=== PATIENT | female | born 1960 | race Caucasian/White ===

== ENCOUNTER → 2017-09-27 14:53 | Outpatient (CLI) | payer BC, SELFPAY ==
--- NOTE | 2017-09-27 14:54 | BI_ITS ---
MAMMOGRAPHY - BILATERAL SCREENING 3-D MATTHEW SYNTHESIS REASON FOR EXAM: Female, 57 years old. Bilateral Screening 3-D tomosynthesis PERTINENT HISTORY: No significant family history. TECHNIQUE: 2-D mammograms and 3-D Matthew synthesis of the breast (s) were performed. CAD was performed. COMPARISON: August 01, 2016. FINDINGS: The breast composition is composed of scattered fibroglandular density. Bilateral implants appear intact. There are no dense spiculated masses or suspicious microcalcifications. No architectural distortion is identified. There is no skin thickening or retraction. There has been no significant change since the prior study. BI/SCREENING MAMM (CAD), BILAT IMPRESSION: No mammographic signs of malignancy. Routine yearly mammograms recommended. ASSESSMENT CATEGORY: BIRADS Category 2: Benign. A letter regarding these results will be sent to the patient by the facility within 30 days. FOLLOW UP RECOMMENDATION: Yearly follow up mammogram recommended. (A) Approximately 10% of breast cancers are not detected by mammography. A normal mammogram should not delay biopsy of a clinically suspicious abnormality. Electronically Signed: Layton Enrique MD at 7:45 EDT , Service support ,
== END ==
PROVIDERS: Family Provider Family Medicine; PCP Family Medicine; Visit Provider Family Medicine
DX: Z12.31 Encounter for screening mammogram for malignant neoplasm of breast (principal)
CPT/HCPCS: 77063; 77067

== ENCOUNTER → 2018-01-09 08:18 | Outpatient (CLI) | payer BC, SELFPAY ==
[2018-01-09 11:16] LABS: Anion Gap 10 (5-15); BUN 17 mg/dL (7-18); BUN/Creat Ratio 17.2 RATIO (10-20); Calcium,Total 9.4 mg/dL (8.5-10.1); Chloride 101 mmol/L (98-107); Creatinine, Serum 0.99 mg/dL (0.55-1.02); EST Glomerular Filtration Rate 62 mL/min (>60); Est Glom Filt Rate - Afr Amer 75 mL/min (>60); Glucose 96 mg/dL (74-106); Potassium 4.1 mmol/L (3.5-5.1); Sodium Level 140 mmol/L (136-145)
== END ==
PROVIDERS: Family Provider Family Medicine; PCP Family Medicine; Visit Provider Nurse Practitioner Family
DX: K29.70 Gastritis, unspecified, without bleeding (principal)
CPT/HCPCS: 36415; 80048

== ENCOUNTER → 2018-04-17 08:25 | Outpatient (CLI) | payer BC, SELFPAY ==
[2018-04-17 10:33] LABS: Vitamin D,25 Hydroxy 61.1 ng/mL (29.95-100.01)
[2018-04-17 10:54] LABS: Cholesterol 223 mg/dL (200); Free T3 2.7 pg/mL (2.18-3.98); High Density Lipoprotein 74 mg/dL; T4 Free Direct 0.77 ng/dL (0.76-1.46); Thyroid Stim Hormone (TSH) 0.42 uIU/mL (0.358-3.74); Triglycerides 73 mg/dL; Very Low Density Lipoprotein 15 mg/dL (5-40)
== END ==
PROVIDERS: Family Provider Family Medicine; PCP Family Medicine; Visit Provider Family Medicine
DX: E03.9 Hypothyroidism, unspecified (principal); I10 Essential (primary) hypertension; M85.80 Other specified disorders of bone density and structure, unspecified site
CPT/HCPCS: 36415; 80061; 82306; 84439; 84443; 84481

== ENCOUNTER → 2018-04-18 08:16 | Outpatient (CLI) | payer BC, SELFPAY ==
--- NOTE | 2018-04-18 08:18 | BD_ITS ---
STUDY: DUAL ENERGY X-RAY ABSORPTIOMETRY / DXA REASON FOR EXAM: Female, 57 years old. Early menopause. Loss of height. TECHNIQUE: Bone Mineral Density (BMD) measurements of lumbar spine and bilateral hips were obtained. COMPARISON: Comparison is made with prior study dated July 16, 2014. FINDINGS: Lumbar Spine (L1-L4): g/cm2 (0.926) / T-score (-2.1) / Z-score (-1.2) Findings are suggestive of osteopenia with a moderate fracture risk. Left Femur Total: g/cm2 (0.835) / T-score (-1.4) / Z-score (-0.6) Left Femoral Neck: g/cm2 (0.771) / T-score (-1.9) / Z-score (-0.8) Right Femur Total: g/cm2 (0.847) / T-score (-1.3) / Z-score (-0.5) Right Femoral Neck: g/cm2 (0.792) / T-score (-1.8) / Z-score (-0.7) The T-Scores on the most recent prior examination were: Lumbar Spine (L1-L4): There has been worsening of bone density since the previous examination. Left Femur Total: which represents a worsening of 3.7%. Right Femur Total: which represents a worsening of 2.1%. BD/Dexa Bone Density Study IMPRESSION: The patient is considered osteopenic as outlined below according to World [place] Organization (WHO) criteria with a moderate fracture risk. There has been worsening of bone density since the previous examination. Reference Information: The T-score is the number of standard deviations above or below the standard which is normal for young adults at their peak bone mineral density. The World Health Organization (WHO) interprets the T-scores as follows: Above -1 Normal bone density Between -1 and -2.5 Osteopenia Equal to / or below -2.5 Osteoporosis As a practical clinical guideline, osteopenia may be graded as follows: Mild -1 through -1.5 Moderate -1.6 through -2.0 Severe -2.1 through -2.4 The Z-score is the number of standard deviations above or below age-matched controls. A Z-score of less than -1.5 would be considered abnormal. References: 1. NIH Osteoporosis and Related Bone Diseases http://www.osteo.org 2. International Society for Clinical Densitometry http://www.iscd.org 3. National Osteoporosis Foundation http://www.nof.org Electronically Signed: Rojelio Gonzalez MD at 13:27 EST Tel [phone], Service support ,
== END ==
PROVIDERS: Family Provider Family Medicine; PCP Family Medicine; Referring Provider Family Medicine; Visit Provider Family Medicine
DX: Z00.00 Encounter for general adult medical examination without abnormal findings (principal)
CPT/HCPCS: 77080

== ENCOUNTER → 2018-11-07 | Outpatient (CLI) | payer BC, SELFPAY ==
--- NOTE | 2018-11-07 07:25 | BI_ITS ---
MAMMOGRAPHY - BILATERAL SCREENING REASON FOR EXAM: Female, 58 years old. Routine annual screening examination. PERTINENT HISTORY: Grandmother with breast cancer. TECHNIQUE: Digital bilateral breast matthew (3D mammographic acquisition) in the CC and MLO projections. 2-D mediolateral oblique (MLO) and craniocaudad (CC) views of both breasts were obtained. CAD: Full Field Digital Mammography with Computer Added Detection was performed. COMPARISON: Comparison is made with prior study dated September 27, 2017 and August 01, 2016. FINDINGS: Breast Composition: There are scattered areas of fibroglandular density. There are no dominant masses or suspicious calcifications. Stable appearance of the bilateral breast implants. No other significant abnormalities are identified. There has been no significant change since the prior study. BI/SCREEN MAMM (CAD) W/MATTHEW BILAT IMPRESSION: Stable bilateral screening mammogram. Yearly follow-up mammogram recommended. (A) ASSESSMENT CATEGORY: BIRADS Category 2: Benign. A letter regarding these results will be sent to the patient by the facility within 30 days. Approximately 10% of breast cancers are not detected by mammography. A normal mammogram should not delay biopsy of a clinically suspicious abnormality. [id number] Electronically Signed: Rojelio Gonzalez, at 9:42 EDT , Service support ,
== END | disposition home or self-care (01) ==
PROVIDERS: Family Provider Family Medicine; PCP Family Medicine; Referring Provider Family Medicine; Visit Provider Family Medicine
DX: Z12.31 Encounter for screening mammogram for malignant neoplasm of breast (principal)
CPT/HCPCS: 77063; 77067

== ENCOUNTER → 2019-06-17 08:11 | Outpatient (CLI) | payer BC, SELFPAY ==
[2019-06-17 10:27] LABS: Hematocrit 41.6 % (37-47); Hemoglobin 13.7 g/dL (12.0-15.0); Mean Corp Hgb Conc 32.9 g/dL (32-36); Mean Corpuscular Hgb 30.2 pg (27.0-32.0); Mean Corpuscular Volume 91.8 fL (81-99); Mean Platelet Vol. 10.8 fl (6.2-12.0); Platelet Count 211 K/mm3 (150-450); RBC Distribution Width CV 12.8 % (11.6-14.6); Red Blood Count 4.53 M/mm3 (4.2-5.4); White Blood Count 4.9 K/mm3 (4.4-11.0)
[2019-06-17 10:49] LABS: Vitamin D,25 Hydroxy 54.1 ng/mL (29.95-100.01)
[2019-06-17 11:00] LABS: Anion Gap 6 (5-15); BUN 19 mg/dL (7-18); BUN/Creat Ratio 19.5 RATIO (10-20); Calcium,Total 9.5 mg/dL (8.5-10.1); Chloride 106 mmol/L (98-107); Cholesterol 232 mg/dL (200); Creatinine, Serum 0.98 mg/dL (0.55-1.02); EST Glomerular Filtration Rate 62 mL/min (>60); Est Glom Filt Rate - Afr Amer 75 mL/min (>60); Glucose 86 mg/dL (74-106); High Density Lipoprotein 87 mg/dL; Potassium 4.1 mmol/L (3.5-5.1); Sodium Level 140 mmol/L (136-145); T4 Free Direct 0.88 ng/dL (0.76-1.46); Thyroid Stim Hormone (TSH) 0.47 uIU/mL (0.358-3.74); Triglycerides 80 mg/dL; Very Low Density Lipoprotein 16 mg/dL (5-40)
== END ==
PROVIDERS: Family Provider Family Medicine; PCP Family Medicine; Referring Provider Family Medicine; Visit Provider Family Medicine
DX: I10 Essential (primary) hypertension (principal); E03.9 Hypothyroidism, unspecified; M85.80 Other specified disorders of bone density and structure, unspecified site
CPT/HCPCS: 36415; 80048; 80061; 82306; 84439; 84443; 85027

== ENCOUNTER → 2019-06-18 09:57 | Outpatient (CLI) | payer BC, SELFPAY ==
--- NOTE | 2019-06-18 10:18 | RAD_ITS ---
STUDY: X-RAY - PELVIS REASON FOR EXAM: Female, 59 years old. INFLAMMATORY POLYARTHROPATHY TECHNIQUE: One view of the pelvis was obtained. COMPARISON: None. FINDINGS: There is a non-specific bowel gas pattern. Normal visualized soft tissue structures. Normal bilateral iliac wings, sacroiliac joints and visualized sacrum. Normal visualized bilateral superior and inferior pubic rami. Normal pubic symphysis. Normal ischial tuberosities. Normal visualized right femoral head. Normal right acetabulum. Normal right hip joint. Normal visualized left femoral head. Normal left acetabulum. Normal left hip joint. RAD/Pelvis 1 or 2 Views IMPRESSION: Normal x-ray examination of the pelvis. Electronically Signed: Villa Stark MD at 22:01 EST , Service support ,
--- NOTE | 2019-06-18 10:18 | RAD_ITS ---
STUDY: X-RAY - LEFT SHOULDER REASON FOR EXAM: Female, 59 years old. INFLAMMATORY POLYARTHROPATHY TECHNIQUE: 4 view(s) of the shoulder. COMPARISON: None. FINDINGS: There is mild degenerative arthrosis of the glenohumeral articulation. There is degenerative arthrosis of the acromioclavicular joint without inferior osseous spur formation. Normal acromion. Normal humeral head and visualized proximal humerus. The soft tissue structures are unremarkable. There is no demonstrated fracture. Normal visualized pulmonary apex. RAD/Shoulder min 2 Views IMPRESSION: Degenerative changes. No acute fracture, dislocation, or evidence for inflammatory arthropathy. Electronically Signed: Villa Stark MD at 22:01 EST , Service support ,
--- NOTE | 2019-06-18 10:18 | RAD_ITS ---
STUDY: X-RAY - RIGHT HAND REASON FOR EXAM: Female, 59 years old. INFLAMMATORY POLYARTHROPATHY TECHNIQUE: 3 view(s) of the hand. COMPARISON: None. FINDINGS: Normal radiocarpal articulation. Normal distal radioulnar joint. Normal visualized carpal bones. Normal carpal articulations Normal carpometacarpal articulation of the thumb. Normal second through fifth carpometacarpal joints. Normal metacarpi. Normal metacarpophalangeal joint of the thumb. Normal interphalangeal joint of the thumb. Normal proximal and distal phalanges of the thumb. Normal metacarpophalangeal joints of the second through fifth fingers. Normal proximal and distal interphalangeal joints of the second through fifth fingers. Normal phalanges of the second through fifth fingers. The soft tissue structures are unremarkable. RAD/Hand Min 3 Views IMPRESSION: Normal x-ray examination of the hand. Electronically Signed: Villa Stark MD at 22:04 EST , Service support ,
--- NOTE | 2019-06-18 10:35 | RAD_ITS ---
STUDY: X-RAY - LEFT HAND REASON FOR EXAM: Female, 59 years old. INFLAMMATORY POLYARTHROPATHY TECHNIQUE: 3 view(s) of the hand. COMPARISON: None. FINDINGS: Normal radiocarpal articulation. Normal distal radioulnar joint. Normal visualized carpal bones. 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 Normal second through fifth carpometacarpal joints. Normal metacarpi. Normal metacarpophalangeal joint of the thumb. Normal interphalangeal joint of the thumb. Normal proximal and distal phalanges of the thumb. Normal metacarpophalangeal joints of the second through fifth fingers. Normal proximal and distal interphalangeal joints of the second through fifth fingers. Normal phalanges of the second through fifth fingers. The soft tissue structures are unremarkable. RAD/Hand Min 3 Views IMPRESSION: No acute fracture or dislocation. Severe degenerative changes at the base of the thumb. No evidence for inflammatory arthropathy. Electronically Signed: Villa Stark MD at 22:04 EST , Service support ,
[2019-06-18 12:21] LABS: Erythrocyte Sedimentation Rate 2 mm/hr (0-30)
[2019-06-18 12:25] LABS: Absolute Lymphocyte Count 1.64 X10^3/uL (0.83-4.51); Absolute Neutrophil Count 2.6 X10^3/uL (2.0-7.7); Basophil# 0.03 X10^3/uL; Basophil% 0.6 % (0-1); Eosinophils% 2.1 % (0-5); Hematocrit 40.6 % (37-47); Hemoglobin 13.2 g/dL (12.0-15.0); Lymphocyte # 1.64 X10^3/ul (4.0); Lymphocyte % 34.8 % (19-41); Mean Corp Hgb Conc 32.5 g/dL (32-36); Mean Corpuscular Hgb 29.6 pg (27.0-32.0); Mean Platelet Vol. 10.8 fl (6.2-12.0); Monocyte# 0.33 X10^3/uL; NRBC Flagged by Analyzer 0 % (0-5); Neutrophil % 55.3 % (47-70); Platelet Count 196 K/mm3 (150-450); RBC Distribution Width CV 12.8 % (11.6-14.6); RBC Distribution Width SD 42.8 fl (35.1-43.9); Red Blood Count 4.46 M/mm3 (4.2-5.4); White Blood Count 4.7 K/mm3 (4.4-11.0)
[2019-06-18 12:36] LABS: ALB/GLOB Ratio 1.1 RATIO (0.9-2.4); AST(SGOT) 26 U/L (15-37); Alanine Aminotransfer ALT/SGPT 28 U/L (13-56); Alkaline Phosphatase 52 U/L (45-117); Anion Gap 2 (5-15); BUN 18 mg/dL (7-18); BUN/Creat Ratio 18.4 RATIO (10-20); CRP < 2.90 mg/L (0.0-3.0); Chloride 105 mmol/L (98-107); Creatinine, Serum 0.98 mg/dL (0.55-1.02); EST Glomerular Filtration Rate 62 mL/min (>60); Est Glom Filt Rate - Afr Amer 75 mL/min (>60); Globulin 3.5 g/dL (2.2-4.2); Glucose 90 mg/dL (74-106); Potassium 3.9 mmol/L (3.5-5.1); Protein, Total 7.5 g/dL (6.4-8.2); Rheumatoid Factor < 10.0 IU/mL (<15); Sodium Level 139 mmol/L (136-145)
[2019-06-18 13:21] LABS: Hepatitis B Surface Antibody Reactive; Hepatitis B Surface Antigen Non-Reactive (Nonreactive); Hepatitis C Antibody Non-Reactive (Nonreactive)
[2019-06-19 12:07] LABS: SJOGREN'S Anti-SS-A test < 0.2 AI (0.0-0.9); SJOGREN'S Anti-SS-B test < 0.2 AI (0.0-0.9)
[2019-06-19 13:11] LABS: ANTINUCLEAR ANTIBODIES DIRECT Negative (Negative)
[2019-06-20 13:39] LABS: CCP IgG Antibodies 7 units (0-19)
== END ==
PROVIDERS: Family Provider Family Medicine; PCP Family Medicine; Referring Provider Internal Medicine Rheumatology; Visit Provider Internal Medicine Rheumatology
DX: M06.4 Inflammatory polyarthropathy (principal); M35.00 Sjogren syndrome, unspecified; M18.0 Bilateral primary osteoarthritis of first carpometacarpal joints; M17.12 Unilateral primary osteoarthritis, left knee; M50.30 Other cervical disc degeneration, unspecified cervical region; M47.897 Other spondylosis, lumbosacral region; J30.9 Allergic rhinitis, unspecified; I10 Essential (primary) hypertension; E03.9 Hypothyroidism, unspecified; F32.9 Major depressive disorder, single episode, unspecified
CPT/HCPCS: 36415; 72170; 73030; 73130; 80053; 85025; 85652; 86038; 86140; 86200; 86235; 86431; 86706; 86803; 87340

== ENCOUNTER → 2019-09-12 | Outpatient (CLI) | payer BC, SELFPAY | END | disposition home or self-care (01) | LOC: LABSPEC 09:43 | PROVIDERS: PCP Family Medicine; Visit Provider Family Medicine | DX: B34.9 Viral infection, unspecified (principal) | CPT/HCPCS: 87635; U0004 ==

== ENCOUNTER → 2019-10-22 09:39 | Outpatient (CLI) | payer BC, SELFPAY ==
[2019-10-22 12:48] LABS: ALB/GLOB Ratio 1.4 RATIO (0.9-2.4); AST(SGOT) 33 U/L (15-37); Alanine Aminotransfer ALT/SGPT 33 U/L (13-56); Albumin, Serum 4.2 g/dL (3.2-5.0); Alkaline Phosphatase 51 U/L (45-117); Anion Gap 6 (5-15); BUN 23 mg/dL (7-18); BUN/Creat Ratio 21.1 RATIO (10-20); Calcium,Total 9.8 mg/dL (8.5-10.1); Chloride 105 mmol/L (98-107); Creatinine, Serum 1.09 mg/dL (0.55-1.02); EST Glomerular Filtration Rate 55 mL/min (>60); Est Glom Filt Rate - Afr Amer 66 mL/min (>60); Globulin 3.1 g/dL (2.2-4.2); Glucose 137 mg/dL (74-106); Potassium 5.1 mmol/L (3.5-5.1); Protein, Total 7.3 g/dL (6.4-8.2); Sodium Level 141 mmol/L (136-145)
[2019-10-22 12:50] LABS: Absolute Lymphocyte Count 1.45 X10^3/uL (0.83-4.51); Absolute Neutrophil Count 3.8 X10^3/uL (2.0-7.7); Basophil# 0.03 X10^3/uL; Basophil% 0.5 % (0-1); Eosinophil# 0.09 X10^3/uL; Eosinophils% 1.6 % (0-5); Hematocrit 41.7 % (37-47); Hemoglobin 13.7 g/dL (12.0-15.0); Lymphocyte # 1.45 X10^3/ul (4.0); Lymphocyte % 25.5 % (19-41); Mean Corp Hgb Conc 32.9 g/dL (32-36); Mean Corpuscular Hgb 30.6 pg (27.0-32.0); Mean Corpuscular Volume 93.1 fL (81-99); Monocyte# 0.35 X10^3/uL; Monocyte% 6.2 % (0-10); NRBC Flagged by Analyzer 0 % (0-5); Neutrophil # 3.76 X10^3/uL (2.7-7.7); Platelet Count 205 K/mm3 (150-450); RBC Distribution Width CV 12.9 % (11.6-14.6); RBC Distribution Width SD 43.8 fl (35.1-43.9); Red Blood Count 4.48 M/mm3 (4.2-5.4); White Blood Count 5.7 K/mm3 (4.4-11.0)
== END ==
PROVIDERS: PCP Family Medicine; Visit Provider Internal Medicine Rheumatology
DX: M06.4 Inflammatory polyarthropathy (principal); Z79.899 Other long term (current) drug therapy; M35.00 Sjogren syndrome, unspecified; M18.0 Bilateral primary osteoarthritis of first carpometacarpal joints; M17.12 Unilateral primary osteoarthritis, left knee; M50.30 Other cervical disc degeneration, unspecified cervical region; M47.897 Other spondylosis, lumbosacral region
CPT/HCPCS: 36415; 80053; 85025

== ENCOUNTER → 2019-12-13 14:35 | Outpatient (CLI) | payer BC, SELFPAY ==
--- NOTE | 2019-12-13 14:37 | BI_ITS ---
MAMMOGRAPHY - BILATERAL SCREENING REASON FOR EXAM: Female, 59 years old. Routine annual screening examination. PERTINENT HISTORY: Grandmother with breast cancer. Aunt with breast cancer. Bilateral breast implants. TECHNIQUE: Digital bilateral breast matthew (3D mammographic acquisition) in the CC and MLO projections. 2-D mediolateral oblique (MLO) and craniocaudad (CC) views of both breasts were obtained. CAD: Full Field Digital Mammography with Computer Added Detection was performed. COMPARISON: Comparison is made with prior study dated November 07, 2018 and September 27, 2017. FINDINGS: Breast Composition: There are scattered areas of fibroglandular density. There are no dominant masses or suspicious calcifications. Stable appearance of the bilateral breast implants. No other significant abnormalities are identified. There has been no significant change since the prior study. BI/SCREEN MAMM (CAD) W/MATTHEW BILAT IMPRESSION: Stable bilateral screening mammogram. Yearly follow-up mammogram recommended. (A) ASSESSMENT CATEGORY: BIRADS Category 2: Benign. A letter regarding these results will be sent to the patient by the facility within 30 days. Approximately 10% of breast cancers are not detected by mammography. A normal mammogram should not delay biopsy of a clinically suspicious abnormality. [id number] Electronically Signed: Rojelio Gonzalez, at 8:58 EDT , Service support ,
== END ==
PROVIDERS: PCP Family Medicine; Visit Provider Family Medicine
DX: Z12.31 Encounter for screening mammogram for malignant neoplasm of breast (principal)
CPT/HCPCS: 77063; 77067

== ENCOUNTER → 2020-01-13 09:26 | Outpatient (CLI) | payer BC, SELFPAY ==
[2020-01-13 12:54] LABS: Absolute Lymphocyte Count 1.53 X10^3/uL (0.83-4.51); Absolute Neutrophil Count 2.5 X10^3/uL (2.0-7.7); Basophil# 0.04 X10^3/uL; Basophil% 0.9 % (0-1); Eosinophil# 0.07 X10^3/uL; Eosinophils% 1.6 % (0-5); Hematocrit 38.6 % (37-47); Hemoglobin 12.6 g/dL (12.0-15.0); Lymphocyte # 1.53 X10^3/ul (4.0); Lymphocyte % 34.5 % (19-41); Mean Corp Hgb Conc 32.6 g/dL (32-36); Mean Corpuscular Hgb 31.5 pg (27.0-32.0); Mean Corpuscular Volume 96.5 fL (81-99); Mean Platelet Vol. 11.2 fl (6.2-12.0); Monocyte% 6.8 % (0-10); NRBC Flagged by Analyzer 0 % (0-5); Neutrophil # 2.49 X10^3/uL (2.7-7.7); Platelet Count 234 K/mm3 (150-450); RBC Distribution Width CV 14.3 % (11.6-14.6); RBC Distribution Width SD 50.3 fl (35.1-43.9); White Blood Count 4.4 K/mm3 (4.4-11.0)
[2020-01-13 12:58] LABS: ALB/GLOB Ratio 1.3 RATIO (0.9-2.4); AST(SGOT) 27 U/L (15-37); Alanine Aminotransfer ALT/SGPT 29 U/L (13-56); Alkaline Phosphatase 39 U/L (45-117); Anion Gap 6 (5-15); BUN 13 mg/dL (7-18); BUN/Creat Ratio 16.1 RATIO (10-20); Calcium,Total 8.6 mg/dL (8.5-10.1); Chloride 100 mmol/L (98-107); Creatinine, Serum 0.81 mg/dL (0.55-1.02); EST Glomerular Filtration Rate 77 mL/min (>60); Est Glom Filt Rate - Afr Amer 93 mL/min (>60); Globulin 3.1 g/dL (2.2-4.2); Glucose 84 mg/dL (74-106); Protein, Total 7.1 g/dL (6.4-8.2); Sodium Level 137 mmol/L (136-145)
== END ==
PROVIDERS: PCP Family Medicine; Visit Provider Family Medicine
DX: M06.4 Inflammatory polyarthropathy (principal); Z79.899 Other long term (current) drug therapy; M35.00 Sjogren syndrome, unspecified; M18.0 Bilateral primary osteoarthritis of first carpometacarpal joints; M17.12 Unilateral primary osteoarthritis, left knee; M50.30 Other cervical disc degeneration, unspecified cervical region; M47.897 Other spondylosis, lumbosacral region
CPT/HCPCS: 36415; 80053; 85025

== ENCOUNTER → 2020-04-20 12:02 | Outpatient (CLI) | payer BC, SELFPAY | PROVIDERS: PCP Family Medicine; Visit Provider Family Medicine | DX: U07.1 COVID-19 (principal) | CPT/HCPCS: 87635; U0003 ==

== ENCOUNTER → 2020-04-22 | Outpatient (CLI) | payer BC, SELFPAY | END | disposition home or self-care (01) | LOC: LABSPEC 11:10 | PROVIDERS: PCP Family Medicine; Visit Provider Family Medicine | DX: Z20.828 Contact with and (suspected) exposure to other viral communicable diseases (principal) | CPT/HCPCS: 87635; U0003 ==

== ENCOUNTER → 2020-04-27 13:07 | Outpatient (CLI) | payer BC, SELFPAY ==
--- NOTE | 2020-04-27 13:15 | RAD_ITS ---
EXAM DESCRIPTION: PA and lateral chest CLINICAL HISTORY: 59 years Female, COVID 19 positive Nov 2, now has tested neg twice but has dyspnea on exertion COMPARISON: None The thorax is intact. . The heart and mediastinum appear to be within normal limits The lungs appear to be well aerated without evidence of pneumonic consolidation or pleural effusion. RAD/Chest PA and Lateral IMPRESSION: Normal chest. Electronically Signed: Joaquin Samantha, at 15:13 EST Tel , Service support ,
== END ==
PROVIDERS: PCP Family Medicine; Referring Provider Family Medicine; Visit Provider Family Medicine
DX: R06.00 Dyspnea, unspecified (principal)
CPT/HCPCS: 71046

== ENCOUNTER → 2020-06-01 08:13 | Outpatient (CLI) | payer BC, SELFPAY ==
[2020-06-01 10:06] LABS: Absolute Lymphocyte Count 1.57 X10^3/uL (0.83-4.51); Absolute Neutrophil Count 4.1 X10^3/uL (2.0-7.7); Basophil# 0.02 X10^3/uL; Basophil% 0.3 % (0-1); Eosinophil# 0.05 X10^3/uL; Eosinophils% 0.8 % (0-5); Hematocrit 41.3 % (37-47); Hemoglobin 13.7 g/dL (12.0-15.0); Lymphocyte # 1.57 X10^3/ul (4.0); Lymphocyte % 25.4 % (19-41); Mean Corp Hgb Conc 33.2 g/dL (32-36); Mean Corpuscular Hgb 32.2 pg (27.0-32.0); Mean Corpuscular Volume 96.9 fL (81-99); Mean Platelet Vol. 10.7 fl (6.2-12.0); Monocyte# 0.44 X10^3/uL; Monocyte% 7.1 % (0-10); NRBC Flagged by Analyzer 0 % (0-5); Neutrophil % 66.2 % (47-70); Platelet Count 263 K/mm3 (150-450); RBC Distribution Width CV 13.2 % (11.6-14.6); RBC Distribution Width SD 47.2 fl (35.1-43.9); Red Blood Count 4.26 M/mm3 (4.2-5.4); White Blood Count 6.2 K/mm3 (4.4-11.0)
[2020-06-01 10:33] LABS: ALB/GLOB Ratio 1.4 RATIO (0.9-2.4); AST(SGOT) 44 U/L (15-37); Alanine Aminotransfer ALT/SGPT 56 U/L (13-56); Albumin, Serum 4.4 g/dL (3.2-5.0); Alkaline Phosphatase 52 U/L (45-117); Anion Gap 7 (5-15); BUN 15 mg/dL (7-18); BUN/Creat Ratio 14.6 RATIO (10-20); Chloride 102 mmol/L (98-107); Creatinine, Serum 1.03 mg/dL (0.55-1.02); EST Glomerular Filtration Rate 58 mL/min (>60); Est Glom Filt Rate - Afr Amer 71 mL/min (>60); Globulin 3.2 g/dL (2.2-4.2); Glucose 95 mg/dL (74-106); Potassium 3.5 mmol/L (3.5-5.1); Protein, Total 7.6 g/dL (6.4-8.2); Sodium Level 139 mmol/L (136-145)
== END ==
PROVIDERS: Internal Medicine Rheumatology; PCP Family Medicine; Visit Provider Nurse Practitioner Adult Health
DX: M06.4 Inflammatory polyarthropathy (principal); Z79.899 Other long term (current) drug therapy; M35.00 Sjogren syndrome, unspecified; M18.0 Bilateral primary osteoarthritis of first carpometacarpal joints; M17.12 Unilateral primary osteoarthritis, left knee; M50.30 Other cervical disc degeneration, unspecified cervical region; M47.897 Other spondylosis, lumbosacral region; I10 Essential (primary) hypertension; E03.9 Hypothyroidism, unspecified; F32.9 Major depressive disorder, single episode, unspecified; J30.9 Allergic rhinitis, unspecified
CPT/HCPCS: 36415; 80053; 85025

== ENCOUNTER → 2020-06-03 13:46 | Outpatient (CLI) | payer BC, SELFPAY ==
[2020-06-06 16:07] LABS: QNTFERON TB Mitogen Value > 10.00 IU/mL (.); QNTFERON TB1+ Ag Value 0.25 IU/mL (.)
[2020-06-06 19:58] LABS: QNTIFERON TB Positive Criteria Negative (Negative)
== END ==
PROVIDERS: PCP Family Medicine; Visit Provider Internal Medicine Rheumatology
DX: M06.09 Rheumatoid arthritis without rheumatoid factor, multiple sites (principal); Z79.899 Other long term (current) drug therapy; M35.00 Sjogren syndrome, unspecified; M18.0 Bilateral primary osteoarthritis of first carpometacarpal joints; M17.12 Unilateral primary osteoarthritis, left knee; M50.30 Other cervical disc degeneration, unspecified cervical region; M47.897 Other spondylosis, lumbosacral region; I10 Essential (primary) hypertension; E03.9 Hypothyroidism, unspecified; F32.9 Major depressive disorder, single episode, unspecified; J30.9 Allergic rhinitis, unspecified
CPT/HCPCS: 36415; 86480

== ENCOUNTER → 2020-06-12 13:01 | Outpatient (CLI) | payer BC, SELFPAY ==
--- NOTE | 2020-06-12 13:08 | ECHOCS_ITS ---
Reason For Study: HTN Procedure This was a 2D Doppler, Color Flow transthoracic echocardiogram. The study was technically difficult. Contrast injection was performed. Exam performed in department. Left Ventricle Normal LV size. Left ventricular systolic function is normal. The estimated ejection fraction is 60 %. No evidence for diastolic dysfunction. No regional wall motion abnormalities noted. Right Ventricle Normal RV size. Normal systolic function. Atria Normal left atrium. Normal right atrium. No doppler evidence for ASD. Mitral Valve There is no mitral annular calcification. Normal mitral valve. Mild (1+) mitral valve insufficiency. Tricuspid Valve Normal tricuspid valve. Mild tricuspid valve insufficiency. Right ventricular systolic pressure estimated to be 23 mmHg. Aortic Valve The aortic valve is not well visualized. Pulmonic Valve The pulmonic valve is not well visualized. Great Vessels Normal sized aortic root. Pericardium/Pleural No pericardial effusion. Medication 22 gauge I.V. with prn adaptor inserted into right arm. Diluted definity 5.0ml given slow IV push to enhance endocardial definition. MMode/2D Measurements & Calculations LVIDd: 3.6 cm IVSd: 0.91 cm Ao root diam: 3.6 cm LVIDs: 2.4 cm LVPWd: 0.91 cm RVDd: 3.0 cm FS: 33.1 % LAV(MOD-bp): 27.2 ml LVAd ap4: 22.5 cm2 SV(MOD-sp4): 32.4 ml LAV(MOD-bp) Indexed: 16.2 ml/m2 EDV(MOD-sp4): 60.0 ml LAV(MOD-sp2): 16.5 ml EDV(sp4-el): 62.1 ml LAV(MOD-sp4): 34.3 ml LVAs ap4: 14.4 cm2 ESV(MOD-sp4): 27.6 ml ESV(sp4-el): 29.3 ml EF(MOD-sp4): 54.0 % EF(sp4-el): 52.8 % SV(sp4-el): 32.8 ml LA A4 area: 14.1 cm2 LA dimension(2D): 2.6 cm RA A4 area: 8.5 cm2 Time Measurements MV dec time: 0.37 sec Doppler Measurements & Calculations MV E max dayron: 39.1 cm/sec Lat Peak E' Dayron: 8.0 cm/sec Med Peak E' Dayron: 4.9 cm/sec MV A max dayron: 54.2 cm/sec E/E' lat: 4.9 E/E' med: 8.0 MV E/A: 0.72 Ao V2 max: 88.7 cm/sec LV V1 max: 72.8 cm/sec PA V2 max: 68.3 cm/sec Ao max P.2 mmHg LV V1 max P.1 mmHg TR max dayron: 225.0 cm/sec TR max P.2 mmHg Interpretation Summary The study was technically difficult. Contrast injection was performed. Left ventricular systolic function is normal. The estimated ejection fraction is 60 %. Mild (1+) mitral valve insufficiency. Mild tricuspid valve insufficiency. Right ventricular systolic pressure estimated to be 23 mmHg. No evidence for diastolic dysfunction. Ordering Physician: Nasim Barrera Referring Physician: Nasim Barrera Performed By: Nitza Ward, AMISHA, RVT
== END ==
PROVIDERS: PCP Family Medicine; Referring Provider Family Medicine; Visit Provider Family Medicine
DX: I10 Essential (primary) hypertension (principal)
CPT/HCPCS: 93306; Q9957; A4216; C8929

== ENCOUNTER → 2020-09-15 08:20 | Outpatient (CLI) | payer OTHER, SELFPAY ==
[2020-09-15 08:37] LABS: Absolute Lymphocyte Count 1.53 X10^3/uL (0.83-4.51); Absolute Neutrophil Count 2.9 X10^3/uL (2.0-7.7); Basophil# 0.04 X10^3/uL; Basophil% 0.8 % (0-1); Eosinophil# 0.11 X10^3/uL; Eosinophils% 2.3 % (0-5); Hematocrit 40.4 % (37-47); Hemoglobin 13.5 g/dL (12.0-15.0); Lymphocyte # 1.53 X10^3/ul (4.0); Lymphocyte % 31.6 % (19-41); Mean Corp Hgb Conc 33.4 g/dL (32-36); Mean Corpuscular Hgb 33.3 pg (27.0-32.0); Mean Corpuscular Volume 99.5 fL (81-99); Mean Platelet Vol. 10.2 fl (6.2-12.0); Monocyte# 0.27 X10^3/uL; Monocyte% 5.6 % (0-10); NRBC Flagged by Analyzer 0 % (0-5); Neutrophil # 2.88 X10^3/uL (2.7-7.7); Neutrophil % 59.5 % (47-70); Platelet Count 216 K/mm3 (150-450); RBC Distribution Width CV 12.9 % (11.6-14.6); RBC Distribution Width SD 46.9 fl (35.1-43.9); Red Blood Count 4.06 M/mm3 (4.2-5.4); White Blood Count 4.8 K/mm3 (4.4-11.0)
[2020-09-15 09:06] LABS: ALB/GLOB Ratio 1.3 RATIO (0.9-2.4); AST(SGOT) 31 U/L (15-37); Alanine Aminotransfer ALT/SGPT 45 U/L (13-56); Albumin, Serum 4.2 g/dL (3.2-5.0); Alkaline Phosphatase 54 U/L (45-117); Anion Gap 4 (5-15); BUN 16 mg/dL (7-18); BUN/Creat Ratio 16.7 RATIO (10-20); Calcium,Total 9.4 mg/dL (8.5-10.1); Chloride 103 mmol/L (98-107); Creatinine, Serum 0.96 mg/dL (0.55-1.02); EST Glomerular Filtration Rate 63 mL/min (>60); Est Glom Filt Rate - Afr Amer 77 mL/min (>60); Globulin 3.2 g/dL (2.2-4.2); Glucose 88 mg/dL (74-106); Potassium 4.1 mmol/L (3.5-5.1); Protein, Total 7.4 g/dL (6.4-8.2); Sodium Level 137 mmol/L (136-145)
[2020-09-15 09:24] LABS: T4 Free Direct 0.86 ng/dL (0.76-1.46); Thyroid Stim Hormone (TSH) 0.79 uIU/mL (0.358-3.74)
== END ==
PROVIDERS: PCP Family Medicine; Referring Provider Internal Medicine Rheumatology; Visit Provider Internal Medicine Rheumatology
DX: M06.09 Rheumatoid arthritis without rheumatoid factor, multiple sites (principal); Z79.899 Other long term (current) drug therapy; M35.00 Sjogren syndrome, unspecified; M81.0 Age-related osteoporosis without current pathological fracture; M17.12 Unilateral primary osteoarthritis, left knee; M50.30 Other cervical disc degeneration, unspecified cervical region; M47.897 Other spondylosis, lumbosacral region; I10 Essential (primary) hypertension; E03.9 Hypothyroidism, unspecified; F32.9 Major depressive disorder, single episode, unspecified; J30.9 Allergic rhinitis, unspecified; M06.4 Inflammatory polyarthropathy
CPT/HCPCS: 36415; 80053; 82306; 84439; 84443; 85025

== ENCOUNTER → 2020-11-24 16:39 | Outpatient (CLI) | payer OTHER, SELFPAY ==
[2020-11-24 17:25] LABS: Absolute Lymphocyte Count 2.05 X10^3/uL (0.83-4.51); Absolute Neutrophil Count 4.7 X10^3/uL (2.0-7.7); Basophil# 0.03 X10^3/uL; Basophil% 0.4 % (0-1); Eosinophil# 0.08 X10^3/uL; Eosinophils% 1.1 % (0-5); Hematocrit 38.8 % (37-47); Hemoglobin 13.5 g/dL (12.0-15.0); Lymphocyte # 2.05 X10^3/ul (0.83-4.51); Lymphocyte % 27.9 % (19-41); Mean Corp Hgb Conc 34.8 g/dL (32-36); Mean Corpuscular Hgb 34.1 pg (27.0-32.0); Mean Platelet Vol. 10.7 fl (6.2-12.0); Monocyte# 0.48 X10^3/uL; Monocyte% 6.5 % (0-10); NRBC Flagged by Analyzer 0 % (0-5); Neutrophil # 4.69 X10^3/uL (2.7-7.7); Neutrophil % 63.8 % (47-70); Platelet Count 219 K/mm3 (150-450); RBC Distribution Width CV 12.8 % (11.6-14.6); RBC Distribution Width SD 45.4 fl (35.1-43.9); Red Blood Count 3.96 M/mm3 (4.2-5.4); White Blood Count 7.4 K/mm3 (4.4-11.0)
[2020-11-24 18:04] LABS: ALB/GLOB Ratio 1.3 RATIO (0.9-2.4); AST(SGOT) 28 U/L (15-37); Alanine Aminotransfer ALT/SGPT 38 U/L (13-56); Albumin, Serum 4.2 g/dL (3.2-5.0); Alkaline Phosphatase 60 U/L (45-117); Anion Gap 4 (5-15); BUN 16 mg/dL (7-18); BUN/Creat Ratio 16.4 RATIO (10-20); Calcium,Total 9.3 mg/dL (8.5-10.1); Chloride 103 mmol/L (98-107); Creatinine, Serum 0.98 mg/dL (0.55-1.02); EST Glomerular Filtration Rate 62 mL/min (>60); Est Glom Filt Rate - Afr Amer 75 mL/min (>60); Globulin 3.2 g/dL (2.2-4.2); Glucose 87 mg/dL (74-106); Potassium 3.9 mmol/L (3.5-5.1); Protein, Total 7.4 g/dL (6.4-8.2); Sodium Level 139 mmol/L (136-145)
[2020-11-27 20:08] LABS: Red Blood Cell Count Test/G6PD 4.03 x10E6/uL (3.77-5.28)
[2020-11-28 10:02] LABS: G6PD Quant Test 357 (127-427)
== END ==
PROVIDERS: PCP Family Medicine; Referring Provider Internal Medicine Rheumatology; Visit Provider Internal Medicine Rheumatology
DX: M06.09 Rheumatoid arthritis without rheumatoid factor, multiple sites (principal); Z79.899 Other long term (current) drug therapy; M35.00 Sjogren syndrome, unspecified; M18.0 Bilateral primary osteoarthritis of first carpometacarpal joints; M17.12 Unilateral primary osteoarthritis, left knee; M50.30 Other cervical disc degeneration, unspecified cervical region
CPT/HCPCS: 36415; 80053; 82955; 85025

== ENCOUNTER → 2020-12-04 15:02 | Outpatient (CLI) | payer OTHER, SELFPAY ==
[2020-12-04 17:45] LABS: Anion Gap 5 (5-15); BUN 15 mg/dL (7-18); BUN/Creat Ratio 17.8 RATIO (10-20); Calcium,Total 9.5 mg/dL (8.5-10.1); Chloride 106 mmol/L (98-107); Creatinine, Serum 0.84 mg/dL (0.55-1.02); EST Glomerular Filtration Rate 73 mL/min (>60); Est Glom Filt Rate - Afr Amer 89 mL/min (>60); Glucose 83 mg/dL (74-106); Potassium 4.5 mmol/L (3.5-5.1); Sodium Level 141 mmol/L (136-145)
== END ==
PROVIDERS: PCP Family Medicine; Referring Provider Nurse Practitioner Family; Visit Provider Nurse Practitioner Family
DX: I10 Essential (primary) hypertension (principal)
CPT/HCPCS: 36415; 80048

== ENCOUNTER → 2020-12-14 16:46 | Outpatient (CLI) | payer OTHER, SELFPAY ==
[2020-12-14 17:38] LABS: Absolute Lymphocyte Count 2.19 X10^3/uL (0.83-4.51); Absolute Neutrophil Count 2.8 X10^3/uL (2.0-7.7); Basophil# 0.02 X10^3/uL; Basophil% 0.4 % (0-1); Eosinophil# 0.07 X10^3/uL; Eosinophils% 1.3 % (0-5); Hematocrit 38.7 % (37-47); Hemoglobin 12.9 g/dL (12.0-15.0); Lymphocyte # 2.19 X10^3/ul (0.83-4.51); Lymphocyte % 40.2 % (19-41); Mean Corp Hgb Conc 33.3 g/dL (32-36); Mean Platelet Vol. 10.5 fl (6.2-12.0); Monocyte# 0.38 X10^3/uL; NRBC Flagged by Analyzer 0 % (0-5); Neutrophil # 2.78 X10^3/uL (2.7-7.7); Neutrophil % 50.9 % (47-70); Platelet Count 224 K/mm3 (150-450); RBC Distribution Width CV 12.7 % (11.6-14.6); RBC Distribution Width SD 45.7 fl (35.1-43.9); Red Blood Count 3.91 M/mm3 (4.2-5.4); White Blood Count 5.5 K/mm3 (4.4-11.0)
[2020-12-14 18:31] LABS: ALB/GLOB Ratio 1.4 RATIO (0.9-2.4); AST(SGOT) 26 U/L (15-37); Alanine Aminotransfer ALT/SGPT 35 U/L (13-56); Albumin, Serum 4.2 g/dL (3.2-5.0); Alkaline Phosphatase 48 U/L (45-117); Anion Gap 4 (5-15); BUN 18 mg/dL (7-18); BUN/Creat Ratio 21.7 RATIO (10-20); Calcium,Total 9.4 mg/dL (8.5-10.1); Chloride 105 mmol/L (98-107); Creatinine, Serum 0.83 mg/dL (0.55-1.02); EST Glomerular Filtration Rate 75 mL/min (>60); Est Glom Filt Rate - Afr Amer 90 mL/min (>60); Globulin 3.1 g/dL (2.2-4.2); Glucose 82 mg/dL (74-106); Potassium 4.1 mmol/L (3.5-5.1); Protein, Total 7.3 g/dL (6.4-8.2); Sodium Level 139 mmol/L (136-145)
== END ==
PROVIDERS: PCP Family Medicine; Referring Provider Internal Medicine Rheumatology; Visit Provider Internal Medicine Rheumatology
DX: M06.09 Rheumatoid arthritis without rheumatoid factor, multiple sites (principal); Z79.899 Other long term (current) drug therapy; M35.00 Sjogren syndrome, unspecified; M18.0 Bilateral primary osteoarthritis of first carpometacarpal joints; M17.12 Unilateral primary osteoarthritis, left knee
CPT/HCPCS: 36415; 80053; 85025

== ENCOUNTER → 2021-01-14 12:27 | Outpatient (CLI) | payer OTHER, SELFPAY ==
[2017-06-28 12:02] VITALS: BMI 22.6
--- NOTE | 2021-01-14 12:59 | BI_ITS ---
MAMMOGRAPHY - BILATERAL SCREENING REASON FOR EXAM: Female, 60 years old. Routine annual screening examination. PERTINENT HISTORY: Grandmother with breast cancer. Aunt with breast cancer. TECHNIQUE: Digital bilateral breast reji (3D mammographic acquisition) in the CC and MLO projections. 2-D mediolateral oblique (MLO) and craniocaudad (CC) views of both breasts were obtained. CAD: Full Field Digital Mammography with Computer Added Detection was performed. COMPARISON: Comparison is made with prior study dated 12/13/2019 and 11/07/2018. FINDINGS: Breast Composition: There are scattered areas of fibroglandular density. There are no dominant masses or suspicious calcifications. Stable appearance of the bilateral breast implants. No other significant abnormalities are identified. There has been no significant change since the prior study. BI/SCREENING MAMM (CAD), BILAT IMPRESSION: Stable bilateral screening mammogram. Yearly follow-up mammogram recommended. (A) ASSESSMENT CATEGORY: BIRADS Category 2: Benign. A letter regarding these results will be sent to the patient by the facility within 30 days. Approximately 10% of breast cancers are not detected by mammography. A normal mammogram should not delay biopsy of a clinically suspicious abnormality. [id number] Electronically Signed: Rojelio Gonzalez MD at 8:45 EDT , Service support ,
--- NOTE | 2021-01-14 13:00 | BD_ITS ---
STUDY: DUAL ENERGY X-RAY ABSORPTIOMETRY / DXA REASON FOR EXAM: Female, 60 years old. 733.90OsteopeniaBONE DENSITY REASON FOR EXAM TECHNIQUE: Bone Mineral Density (BMD) measurements of lumbar spine and bilateral hips were obtained. COMPARISON: Comparison is made with prior study dated 04/18/2018. FINDINGS: Lumbar Spine (L1-L4): g/cm2 (0.847) / T-score (-1.8) / Z-score (-0.4) Findings are suggestive of osteopenia with a moderate fracture risk. Left Femur Total: g/cm2 (0.785) / T-score (-1.3) / Z-score (-0.4) Left Femoral Neck: g/cm2 (0.637) / T-score (-1.9) / Z-score (-0.6) Right Femur Total: g/cm2 (0.799) / T-score (-1.2) / Z-score (-0.2) Right Femoral Neck: g/cm2 (0.681) / T-score (-1.5) / Z-score (-0.3) The T-Scores on the most recent prior examination were: Lumbar Spine (L1-L4): There has been improvement of bone density since the previous examination. Left Femur Total: which represents an improvement of 1.5%. Right Femur Total: which represents an improvement of 1.8%. BD/Dexa Bone Density Study IMPRESSION: The patient is considered osteopenic as outlined below according to World [place] Organization (WHO) criteria with a moderate fracture risk. There has been improvement of bone density since the previous examination. Reference Information: The T-score is the number of standard deviations above or below the standard which is normal for young adults at their peak bone mineral density. The World Health Organization (WHO) interprets the T-scores as follows: Above -1 Normal bone density Between -1 and -2.5 Osteopenia Equal to / or below -2.5 Osteoporosis As a practical clinical guideline, osteopenia may be graded as follows: Mild -1 through -1.5 Moderate -1.6 through -2.0 Severe -2.1 through -2.4 The Z-score is the number of standard deviations above or below age-matched controls. A Z-score of less than -1.5 would be considered abnormal. References: 1. NIH Osteoporosis and Related Bone Diseases www osteo.org 2. International Society for Clinical Densitometry www iscd.org 3. National Osteoporosis Foundation www nof.org Electronically Signed: Rojelio Gonzalez MD at 20:16 EDT , Service support ,
== END ==
PROVIDERS: PCP Family Medicine; Referring Provider Family Medicine; Visit Provider Family Medicine
DX: Z00.00 Encounter for general adult medical examination without abnormal findings (principal); Z12.31 Encounter for screening mammogram for malignant neoplasm of breast; M85.80 Other specified disorders of bone density and structure, unspecified site
CPT/HCPCS: 77067; 77080

== ENCOUNTER 2021-01-19 10:23 | Emergency (ER) | payer OTHER, SELFPAY ==
[2021-01-19 10:24] VITALS: BP 157/89; PULSE 83; RESP 18; TEMP 36.3; O2SAT 99; BMI 24.3
--- NOTE | 2021-01-19 10:40 | CT_ITS ---
STUDY: CT CERVICAL SPINE WITHOUT CONTRAST REASON FOR EXAM: Female, 60 years old. Worsening neck pain. RADIATION DOSAGE (If Supplied By Facility): CTDIvol = ( 13.35 ) mGy, DLP = ( 257.51 ) mGycm TECHNIQUE: High resolution transaxial imaging was performed without contrast material. Sagittal and coronal images were reconstructed. Individualized dose optimization techniques were used for this CT. COMPARISON: None FINDINGS: Normal craniovertebral junction. Normal anterior atlantoaxial articulation. Normal odontoid process. Normal cervical lordosis. Normal vertebral bodies and posterior osseous elements. C2-3: Normal endplates. Normal disc height and morphology. Normal central canal and intervertebral neuroforamina. C3-4: Facet joint osteoarthritis and hypertrophy worse on the left side. No neural foraminal stenosis is seen. C4-5: Normal endplates. Normal disc height and morphology. Normal central canal and intervertebral neuroforamina. C5-6: Marked degree of disc space narrowing and spondylosis. Uncovertebral arthrosis. Mild bilateral neural foraminal stenosis. C6-7: Marked degree of disc space narrowing. Spondylosis. Uncovertebral arthrosis. Mild degree of bilateral neural foraminal stenosis is seen. C7-T1: Normal endplates. Normal disc height and morphology. Normal central canal and intervertebral neuroforamina. Findings suggestive of scarring at the lung apices. CT/Spine Cervical without Contras IMPRESSION: Multilevel degenerative changes, as described above. Electronically Signed: Rojelio Gonzalez MD at 11:11 EDT , Service support ,
--- NOTE | 2021-01-19 10:41 | EX.ED.DYSGE1 ---
HPI History of Present Illness Chief Complaint: Other, Pain/Inj Informant: patient Onset/Context/Timing Context: Gradual Onset Timing: Continuous Quality: Sharp, aching Location: Left cervical paraspinal area Worsened by: Movement Relieved by: Nothing Narrative Narrative: Patient presents with neck pain that became worse today. Patient states he has a history of chronic neck pain and sees pain management physician for this. Patient states that her pain became severe today. Patient states she did not think she could wait until her appointment later today with her pain management physician. Patient describes her pain as sharp and aching. Patient states her pain is worse with movement of her neck and left arm. Patient states the pain radiates into her left arm. Patient admits to some paresthesias in her left arm. Patient denies any weakness. Patient denies any recent trauma or injury. Patient states she had a radiofrequency ablation on the right side of her neck in the past which has helped with her pain. Patient states she discussed this procedure with her pain management physician for her left side. Patient states that she thinks she will need this procedure in the near future. [facility] Medical History (Updated 01/19/21 @ 11:[address] Jim Ellington, ) Arthritis Hypertension Hypothyroidism Home Medications alendronate 70 mg tablet 70 mg PO QWEEK 06/28/17 [History Last Taken Unknown] biotin 2,500 mcg capsule 2,500 mcg PO QDAY 06/28/17 [History Last Taken Unknown] celecoxib 200 mg capsule 200 mg PO QDAY 06/28/17 [History Last Taken Unknown] clonazepam 0.5 mg tablet 0.5 mg PO TID tab 06/28/17 [History Last Taken Unknown] conjugated estrogens 0.625 mg/gram vaginal cream VAGINAL 06/28/17 [History Last Taken Unknown] duloxetine 60 mg capsule,delayed release 60 mg PO QDAY 06/28/17 [History Last Taken Unknown] fluorescein 0.25 %-benoxinate 0.4 % eye drops 1 drp OPHTHALMIC ONCE 06/28/17 [History Last Taken Unknown] gabapentin 300 mg capsule 300 mg PO TID 06/28/17 [History Last Taken Unknown] levothyroxine 50 mcg capsule PO 06/28/17 [History Last Taken Unknown] levothyroxine 50 mcg tablet PO 06/28/17 [History Last Taken Unknown] loratadine 10 mg tablet 10 mg PO QDAY 06/28/17 [History Last Taken Unknown] multivitamin 1 cap PO QAM 06/28/17 [History Last Taken Unknown] oxycodone-acetaminophen 5 mg-325 mg tablet 1 tab PO ONCE 06/28/17 [History Last Taken Unknown] Allergy/AdvReac Type Severity Reaction Status Date / Time zolpidem [From Ambien] Allergy unknown Verified 01/19/21 10:26 Family History (Updated 06/28/17 @ 12:48 by Sapphire Hicks) Father CAD (coronary artery disease) COPD (chronic obstructive pulmonary disease) Mother Hypertension Surgical History History of breast augmentation History of hysterectomy History of rhinoplasty Social History Smoking Status: Never smoker alcohol intake: current alcohol intake frequency: other ROS ROS ED Constitutional Constitutional ED: Denies chills or fever(s) Eyes Eyes: Denies blurry vision or change in vision ENT ENT ED: Denies rhinorrhea or sore throat Cardiovascular Cardiovascular: Denies chest pain or palpitations Respiratory/Chest Respiratory/Chest: Denies cough or dyspnea Gastrointestinal Gastrointestinal: Denies nausea or vomiting Genitourinary Genitourinary ED: Denies dysuria or hematuria Musculoskeletal Musculoskeletal: Reports neck pain; Denies back pain Integumentary Denies abscess or rash Neurologic Neurologic: Reports paresthesias LUE; Denies headache(s) or weakness Allergic/Immunologic Allergic/Immunologic ED: Denies mouth swelling or urticaria EXAM Physical Exam Const Vital Signs: 01/19/21 10:24 Temperature 97.4 F L Temperature Source Temporal Pulse Rate 83 Respiratory Rate 18 Blood Pressure 157/89 H Blood Pressure Mean 111 Pulse Ox 99 Oxygen Delivery Method Room Air Positive well nourished and well developed General Appearance ED: well developed Resp normal respiratory effort and clear to auscultation bilaterally Cardio regular rate and regular rhythm Back/Spine Cervical Spine: cervical spine tenderness Cervical Spine Tenderness Details: diffuse Extremity normal to inspection Neuro oriented x3 and CN's II-XII intact bilaterally Sensorium / Orientation: alert Motor Exam: strength 5/5 throughout Psych mental status grossly normal MDM MDM MDM Narrative Medical decision making narrative: Patient was given an injection of morphine here. CT scan of the cervical spine was obtained. There are degenerative changes most notably at C5-C6, and C6-C7. Patient was advised of her findings. Patient was instructed continue her pain medications as previously prescribed. Patient was instructed to follow-up with her pain management physician and primary care physician in 5 to 7 days. Patient understood and was agreeable with the plan. All questions were answered. Radiography Diagnostic Testing: Radiology Impression Cervical Spine CT 01/19/21 10:40 IMPRESSION: Multilevel degenerative changes, as described above. Electronically Signed: Rojelio Gonzalez MD at 11:11 EDT , Service support , Discharge Plan Triage Chief Complaint: Other, Pain/Inj ED Provider: Jim Ellington Dx/Rx/DC Orders Clinical Impression: Neck pain, acute Instructions: ED Chronic Pain, ED Neck Pain Prescriptions: No Action biotin 2,500 mcg capsule 2,500 mcg PO QDAY RF: 0 celecoxib [Celebrex] 200 mg capsule 200 mg PO QDAY RF: 0 loratadine [Claritin] 10 mg tablet 10 mg PO QDAY RF: 0 clonazepam 0.5 mg tablet 0.5 mg PO TID RF: 0 duloxetine [Cymbalta] 60 mg capsule,delayed release(DR/EC) 60 mg PO QDAY RF: 0 fluorescein-benoxinate [Flurox] 0.25-0.4 % drops 1 drp OPHTHALMIC ONCE RF: 0 alendronate [Fosamax] 70 mg tablet 70 mg PO QWEEK RF: 0 levothyroxine 50 mcg capsule 50 mcg capsule PO RF: 0 multivitamin capsule capsule 1 cap PO QAM RF: 0 gabapentin [Neurontin] 300 mg capsule 300 mg PO TID RF: 0 oxycodone-acetaminophen [Percocet] 5-325 mg tablet 1 tab PO ONCE RF: 0 conjugated estrogens [Premarin] 0.625 mg/gram cream VAGINAL RF: 0 levothyroxine [Synthroid] 50 mcg tablet PO RF: 0 Primary Care Provider: Nasim Barrera Referrals: Nasim Barrera MD [Primary Care Provider] - 3-5 Days Disposition Disposition: Home, Self Care
[2021-01-19] MEDS: Morphine 4 MG/ML Syringe IM (11:27)
[2021-01-19] MEDS: Ondansetron 4 MG/2 ML Vial IM (11:27)
[2021-01-19 12:09] VITALS: BP 146/82; PULSE 86; RESP 15; O2SAT 98
== END 2021-01-19 12:13 | disposition home or self-care (01) ==
PROVIDERS: Emergency Provider Emergency Medicine; PCP Family Medicine
DX: M50.323 Other cervical disc degeneration at C6-C7 level (principal); G89.29 Other chronic pain; R20.2 Paresthesia of skin; I10 Essential (primary) hypertension; E03.9 Hypothyroidism, unspecified; M19.90 Unspecified osteoarthritis, unspecified site; Z79.899 Other long term (current) drug therapy
CPT/HCPCS: 72125; 96372; 99283; J2405

== ENCOUNTER → 2021-04-06 13:28 | Outpatient (CLI) | payer OTHER, SELFPAY ==
[2021-04-06 14:51] LABS: Absolute Lymphocyte Count 1.86 X10^3/uL (0.83-4.51); Absolute Neutrophil Count 3.7 X10^3/uL (2.0-7.7); Basophil# 0.03 X10^3/uL; Basophil% 0.5 % (0-1); Eosinophil# 0.07 X10^3/uL; Eosinophils% 1.1 % (0-5); Hematocrit 39.7 % (37-47); Hemoglobin 13.3 g/dL (12.0-15.0); Lymphocyte # 1.86 X10^3/ul (0.83-4.51); Lymphocyte % 29.7 % (19-41); Mean Corp Hgb Conc 33.5 g/dL (32-36); Mean Corpuscular Hgb 33.7 pg (27.0-32.0); Mean Corpuscular Volume 100.5 fL (81-99); Monocyte# 0.55 X10^3/uL; Monocyte% 8.8 % (0-10); NRBC Flagged by Analyzer 0 % (0-5); Neutrophil # 3.73 X10^3/uL (2.7-7.7); Neutrophil % 59.6 % (47-70); Platelet Count 248 K/mm3 (150-450); RBC Distribution Width CV 13.1 % (11.6-14.6); RBC Distribution Width SD 48.4 fl (35.1-43.9); Red Blood Count 3.95 M/mm3 (4.2-5.4); White Blood Count 6.3 K/mm3 (4.4-11.0)
[2021-04-06 15:16] LABS: ALB/GLOB Ratio 1.2 RATIO (0.9-2.4); AST(SGOT) 27 U/L (15-37); Alanine Aminotransfer ALT/SGPT 35 U/L (13-56); Albumin, Serum 4.2 g/dL (3.2-5.0); Alkaline Phosphatase 57 U/L (45-117); Anion Gap 7 (5-15); BUN 13 mg/dL (7-18); BUN/Creat Ratio 14.3 RATIO (10-20); Calcium,Total 9.4 mg/dL (8.5-10.1); Chloride 106 mmol/L (98-107); Creatinine, Serum 0.91 mg/dL (0.55-1.02); EST Glomerular Filtration Rate 67 mL/min (>60); Est Glom Filt Rate - Afr Amer 82 mL/min (>60); Globulin 3.4 g/dL (2.2-4.2); Glucose 86 mg/dL (74-106); Potassium 4.2 mmol/L (3.5-5.1); Protein, Total 7.6 g/dL (6.4-8.2); Sodium Level 141 mmol/L (136-145)
== END ==
PROVIDERS: PCP Family Medicine; Referring Provider Internal Medicine Rheumatology; Visit Provider Internal Medicine Rheumatology
DX: M06.09 Rheumatoid arthritis without rheumatoid factor, multiple sites (principal); Z79.899 Other long term (current) drug therapy; M35.00 Sjogren syndrome, unspecified; M18.0 Bilateral primary osteoarthritis of first carpometacarpal joints; M17.12 Unilateral primary osteoarthritis, left knee; M50.30 Other cervical disc degeneration, unspecified cervical region; M47.897 Other spondylosis, lumbosacral region; I10 Essential (primary) hypertension; E03.9 Hypothyroidism, unspecified; J30.9 Allergic rhinitis, unspecified; F32.9 Major depressive disorder, single episode, unspecified
CPT/HCPCS: 36415; 80053; 85025

== ENCOUNTER 2021-07-12 12:41 | Outpatient (CLI) | payer OTHER, SELFPAY ==
[2021-07-12 15:00] LABS: Absolute Lymphocyte Count 1.67 X10^3/uL (0.83-4.51); Basophil# 0.03 X10^3/uL; Basophil% 0.6 % (0-1); Eosinophil# 0.05 X10^3/uL; Hematocrit 35.5 % (37-47); Hemoglobin 12.1 g/dL (12.0-15.0); Lymphocyte # 1.67 X10^3/ul (0.83-4.51); Lymphocyte % 32.9 % (19-41); Mean Corp Hgb Conc 34.1 g/dL (32-36); Mean Corpuscular Hgb 33.3 pg (27.0-32.0); Mean Corpuscular Volume 97.8 fL (81-99); Mean Platelet Vol. 11.5 fl (6.2-12.0); Monocyte# 0.34 X10^3/uL; Monocyte% 6.7 % (0-10); NRBC Flagged by Analyzer 0 % (0-5); Neutrophil # 2.98 X10^3/uL (2.7-7.7); Neutrophil % 58.6 % (47-70); Platelet Count 188 K/mm3 (150-450); RBC Distribution Width CV 12.4 % (11.6-14.6); RBC Distribution Width SD 44.4 fl (35.1-43.9); Red Blood Count 3.63 M/mm3 (4.2-5.4); White Blood Count 5.1 K/mm3 (4.4-11.0)
[2021-07-12 15:35] LABS: ALB/GLOB Ratio 1.4 RATIO (0.9-2.4); AST(SGOT) 38 U/L (15-37); Alanine Aminotransfer ALT/SGPT 45 U/L (13-56); Albumin, Serum 3.9 g/dL (3.2-5.0); Alkaline Phosphatase 54 U/L (45-117); Anion Gap 5 (5-15); BUN 17 mg/dL (7-18); BUN/Creat Ratio 21.2 RATIO (10-20); Calcium,Total 9.2 mg/dL (8.5-10.1); Chloride 109 mmol/L (98-107); EST Glomerular Filtration Rate 78 mL/min (>60); Est Glom Filt Rate - Afr Amer 94 mL/min (>60); Globulin 2.8 g/dL (2.2-4.2); Glucose 88 mg/dL (74-106); Protein, Total 6.7 g/dL (6.4-8.2); Sodium Level 141 mmol/L (136-145)
== END 2021-07-12 23:59 | disposition home or self-care (01) ==
LOC: MTLAB 12:43
PROVIDERS: PCP Family Medicine; Referring Provider Internal Medicine Rheumatology; Visit Provider Internal Medicine Rheumatology
DX: M06.09 Rheumatoid arthritis without rheumatoid factor, multiple sites (principal); M35.00 Sjogren syndrome, unspecified; Z79.899 Other long term (current) drug therapy; M18.0 Bilateral primary osteoarthritis of first carpometacarpal joints; M17.12 Unilateral primary osteoarthritis, left knee; M50.30 Other cervical disc degeneration, unspecified cervical region; M47.897 Other spondylosis, lumbosacral region; I10 Essential (primary) hypertension; E03.9 Hypothyroidism, unspecified; F32.9 Major depressive disorder, single episode, unspecified; J30.9 Allergic rhinitis, unspecified
CPT/HCPCS: 36415; 80053; 85025

== ENCOUNTER 2021-07-16 10:49 | Outpatient (CLI) | payer OTHER, SELFPAY ==
[2021-07-19 22:06] LABS: QNTFERON TB Mitogen Value > 10.00 IU/mL (.); QNTFERON TB Nil Value 0.05 IU/mL (.); QNTFERON TB1+ Ag Value 0.05 IU/mL (.); QNTFERON TB2+ Ag Value 0.06 IU/mL (.)
[2021-07-20 15:15] LABS: QNTIFERON TB Positive Criteria Negative (Negative)
== END 2021-07-16 23:59 | disposition home or self-care (01) ==
PROVIDERS: PCP Family Medicine; Referring Provider Internal Medicine Rheumatology; Visit Provider Internal Medicine Rheumatology
DX: M06.09 Rheumatoid arthritis without rheumatoid factor, multiple sites (principal); M35.00 Sjogren syndrome, unspecified; M18.0 Bilateral primary osteoarthritis of first carpometacarpal joints; M17.12 Unilateral primary osteoarthritis, left knee; M50.30 Other cervical disc degeneration, unspecified cervical region; M47.897 Other spondylosis, lumbosacral region; I10 Essential (primary) hypertension; E03.9 Hypothyroidism, unspecified; F32.9 Major depressive disorder, single episode, unspecified; J30.9 Allergic rhinitis, unspecified; Z79.899 Other long term (current) drug therapy
CPT/HCPCS: 36415; 86480

== ENCOUNTER 2021-09-01 12:00 | Outpatient (RCR) | payer OTHER, SELFPAY ==
--- NOTE | 2021-07-27 18:54 | HP.PTEVAL_ITS ---
Patient's Visit Information MARA VELASCO is a 61 year old F referred to Physical Therapy by nupur benson with a diagnosis of L shoulder OA and Cervical spondylosis. Date of Evaluation: 07/27/21 Physical Therapist: EDUARDO YipT, OCS, CSCS - Visit Plan Frequency: 2-3x /Week Duration: 2-4 Weeks Plan: 3x/week for 2-4 weeks for. 1. STM to L>R neck muscles and L shoulder. 2. PROM neck rotation and ext and L shoulder mobs grade 1-4 for flexion , IR/ER, Mo ist heat Ok with these. 3. Teach strengthening of neck and RC and postural muscles for HEP once pain is significantly reduced. - Subjective Irina had DDD in neck for many years and resulting shoulder problems. has seen [facility] for L shoulder and neck. Neck is getting stiff and hard to turn head L in car to see behind her. Noticing a lot of kyphosis and losing height. Neck is worse lately and has had multiple radial ablations in neck with chronic pain management in [place]. Did not help much with L shoulder 3 months ago. Neck pain is under skull B and up to 5/10 with changing weather and end of day, intermittent. No arm symptoms outside of L shoulder pain. L shoulder pain is anterior to posterior and is constant. Reaching out with shoulder can really hurt the L shoulder, reaching across body to was opposite side is worse. Sleep is interrupted if she turns onto L side. 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 getting dressed takes forever due to pain in shoulder. Other basic ADLS are Ok but can be challenging. - Pain L shoulder Pain Intensity (Out of 10): 3 Pain Intensity Range: 1, 3 neck pain Pain Intensity (Out of 10): 2 Pain Intensity Range: 0, 7 - Objective Posture is forward head and protracted scapula B. Tender to touch in b scalenes, UT and subocc L>R. cervical AROM R rot 80 and L 65 and pain, ext is 65 painful L. UE AROM L shoulder 128 flexion vs 150 R, er 45 L vs 70 R, IR L% R vs PSIS and painful L. Elbow and wrist AROM WFL B. reflexes 2/3 B bi and tric. Scap aROM WFL B. Sensation UE WNL to gross light touch. Strength shoulders r otation L er3+ and R 4-, IR 4- B, flexiona dn abd 4- B painful on L ER also painful L. biceps and triceps 4 B. wrist flexion and ext 4 B, thumb ext 4- B. + HK L and Neer L and scouring L, - ext rotation lag test adn drop arm test. - c/s compression test. - Balance/Special Test Scores Oswestry Neck Score: 15 - Goals Goal 1:: Full aROM L shoulder to 145 flexion and L% IR without pain and cervical L rotation to 65 without pain to see better in car. Goal Time Frame: 2-4 Weeks Goal 2:: I approp HEP to minimize future problems with neck and shoulder ROM and strength Goal Time Frame: 2-4 Weeks Goal 3:: Patient feel pain intermittent in L shoulder at 1/10 at worst. Goal Time Frame: 2-4 Weeks Goal 4:: oswestry neck score 10 at worst Goal Time Frame: 2-4 Weeks - Rehabilitation Potential Physical Therapy Diagnosis: L shoulder pain and neck pain with limited ROM limiting funciton. Rehabilitation Potential: Fair - Anticipated Interventions Patient/Client Instruction: Educate patient on: Condition, Plan of Care For the Purpose of:: To decrease pain, To increase ROM, To improve nutrient delivery to tissue, To improve muscle performance and motor function, To increase tolerance to activity/condition/position, To improve performance and independence with ADL's Therapeutic Exercise to Include: Strength training, Postural training, Flexibilty training, Passive ROM, Active ROM, Scapular Strength/Stabilization For the Purpose of:: To decrease pain, To increase ROM, To improve nutrient delivery to tissue, To improve muscle performance and motor function, To inc rease tolerance to activity/condition/position Manual Therapy Techniques to Include: Mobilization, Passive ROM, Soft tissue mobilization For the Purpose of:: To decrease pain, To increase ROM Thermo therapy (hot pack): Yes For the Purpose of:: To decrease pain, To increase ROM Thank you for the opportunity to evaluate your patient. For Medicare and Medicare HMO plans, please review the plan of care and approve it. It will need to be FAXED BACK to us at [phone] for Medicare purposes. For Medicare only, by signing this I certify the plan of care. Please let me know if there are questions or concerns regarding this plan of care. Physician Signature: Date:
--- NOTE | 2021-08-19 12:50 | HP.PTREVAL ---
nupur benson, It has been my pleasure to treat MARA VELASCO over the last 7 visits for L shoulder OA and Cervical spondylosis. Please see the progress note below for an update on the physical therapy plan of care! Subjective: Doing really well. Not much pain in last couple days. Some pain in shoulder this am and is gone now, maybe due to weather , exercises help. Sleep is OK. Activities are much better. Washing neck and upper back easily. Can reach behind her a little bit. Has list of strengthening and will continue that and the doorway stretches, wall flexion, sleeper stretch. F/U with doctor 09/10 Objective/Function: 150 L shoulder flexion with scapular elevationa nd compensation, ER to 50 L and tight and painful with OP. IR hand behind back is tight and painful. Otherwise doing well and painfree at rest. Pain has come along well and improving ROM and function. Pt wants to try via HEP. Approipriate to f/u to ensure continued progress toward ROM and funcitonal washing of back in 2 weeks, fair prognosis. Plan Plan: f/u 2 weeks to check er, ir, flexion ROM and progress with washing back. Balance/Gait/Functional tests - Balance/Special Test Scores Oswestry Neck Score: 7 Goals Goal 1:: Full aROM L shoulder to 145 flexion and L% IR without pain and cervical L rotation to 65 without pain to see better in car. Goal Time Frame: 2-4 Weeks Goal Progress: Progressing, approp Goal 2:: I approp HEP to minimize future problems with neck and shoulder ROM and strength Goal Time Frame: 2-4 Weeks Goal Progress: Goal Met Goal 3:: Patient feel pain intermittent in L shoulder at 1/10 at worst. Goal Time Frame: 2-4 Weeks Goal Progress: Goal Met Goal 4:: oswestry neck score 10 at worst Goal Time Frame: 2-4 Weeks Goal Progress: Goal Met Anticipated Interventions Patient/Client Instruction: Educate patient on: Condition, Plan of Care For the Purpose of:: To decrease pain, To increase ROM, To improve nutrient delivery to tissue, To improve muscle performance and motor function, To increase tolerance to activity/condition/position, To improve performance and independence with ADL's Therapeutic Exercise to Include: Strength training, Postural training, Flexibilty training, Passive ROM, Active ROM, Scapular Strength/Stabilization For the Purpose of:: To decrease pain, To increase ROM, To improve nutrient delivery to tissue, To improve muscle performance and motor function, To increase tolerance to activity/condition/position Manual Therapy Techniques to Include: Mobilization, Passive ROM, Soft tissue mobilization For the Purpose of:: To decrease pain, To increase ROM Thermo therapy (hot pack): Yes For the Purpose of:: To decrease pain, To increase ROM Please do not hesitate to contact me at [phone] by phone or if you have questions or concerns regarding this new plan of care! Sincerely, Jim Winston, DPT, OCS, CSCS
--- NOTE | 2021-09-01 12:22 | HP.PTDCSUM ---
It has been my pleasure to treat MARA VELASCO referred by nupur benson, with the diagnosis of L shoulder OA and Cervical spondylosis for a total of 8 visit(s). Discharge Date: 09/01/21 Please see the following information for a summary of their discharge status. Subjective: Tried to do all my exercises. got a membership to the [employer] right next to where she works. Using bands for last couple weeks and stretching. Pain level this week up to 7/10 when cold out. Sleeping is interrupted patient thinks due to cold. Has not been able to wash back with L arm yet. Can get arm across body to other arm and washing some of back. Sees pain management next week. L shoulder Pain Intensity (Out of 10): 1 neck pain Pain Intensity (Out of 10): 0 % Improvement: 85 Objective/Function: 152 AROM flexion, full 60 ext rotation, IR to L3. Pain end range of IR and flexion today. strength is symmetrical but pain with resisted flex/abd. More pain then i wanted today(pt thinks it is the weather) but ROM and strenght are improving. Pt feels comfortable continuing at , [facility] and home. Goal 1:: Full aROM L shoulder to 145 flexion and L% IR without pain and cervical L rotation to 65 without pain to see better in car. Goal Progress: Goal Met, with some pain Goal 2:: I approp HEP to minimize future problems with neck and shoulder ROM and strength Goal Progress: Goal Met Goal 3:: Patient feel pain intermittent in L shoulder at 1/10 at worst. Goal Progress: Goal Met Goal 4:: oswestry neck score 10 at worst Goal Progress: Goal Met Plan: d/c Discharge Comments: Pt to pain doctor next week and will continue ex via [facility], [facility] and [facility]. If there are questions or concerns regarding this patient's physical therapy, please feel free to call me at [phone]. Thank you for the referral of this patient. Sincerely, Jim Winston, DPT, OCS, CSCS Balance/Gait/Functional tests - Balance/Special Test Scores Oswestry Neck Score: 7
== END 2021-09-01 12:40 | disposition home or self-care (01) ==
LOC: PT 12:00
PROVIDERS: PCP Family Medicine
DX: M19.012 Primary osteoarthritis, left shoulder (principal)
CPT/HCPCS: 97110; 97140; 97162; 97164; 97530

== ENCOUNTER → 2021-10-01 | Outpatient (CLI) | payer OTHER, SELFPAY ==
[2021-10-01 10:19] LABS: Absolute Lymphocyte Count 1.79 X10^3/uL (0.83-4.51); Absolute Neutrophil Count 3.1 X10^3/uL (2.0-7.7); Basophil# 0.02 X10^3/uL; Basophil% 0.4 % (0-1); Eosinophil# 0.08 X10^3/uL; Eosinophils% 1.5 % (0-5); Hematocrit 37.5 % (37-47); Hemoglobin 12.8 g/dL (12.0-15.0); Lymphocyte # 1.79 X10^3/ul (0.83-4.51); Lymphocyte % 32.8 % (19-41); Mean Corp Hgb Conc 34.1 g/dL (32-36); Mean Corpuscular Hgb 34.2 pg (27.0-32.0); Mean Corpuscular Volume 100.3 fL (81-99); Mean Platelet Vol. 11.2 fl (6.2-12.0); Monocyte# 0.44 X10^3/uL; Monocyte% 8.1 % (0-10); NRBC Flagged by Analyzer 0 % (0-5); Neutrophil # 3.11 X10^3/uL (2.7-7.7); Neutrophil % 56.8 % (47-70); Platelet Count 206 K/mm3 (150-450); RBC Distribution Width SD 47.5 fl (35.1-43.9); Red Blood Count 3.74 M/mm3 (4.2-5.4); White Blood Count 5.5 K/mm3 (4.4-11.0)
[2021-10-01 10:53] LABS: ALB/GLOB Ratio 1.3 RATIO (0.9-2.4); AST(SGOT) 27 U/L (15-37); Alanine Aminotransfer ALT/SGPT 40 U/L (13-56); Alkaline Phosphatase 40 U/L (45-117); Anion Gap 4 (5-15); BUN 20 mg/dL (7-18); Calcium,Total 8.4 mg/dL (8.5-10.1); Chloride 103 mmol/L (98-107); Cholesterol 209 mg/dL (200); Creatinine, Serum 0.87 mg/dL (0.55-1.02); EST Glomerular Filtration Rate 71 mL/min (>60); Est Glom Filt Rate - Afr Amer 86 mL/min (>60); Glucose 77 mg/dL (74-106); High Density Lipoprotein 82 mg/dL; Potassium 4.5 mmol/L (3.5-5.1); Sodium Level 135 mmol/L (136-145); T4 Free Direct 0.93 ng/dL (0.76-1.46); Thyroid Stim Hormone (TSH) 0.66 uIU/mL (0.358-3.74); Triglycerides 84 mg/dL; Very Low Density Lipoprotein 17 mg/dL (5-40)
== END | disposition home or self-care (01) ==
PROVIDERS: PCP Family Medicine; Referring Provider Family Medicine; Visit Provider Family Medicine
DX: I10 Essential (primary) hypertension (principal); M06.09 Rheumatoid arthritis without rheumatoid factor, multiple sites; M35.00 Sjogren syndrome, unspecified; E03.9 Hypothyroidism, unspecified; Z79.899 Other long term (current) drug therapy; M18.0 Bilateral primary osteoarthritis of first carpometacarpal joints; M17.12 Unilateral primary osteoarthritis, left knee
CPT/HCPCS: 36415; 80053; 80061; 84439; 84443; 85025

== ENCOUNTER → 2021-11-16 | Outpatient (CLI) | payer OTHER, SELFPAY ==
--- NOTE | 2021-11-16 16:45 | CT_ITS ---
EXAM: CT LEFT UPPER EXTREMITY WITHOUT INTRAVENOUS CONTRAST CLINICAL INDICATION: PRIMARY OSTEOARTHRITIS, LEFT SHOULDER TECHNIQUE: Helically acquired images were obtained of the left upper extremity without intravenous contrast. 2-D reformats were performed by the technologist. This CT exam was performed using one or more of the following dose reduction techniques: automated exposure control, adjustment of the mA and/or kV according to patient size, and/or use of iterative reconstruction technique. This report was created using [employer] report [employer] technology. COMPARISON: None. FINDINGS: BONES/JOINTS: There is a vacuum phenomenon present with a small curvilinear area of gas is seen within the glenohumeral joint. There is a large subchondral cyst present which also has gas within it possibly due to to connection with the glenohumeral joint. There are several other smaller subchondral cyst present within the glenoid and humeral head. There is a small osteophyte off the humeral head. There are no fractures are identified. No sclerotic or destructive changes. SOFT TISSUES: Unremarkable. No soft tissue swelling or gas. No radiopaque foreign body. CT/Extremity Upper without Contra IMPRESSION: Osteoarthritic change with joint space narrowing, subchondral cysts and osteophytes. There is a small collection of gas seen within the glenohumeral joint as well as within a subchondral cyst in the humeral head which may be due to degenerative change. Further evaluation with MRI may be beneficial. There are no acute osseous abnormalities. Electronically Signed: Jeffery Ridley MD at 17:25 EDT ,
== END | disposition home or self-care (01) ==
LOC: CT 16:43
PROVIDERS: PCP Family Medicine; Visit Provider Physician Assistant Surgical
DX: M19.012 Primary osteoarthritis, left shoulder (principal)
CPT/HCPCS: 73200

== ENCOUNTER → 2021-11-29 | Outpatient (CLI) | payer OTHER, SELFPAY ==
[2021-11-29 11:21] LABS: Amphetamine Urine VISTA NEGATIVE (<1000 ng/mL); Barbiturate Urine VISTA NEGATIVE (< 200 ng/mL); Benzodiazepine Urine VISTA NEGATIVE (< 200 ng/mL); Cocaine Urine VISTA NEGATIVE (< 300 ng/mL); Ecstacy Urine VISTA NEGATIVE (< 500 ng/mL); Methadone Urine VISTA NEGATIVE (< 300 ng/mL); PCP Urine VISTA NEGATIVE (< 25 ng/mL); THC Urine VISTA NEGATIVE (< 50 ng/mL); Vista UDS pH Range 7
== END | disposition home or self-care (01) ==
LOC: LAB 09:53
PROVIDERS: PCP Family Medicine; Referring Provider Anesthesiology Pain Medicine; Visit Provider Anesthesiology Pain Medicine
DX: F11.20 Opioid dependence, uncomplicated (principal)
CPT/HCPCS: 80307

== ENCOUNTER → 2022-01-18 | Outpatient (CLI) | payer OTHER, SELFPAY ==
--- NOTE | 2022-01-18 07:15 | BI_ITS ---
MAMMOGRAPHY - BILATERAL SCREENING 3-D TOMOSYNTHESIS REASON FOR EXAM: Female, 61 years old. SCREENING PERTINENT HISTORY: No significant family history. TECHNIQUE: 2-D mammograms and 3-D Tomosynthesis of the breast (s) were performed. CAD was performed. COMPARISON: 01/14/2021 FINDINGS: The breast composition is composed of scattered fibroglandular density. Scattered benign calcifications are seen. No dense spiculated masses or suspicious microcalcifications are identified. No architectural distortion is identified. There is no skin thickening or retraction. Bilateral retropectoral silicone implants appear intact. BI/SCRN MAMM (CAD)W/MATTHEW BILAT IMPRESSION: No mammographic signs of malignancy. Routine yearly mammograms recommended. ASSESSMENT CATEGORY: BIRADS Category 1: Negative. A letter regarding these results will be sent to the patient by the facility within 30 days. FOLLOW UP RECOMMENDATION: Yearly follow up mammogram recommended. (A) Approximately 10% of breast cancers are not detected by mammography. A normal mammogram should not delay biopsy of a clinically suspicious abnormality. Electronically Signed: Carson Michaels MD at 8:59 EDT ,
== END | disposition home or self-care (01) ==
LOC: OPBI 07:13
PROVIDERS: PCP Family Medicine; Visit Provider Family Medicine
DX: Z12.31 Encounter for screening mammogram for malignant neoplasm of breast (principal)
CPT/HCPCS: 77063; 77067

== ENCOUNTER 2022-01-19 13:43 | Observation (INO) | payer OTHER, SELFPAY ==
--- NOTE | 2022-01-05 22:22 | PCM.HP.BLA ---
History and Physical History and Physical [facility] Patient Name: Isabelle Britton : 1960 From:? MATHEW DAHL PA-C? DATE OF SURGERY:? 01/19/2022 SCHEDULED PROCEDURE:? left anatomic total shoulder arthroplasty HISTORY OF PRESENT ILLNESS: Preoperative history and physical exam was performed on January 03, 2022.? This is a 61-year-old female who is been having ongoing pain since 2017 in her left shoulder.? Patient has had previous MRI 3 years ago.? She was seen by outside orthopedic group and was referred to discuss surgical intervention.? Patient has had ongoing pain with her left shoulder with any activities of daily living.? She gets pain with any overhead use or reaching behind her.? Patient states she is right-hand dominant.? Her pain can reach as high as a 10/10 with activities.? Pain is located over the anterior shoulder.? Pain does not waken her at night.? Patient had previous corticosteroid injection on October 08, 2021 by a environmental engineering assistant.? Minimal improvement.? Her pain has been progressively been getting worse.? She feels weaker on the left shoulder.? She has difficulty getting dressed due to the pain.? She does have medical history pertinent for rheumatoid arthritis as well as hypertension and thyroid disease.? She sees a environmental engineering assistant.? She has stopped her Humira with the last injection on December 17, 2021.? Patient has not taken any Biologics.? She currently denies any chest pain, shortness of breath, fevers chills or recent infections.? After failing conservative measures and discussing treatment options with Dr. He Dyer, the patient does wish to proceed with a left anatomic total shoulder arthroplasty.? She is also seen by pain management Dr. Haynes who would like to control her pain medications postoperatively.? We are obtaining surgical clearance from the primary care physician. REVIEW OF SYSTEMS: Review Of Systems: Constitutional: Denies change in appetite, fever and weight change. Cardiovasular: Denies chest pain, heart murmur and irregular heartbeat. Respiratory: Denies cough, pneumonia, shortness of breath, tuberculosis and wheezing. Gastrointestinal: Denies constipation, diarrhea, heartburn, nausea, rectal itching, bloody stools and vomiting. Genitourinary: Denies incontinence. Musculoskeletal: Denies leg swelling, pain, trouble walking and weakness. Skin: Denies Raynaud's, history of shingles and tattoo. Neurological: Denies ambulatory dysfunction, dizziness, numbness/tingling and tremor. Psychiatric: Denies anxiety, insomnia and stress. Hematologic/Lymphatic: Denies anemia, bleeding/bruising tendency and past transfusion. Reviewed, no changes. PAST MEDICAL HISTORY: Advance Care Plan: No Advance Directives Effective Date: 01/25/2018 Past Medical History: Medical Problems: Arthritis, High Blood Pressure, Thyroid Disease Accidents: None Surgical Hx: Hysterectomy - (2008) Christiano Cataracts Anesthesia Complications: None Assistive Devices: None Reviewed, no changes. 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 Personal Habits:? Cigarette Use: Never Smoked Cigarettes.Smokeless Tobacco: Never Used Smokeless Tobacco.E-Cigarette Use: Never used.Alcohol: Occasionally.Drug Use: Denies Use.Enjoy Exercising: Exercises 1-3 x/month. Reviewed, no changes. VITALS: Ht: 66 Wt: 133lb 2oz Wt k.386 BMI: 21.5 BP: 130/76 Pulse: 63 Resp: 16 T: 97.2 T: 36.2C Pain Level: 7 O2SatR: 98 ALLERGIES: Ambien? MEDICATIONS: Liothyronine Sodium 5 mcg 1po qday, Levothyroxine Sodium 50 mcg 1po qday, Calcium 600+D 600-200 MG-Unit 1po qday, Multivitamins? 1po qday, Loratadine 10 mg 1po qday, Oxycodone-Acetaminophen 5-325 mg 1-2 by mouth every 6hr as needed pain, Neurontin 600 mg 1po q 6 hrs, prn, Methotrexate 2.5 mg, Sulfasalazine 500 mg 1 by mouth every day, Humira Pen 40 mg/0.8ml 1 every two weeks PRE-OP EXAM:? General appearance:NORMAL? ? ? Other: Eyes: Conjunctivae and lids: NORMAL? Pupils: ERR Ears, Nose, Mouth, and Throat: NORMAL? Other: Inspection of lips, teeth and gums: NORMAL? ?Other: Neck: Examination of neck: no masses noted. Respiratory: Assessment of respiratory effort: NORMAL? ?Other: ?Auscultation of lungs: clear to auscultation no wheezes, rhonchi or rales. Cardiovascular:? Auscultation of heart: regular rate and rhythm, no murmurs, gallops or rubs. PHYSICAL EXAMINATION: Left shoulder is cool to touch without erythema or signs of infection.? She has tenderness to palpation of the anterior and lateral left shoulder.? Range of motion: Active forward flexion 130, internal rotation L3, external rotation 25.? She does get crepitus with range of motion.? Resisted range of motion: 5/5 supraspinatus strength.? Sensation intact to light touch.? Neurovascularly intact. IMAGING STUDIES: Previous x-rays of the left shoulder reveal severe glenohumeral joint space narrowing with subchondral sclerosis, subchondral cyst formation and osteophyte formation consistent with severe stage IV glenohumeral osteoarthritis. Previous MRI from 2019 the report reveals glenohumeral degenerative changes with tendinosis of the supraspinatus tendon IMPRESSION: 1.? Severe left shoulder osteoarthritis 2.? Hypertension 3.? Rheumatoid arthritis 4.? Thyroid disease PLAN: Dr. He Dyer did discuss and review with the patient all treatment options including surgical versus nonsurgical options.? Patient does wish to proceed with the above-stated procedure.? Potential risks, benefits, and complications of the procedure were discussed in detail including but not limited to , infection, nerve and blood vessel damage, persistent pain, numbness, tingling, paresthesias, blood clot, pulmonary embolism, and requirement for possible further surgery.? The patient expressed full understanding and has no further questions for the doctor.? Patient does agree to proceed with the above-stated procedure and has signed the surgery consent form. We discussed the current risks associated with COVID 19.? This does include the risk of exposure while in the hospital.? Patient was reassured local hospitals have low infection rates and are taking all necessary precautions to avoid exposure to patients.? In addition, we discussed strategies that can be used to help limit exposure including those that limit the patient's time in the hospital.? Also using strategies to limit the patient's need for continued inpatient services after being discharged from the hospital.? Patient was notified that we will need to comply with any screening or testing the hospital wishes to perform or that surgery may be delayed for any positive results. This dictation was created using voice recognition software. Phonetic and/or grammatical errors may exist. ___? I have re-examined the patient.? There are no clinical changes since date of exam. ___? See progress notes for changes. ___? Dictated on admission Date: ? ? ?Time: Signature:
--- NOTE | 2022-01-07 07:02 | EKG12_ITS ---
Test Reason : PREOP Blood Pressure : / mmHG Vent. Rate : 069 BPM Atrial Rate : 069 BPM P-R Int : 190 ms QRS Dur : 060 ms QT Int : 366 ms P-R-T Axes : 063 075 064 degrees QTc Int : 392 ms Normal sinus rhythm Normal ECG Confirmed by BG CARRILLO, JONAS ([id number]), digital editor AMBER GIRON ([id number]) on 01/08/2022 8:35:26 AM Referred By: ANDRESSA Confirmed By:JONAS PEDERSON MD
[2022-01-07 07:36] LABS: Absolute Lymphocyte Count 1.55 X10^3/uL (0.83-4.51); Absolute Neutrophil Count 2.5 X10^3/uL (2.0-7.7); Basophil# 0.02 X10^3/uL; Basophil% 0.4 % (0-1); Eosinophil# 0.06 X10^3/uL; Eosinophils% 1.3 % (0-5); Hemoglobin 12.7 g/dL (12.0-15.0); Lymphocyte # 1.55 X10^3/ul (0.83-4.51); Lymphocyte % 34.1 % (19-41); Mean Corp Hgb Conc 34.3 g/dL (32-36); Mean Corpuscular Hgb 34.6 pg (27.0-32.0); Mean Corpuscular Volume 100.8 fL (81-99); Mean Platelet Vol. 10.8 fl (6.2-12.0); Monocyte# 0.36 X10^3/uL; Monocyte% 7.9 % (0-10); NRBC Flagged by Analyzer 0 % (0-5); Neutrophil # 2.54 X10^3/uL (2.7-7.7); Neutrophil % 56.1 % (47-70); Platelet Count 171 K/mm3 (150-450); RBC Distribution Width SD 48.1 fl (35.1-43.9); Red Blood Count 3.67 M/mm3 (4.2-5.4); White Blood Count 4.5 K/mm3 (4.4-11.0)
[2022-01-07 08:00] LABS: ALB/GLOB Ratio 1.3 RATIO (0.9-2.4); AST(SGOT) 34 U/L (15-37); Alanine Aminotransfer ALT/SGPT 47 U/L (13-56); Albumin, Serum 3.9 g/dL (3.2-5.0); Alkaline Phosphatase 45 U/L (45-117); Anion Gap 5 (5-15); BUN 21 mg/dL (7-18); BUN/Creat Ratio 25.2 RATIO (10-20); Calcium,Total 9.1 mg/dL (8.5-10.1); Chloride 107 mmol/L (98-107); Creatinine, Serum 0.83 mg/dL (0.55-1.02); EST Glomerular Filtration Rate 74 mL/min (>60); Est Glom Filt Rate - Afr Amer 90 mL/min (>60); Glucose 90 mg/dL (74-106); Potassium 4.3 mmol/L (3.5-5.1); Protein, Total 6.9 g/dL (6.4-8.2); Sodium Level 139 mmol/L (136-145)
[2022-01-10 09:53] LABS: Thyroid Stim Hormone (TSH) 0.48 uIU/mL (0.358-3.74)
[2022-01-19] VITALS (12 sets, daily range): BP systolic 101–154; BP diastolic 66–92; PULSE 48–82; RESP 11–16; TEMP 36–37.2; O2SAT 93–99; BMI 21.7
--- NOTE | 2022-01-19 | SHO_PTH ---
PATIENT: MARA BROWNE LOC: [facility] U#:[id number] AGE/SX: 61/F ROOM: NM313 RE01/19/[address]: Dr. He Dyer MD : 1960 BED: 1 DIS: 01/20/2022 SPEC #: [id number] RECD: 01/19/22 16:59 STATUS: GERSON GARCIAS #: [id number] MARQUEZ: 01/19/22 00:[address]: He Dyer DEPT: SURGICAL PATHOLOGY RECD BY: Cameron Brumfield ENTERED: 01/20/22 08:55 SP TYPE: HUMERUS OTHR DR: MD Dr. Miguel Ángel Louise MD Tissues: Humerus, NOS Procedures: Decalcification bone/plaque Surgery Specimen Level IV HEADER OPERATION: ERAS, total shoulder arthroplasty, anatomic PRE-OP DIAGNOSIS: Severe left shoulder osteoarthritis TISSUE SUBMITTED: Left humeral head MICROSCOPIC DIAGNOSIS Bone and tissue left shoulder, total shoulder replacement/resection: Humeral head with degenerative osteoarthritic changes. MANAV:edson 01/24/2022 MICROSCOPIC DESCRIPTION Slides are reviewed. GROSS DESCRIPTION Received is one container labeled with the patient name and designated bone and soft tissue. The specimen consists of a humeral head measuring 4.5 x 5 x 2 cm. The articular surface shows areas of erosion, eburnation and osteophyte formation. No soft tissue is identified. Assistant Activities Director sections are submitted in one cassette after decalcification. / MANAV:wilder 01/19/22 TC:5 CPT: 70986, 75672
--- NOTE | 2022-01-19 06:58 | PCM.OPRPT ---
Report of Operation Date of Procedure: 01/19/22 Pre-Operative Diagnosis: Left shoulder glenohumeral primary osteoarthritis Post-Operative Diagnosis: Left shoulder glenohumeral primary osteoarthritis Surgery/Procedure Performed:: Left anatomic total shoulder replacement Description of Surgical Findings:: Healthy-appearing rotator cuff intact Surgeon: He Dyer floral specialist: Faisal Pickard Type of Anesthesia: General Anesthesiologist: Tima Anton Special Medications: 2 g Ancef, 1 g TXA at incision, 1 g TXA closure, 10 mg Decadron, joint cocktail (5 mg Duramorph, 30 mL of 0.5% Ropivicaine, 1000 units of epinephrine, 30 mg of Toradol), vancomycin Intra-Op Specimen's removed: Bony cuts Estimated Blood Loss (mL): 50 Fluids Replaced: 500 mL crystalloid Description of Procedure: components used 1. Naima reunion glenoid peg 44 mm 2. [place] reunion 22mm, 48mm humeral head, eccentric 3. Naima reunion humeral stem primary press-fit 11mm size Brief history/Operative indications: 61 yo f with history of l shoulder primary glenohumeral osteoarthritis. Patient failed conservative measures as mentioned in the H&P. After discussion of risk and benefits of reverse total shoulder replacement including but not limited to blood loss, DVTs, PEs, nerve vessel damage, infection, general risk of anesthesia including loss of life, instability and stiffness patient demonstrating understanding wish to proceed was able to sign informed consent. Medical clearance was obtained. Procedure: On the date of the procedure, patient's l upper extremity was marked in the preoperative area. Patient was taken back to the operating room where they were placed on the table in the supine position. Anesthesia assumed control of the C-spine and airway, then administered anesthetic. All bony prominences were identified well-padded, the head was secured and the patient was placed in the beachchair position at about 35? inclination. Anesthesia remained in control of the C-spine airway throughout the remainder of the procedure. Patient was then appropriately fastened to the table and the l upper extremity was prepped in a sterile fashion. The surgeons then scrubbed. Upon reentering the room, the l upper extremity was draped in a sterile fashion and the incision was marked out. Timeout was called, everyone agreed upon the side, the site, the procedure to be performed, patient identity and antibiotics given. Incision was taken down through skin and subcutaneous tissue, fat down to fascia. The stripe of the deltopectoral interval and cephalic vein were identified and blunt dissection was used to retract the deltoid. The cephalic vein was retracted laterally. Clavipectoral fascia was then incised and a cobra retractor was placed in the wound. The proximal one third of the pectoralis major insertion was released. Pectoralis tendon insertion was used to tenodesed the biceps tendon which was identified in the bicipital groove. Tenodesis was done with #1 Vicryl. Proximally we followed the biceps tendon after transecting it into the rotator interval. The rotator interval was split and the arm was externally rotated. The split was 1 cm medial to the bicipital groove. Subscapularis tendon was released using a lesser tuberosity osteotomy. We released down the anterior portion of the humeral head and a nicholas elevator was used to release the inferior portion of the humeral head. The arm was externally rotated and the shoulder was dislocated. The natural humeral head version was used to make humeral cut. This was done even with the articular surface. Once his humeral head cut was made humerus was retracted out of the way and the glenoid was exposed. After exposing the glenoid, the labrum and the remaining proximal biceps were debrided. At this time we are able to view the entire outer edge of the glenoid. A central pin was placed we sequentially reamed over this central pin to 44 mm. Once this was completed the central pedicle was drilled. Wound was closely irrigated out with normal saline we then drilled sequentially for the coinciding 3 peg holes. Once these were drilled graft was placed into the central peg of the glenoid and the glenoid was impacted into place. The glenoid was secure we directed our attention to the humerus The humerus was again externally rotated exposing the proximal portion of the humerus. Central canal finder was then used to open up the canal. We reamed to a 11mm reamer. We then broached to a 11mm stem. We trialed the eccentric 22 x 48mm humeral head. We obtained an adequate reduction at this time with a nice stable shoulder. Good internal rotation to the gluteus, forward elevation to 140?, external rotation to 20? and 50% posterior translation. Final components were then assembled on the back table, trials were removed and the wound was copiously irrigated with normal saline after dislocating the shoulder. Once the final components were assembled they were impacted into place. Shoulder was then reduced and found to be stable with good range of motion. Subscapularis tendon osteotomy was then repaired securely with FiberWire. A 500 mL dilute Betadine solution was used to irrigate out the wound for 3 minutes followed by 1 L of normal saline lavage. The deltopectoral fascia was then closed using #1 Vicryl skin was closed using 2-0 Vicryl interrupted sutures and final skin closure was done with 3-0 Monocryl. Steri-Strips are placed for final skin closure. Sterile dressing was placed patient was then placed in a sling and awakened by anesthesia. Patient was then transferred to the PACU for recovery. Postoperative plan: Patient will be admitted to the hospital overnight. They will get physical therapy starting in 2 weeks with normal postoperative regimen. Patient will be placed on aspirin 81 mg twice daily for DVT prophylaxis. The first postoperative appointment will be in 2 weeks for wound check and initiation of phase 1 physical therapy. During the course of the procedure the physician social media assistant played a vital role. His intimate knowledge of my steps in the procedure aided in safe and expedient completion of the procedure. The PA played a vital rolls in positioning particularly in obtaining the appropriate beach chair position and securing the patient's body and head to the table. The PA was also vital in the retraction of soft tissues during the exposure and especially the glenoid work as this is a vital part of the procedure to prevent neurovascular damage. the PA was also vital and protecting soft tissues during times of bony cuts and reaming. He also played a vital role in closure with my direct supervision. The PA was also important during reduction and dislocation of the joint and trials intraoperatively. Complications No intraoperative complications Admit VTE Documentation VTE Present on Admission: No VTE Mechan Device Prophylaxis: SCD's and Thigh High JENNIFER Hose VTE Pharm Prophylaxis ordered?: Yes
[2022-01-19] MEDS: Lactated Ringers 1,000 ML 999 ML IV ×2 (09:57→13:53)
[2022-01-19] MEDS: Celecoxib 200 MG Capsule 400 MG PO (09:57)
[2022-01-19] MEDS: Vancomycin IV 1,000 MG/200 ML BAG 200 MG IV (09:58)
[2022-01-19] MEDS: Acetaminophen 500 MG Tablet 1000 MG PO ×2 (09:58→21:30)
[2022-01-19] MEDS: Gabapentin 600 MG Tablet PO (09:58)
[2022-01-19 10:21] LABS: Bedside Glucose 76 mg/dL (74-106)
[2022-01-19] MEDS: Cefazolin 2 GM in 0.9% Normal Saline 100 ML IV (11:29)
[2022-01-19] MEDS: Lactated Ringers 1,000 ML 75 ML IV (11:30)
[2022-01-19] MEDS: TXA 1000mg in NS100 100ml (IVPB at Incision) 660 MG IV (11:47)
[2022-01-19] MEDS: TXA 1000mg in NS100 100ml (IVPB at Closure) 660 MG IV (12:56)
--- NOTE | 2022-01-19 13:50 | RAD_ITS ---
EXAM: XR LEFT SHOULDER COMPLETE, 2 OR MORE VIEWS CLINICAL INDICATION: post op -- AP and Lateral X-Ray of operative shoulder in PACU TECHNIQUE: Two or more views of the left shoulder. This report was created using [employer] report MYFLY technology. COMPARISON: None. FINDINGS: BONES/JOINTS: Shoulder prosthesis in place in satisfactory position. SOFT TISSUES: Subacromion soft tissue gas related to recent surgery. RAD/Shoulder min 2 Views IMPRESSION: Satisfactory postop changes left shoulder prosthesis. Electronically Signed: Zhang Pearl MD at 14:22 EDT ,
--- NOTE | 2022-01-19 14:33 | PCM.PN.HOSP ---
Subjective Subjective Mrs. Shaw is a 61-year-old white female who presented to [facility] on 01/19/2022 for an elective total shoulder arthroplasty. The patient has been experiencing ongoing pain in her shoulder since 2016. She reported the pain was with any ADLs and IADLs specifically with overhead use and reaching behind her. She reported that the pain was anterior but does not awaken her at night. She had a cortisone injection done by armhole sewer on October 08, 2021 with minimal improvement. Her pain unfortunately has been progressively getting worse and she feels weaker than she was previously. She does have a history of rheumatoid arthritis and was previously on Humira but stopped this on December 17, 2021. Past medical history includes rheumatoid arthritis, hypertension, and hypothyroidism. We have been consulted in the postoperative period for medical management. She was seen on the medical floor postoperatively.She currently is complaining of some pain in the right shoulder. She does indicate that she had a preoperative nerve blockBut evidently it did not take well. She is also having some postoperative nausea. Clear liquid tray is at her bedside. She is quite drowsy. Objective Data Objective Data Vital Signs: Vital Signs Temp Pulse Resp BP Pulse Ox O2 Del Method O2 Flow Rate 97 F L 54 L 14 143/82 H 99 Nasal Cannula 4 01/19/22 13:41 01/19/22 14:30 01/19/22 14:30 01/19/22 14:30 01/19/22 14:30 01/19/22 14:30 01/19/22 14:30 Oxygen Flow Rate (L/min) 4 Oxygen Delivery Method Nasal Cannula Weight: 60 kg Body Mass Index (BMI) 21.7 Intake & Output: Intake and Output for Last 24 Hours 01/17/22 01/18/22 01/19/22 23:59 23:59 23:59 Intake Total 1632 / 1632 Balance 1632 / 1632 Lab / Micro Data Result Diagrams: 01/07/22 07:19 01/07/22 07:19 Labs: Laboratory Results - last 24 hr 01/19/22 09:10: POC Glucose 76 Micro: Microbiology 01/07/22 07:19 Interface Orders Nasal Screen MRSA/MSSA - Final Radiography Diagnostic Testing: Radiology Impression Shoulder X-Ray 01/19/22 13:50 IMPRESSION: Satisfactory postop changes left shoulder prosthesis. Electronically Signed: Zhang Pearl MD at 14:22 EDT , Physical Exam Const alert, oriented x3, no apparent distress, average body habitus, healthy appearing and well nourished Constitutional Narrative: Upper middle-aged white female sitting up in bed, at bedside, patient is sleepy but awakens to name and answers questions appropriately, nontoxic HEENT head/scalp atraumatic and moist oral mucous membranes Resp normal respiratory effort, no retractions, no use of accessory muscles and clear to auscultation bilaterally Cardio regular rate, regular rhythm, S1 normal heart sound, S2 normal heart sound, no murmurs, no rub, no gallops, no clicks and no JVD GI normal to inspection, nondistended, normoactive bowel sounds, soft to palpation, non-tender and non-distended Extremity no clubbing, cyanosis or edema Neuro oriented x3, CN's II-XII intact bilaterally, no focal motor deficits and no sensory deficits noted Neuro Narrative: Moves all extremities symmetrically other than left upper extremity which is in a postoperative sling secondary to surgery Speech: speech normal Assessment & Plan Assessment/Plan (1) Arthritis of left glenohumeral joint: PLAN: Plan Osteoarthritis of the left shoulder -Postop day 0 -Management per primary service -Recommend bowel regimen -Patient follows with pain management as an outpatient and will continue to do so for postoperative management of her shoulder pain -Therapy services per orthopedic surgery Hypertension -Continue metoprolol -Continue lisinopril Hypothyroidism -Continue liothyronine -Continue levothyroxine Rheumatoid arthritis -It is documented that she is no longer on Humira despite it being on the MAR -Restart methotrexate per rheumatology/orthopedic surgery -Continue sulfasalazine DVT prophylaxis -Per primary service Charges/Coding Visit Charges OBSV E&M: 01595 Initial observation care L2
[2022-01-19] MEDS: proMETHazine 25 MG/ML Syringe 12.5 MG IM (16:22)
[2022-01-19] MEDS: Cefazolin 1 GM/50 ML BAG IV (20:26)
[2022-01-19] MEDS: 0.9% Saline Lock 10 ML Syringe IV (20:27)
[2022-01-19] MEDS: Metoprolol(XL)Succ 25 MG Tablet PO (21:29)
[2022-01-19] MEDS: Senna/Docusate Sodium 1 Tablet 2 TABLET PO (21:29)
[2022-01-19] MEDS: Gabapentin 300 MG Capsule PO (21:29)
[2022-01-20 02:30] VITALS: BP 97/58; PULSE 65; RESP 16; TEMP 36.3; O2SAT 97
[2022-01-20] MEDS: Cefazolin 1 GM/50 ML BAG IV (02:36)
[2022-01-20 06:30] VITALS: BP 100/68; PULSE 60; RESP 16; TEMP 36.3; O2SAT 98
[2022-01-20] MEDS: Acetaminophen 500 MG Tablet 1000 MG PO ×2 (06:43→13:09)
[2022-01-20] MEDS: Levothyroxine 50 MCG Tablet PO (06:43)
[2022-01-20] MEDS: Liothyronine 5 MCG Tablet PO (06:43)
[2022-01-20] MEDS: Gabapentin 300 MG Capsule PO ×2 (06:43→13:09)
[2022-01-20 07:16] LABS: Hematocrit 35.4 % (37-47); Hemoglobin 11.7 g/dL (12.0-15.0); Mean Corp Hgb Conc 33.1 g/dL (32-36); Mean Corpuscular Hgb 34.2 pg (27.0-32.0); Mean Corpuscular Volume 103.5 fL (81-99); Mean Platelet Vol. 11.5 fl (6.2-12.0); Platelet Count 168 K/mm3 (150-450); RBC Distribution Width CV 12.9 % (11.6-14.6); RBC Distribution Width SD 49.3 fl (35.1-43.9); Red Blood Count 3.42 M/mm3 (4.2-5.4); White Blood Count 8.9 K/mm3 (4.4-11.0)
[2022-01-20 07:25] VITALS: O2SAT 95
[2022-01-20 07:42] LABS: Anion Gap 3 (5-15); BUN 14 mg/dL (7-18); BUN/Creat Ratio 18.5 RATIO (10-20); Calcium,Total 8.4 mg/dL (8.5-10.1); Chloride 103 mmol/L (98-107); Creatinine, Serum 0.76 mg/dL (0.55-1.02); EST Glomerular Filtration Rate 83 mL/min (>60); Est Glom Filt Rate - Afr Amer 100 mL/min (>60); Estimated Creatinine Clearance 70.83 ml/min; Glucose 90 mg/dL (74-106); Potassium 4.5 mmol/L (3.5-5.1); Sodium Level 135 mmol/L (136-145)
[2022-01-20 08:19] VITALS: BP 93/63; PULSE 71; RESP 16; TEMP 36.7; O2SAT 97
[2022-01-20] MEDS: Cholecalciferol (VIT D3) 25 MCG TABLET (1,000 UNITS) PO (08:26)
[2022-01-20] MEDS: Senna/Docusate Sodium 1 Tablet 2 TABLET PO (08:26)
[2022-01-20] MEDS: buPROPion (XL) 300 MG TABLET.XL PO (08:26)
[2022-01-20] MEDS: Famotidine 20 MG Tablet PO (08:26)
[2022-01-20] MEDS: Folic Acid 1 MG Tablet 2 MG PO (08:26)
[2022-01-20] MEDS: Multivitamins,Therapeutic Tablet 1 TABLET PO (08:27)
[2022-01-20] MEDS: Ensure Surgery 237 ML LIQUID PO ×2 (08:27→11:19)
[2022-01-20] MEDS: Aspirin 81 MG TAB.CHEW PO (08:27)
[2022-01-20] MEDS: sulfaSALAzine 500 MG Tablet 1000 MG PO (08:27)
--- NOTE | 2022-01-20 09:12 | PCM.PN.HOSP ---
Subjective Subjective Follow-up on left total shoulder replacement: Patient was seen and examined. Denied any new complaints. Her pain is fairly controlled. No acute events overnight except for relative hypotension. Her lisinopril and metoprolol have been held this morning. She denied any fever or chills or dizziness or palpitations. Objective Data Objective Data Vital Signs: Vital Signs Temp Pulse Resp BP Pulse Ox O2 Del Method O2 Flow Rate 98.1 F 71 16 93/63 97 Room Air 2 01/20/22 08:19 01/20/22 08:19 01/20/22 08:19 01/20/22 08:19 01/20/22 08:19 01/20/22 08:19 01/19/22 18:55 Oxygen Flow Rate (L/min) 2 Oxygen Delivery Method Room Air Weight: 60 kg Body Mass Index (BMI) 21.7 Intake & Output: Intake and Output for Last 24 Hours 01/18/22 01/19/22 01/20/22 23:59 23:59 23:59 Intake Total 3882 / 3882 50 / 50 Balance 3882 / 3882 50 / 50 Lab / Micro Data Result Diagrams: 01/20/22 06:45 01/20/22 06:45 Labs: Laboratory Results - last 24 hr 01/19/22 09:10: POC Glucose 76 01/20/22 06:45: WBC 8.9, RBC 3.42 L, Hgb 11.7 L, Hct 35.4 L, MCV 103.5 H, MCH 34.2 H, MCHC 33.1, RDW Std Deviation 49.3 H, RDW Coeff of Lexi 12.9, Plt Count 168, MPV 11.5 01/20/22 06:45: Sodium 135 L, Potassium 4.5, Chloride 103, Carbon Dioxide 29.0, Anion Gap 3 L, BUN 14, Creatinine 0.76, Estim Creat Clear Calc 70.83, Est GFR (MDRD) Af Amer 100, Est GFR (MDRD) Non-Af 83, BUN/Creatinine Ratio 18.5, Glucose 90, Calcium 8.4 L Micro: Microbiology 01/07/22 07:19 Interface Orders Nasal Screen MRSA/MSSA - Final Radiography Diagnostic Testing: Radiology Impression Shoulder X-Ray 01/19/22 13:50 IMPRESSION: Satisfactory postop changes left shoulder prosthesis. Electronically Signed: Zhang Pearl MD at 14:22 EDT , Physical Exam Narrative Physical exam: General: Alert, Oriented x3, Cooperative, No apparent distress HEENT: Atraumatic Oral: Moist Mucosa Neck: Supple Lungs: Diminished to auscultation Cardiovascular: HS I+II, regular, no murmurs Abdomen: Bowel Sounds Present, Soft, Non Tender Extremities: No edema, left upper extremity in a sling with her: On, able to wiggle her fingers Skin: No rashes, No breakdown Neurological: Grossly intact Psych/Mental Status: Appropriate Assessment & Plan Assessment/Plan (1) Arthritis of left glenohumeral joint: PLAN: Plan 1. POD #1 status post left shoulder replacement Pain is fairly controlled, continue on the current pain management Follow-up on orthopedic recommendations including PT and OT 2. Hypertension, relatively hypotensive for now, Metoprolol and lisinopril on hold this morning Patient resume metoprolol this evening and lisinopril tomorrow if her systolics is more than 100 3. Hypothyroidism, continue liothyronine and level thyroxine 4. Rheumatoid arthritis, continue on methotrexate and sulfasalazine 5. DVT PPx-per primary team Charges/Coding Visit Charges Inpatient E&M: 21932 Subs Hosp L2
--- NOTE | 2022-01-20 09:55 | CASEMGMT ---
CHANTAL LARES Face to Face with patient for initial transition planning/care coordination assessment. RN CM introduced self and role at [facility]. Patient lying in bed, alert and oriented. Patient willing to participate in assessment and is able to answer all questions appropriately. Care providers, pharmacy, and demographics verified. Patient wishes to discharge home and is schedule for outpatient therapy in 2 weeks. Patient states she has no further needs or concerns at this time. CM to follow for discharge planning needs that may arise. PCP: Holly Specialists: cameron Dyer; RA Alex Preferred Pharmacy: [facility] Insurance: [employer] Prescription Benefit: yes Living Will/HPOA: none LNOK: Living Arrangements: Patient lives with in a 2 story home. Patient states she was independent at home and able to ambulate stairs prior to surgery Transportation: self, DME/HHC: patient states she has shower chair and grab bars at home. Patient is scheduled for outpatient therapy at [facility] in 2 weeks. Disposition Plan: Patient to discharge home with family support and follow-up plans in place. Norma WIN, RN, CM
[2022-01-20 10:01] VITALS: BP 101/67; PULSE 75
--- NOTE | 2022-01-20 10:19 | PN.ORTHO_ITS ---
Subjective Subjective The patient was sitting in bedside chair upon examination. Patient denies any chest pain, shortness of breath, dizziness, lightheadedness, nausea or vomiting, or calf pain. Pain is controlled on medications. No adverse overnight events. Overall patient appears to be doing well. She did have some low blood pressure this morning in which her blood pressure medications have been on hold. Medicine is involved. Patient denies any dizziness or lightheadedness. Her pain is being controlled on Tylenol. Objective Data Objective Data Vital Signs: Vital Signs Temp Pulse Resp BP Pulse Ox O2 Del Method O2 Flow Rate 98.1 F 75 16 101/67 97 Room Air 2 01/20/22 08:19 01/20/22 10:01 01/20/22 08:19 01/20/22 10:01 01/20/22 08:19 01/20/22 08:19 01/19/22 18:55 Oxygen Flow Rate (L/min) 2 Oxygen Delivery Method Room Air Weight: 60 kg Body Mass Index (BMI) 21.7 Intake & Output: Intake and Output for Last 24 Hours 01/18/22 01/19/22 01/20/22 23:59 23:59 23:59 Intake Total 3882 / 3882 50 / 50 Balance 3882 / 3882 50 / 50 Lab / Micro Data Result Diagrams: 01/20/22 06:45 01/20/22 06:45 Labs: Laboratory Results - last 24 hr 01/19/22 09:10: POC Glucose 76 01/20/22 06:45: WBC 8.9, RBC 3.42 L, Hgb 11.7 L, Hct 35.4 L, MCV 103.5 H, MCH 34.2 H, MCHC 33.1, RDW Std Deviation 49.3 H, RDW Coeff of Lexi 12.9, Plt Count 168, MPV 11.5 01/20/22 06:45: Sodium 135 L, Potassium 4.5, Chloride 103, Carbon Dioxide 29.0, Anion Gap 3 L, BUN 14, Creatinine 0.76, Estim Creat Clear Calc 70.83, Est GFR (MDRD) Af Amer 100, Est GFR (MDRD) Non-Af 83, BUN/Creatinine Ratio 18.5, Glucose 90, Calcium 8.4 L Micro: Microbiology 01/07/22 07:19 Interface Orders Nasal Screen MRSA/MSSA - Final Radiography Diagnostic Testing: Radiology Impression Shoulder X-Ray 01/19/22 13:50 IMPRESSION: Satisfactory postop changes left shoulder prosthesis. Electronically Signed: Zhang Pearl MD at 14:22 EDT , Physical Exam Narrative Vital signs stable, afebrile. Patient's blood pressure has been slightly decreased today. Blood pressure medications are on hold. SCDs and JENNIFER hose are in place bilaterally Dressing is clean, dry, intact Ultra-sling fitting appropriately Sensation intact to axillary, radial, median, and ulnar distribution Motor intact to AIN, PIN, and ulnar nerve Const alert, oriented x3 and no apparent distress Assessment & Plan Assessment/Plan (1) Status post total replacement of left shoulder: PLAN: 1. S/P left anatomic total shoulder arthroplasty POD #1 2. Continue Pain Medications: Tylenol and oxycodone while in the hospital. Patient is followed by pain management Dr. Haynes in which he would like to manage her postoperative pain medications. She has Percocet at home. I discussed with her that if she is taking the Percocet it does have Tylenol and must not take additional Tylenol. She did voice understanding agreement. She will also be given meloxicam postoperatively for pain control. 3. DVT Prophylaxis: Aspirin 81 mg twice daily for 2 weeks postoperatively 4. PT/OT: Continue with UltraSling at all times except to come out for range of motion exercises of the elbow and pendulum exercise 3 times daily. No range of motion of the postoperative shoulder until outpatient physical therapy begins. Outpatient physical therapy will begin 2 weeks postoperatively after follow-up with [facility] with x-rays and incision check. 5. H & H: 11.7/35.4, asymptomatic. Postoperative anemia secondary to acute blood loss from surgery without any intra operative complications. 6. Continue postoperative medical management per medicine: Case was discussed with the hospitalist and at this time she will hold her blood pressure medications this morning. As long as patient is stable today they are okay with discharge home. She will resume her metoprolol tonight and hold her lisinopril until tomorrow. Only take the lisinopril if her blood pressure is greater than 100 mm Hg. patient does have the ability to take her blood pressure at home. 7. Encouraged Incentive Spirometry 8. Disposition: Plan will be for probable discharge home this afternoon as long as patient's blood pressure remained stable. She will hold off of the metoprolol until tonight and not take lisinopril until tomorrow as long as her blood pressure is over 100 mmHg. Patient's pain medications will be handled by pain management. She will utilize aspirin 81 mg twice daily for 2 weeks postoperatively. She would like her prescriptions E scribed to [facility] in [facility]. Patient states she has aspirin at home as well as senna for her stool softener. She will take the stool softener until she has first bowel movement and then as needed. Patient does have outpatient physical therapy established. She will follow-up per postop instructions. Contact her office with any concerns or question upon discharge. I have reviewed the [place] Automated Rx Reporting System (OARRS) report for this patient for refill pattern and other prescriber involvement as part of the appropriate surveillance for the provision of acute and chronic controlled medications. The report was requested and reviewed on the date of this entry and was considered in the prescribing process. This dictation was created using voice recognition software. Phonetic and/or grammatical errors may exist.
--- NOTE | 2022-01-20 10:25 | PCM.DC ---
Discharge Instructions Diet Discharge Diet: No restrictions Activity Discharge Activity: May Not Drive (No driving for 6 weeks while wearing UltraSling) May shower in (days): 1 (Dressing must be intact to skin. Turn dressing away from water.) Ice area for (Minutes): 20 (Every 1-2 hours while awake[address] Please place barrier between skin and ice pack.) Weight Bearing Status: No weight bearing (Postoperative upper extremity) Additional Activity Instructions:: Continue with UltraSling at all times. Please come out of UltraSling 3 times daily working on elbow range of motion and pendulum exercises. No range of motion of postoperative shoulder. Will begin outpatient physical therapy after 2-week scheduled follow-up. Dressing / Incision Call your doctor if your incision/area has: Continuous Slow Oozing, Sudden Increased Bleeding, Increased Pain/ Swelling, Increased Redness and Foul Smelling Discharge Call your doctor if you observe: Fever of 101 or Higher, Shortness of breath, Chest pain and Uncontrolled pain Remove Dressing in: 4 days (Okay to remove dressing on January 24, 2022) Additional Dressing/Incision Instructions:: Follow [facility] Post-op Instructions. Once postoperative dressing has been removed only use gentle soap and water over the incision. Do not use any ointments, Neosporin, salves, alcohol pads over the incision for 6 weeks postoperatively. Do not submerge underwater for 6 weeks postoperatively. Do NOT use alcohol with narcotic pain medication. Do NOT make important decisions while taking narcotic medication. If you have problems with taking your medication (rash, itching, nausea, etc.) call the office at once. Follow Up Care Test Results: Test results from this visit will be discussed in further detail at your follow-up appointment, if applicable. Discharge Plan Admission Admit Date/Time: 01/19/22 13:43 Attending Provider: He Dyer Primary Care Provider: Nasim Barrera Consulting Providers: Corrie Osborn Instructions Additional Instructions / Restrictions: Measure your blood pressure daily and keep a log of it Hold your Lisinopril tomorrow. Resume if systolic blood pressure is more than 110. Continue on metoprolol tonight. Discharge Orders/Prescriptions Prescriptions: New acetaminophen 500 mg Tablet 1,000 mg PO Q8 Qty: 0 0RF Rx Instructions: Only use if not taking Percocet at home aspirin 81 mg Tablet,Chewable 81 mg PO BIDCM Qty: 0 0RF Rx Instructions: Take 81 mg aspirin twice daily for 2 weeks postoperatively for DVT prophylaxis. sennosides-docusate sodium [Stool Softener-Stimulant Laxat] 8.6-50 mg Tablet 2 tab PO BID Qty: 0 0RF Rx Instructions: Take until first bowel movement, then as needed meloxicam 7.5 mg Tablet 7.5 mg PO BID Qty: 60 0RF Rx Instructions: Do not take any other nonsteroidal anti-inflammatories while using meloxicam/Mobic. Continued multivitamin capsule capsule 1 cap PO QAM gabapentin [Neurontin] 300 mg capsule 300 mg PO TID conjugated estrogens [Premarin] 0.625 mg/gram cream 1 applic VAGINAL PRN PRN (Reason: Vaginal Dryness) levothyroxine [Synthroid] 50 mcg tablet 50 mcg PO DAILY methotrexate sodium 25 mg/mL solution 17.5 mg subcut QWEEK Rx Instructions: Fridays sulfasalazine [Azulfidine] 500 mg tablet 1 g PO BID bupropion HCl [Wellbutrin XL] 300 mg tablet extended release 24 hr 300 mg PO DAILY liothyronine [Cytomel] 5 mcg tablet 5 mcg PO DAILY furosemide [Lasix] 20 mg tablet 20 mg PO DAILY PRN (Reason: swelling) Xiidra 5 % dropperette 1 drp ophthalmic (eye) BID Rx Instructions: administer approximately 12 hours apart folic acid 1 mg tablet 2 tablet PO DAILY cholecalciferol (vitamin D3) 25 mcg (1,000 unit) capsule 25 mcg PO DAILY mecobalamin (vitamin B12) 5,000 mcg lozenge 5,000 mcg PO DAILY Rx Instructions: allow to dissolve in mouth OR may chew lightly before swallowing Held lisinopril 10 mg tablet 10 mg PO DAILY Hold Instructions: Resume on 01/21/22. Okay to resume lisinopril on January 21, 2022 if blood pressure remains greater than 100 mmHg metoprolol succinate 25 mg tablet extended release 24 hr 25 mg PO BID Hold Instructions: Resume on 01/20/22. Okay to resume metoprolol for evening dose Humira Pen 40 mg/0.8 mL Pen Injector Kit 40 mg SUBCUT QWEEK Hold Instructions: Resume on 02/10/22. Hold medication until patient is seen postoperatively for healing purposes and increased risk of infection. Rx Instructions: Britton Other Ambulatory Orders: 12 Lead EKG (Routine) Location: None Selected Ordered By: Dr. He Dyer Referrals / Follow Up: Nasim Barrera MD [Primary Care Provider] - Faisal Pickard PA-C [Med Staff - [facility]] - 02/04/22 9:45 am Physical,Therapy [Other] - 02/04/22 11:00 am Disposition Disposition (needs filled in before D/C Order can be placed): Home, Self Care
--- NOTE | 2022-01-20 11:12 | PHA.DC.MC ---
Pharmacy Service has performed discharge medication reconciliation and counseling for this patient. The patient was counseled on the following discharge medications and changes in medications for homegoing were reviewed. 1. ASPIRIN 2. MELOXICAM 3. SENNA-S 4. TYLENOL The Reason for Use, instructions for use, and potential side effects were reviewed for all new medications. The patient's questions regarding all of their medications were answered. The patient was able to verbally demonstrate an understanding of their discharge medications. Home Medications conjugated estrogens 0.625 mg/gram vaginal cream (Premarin) 1 applic vaginal PRN PRN Vaginal Dryness 06/28/17 gabapentin 300 mg capsule (Neurontin) 300 mg PO TID 06/28/17 levothyroxine 50 mcg tablet (Synthroid) 50 mcg PO DAILY 06/28/17 multivitamin 1 cap PO QAM 06/28/17 bupropion HCl 300 mg 24 hr tablet, extended release (Wellbutrin XL) 300 mg PO DAILY 10/18/21 cholecalciferol (vitamin D3) 25 mcg (1,000 unit) capsule 25 mcg PO DAILY 10/18/21 folic acid 1 mg tablet 2 tablet PO DAILY 10/18/21 furosemide 20 mg tablet (Lasix) 20 mg PO DAILY PRN swelling 10/18/21 lifitegrast 5 % eye drops in a dropperette (Xiidra) 1 drp ophthalmic (eye) BID 10/18/21 liothyronine 5 mcg tablet (Cytomel) 5 mcg PO DAILY 10/18/21 lisinopril 10 mg tablet 10 mg PO DAILY 10/18/21 mecobalamin (vitamin B12) 5,000 mcg lozenge 5,000 mcg PO DAILY 10/18/21 methotrexate sodium 25 mg/mL injection solution 17.5 mg subcut QWEEK 10/18/21 metoprolol succinate 25 mg tablet,extended release 24 hr 25 mg PO BID 10/18/21 sulfasalazine 500 mg tablet (Azulfidine) 1 g PO BID Arthritis 10/18/21 adalimumab 40 mg/0.8 mL subcutaneous pen kit (Humira Pen) 40 mg subcut QWEEK 01/05/22 acetaminophen 500 mg tablet 1,000 mg PO Q8 #0 tabs 01/20/22 aspirin 81 mg chewable tablet 81 mg PO BIDCM #0 tabs 01/20/22 meloxicam 7.5 mg tablet 7.5 mg PO BID #60 tabs 01/20/22 sennosides 8.6 mg-docusate sodium 50 mg tablet (Stool Softener-Stimulant Laxative) 2 tab PO BID #0 tabs 01/20/22 The patient's discharge medication list was reviewed for discrepancies and discrepancies were resolved.
[2022-01-20] MEDS: Ketorolac 15 MG/ML Vial IV (11:19)
[2022-01-20 13:03] VITALS: BP 106/68; PULSE 92; RESP 16; TEMP 37; O2SAT 93
== END 2022-01-20 13:46 | disposition home or self-care (01) ==
LOC: SDC 13:44 → MS3 13:44
PROVIDERS: Anesthesiology; Admitting Provider Specialist; PCP Family Medicine; Referring Provider Specialist; Visit Provider Specialist
PROC: (CPT 23472; principal; 2022-01-19 10:45)
DX: M19.012 Primary osteoarthritis, left shoulder (principal); M06.9 Rheumatoid arthritis, unspecified; I10 Essential (primary) hypertension; R11.0 Nausea; E07.9 Disorder of thyroid, unspecified; Z79.899 Other long term (current) drug therapy; E03.9 Hypothyroidism, unspecified; Z79.890 Hormone replacement therapy
CPT/HCPCS: 23472; 01638; 64415; 36415; 73030; 80048; 80053; 82962; 83735; 84443; 85025; 85027; 87081; 88305; 88311; 93005; 96365; 96366; 96372; 96375; 97166; 99218; 99251; C1776; J7050; J7120; A4216; G0378; G0463; J3475

== ENCOUNTER → 2022-04-01 | Outpatient (CLI) | payer OTHER, SELFPAY ==
[2022-04-01 08:06] LABS: Absolute Lymphocyte Count 1.73 X10^3/uL (0.83-4.51); Absolute Neutrophil Count 2.6 X10^3/uL (2.0-7.7); Basophil# 0.03 X10^3/uL; Basophil% 0.6 % (0-1); Eosinophil# 0.17 X10^3/uL; Eosinophils% 3.4 % (0-5); Hematocrit 38.2 % (37-47); Hemoglobin 13.1 g/dL (12.0-15.0); Lymphocyte # 1.73 X10^3/ul (0.83-4.51); Lymphocyte % 34.9 % (19-41); Mean Corp Hgb Conc 34.3 g/dL (32-36); Mean Corpuscular Volume 99.2 fL (81-99); Mean Platelet Vol. 10.9 fl (6.2-12.0); Monocyte# 0.42 X10^3/uL; Monocyte% 8.5 % (0-10); NRBC Flagged by Analyzer 0 % (0-5); Neutrophil % 52.4 % (47-70); Platelet Count 176 K/mm3 (150-450); RBC Distribution Width CV 13.7 % (11.6-14.6); RBC Distribution Width SD 49.4 fl (35.1-43.9); Red Blood Count 3.85 M/mm3 (4.2-5.4)
[2022-04-01 08:43] LABS: ALB/GLOB Ratio 1.3 RATIO (0.9-2.4); AST(SGOT) 50 U/L (15-37); Alanine Aminotransfer ALT/SGPT 55 U/L (13-56); Alkaline Phosphatase 58 U/L (45-117); Anion Gap 5 (5-15); BUN 10 mg/dL (7-18); BUN/Creat Ratio 12.3 RATIO (10-20); Calcium,Total 9.3 mg/dL (8.5-10.1); Chloride 109 mmol/L (98-107); Creatinine, Serum 0.82 mg/dL (0.55-1.02); EST Glomerular Filtration Rate 76 mL/min (>60); Est Glom Filt Rate - Afr Amer 92 mL/min (>60); Glucose 98 mg/dL (74-106); Potassium 4.5 mmol/L (3.5-5.1); Sodium Level 141 mmol/L (136-145)
== END | disposition home or self-care (01) ==
LOC: LAB 07:40
PROVIDERS: PCP Family Medicine; Referring Provider Internal Medicine Rheumatology; Visit Provider Internal Medicine Rheumatology
DX: M06.09 Rheumatoid arthritis without rheumatoid factor, multiple sites (principal); M35.00 Sjogren syndrome, unspecified; Z79.899 Other long term (current) drug therapy; M18.0 Bilateral primary osteoarthritis of first carpometacarpal joints; M25.512 Pain in left shoulder; M50.30 Other cervical disc degeneration, unspecified cervical region; M47.897 Other spondylosis, lumbosacral region; I10 Essential (primary) hypertension; E03.9 Hypothyroidism, unspecified; F32.A Depression, unspecified; J30.9 Allergic rhinitis, unspecified
CPT/HCPCS: 36415; 80053; 85025

== ENCOUNTER 2022-04-04 17:00 | Outpatient (RCR) | payer OTHER, SELFPAY ==
--- NOTE | 2022-02-04 11:33 | HP.PTEVAL ---
Patient's Visit Information MARA VELASCO is a 61 year old F referred to Physical Therapy by Og Pickard PA-C with a diagnosis of Left TSA. Date of Evaluation: 02/04/22 Physical Therapist: Aspen Jay DPT - Visit Plan Frequency: 2x /Week Duration: 4 Weeks Plan: Total Shoulder Left 01/19/22 Per MD: Sling as tolerated after 2 weeks- use in public and night until 6 weeks. PT begin Phase I PROM and initiate phase II AROM advancing as tolerated. Hold Phase III strength until 6 weeks. At 6 weeks d/c sling completely- initiate phase III strengthening- No limitations on ROM - Subjective Jan [address] Dyer- she stayed overnight and then was discharged home. Lives with who is able to help as needed. She was wearing the sling at all times until today- and today she saw the MD who was happy with progress and d/c sling to only in public and sleeping. Worst: 3/10 Agg: overdoing it. Eases: pain medication, ice and rest. Best: 0/10. Right hand dominate. Describes the pain as dull and achy. Pain is located in the anterior shoulder joint. No radiating pain. No N/T in the finger. No EDUARDO, blurred vision, dizziness. Not cleared to drive at this time-6 weeks from surgery. Plans to wear her sling in the car. No Neck pain. Sleep: in bed- disturbed when she tries to roll over onto her sides. Normally a side sleeper. She likes to get on an elliptical. Goals: get back to all normal ADL's. 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 PMHx/Meds: no changes since discharged from the hospital. - Objective Posture: FH, RS- sling intact on left- guarding of the left UE. Gait: no arm swing- wearing sling. Palpation: not tender to touch throughout shoulder. ROM: Cervical: WNL, Elbow/Wrist/Hand: WFL, Shoulder PROM: Flexion: 90 degrees, Abd: 110 degrees, IR: to belly, ER: 30 degrees. Strength: not tested due to protocol of shoulder- Elbow: 4+/5, Wrist: 5/5 Front Office Manager: 40 lbs bilateral. - Balance/Special Test Scores Quick DASH Score: 52.2725 - Goals Goal 1:: Patient will be I with HEP and progression Goal Time Frame: 4-6 Weeks Goal 2:: Patient will demo full AROM of the left shoulder per protocol Goal Time Frame: 4-6 Weeks Goal 3:: Patient will report 80% improvement Goal Time Frame: 4-6 Weeks Goal 4:: Patient will maintain proper posture t/o tx session to demo increased scap s/s as per protocol Goal Time Frame: 4-6 Weeks Goal 5:: Patient will report return to all normal ADL's. Goal Time Frame: 4-6 Weeks - Rehabilitation Potential Physical Therapy Diagnosis: Patient presents with hypomobility s/p left TSA 01/19/22- she has decreased ROM, scapular strength/stabilization and muscular endurance leading to poor posture and increased pain with ADL's. Rehabilitation Potential: Good - Anticipated Interventions Thank you for the opportunity to evaluate your patient. For Medicare and Medicare HMO plans, please review the plan of care and approve it. It will need to be FAXED BACK to us at [phone] for Medicare purposes. For Medicare only, by signing this I certify the plan of care. Please let me know if there are questions or concerns regarding this plan of care. Physician Signature: Date:
--- NOTE | 2022-04-04 17:17 | HP.PTDCSUM ---
It has been my pleasure to treat MARA VELASCO referred by Og Pickard PA-C, with the diagnosis of Left TSA for a total of 14 visit(s). Discharge Date: Please see the following information for a summary of their discharge status. Subjective: Patient reports that she is doing really well- she pushed too hard raking leaves. She is able to perform all ADL's. She still has trouble reaching across. She feels that she is 100%. She feels that she either has mild or is painfree. Sleep is good- no problems- can side sleep L SH Pain Intensity (Out of 10): 2 % Improvement: 100 Objective/Function: Posture: good throughout- no guarding of the left UE Gait: good arm swing and rotation Palpation: not tender to touch throughout shoulder. ROM: Cervical: WNL, Elbow/Wrist/Hand: WFL, Shoulder AROM: Flexion: 160 degrees, Abd: 160 degrees, IR: to L3, ER: 50 degrees. Strength: Shoulder: 4+/5 in neutral- Elbow: 4+/5, Wrist: 5/5 Scapular: fair Goal 1:: Patient will be I with HEP and progression Goal Progress: Goal Met Goal 2:: Patient will demo full AROM of the left shoulder per protocol Goal Progress: Goal Met Goal 3:: Patient will report 80% improvement Goal Progress: Goal Met Goal 4:: Patient will maintain proper posture t/o tx session to demo increased scap s/s as per protocol Goal Progress: Goal Met Goal 5:: Patient will report return to all normal ADL's. Goal Progress: Goal Met Plan: 04/04/22: Discharge to I HEP- encouraged to call if questions. Continue phase III shldr strengthening progression, ROM. If there are questions or concerns regarding this patient's physical therapy, please feel free to call me at [phone]. Thank you for the referral of this patient. Sincerely, Aspen Jay, EDUARDOT Balance/Gait/Functional tests - Balance/Special Test Scores Quick DASH Score: [phone]
== END 2022-04-04 19:00 | disposition home or self-care (01) ==
LOC: PT 17:00
PROVIDERS: PCP Family Medicine; Referring Provider Physician Assistant Surgical; Visit Provider Physician Assistant Surgical
DX: M19.012 Primary osteoarthritis, left shoulder (principal); Z96.612 Presence of left artificial shoulder joint; Z47.1 Aftercare following joint replacement surgery
CPT/HCPCS: 97110; 97140; 97162; 97164

== ENCOUNTER 2022-05-03 07:33 | Outpatient (CLI) | payer OTHER, SELFPAY ==
[2022-05-03 08:56] LABS: ALB/GLOB Ratio 1.3 RATIO (0.9-2.4); AST(SGOT) 51 U/L (15-37); Alanine Aminotransfer ALT/SGPT 63 U/L (13-56); Alkaline Phosphatase 59 U/L (45-117); Anion Gap 6 (5-15); BUN 15 mg/dL (7-18); BUN/Creat Ratio 18.8 RATIO (10-20); Calcium,Total 9.3 mg/dL (8.5-10.1); Chloride 106 mmol/L (98-107); EST Glomerular Filtration Rate 78 mL/min (>60); Est Glom Filt Rate - Afr Amer 94 mL/min (>60); Glucose 102 mg/dL (74-106); Sodium Level 141 mmol/L (136-145)
== END 2022-05-03 23:59 | disposition home or self-care (01) ==
LOC: LAB 07:36
PROVIDERS: PCP Family Medicine; Referring Provider Internal Medicine Rheumatology; Visit Provider Internal Medicine Rheumatology
DX: M06.00 Rheumatoid arthritis without rheumatoid factor, unspecified site (principal); M35.00 Sjogren syndrome, unspecified; Z79.899 Other long term (current) drug therapy; M18.0 Bilateral primary osteoarthritis of first carpometacarpal joints; M19.212 Secondary osteoarthritis, left shoulder; M50.30 Other cervical disc degeneration, unspecified cervical region; M47.897 Other spondylosis, lumbosacral region; I10 Essential (primary) hypertension; E03.9 Hypothyroidism, unspecified; F32.9 Major depressive disorder, single episode, unspecified; J30.9 Allergic rhinitis, unspecified
CPT/HCPCS: 36415; 80053

== ENCOUNTER → 2022-05-19 | Outpatient (CLI) | payer OTHER, SELFPAY ==
--- NOTE | 2022-05-19 07:34 | US_ITS ---
STUDY: ABDOMINAL ULTRASOUND - RIGHT UPPER QUADRANT REASON FOR VISIT: Female, 61 years old ELEVATED LIVER ENZYMES TECHNIQUE: Ultrasound evaluation of the right upper quadrant was performed with real-time and static miranda-scale imaging. TECHNICAL QUALITY: Adequate. COMPARISON: None. FINDINGS: Liver: The liver measures 12.3 cm. There is a heterogeneous echogenicity of the liver. The bile ducts are within normal limits. There is hepatic color flow. The direction of portal flow is hepatopetal. There is no demonstrated mass lesion. Gallbladder: Normal distended gallbladder. The gallbladder wall measures 2.2 mm. There is a negative sonographic Omalley''s sign. There is no pericholecystic fluid. There are no gallstones. Common Bile Duct (C.B.D.): The common bile duct measures 2.4 mm. Pancreas: Normal size of the head, body and tail of the pancreas. There is normal echogenicity of the pancreas. There is no demonstrated pancreatic mass or cyst. Right Kidney: Normal size of the right kidney. The right kidney measures 10.5 cm x 4.6 x 5.5 cm. Normal renal cortex. The right cortex measures 1.2 cm. There is no demonstrated renal mass or cyst. There is no right hydronephrosis. US/Abdomen Limited IMPRESSION: Normal right upper quadrant ultrasound examination. Electronically Signed: Rojelio Gonzalez MD at 13:55 EST ,
== END | disposition home or self-care (01) ==
LOC: US 07:32
PROVIDERS: PCP Family Medicine; Visit Provider Internal Medicine Rheumatology
DX: M06.00 Rheumatoid arthritis without rheumatoid factor, unspecified site (principal); M35.00 Sjogren syndrome, unspecified; Z79.899 Other long term (current) drug therapy
CPT/HCPCS: 76705

== ENCOUNTER → 2022-06-16 | Outpatient (CLI) | payer OTHER, SELFPAY ==
[2022-06-16 08:21] LABS: ALB/GLOB Ratio 1.3 RATIO (0.9-2.4); AST(SGOT) 33 U/L (15-37); Alanine Aminotransfer ALT/SGPT 39 U/L (13-56); Albumin, Serum 4.2 g/dL (3.2-5.0); Alkaline Phosphatase 47 U/L (45-117); Anion Gap 4 (5-15); BUN 19 mg/dL (7-18); BUN/Creat Ratio 22.7 RATIO (10-20); Calcium,Total 9.3 mg/dL (8.5-10.1); Chloride 103 mmol/L (98-107); Creatinine, Serum 0.84 mg/dL (0.55-1.02); EST Glomerular Filtration Rate 74 mL/min (>60); Est Glom Filt Rate - Afr Amer 89 mL/min (>60); Globulin 3.3 g/dL (2.2-4.2); Glucose 98 mg/dL (74-106); Potassium 4.8 mmol/L (3.5-5.1); Protein, Total 7.5 g/dL (6.4-8.2); Sodium Level 136 mmol/L (136-145)
== END | disposition home or self-care (01) ==
LOC: LAB 07:09
PROVIDERS: PCP Family Medicine; Referring Provider Internal Medicine Rheumatology; Visit Provider Internal Medicine Rheumatology
DX: Z79.899 Other long term (current) drug therapy (principal); M06.00 Rheumatoid arthritis without rheumatoid factor, unspecified site; M35.00 Sjogren syndrome, unspecified; M18.0 Bilateral primary osteoarthritis of first carpometacarpal joints; M19.212 Secondary osteoarthritis, left shoulder; M50.30 Other cervical disc degeneration, unspecified cervical region; M47.897 Other spondylosis, lumbosacral region; I10 Essential (primary) hypertension; E03.9 Hypothyroidism, unspecified; F32.9 Major depressive disorder, single episode, unspecified; J30.9 Allergic rhinitis, unspecified
CPT/HCPCS: 36415; 80053

== ENCOUNTER → 2022-08-12 | Outpatient (CLI) | payer OTHER, SELFPAY ==
[2022-08-12 18:24] LABS: Cholesterol 246 mg/dL (200); High Density Lipoprotein 54 mg/dL; T4 Total, Thyroxin 8.3 ug/dL (4.8-13.9); Thyroid Stim Hormone (TSH) 0.47 uIU/mL (0.358-3.74); Triglycerides 187 mg/dL; Very Low Density Lipoprotein 37 mg/dL (5-40)
[2022-08-12 18:29] LABS: Microalbumin:Creatinine Ratio 10.8 mg/g CRE (<30 mg/g CRE)
== END | disposition home or self-care (01) ==
LOC: MFPLAB 16:12
PROVIDERS: Family Medicine; PCP Family Medicine; Referring Provider Family Medicine; Visit Provider Family Medicine
DX: I10 Essential (primary) hypertension (principal); E03.9 Hypothyroidism, unspecified
CPT/HCPCS: 36415; 80061; 82043; 82570; 84436; 84443

== ENCOUNTER → 2022-08-30 | Outpatient (CLI) | payer OTHER, SELFPAY ==
[2022-08-30 16:54] LABS: Absolute Lymphocyte Count 3.11 X10^3/uL (0.83-4.51); Absolute Neutrophil Count 3.1 X10^3/uL (2.0-7.7); Basophil# 0.04 X10^3/uL; Basophil% 0.6 % (0-1); Eosinophil# 0.16 X10^3/uL; Eosinophils% 2.3 % (0-5); Hematocrit 36.7 % (37-47); Hemoglobin 12.3 g/dL (12.0-15.0); Lymphocyte # 3.11 X10^3/ul (0.83-4.51); Lymphocyte % 45.6 % (19-41); Mean Corp Hgb Conc 33.5 g/dL (32-36); Mean Corpuscular Hgb 31.8 pg (27.0-32.0); Mean Corpuscular Volume 94.8 fL (81-99); Mean Platelet Vol. 10.7 fl (6.2-12.0); Monocyte# 0.44 X10^3/uL; Monocyte% 6.5 % (0-10); NRBC Flagged by Analyzer 0 % (0-5); Neutrophil # 3.06 X10^3/uL (2.7-7.7); Neutrophil % 44.9 % (47-70); Platelet Count 190 K/mm3 (150-450); RBC Distribution Width CV 13.3 % (11.6-14.6); RBC Distribution Width SD 45.5 fl (35.1-43.9); Red Blood Count 3.87 M/mm3 (4.2-5.4); White Blood Count 6.8 K/mm3 (4.4-11.0)
[2022-08-30 17:43] LABS: ALB/GLOB Ratio 1.2 RATIO (0.9-2.4); AST(SGOT) 43 U/L (15-37); Alanine Aminotransfer ALT/SGPT 63 U/L (13-56); Alkaline Phosphatase 52 U/L (45-117); Anion Gap 4 (5-15); BUN 16 mg/dL (7-18); BUN/Creat Ratio 18.9 RATIO (10-20); Calcium,Total 9.1 mg/dL (8.5-10.1); Chloride 110 mmol/L (98-107); Creatinine, Serum 0.84 mg/dL (0.55-1.02); EST Glomerular Filtration Rate 73 mL/min (>60); Est Glom Filt Rate - Afr Amer 88 mL/min (>60); Globulin 3.2 g/dL (2.2-4.2); Glucose 89 mg/dL (74-106); Potassium 3.8 mmol/L (3.5-5.1); Protein, Total 7.2 g/dL (6.4-8.2); Sodium Level 141 mmol/L (136-145)
== END | disposition home or self-care (01) ==
LOC: LAB 16:41
PROVIDERS: PCP Family Medicine; Referring Provider Internal Medicine Rheumatology; Visit Provider Internal Medicine Rheumatology
DX: M06.00 Rheumatoid arthritis without rheumatoid factor, unspecified site (principal); M35.00 Sjogren syndrome, unspecified; Z79.899 Other long term (current) drug therapy; M18.0 Bilateral primary osteoarthritis of first carpometacarpal joints; M19.212 Secondary osteoarthritis, left shoulder; M50.30 Other cervical disc degeneration, unspecified cervical region; M47.897 Other spondylosis, lumbosacral region; I10 Essential (primary) hypertension; E03.9 Hypothyroidism, unspecified; F32.9 Major depressive disorder, single episode, unspecified; J30.9 Allergic rhinitis, unspecified
CPT/HCPCS: 36415; 80053; 85025

== ENCOUNTER → 2022-10-03 | Outpatient (CLI) | payer OTHER, SELFPAY ==
[2022-10-03 09:03] LABS: ALB/GLOB Ratio 1.1 RATIO (0.9-2.4); AST(SGOT) 30 U/L (15-37); Alanine Aminotransfer ALT/SGPT 28 U/L (13-56); Albumin, Serum 3.7 g/dL (3.2-5.0); Alkaline Phosphatase 50 U/L (45-117); Anion Gap 5 (5-15); BUN 22 mg/dL (7-18); Calcium,Total 9.3 mg/dL (8.5-10.1); Chloride 110 mmol/L (98-107); Creatinine, Serum 0.85 mg/dL (0.55-1.02); EST Glomerular Filtration Rate 73 mL/min (>60); Est Glom Filt Rate - Afr Amer 88 mL/min (>60); Globulin 3.5 g/dL (2.2-4.2); Glucose 97 mg/dL (74-106); Potassium 4.9 mmol/L (3.5-5.1); Protein, Total 7.2 g/dL (6.4-8.2); Sodium Level 137 mmol/L (136-145)
== END | disposition home or self-care (01) ==
LOC: LAB 08:01
PROVIDERS: PCP Family Medicine; Referring Provider Internal Medicine Rheumatology; Visit Provider Internal Medicine Rheumatology
DX: M06.00 Rheumatoid arthritis without rheumatoid factor, unspecified site (principal); Z79.899 Other long term (current) drug therapy
CPT/HCPCS: 36415; 80053

== ENCOUNTER → 2022-11-30 | Outpatient (CLI) | payer OTHER, SELFPAY ==
[2022-11-30 17:07] LABS: Absolute Lymphocyte Count 2.83 X10^3/uL (0.83-4.51); Absolute Neutrophil Count 4.3 X10^3/uL (2.0-7.7); Basophil# 0.04 X10^3/uL; Basophil% 0.5 % (0-1); Eosinophil# 0.31 X10^3/uL; Eosinophils% 3.8 % (0-5); Hemoglobin 12.8 g/dL (12.0-15.0); Lymphocyte # 2.83 X10^3/ul (0.83-4.51); Lymphocyte % 35.1 % (19-41); Mean Corp Hgb Conc 33.7 g/dL (32-36); Mean Corpuscular Hgb 31.6 pg (27.0-32.0); Mean Corpuscular Volume 93.8 fL (81-99); Mean Platelet Vol. 11.4 fl (6.2-12.0); Monocyte# 0.59 X10^3/uL; Monocyte% 7.3 % (0-10); NRBC Flagged by Analyzer 0 % (0-5); Neutrophil # 4.29 X10^3/uL (2.7-7.7); Neutrophil % 53.2 % (47-70); Platelet Count 166 K/mm3 (150-450); RBC Distribution Width CV 12.1 % (11.6-14.6); RBC Distribution Width SD 41.5 fl (35.1-43.9); Red Blood Count 4.05 M/mm3 (4.2-5.4); White Blood Count 8.1 K/mm3 (4.4-11.0)
[2022-11-30 17:42] LABS: ALB/GLOB Ratio 1.2 RATIO (0.9-2.4); AST(SGOT) 29 U/L (15-37); Alanine Aminotransfer ALT/SGPT 27 U/L (13-56); Albumin, Serum 3.8 g/dL (3.2-5.0); Alkaline Phosphatase 55 U/L (45-117); Anion Gap 5 (5-15); BUN 21 mg/dL (7-18); BUN/Creat Ratio 22.9 RATIO (10-20); Chloride 112 mmol/L (98-107); Creatinine, Serum 0.92 mg/dL (0.55-1.02); EST Glomerular Filtration Rate 66 mL/min (>60); Est Glom Filt Rate - Afr Amer 80 mL/min (>60); Globulin 3.3 g/dL (2.2-4.2); Glucose 77 mg/dL (74-106); Protein, Total 7.1 g/dL (6.4-8.2); Sodium Level 142 mmol/L (136-145)
== END | disposition home or self-care (01) ==
LOC: LAB 16:37
PROVIDERS: PCP Family Medicine; Visit Provider Internal Medicine Rheumatology
DX: M06.00 Rheumatoid arthritis without rheumatoid factor, unspecified site (principal); Z79.899 Other long term (current) drug therapy
CPT/HCPCS: 36415; 80053; 85025

== ENCOUNTER → 2023-01-24 | Outpatient (CLI) | payer OTHER, SELFPAY ==
--- NOTE | 2023-01-24 07:08 | BI_ITS ---
MAMMOGRAPHY - BILATERAL SCREENING REASON FOR EXAM: Female, 62 years old. Routine annual screening examination. PERTINENT HISTORY: Grandmother with breast cancer. Aunt with breast cancer. Bilateral breast implants. No reported personal history of breast cancer. TECHNIQUE: Digital bilateral breast matthew (3D mammographic acquisition) in the CC and MLO projections. 2-D mediolateral oblique (MLO) and craniocaudad (CC) views of both breasts were obtained. Implant displacement views were also utilized. CAD: Full Field Digital Mammography with Computer Added Detection was performed. COMPARISON: Screening mammogram from 01/18/2022, 01/14/2021. FINDINGS: Breast Composition: There are scattered areas of fibroglandular density. There are no dominant masses or suspicious calcifications. Stable bilateral breast implants. No other significant abnormalities are identified. There has been no significant change since the prior study. BI/SCRN MAMM (CAD)W/MATTHEW BILAT IMPRESSION: Stable bilateral screening mammogram. Yearly follow-up mammogram recommended. (A) ASSESSMENT CATEGORY: BIRADS Category 2: Benign. A letter regarding these results will be sent to the patient by the facility within 30 days. Approximately 10% of breast cancers are not detected by mammography. A normal mammogram should not delay biopsy of a clinically suspicious abnormality. Electronically Signed: Ishaan Alcantar DO at 11:30 EDT ,
== END | disposition home or self-care (01) ==
LOC: OPBI 07:06
PROVIDERS: PCP Family Medicine; Referring Provider Family Medicine; Visit Provider Family Medicine
DX: Z12.31 Encounter for screening mammogram for malignant neoplasm of breast (principal); Z80.3 Family history of malignant neoplasm of breast
CPT/HCPCS: 77063; 77067

== ENCOUNTER → 2023-01-30 | Outpatient (CLI) | payer OTHER, SELFPAY ==
[2023-01-30 07:54] LABS: Absolute Lymphocyte Count 2.23 X10^3/uL (0.83-4.51); Absolute Neutrophil Count 2.3 X10^3/uL (2.0-7.7); Basophil# 0.03 X10^3/uL; Basophil% 0.6 % (0-1); Eosinophil# 0.18 X10^3/uL; Eosinophils% 3.6 % (0-5); Hematocrit 40.1 % (37-47); Hemoglobin 13.5 g/dL (12.0-15.0); Lymphocyte # 2.23 X10^3/ul (0.83-4.51); Mean Corp Hgb Conc 33.7 g/dL (32-36); Mean Corpuscular Hgb 31.8 pg (27.0-32.0); Mean Corpuscular Volume 94.6 fL (81-99); Mean Platelet Vol. 10.7 fl (6.2-12.0); Monocyte# 0.37 X10^3/uL; Monocyte% 7.3 % (0-10); NRBC Flagged by Analyzer 0 % (0-5); Neutrophil # 2.25 X10^3/uL (2.7-7.7); Neutrophil % 44.3 % (47-70); Platelet Count 213 K/mm3 (150-450); RBC Distribution Width SD 45.1 fl (35.1-43.9); Red Blood Count 4.24 M/mm3 (4.2-5.4); White Blood Count 5.1 K/mm3 (4.4-11.0)
[2023-01-30 08:11] LABS: ALB/GLOB Ratio 1.1 RATIO (0.9-2.4); AST(SGOT) 49 U/L (15-37); Alanine Aminotransfer ALT/SGPT 43 U/L (13-56); Albumin, Serum 3.9 g/dL (3.2-5.0); Alkaline Phosphatase 57 U/L (45-117); Anion Gap 7 (5-15); BUN 14 mg/dL (7-18); BUN/Creat Ratio 15.3 RATIO (10-20); Calcium,Total 9.3 mg/dL (8.5-10.1); Chloride 105 mmol/L (98-107); Creatinine, Serum 0.92 mg/dL (0.55-1.02); EST Glomerular Filtration Rate 66 mL/min (>60); Est Glom Filt Rate - Afr Amer 80 mL/min (>60); Globulin 3.4 g/dL (2.2-4.2); Glucose 86 mg/dL (74-106); Potassium 4.7 mmol/L (3.5-5.1); Protein, Total 7.3 g/dL (6.4-8.2); Sodium Level 139 mmol/L (136-145)
[2023-01-30 08:21] LABS: Cholesterol 168 mg/dL (200); High Density Lipoprotein 91 mg/dL; Triglycerides 50 mg/dL; Very Low Density Lipoprotein 10 mg/dL (5-40)
== END | disposition home or self-care (01) ==
LOC: LAB 07:29
PROVIDERS: Family Medicine; PCP Family Medicine; Referring Provider Internal Medicine Rheumatology; Visit Provider Internal Medicine Rheumatology
DX: M06.00 Rheumatoid arthritis without rheumatoid factor, unspecified site (principal); Z79.899 Other long term (current) drug therapy
CPT/HCPCS: 36415; 80053; 80061; 85025

== ENCOUNTER → 2023-03-21 | Outpatient (CLI) | payer OTHER, SELFPAY ==
[2023-03-23 12:09] LABS: QNTFERON TB Mitogen Value > 10.00 IU/mL (.); QNTFERON TB Nil Value 0.04 IU/mL (.); QNTFERON TB1+ Ag Value 0.04 IU/mL (.); QNTFERON TB2+ Ag Value 0.05 IU/mL (.); QNTIFERON TB Positive Criteria Negative (Negative)
== END | disposition home or self-care (01) ==
LOC: MTLAB 14:19
PROVIDERS: PCP Family Medicine; Referring Provider Internal Medicine Rheumatology; Visit Provider Internal Medicine Rheumatology
DX: M06.00 Rheumatoid arthritis without rheumatoid factor, unspecified site (principal); Z79.899 Other long term (current) drug therapy
CPT/HCPCS: 36415; 86480

== ENCOUNTER → 2023-03-31 | Outpatient (CLI) | payer OTHER, SELFPAY ==
[2023-03-31 15:31] LABS: Absolute Neutrophil Count 3.1 X10^3/uL (2.0-7.7); Basophil# 0.04 X10^3/uL; Basophil% 0.6 % (0-1); Eosinophil# 0.37 X10^3/uL; Hematocrit 40.3 % (37-47); Hemoglobin 13.2 g/dL (12.0-15.0); Lymphocyte % 37.1 % (19-41); Mean Corp Hgb Conc 32.8 g/dL (32-36); Mean Corpuscular Volume 94.6 fL (81-99); Monocyte# 0.36 X10^3/uL; Monocyte% 5.8 % (0-10); NRBC Flagged by Analyzer 0 % (0-5); Neutrophil # 3.11 X10^3/uL (2.7-7.7); Neutrophil % 50.2 % (47-70); Platelet Count 200 K/mm3 (150-450); RBC Distribution Width CV 12.4 % (11.6-14.6); RBC Distribution Width SD 43.1 fl (35.1-43.9); Red Blood Count 4.26 M/mm3 (4.2-5.4); White Blood Count 6.2 K/mm3 (4.4-11.0)
[2023-03-31 16:12] LABS: ALB/GLOB Ratio 1.2 RATIO (0.9-2.4); AST(SGOT) 47 U/L (15-37); Alanine Aminotransfer ALT/SGPT 51 U/L (13-56); Albumin, Serum 3.8 g/dL (3.2-5.0); Alkaline Phosphatase 53 U/L (45-117); Anion Gap 4 (5-15); BUN 23 mg/dL (7-18); BUN/Creat Ratio 23.8 RATIO (10-20); Calcium,Total 9.5 mg/dL (8.5-10.1); Chloride 107 mmol/L (98-107); Creatinine, Serum 0.97 mg/dL (0.55-1.02); EST Glomerular Filtration Rate 62 mL/min (>60); Est Glom Filt Rate - Afr Amer 75 mL/min (>60); Globulin 3.3 g/dL (2.2-4.2); Glucose 87 mg/dL (74-106); Potassium 4.2 mmol/L (3.5-5.1); Protein, Total 7.1 g/dL (6.4-8.2); Sodium Level 140 mmol/L (136-145)
== END | disposition home or self-care (01) ==
LOC: MTLAB 12:41
PROVIDERS: PCP Family Medicine; Referring Provider Internal Medicine Rheumatology; Visit Provider Internal Medicine Rheumatology
DX: M06.00 Rheumatoid arthritis without rheumatoid factor, unspecified site (principal); Z79.899 Other long term (current) drug therapy
CPT/HCPCS: 36415; 80053; 85025

== ENCOUNTER → 2023-04-14 | Outpatient (CLI) | payer OTHER, SELFPAY ==
[2023-04-14 15:05] LABS: Absolute Lymphocyte Count 2.48 X10^3/uL (0.83-4.51); Absolute Neutrophil Count 6.5 X10^3/uL (2.0-7.7); Basophil# 0.04 X10^3/uL; Basophil% 0.4 % (0-1); Hematocrit 41.1 % (37-47); Hemoglobin 13.5 g/dL (12.0-15.0); Lymphocyte # 2.48 X10^3/ul (0.83-4.51); Lymphocyte % 25.7 % (19-41); Mean Corp Hgb Conc 32.8 g/dL (32-36); Mean Corpuscular Hgb 30.9 pg (27.0-32.0); Mean Corpuscular Volume 94.1 fL (81-99); Mean Platelet Vol. 10.9 fl (6.2-12.0); Monocyte# 0.51 X10^3/uL; Monocyte% 5.3 % (0-10); NRBC Flagged by Analyzer 0 % (0-5); Neutrophil # 6.47 X10^3/uL (2.7-7.7); Neutrophil % 67.1 % (47-70); Platelet Count 219 K/mm3 (150-450); RBC Distribution Width CV 12.2 % (11.6-14.6); RBC Distribution Width SD 42.7 fl (35.1-43.9); Red Blood Count 4.37 M/mm3 (4.2-5.4); White Blood Count 9.7 K/mm3 (4.4-11.0)
[2023-04-14 15:53] LABS: ALB/GLOB Ratio 1.2 RATIO (0.9-2.4); AST(SGOT) 31 U/L (15-37); Alanine Aminotransfer ALT/SGPT 47 U/L (13-56); Albumin, Serum 4.1 g/dL (3.2-5.0); Alkaline Phosphatase 54 U/L (45-117); Anion Gap 4 (5-15); BUN 23 mg/dL (7-18); BUN/Creat Ratio 24.2 RATIO (10-20); Calcium,Total 9.4 mg/dL (8.5-10.1); Chloride 108 mmol/L (98-107); Creatinine, Serum 0.95 mg/dL (0.55-1.02); EST Glomerular Filtration Rate 63 mL/min (>60); Est Glom Filt Rate - Afr Amer 77 mL/min (>60); Globulin 3.4 g/dL (2.2-4.2); Glucose 95 mg/dL (74-106); Potassium 4.6 mmol/L (3.5-5.1); Protein, Total 7.5 g/dL (6.4-8.2); Sodium Level 140 mmol/L (136-145)
== END | disposition home or self-care (01) ==
LOC: LAB 14:28
PROVIDERS: PCP Family Medicine; Visit Provider Internal Medicine Rheumatology
DX: M06.00 Rheumatoid arthritis without rheumatoid factor, unspecified site (principal); M35.00 Sjogren syndrome, unspecified; Z79.899 Other long term (current) drug therapy
CPT/HCPCS: 36415; 80053; 85025

== ENCOUNTER → 2023-05-17 | Outpatient (CLI) | payer OTHER, SELFPAY ==
[2023-05-17 08:49] LABS: Absolute Lymphocyte Count 3.09 X10^3/uL (0.83-4.51); Absolute Neutrophil Count 4.9 X10^3/uL (2.0-7.7); Basophil# 0.05 X10^3/uL; Basophil% 0.6 % (0-1); Eosinophil# 0.12 X10^3/uL; Eosinophils% 1.4 % (0-5); Hematocrit 42.3 % (37-47); Hemoglobin 13.7 g/dL (12.0-15.0); Lymphocyte # 3.09 X10^3/ul (0.83-4.51); Lymphocyte % 35.4 % (19-41); Mean Corp Hgb Conc 32.4 g/dL (32-36); Mean Corpuscular Hgb 30.7 pg (27.0-32.0); Mean Corpuscular Volume 94.8 fL (81-99); Mean Platelet Vol. 10.9 fl (6.2-12.0); Monocyte# 0.58 X10^3/uL; Monocyte% 6.6 % (0-10); NRBC Flagged by Analyzer 0 % (0-5); Neutrophil # 4.86 X10^3/uL (2.7-7.7); Neutrophil % 55.7 % (47-70); Platelet Count 221 K/mm3 (150-450); RBC Distribution Width CV 12.7 % (11.6-14.6); RBC Distribution Width SD 44.5 fl (35.1-43.9); Red Blood Count 4.46 M/mm3 (4.2-5.4); White Blood Count 8.7 K/mm3 (4.4-11.0)
[2023-05-17 09:23] LABS: ALB/GLOB Ratio 1.2 RATIO (0.9-2.4); AST(SGOT) 48 U/L (15-37); Alanine Aminotransfer ALT/SGPT 60 U/L (13-56); Alkaline Phosphatase 70 U/L (45-117); Anion Gap 2 (5-15); BUN 22 mg/dL (7-18); BUN/Creat Ratio 25.6 RATIO (10-20); Calcium,Total 9.3 mg/dL (8.5-10.1); Chloride 106 mmol/L (98-107); Creatinine, Serum 0.86 mg/dL (0.55-1.02); EST Glomerular Filtration Rate 71 mL/min (>60); Est Glom Filt Rate - Afr Amer 86 mL/min (>60); Globulin 3.2 g/dL (2.2-4.2); Glucose 87 mg/dL (74-106); Potassium 5.1 mmol/L (3.5-5.1); Protein, Total 7.2 g/dL (6.4-8.2); Sodium Level 136 mmol/L (136-145)
== END | disposition home or self-care (01) ==
LOC: LAB 07:59
PROVIDERS: PCP Family Medicine; Referring Provider Internal Medicine Rheumatology; Visit Provider Internal Medicine Rheumatology
DX: M06.00 Rheumatoid arthritis without rheumatoid factor, unspecified site (principal); M35.00 Sjogren syndrome, unspecified; Z79.899 Other long term (current) drug therapy
CPT/HCPCS: 36415; 80053; 85025

== ENCOUNTER → 2023-09-08 | Outpatient (CLI) | payer OTHER, SELFPAY ==
[2023-09-08 12:29] LABS: Absolute Lymphocyte Count 1.82 X10^3/uL (0.83-4.51); Absolute Neutrophil Count 5.3 X10^3/uL (2.0-7.7); Basophil# 0.01 X10^3/uL; Basophil% 0.1 % (0-1); Eosinophil# 0.06 X10^3/uL; Eosinophils% 0.8 % (0-5); Hemoglobin 12.6 g/dL (12.0-15.0); Lymphocyte # 1.82 X10^3/ul (0.83-4.51); Lymphocyte % 24.2 % (19-41); Mean Corp Hgb Conc 33.2 g/dL (32-36); Mean Corpuscular Hgb 31.7 pg (27.0-32.0); Mean Corpuscular Volume 95.5 fL (81-99); Mean Platelet Vol. 11.3 fl (6.2-12.0); Monocyte# 0.34 X10^3/uL; Monocyte% 4.5 % (0-10); NRBC Flagged by Analyzer 0 % (0-5); Neutrophil # 5.28 X10^3/uL (2.7-7.7); Neutrophil % 70.1 % (47-70); Platelet Count 166 K/mm3 (150-450); RBC Distribution Width CV 12.5 % (11.6-14.6); Red Blood Count 3.98 M/mm3 (4.2-5.4); White Blood Count 7.5 K/mm3 (4.4-11.0)
[2023-09-08 13:31] LABS: ALB/GLOB Ratio 1.3 RATIO (0.9-2.4); AST(SGOT) 30 U/L (15-37); Alanine Aminotransfer ALT/SGPT 36 U/L (13-56); Albumin, Serum 3.7 g/dL (3.2-5.0); Alkaline Phosphatase 55 U/L (45-117); Anion Gap 3 (5-15); BUN 17 mg/dL (7-18); BUN/Creat Ratio 18.4 RATIO (10-20); Calcium,Total 8.7 mg/dL (8.5-10.1); Chloride 110 mmol/L (98-107); Creatinine, Serum 0.93 mg/dL (0.55-1.02); EST Glomerular Filtration Rate 65 mL/min (>60); Est Glom Filt Rate - Afr Amer 79 mL/min (>60); Globulin 2.9 g/dL (2.2-4.2); Glucose 99 mg/dL (74-106); Potassium 4.2 mmol/L (3.5-5.1); Protein, Total 6.6 g/dL (6.4-8.2); Sodium Level 141 mmol/L (136-145)
== END | disposition home or self-care (01) ==
LOC: LAB 11:36
PROVIDERS: PCP Family Medicine; Referring Provider Internal Medicine Rheumatology; Visit Provider Internal Medicine Rheumatology
DX: M06.09 Rheumatoid arthritis without rheumatoid factor, multiple sites (principal); Z79.899 Other long term (current) drug therapy
CPT/HCPCS: 36415; 80053; 85025

== ENCOUNTER → 2024-01-01 | Outpatient (CLI) | payer OTHER, SELFPAY ==
[2024-01-01 10:19] LABS: Absolute Lymphocyte Count 1.57 X10^3/uL (0.83-4.51); Absolute Neutrophil Count 3.3 X10^3/uL (2.0-7.7); Basophil# 0.03 X10^3/uL; Basophil% 0.5 % (0-1); Eosinophil# 0.16 X10^3/uL; Eosinophils% 2.9 % (0-5); Hematocrit 38.8 % (37-47); Hemoglobin 12.9 g/dL (12.0-15.0); Lymphocyte # 1.57 X10^3/ul (0.83-4.51); Lymphocyte % 28.8 % (19-41); Mean Corp Hgb Conc 33.2 g/dL (32-36); Mean Corpuscular Hgb 30.7 pg (27.0-32.0); Mean Corpuscular Volume 92.4 fL (81-99); Mean Platelet Vol. 11.9 fl (6.2-12.0); Monocyte% 7.3 % (0-10); NRBC Flagged by Analyzer 0 % (0-5); Neutrophil # 3.29 X10^3/uL (2.7-7.7); Neutrophil % 60.3 % (47-70); Platelet Count 179 K/mm3 (150-450); RBC Distribution Width CV 12.4 % (11.6-14.6); White Blood Count 5.5 K/mm3 (4.4-11.0)
[2024-01-01 10:37] LABS: ALB/GLOB Ratio 1.2 RATIO (0.9-2.4); AST(SGOT) 37 U/L (15-37); Alanine Aminotransfer ALT/SGPT 33 U/L (13-56); Albumin, Serum 3.8 g/dL (3.2-5.0); Alkaline Phosphatase 57 U/L (45-117); Anion Gap 4 (5-15); BUN 17 mg/dL (7-18); Calcium,Total 9.2 mg/dL (8.5-10.1); Chloride 108 mmol/L (98-107); Creatinine, Serum 0.94 mg/dL (0.55-1.02); EST Glomerular Filtration Rate 64 mL/min (>60); Est Glom Filt Rate - Afr Amer 77 mL/min (>60); Globulin 3.2 g/dL (2.2-4.2); Glucose 84 mg/dL (74-106); Potassium 4.6 mmol/L (3.5-5.1); Sodium Level 139 mmol/L (136-145)
== END | disposition home or self-care (01) ==
LOC: MTLAB 07:55
PROVIDERS: PCP Family Medicine; Referring Provider Internal Medicine Rheumatology; Visit Provider Internal Medicine Rheumatology
DX: M06.09 Rheumatoid arthritis without rheumatoid factor, multiple sites (principal); M35.00 Sjogren syndrome, unspecified; Z79.899 Other long term (current) drug therapy
CPT/HCPCS: 36415; 80053; 85025

== ENCOUNTER → 2024-01-26 | Outpatient (CLI) | payer OTHER, SELFPAY ==
--- NOTE | 2024-01-26 14:26 | BI_ITS ---
MAMMOGRAPHY - BILATERAL SCREENING REASON FOR EXAM: Female, 63 years old. Routine annual screening examination. PERTINENT HISTORY: Grandmother with breast cancer. Aunt with breast cancer. TECHNIQUE: Digital bilateral breast matthew (3D mammographic acquisition) in the CC and MLO projections. 2-D mediolateral oblique (MLO) and craniocaudad (CC) views of both breasts were obtained. CAD: Full Field Digital Mammography with Computer Added Detection was performed. COMPARISON: Comparison is made with prior study January 24, 2023 and January 18, 2022. FINDINGS: Breast Composition: There are scattered areas of fibroglandular density. There are no dominant masses or suspicious calcifications. Stable appearance of the bilateral breast implants. No other significant abnormalities are identified. There has been no significant change since the prior study. BI/SCRN MAMM (CAD)W/MATTHEW BILAT IMPRESSION: Stable bilateral screening mammogram. Yearly follow-up mammogram recommended. (A) ASSESSMENT CATEGORY: BIRADS Category 2: Benign. A letter regarding these results will be sent to the patient by the facility within 30 days. Approximately 10% of breast cancers are not detected by mammography. A normal mammogram should not delay biopsy of a clinically suspicious abnormality. [id number] Electronically Signed: Rojelio Gonzalez MD at 15:03 EDT ,
== END | disposition home or self-care (01) ==
LOC: OPBI 14:24
PROVIDERS: PCP Family Medicine; Referring Provider Nurse Practitioner Family; Visit Provider Nurse Practitioner Family
DX: Z12.31 Encounter for screening mammogram for malignant neoplasm of breast (principal); Z80.3 Family history of malignant neoplasm of breast
CPT/HCPCS: 77063; 77067

== ENCOUNTER → 2024-04-05 | Outpatient (CLI) | payer OTHER, SELFPAY ==
--- NOTE | 2024-04-05 15:30 | RAD_ITS ---
INDICATION: wrist pain EXAMINATION/TECHNIQUE: X-RAY - RIGHT XR Wrist Min 3 Views 3 VIEWS COMPARISON: Prior study dated: 06/18/2019 FINDINGS: SOFT TISSUES: No soft tissue swelling or gas. No radiopaque foreign body. BONES/JOINTS: No acute fracture or subluxation.. The carpal rows are well aligned. Slight widening of the scapholunate interval measuring 0.3 cm. This is unchanged.. No sclerotic or destructive changes observed. RAD/Wrist min 3 Views IMPRESSION: Slight widening of the scapholunate interval, unchanged from prior. Otherwise unremarkable appearance of the wrist. Electronically Signed: Jono Iverson MD at 1:53 EDT ,
--- NOTE | 2024-04-05 15:30 | RAD_ITS ---
INDICATION: hand pain EXAMINATION/TECHNIQUE: X-RAY - RIGHT XR Hand Min 3 Views 3 VIEWS COMPARISON: Prior study dated: 06/18/2019 FINDINGS: SOFT TISSUES: No soft tissue swelling or gas. No radiopaque foreign body. BONES/JOINTS: No acute fracture or subluxation.. Progressive narrowing at the third metacarpophalangeal joint with [id number] appearance. Osteophytes seen. Mild osteophytes throughout the interphalangeal joints. 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 Appearance may be associated with inflammatory arthropathy. Mild degenerative change throughout the interphalangeal joints. Electronically Signed: Jono Iverson MD at 1:55 EDT ,
== END | disposition home or self-care (01) ==
LOC: RAD 15:19
PROVIDERS: PCP Family Medicine; Referring Provider Surgery Plastic and Reconstructive Surgery; Visit Provider Surgery Plastic and Reconstructive Surgery
DX: M25.539 Pain in unspecified wrist (principal); M79.641 Pain in right hand
CPT/HCPCS: 73110; 73130

== ENCOUNTER → 2024-06-28 | Outpatient (CLI) | payer OTHER, SELFPAY ==
[2024-06-28 13:36] LABS: Absolute Lymphocyte Count 1.87 X10^3/uL (0.83-4.51); Absolute Neutrophil Count 2.7 X10^3/uL (2.0-7.7); Basophil# 0.05 X10^3/uL; Basophil% 0.9 % (0-1); Eosinophil# 0.16 X10^3/uL; Hematocrit 39.9 % (37-47); Hemoglobin 13.2 g/dL (12.0-15.0); Lymphocyte # 1.87 X10^3/ul (0.83-4.51); Mean Corp Hgb Conc 33.1 g/dL (32-36); Mean Corpuscular Hgb 30.6 pg (27.0-32.0); Mean Corpuscular Volume 92.6 fL (81-99); Mean Platelet Vol. 10.8 fl (6.2-12.0); Monocyte# 0.53 X10^3/uL; Monocyte% 9.9 % (0-10); NRBC Flagged by Analyzer 0 % (0-5); Neutrophil # 2.73 X10^3/uL (2.7-7.7); Platelet Count 204 K/mm3 (150-450); RBC Distribution Width CV 12.3 % (11.6-14.6); RBC Distribution Width SD 42.4 fl (35.1-43.9); Red Blood Count 4.31 M/mm3 (4.2-5.4); White Blood Count 5.4 K/mm3 (4.4-11.0)
[2024-06-28 14:05] LABS: ALB/GLOB Ratio 1.1 RATIO (0.9-2.4); AST(SGOT) 28 U/L (15-37); Alanine Aminotransfer ALT/SGPT 37 U/L (13-56); Albumin, Serum 3.7 g/dL (3.2-5.0); Alkaline Phosphatase 49 U/L (45-117); Anion Gap 3 (5-15); BUN 17 mg/dL (7-18); BUN/Creat Ratio 25.4 RATIO (10-20); Calcium,Total 9.2 mg/dL (8.5-10.1); Chloride 105 mmol/L (98-107); Creatinine, Serum 0.67 mg/dL (0.55-1.02); EST Glomerular Filtration Rate 95 mL/min (>60); Est Glom Filt Rate - Afr Amer 115 mL/min (>60); Globulin 3.4 g/dL (2.2-4.2); Glucose 68 mg/dL (74-106); Potassium 5.1 mmol/L (3.5-5.1); Protein, Total 7.1 g/dL (6.4-8.2); Sodium Level 138 mmol/L (136-145)
== END | disposition home or self-care (01) ==
LOC: LAB 12:35
PROVIDERS: PCP Family Medicine; Referring Provider Internal Medicine Rheumatology; Visit Provider Internal Medicine Rheumatology
DX: M06.00 Rheumatoid arthritis without rheumatoid factor, unspecified site (principal); Z79.899 Other long term (current) drug therapy; M35.00 Sjogren syndrome, unspecified
CPT/HCPCS: 36415; 80053; 85025

== ENCOUNTER → 2024-12-18 | Outpatient (CLI) | payer OTHER, SELFPAY ==
[2024-12-18 08:33] LABS: Hematocrit 37.1 % (37-47); Hemoglobin 12.3 g/dL (12.0-15.0); Immature Granulocytes Count 0.020 X10^3/uL (0.0-0.0); Mean Corp Hgb Conc 33.2 g/dL (32-36); Mean Corpuscular Volume 92.3 fL (81-99); Mean Platelet Vol. 11.6 fl (6.2-12.0); NRBC Flagged by Analyzer 0 % (0-5); Platelet Count 195 K/mm3 (150-450); RBC Distribution Width CV 12.3 % (11.6-14.6); RBC Distribution Width SD 41.6 fl (35.1-43.9); Red Blood Count 4.02 M/mm3 (4.2-5.4); White Blood Count 8.9 K/mm3 (4.4-11.0)
[2024-12-18 09:05] LABS: AST(SGOT) 34 U/L (<=31); Alanine Aminotransfer ALT/SGPT 27 U/L (<=34); Albumin, Serum 4.2 g/dL (3.4-4.8); Alkaline Phosphatase 58 U/L (35-104); Anion Gap 12 (5-15); BUN 21 mg/dL (4-19); BUN/Creat Ratio 20.9 RATIO (10-20); Calcium,Total 9.3 mg/dL (7.6-11.0); Carbon Dioxide 23.5 mmol/L (21.0-32.0); Chloride 98 mmol/L (98-108); Globulin 2.5 g/dL (2.2-4.2); Glucose 85 mg/dL (70-99); Potassium 4.7 mmol/L (3.3-5.1)
== END | disposition home or self-care (01) ==
LOC: LAB 07:33
PROVIDERS: PCP Family Medicine; Referring Provider Internal Medicine Rheumatology; Visit Provider Internal Medicine Rheumatology
DX: M06.00 Rheumatoid arthritis without rheumatoid factor, unspecified site (principal); Z79.899 Other long term (current) drug therapy
CPT/HCPCS: 36415; 80053; 85025

== ENCOUNTER → 2025-01-27 | Outpatient (CLI) | payer OTHER, SELFPAY ==
--- NOTE | 2025-01-27 07:25 | BI_ITS ---
EXAM: SCRN MAMM (CAD)W/MATTHEW BILAT DATE: 01/27/2025 CLINICAL HISTORY: F, Age 64 y/o , SCREENING Patient has bilateral breast implants. TECHNIQUE: SCRN MAMM (CAD) W/MATTHEW BILAT. Pushback Emmanuel CC and pushback Emmanuel MLO views of the right and left breast were also performed. COMPARISON: Prior exam(s) dated 01/26/2024, 01/24/2023, and 01/18/2022. FINDINGS: TISSUE DENSITY: There are scattered areas of fibroglandular density. Bilateral Breast Mammographic Findings: Both breast implants appear to be intact. No suspicious masses, suspicious cluster of microcalcifications, architectural distortion or secondary signs of malignancy is identified in either breast. BI/SCRN MAMM (CAD)W/MATTHEW BILAT IMPRESSION: Bilateral screening mammogram study. OVERALL FINAL ASSESSMENT BI-RADS 2: BENIGN RECOMMENDATION: Routine annual follow-up in 1 Year A letter with findings and recommendations will be mailed to the patient. Reading Location: [id number]
== END | disposition home or self-care (01) ==
LOC: OPBI 07:24
PROVIDERS: PCP Family Medicine; Referring Provider Nurse Practitioner Family; Visit Provider Nurse Practitioner Family
DX: Z12.31 Encounter for screening mammogram for malignant neoplasm of breast (principal)
CPT/HCPCS: 77063; 77067

== ENCOUNTER → 2025-02-17 | Outpatient (CLI) | payer OTHER, SELFPAY ==
[2025-02-17 13:40] LABS: Hematocrit 37.5 % (37-47); Hemoglobin 12.7 g/dL (12.0-15.0); Immature Granulocytes Count 0.010 X10^3/uL (0.0-0.0); Mean Corp Hgb Conc 33.9 g/dL (32-36); Mean Corpuscular Volume 90.4 fL (81-99); Mean Platelet Vol. 10.8 fl (6.2-12.0); NRBC Flagged by Analyzer 0 % (0-5); Platelet Count 181 K/mm3 (150-450); RBC Distribution Width CV 12.2 % (11.6-14.6); RBC Distribution Width SD 40.7 fl (35.1-43.9); Red Blood Count 4.15 M/mm3 (4.2-5.4); White Blood Count 6.5 K/mm3 (4.4-11.0)
[2025-02-17 14:33] LABS: AST(SGOT) 33 U/L (<=31); Alanine Aminotransfer ALT/SGPT 24 U/L (<=34); Albumin, Serum 4.6 g/dL (3.4-4.8); Alkaline Phosphatase 50 U/L (35-104); Anion Gap 11 (5-15); BUN 17 mg/dL (4-19); BUN/Creat Ratio 17.1 RATIO (10-20); Calcium,Total 9.6 mg/dL (7.6-11.0); Carbon Dioxide 24.9 mmol/L (21.0-32.0); Chloride 105 mmol/L (98-108); Globulin 2.5 g/dL (2.2-4.2); Glucose 92 mg/dL (70-99); Potassium 4.4 mmol/L (3.3-5.1)
== END | disposition home or self-care (01) ==
LOC: LAB 13:24
PROVIDERS: PCP Family Medicine; Referring Provider Internal Medicine Rheumatology; Visit Provider Internal Medicine Rheumatology
DX: M06.00 Rheumatoid arthritis without rheumatoid factor, unspecified site (principal); Z79.899 Other long term (current) drug therapy
CPT/HCPCS: 36415; 80053; 85025

== ENCOUNTER → 2025-02-18 | Outpatient (CLI) | payer OTHER, SELFPAY ==
--- OUTSIDE RECORDS SUMMARY | 2025-02-18 08:09 | XMS RPT_ITS | CCD ---
Author Organization [facility] CliniSyin Care Team Providers Care Bone Puller Name Role Phone Huber Ortiz Primary Care Provider Dr. Nasim Brink Primary Care Provider [phone] Dr. Nasim Barrera Referring Provider Dr. Donte Nelson Attending Provider Dr. Nelson De La Paz Attending Provider Dr. He Dyerit Provider [phone] Dr. He Dyer Referring Provider Dr. He Dyer Other Provider [phone] Dr. Donya Balderrama Attending Provider Dr. Donya Balderrama Other Provider Dr. Corrie Osborn Attending Provider Dr. Corrie Osborn Other Provider Dr. Nasim Barrera Primary Care Provider [phone] Dr. Nasim Barrera Primary Care Provider [phone] Dr. He Dyer Admit Provider [phone] Dr. He Dyer Referring Provider [phone] He Dyer Other Provider [phone] Dr. Donya Balderrama Attending Provider Dr. Donya Balderrama Other Provider Dr. Corrie Osborn Attending Provider Dr. Corrie Osborn Other Provider Huber Ortiz Primary Care Provider Dr. Neri Brinkophe Primary Care Provider Dr. Nasim Barrera Referring Provider MIKY Gonzalez Attending Provider Dr. Nelson De La Paz Attending Provider Dr. Nasim Barrera Primary Care Provider Dr. Nasim Barrera Referring Provider MIKY Gonzalez Attending Provider Stefano BOLAÑOS PA Norberto Attending Provider Dr. Nasim Barrera Primary Care Provider Dr. Nasim Barrera Referring Provider MIKY Gonzalez Attending Provider MIKY Rossi Attending Provider Huber Ortiz Primary Care Provider Unavaila Dr. Nasim Dyer Primary Care Provider Dr. Nasim Barrera Referring Provider CHERIE CASTELLANOS Attending Unavailable HUBER ORTIZ Primary Care Unavailable Dr. Sapphire Abdi MD Primary Care Provider Dr. Sapphire Abdi MD Referring Provider Dr. Donte Nelson DO Attending Provider Dr. Nelson De La Paz MD Attending Provider Yogi Peoples MD Attending Provider Dr. Maia Johnson MD Attending Provider Alex CARRILLO, Dr. Carvalho Referring Provider Dr. Jr Guillaume MD Attending Provider Dr. Jr Guillaume MD Referring Provider Dr. Dona Willams MD Attending Provider Dr. Sapphire Abdi MD Primary Care Provider Dr. Sapphire Adbi MD Referring Provider Yogi Peoples MD Attending Provider [phone] He [place] Attending Provider Trinidad CARRILLO, Dr. Sapphire Hernandez Primary Care Provider Alex CARRILLO, Dr. Carvalho Attending Provider Alex CARRILLO, Dr. Cavralho Referring Provider Trinidad CARRILLO, Dr. Sapphire Hernandez Primary Care Provider Trinidad CARRILLO, Dr. Sapphire Hernandez Referring Provider Richelle CARRILLO, Yogi Attending Provider Davide USABILITY SPECIALIST-C, Elena Attending Provider Jasmin USABILITY SPECIALIST-C, Cherie Attending Provider [phone] Jasmin USABILITY SPECIALIST-C, Cherie Referring Provider Lissett Blue MD Primary Care Provider [phone] rJ Guillaume Referring Unavailable Jr Guillaume Attending Unavailable Jolliff, Sapphire S Primary Care Unavailable Jolliff, Sapphire S Referring Unavailable Jolliff, Sapphire S Primary Care Unavailable Yogi Peoples Attending Unavailable Dona Willams Attending Unavailable Jolliff, Sapphire S Primary Care Unavailable Jolliff, Sapphire S Referring Unavailable Jolliff, Sapphire S Primary Care Unavailable Jolliff, Sapphire S Referring Unavailable Yogi Peoples Attending Unavailable Jolliff, Sapphire S Primary Care Unavailable He Knox Attending Unavailable Jolliff, Sapphire S Referring Unavailable Jolliff, Sapphire S Referring Unavailable Jr Guillaume Attending Unavailable Jolliff, Sapphire S Primary Care Unavailable Elena Augustine Attending Unavailable Jolliff, Sapphire S Referring Unavailable Jolliff, Sapphire S Primary Care Unavailable Jolliff, Sapphire S Referring Unavailable SisJr lindsay Attending Unavailable Jolliff, Sapphire S Primary Care Unavailable Jolliff, Sapphire S Referring Unavailable MollYogi rowe Attending Unavailable Jolliff, Sapphire S Primary Care Unavailable Nelson De La Paz Attending Unavailable Jolliff, Sapphire S Primary Care Unavailable Jolliff, Sapphire S Referring Unavailable Donte Nelson Attending Unavailable Jolliff, Sapphire S Primary Care Unavailable Jr Guillaume Referring Unavailable Jr Guillaume Attending Unavailable Jolliff, Sapphire S Primary Care Unavailable Jolliff, Sapphire S Referring Unavailable Mollison, Yogi Attending Unavailable Jolliff, Sapphire S Primary Care Unavailable Jolliff, Sapphire S Referring Unavailable Jolliff, Sapphire S Primary Care Unavailable Yogi Peoples Attending Unavailable Jr Guillaume Attending Unavailable Siska, Jr Referring Unavailable Jolliff, Sapphire S Primary Care Unavailable Vellanki, Maia Referring Unavailable Vellanki, Maia Attending Unavailable Jolliff, Sapphire S Primary Care Unavailable Lissett Blue Primary Care Unavailable [place] USABILITY SPECIALIST, Cherie Referring Unavailable [place] USABILITY SPECIALIST, Cherie Attending Unavailable Vellanki, Maia Referring Unavailable Vellanki, Maia Attending Unavailable Jolliff, Sapphire S Primary Care Unavailable Allergies Allergy Classification Reported Allergen(s) Allergy Type Date of Onset Reaction(s) Facility (20 sources) zolpidem; Translations: [ZOLPIDEM] Drug Allergy 1 Other: See Comments [facility] Work Phone: (3 sources) POISON PEPE EXTRACT Drug Allergy 6 [facility] Work Phone: (7 sources) Bees; Translations: [BEES] Propensity to adverse reactions 6 Swelling [facility] Work Phone: (3 sources) PAINT FUMES [Other] Propensity to adverse reactions 6 [facility] Work Phone: (20 sources) bee venom protein (honey bee) Allergy to substance 2 swelling [facility] (12 sources) paint fumes Allergy to substance 2 Anaphylaxis [facility] (13 sources) Environmental Allergies: Uncoded; Translations: [Environmental Allergies: Uncoded] Allergy to substance 3 Anaphylaxis [facility] Comment on above: paint fumes (4 sources) Etanercept; Translations: [ETANERCEPT] Drug Allergy 2 Rash [facility] Work Phone: (1 source) zolpidem Drug Allergy 5 [facility] Repository (1 source) bee venom protein (honey bee) Drug allergy (disorder) 5 [facility] Repository Medications Current Medications Medication Drug Class(es) Dates Sig (Normalized) Sig (Original) acetaminophen 325 mg / oxyCODONE hydrochloride 5 mg oral tablet (9 sources) Opioid Agonist Start: 06-28-2017 oxyCODONE-acetamin ophen (PERCOCET) 5-325 mg tablet Take by mouth. 06/28/2017 Active Start: 06-28-2017 take 1 tablet by cedrick th once Oxycodone-Acetaminophen (Percocet) 5-325 mg tablet Active 1 TABLET PO ONCE June 28, 2017 1:00am Comment on above: Take by mouth. alendronic acid 70 mg oral tablet (3 sources) Bisphosphonate Start: 06-28-19 take 1 tablet by mouth every week Alendronate (Fosamax) 70 mg tablet Active 70 MG PO EVERY WEEK June 28, 2017 1:00am atorvastatin 10 mg oral tablet (17 sources) HMG-CoA Reductase Inhibitor Start: 04-05-20 take 2 tablets by mouth once daily in the evening Atorvastatin 10 mg tablet Active 20 mg PO EVERY EVENING April 05, 2024 2:34pm Start: 01-02-2023 End: 04-05-2024 take 1 tablet by mouth once daily in the evening Atorvastatin 10 mg tablet Discontinued 10 mg PO EVERY EVENING January 02, 2023 12:00am April 05, 2024 2:37pm azithromycin 250 mg oral tablet (4 sources) Macrolide Antimicrobial Start: 11-13-2024 Azithromycin 250 mg tablet Active 250 mg PO .COMPLEX 12 0 November 13, 2024 12:00am 2 tablets (500 mg) on day 1, then 1 tablet daily on days 2 through 11 (pt notes stopping Plaquenil ~10/13/2024) 24 hr buPROPion hydrochloride 300 mg extended release oral tablet (20 sources) Aminoketone Start: 06-29-2020 take 1 tablet by mouth once daily Bupropion Hcl (Wellbutrin Xl) 300 mg tablet extended release 24 hr Active 300 mg PO DAILY October 18, 2021 12:00am Comment on above: Take 300 mg by mouth once daily. calcium carbonate 500 mg chewable tablet (6 sources) Start: 07-14-2004 End: 07-30-2024 CALCIUM ANTACID TABLET CHEW Take one(1) tablet daily. 0 07/14/2004 07/30/2024 Discontinued Comment on above: Take one(1) tablet d aily. cholecalciferol 0.025 mg oral capsule (20 sources) Vitamin D Start: 10-18-2021 take 1 capsule by mouth once daily Cholecalciferol (Vitamin D3) 25 mcg (1,000 unit) capsule Active 25 ug PO DAILY October 18, 2021 12:00am Start: 07-11-2011 take 1 capsule by [facility] once daily Cholecalciferol, Vitamin D3, 1,000 unit ORAL Cap Take 1 capsule by mouth once daily. 1 capsule 0 07/11/2011 Active Comment on above: Take 1 capsule by [facility] once daily. diclofenac sodium 0.01 mg/mg topical gel (4 sources) Nonsteroidal Anti-inflammatory Drug Start: 10-21-2013 End: 07-28-2023 Diclofenac Sodium (VOLTAREN) 1 % gel Apply to affected area twice daily. 1 application 5 Tube 3 10/21/2013 07/28/2023 Discontinued Comment on above: Apply to affected ar ea twice daily. 1 application estrogens, conjugated (group home) 0.625 mg/ml vaginal cream (20 sources) Estrogen Start: 01-31-2024 conjugated estrogens (PREMARIN) vaginal cream Indications: Postmenopausal state Apply vaginally as directed. 30 g 2 01/31/2024 Active Start: 07-05-2021 End: 01-29-2024 conjugated estrogens (PREMAR IN) vaginal cream Indications: Postmenopausal state Apply vaginally as directed. 30 g 2 07/28/2023 01/29/2024 Discontinued Start: 06-28-2017 Conjugated Est rogens (Premarin) 0.625 mg/gram cream Active 1 NMA VAGINAL NEEDED as needed for Vaginal Dryness 0 June 28, 2017 1:00am Comment on above: Apply vaginally as d irected. furosemide 20 mg oral tablet (20 sources) Loop Diuretic Start: 2021 take 1 tablet by mouth once daily as needed Furosemide (Lasix) 20 mg tablet Active 20 mg PO DAILY as needed for swelling October 18, 2021 12:00am gabapentin 300 mg oral capsule (20 sources) Anti-epileptic Agent Start: 2017 take 1 capsule by mouth three times daily Gabapentin (Neurontin) 300 mg capsule Active 300 mg PO THREE TIMES A DAY June 28, 2017 1:00am hydroxychloroquine sulfate 200 mg oral tablet (12 sources) Antimalarial, Antirheumatic Agent Start: 2022 take 1 tablet by mouth once daily Hydroxychloroquine (Plaquenil) 200 mg tablet Active 200 mg PO DAILY January 02, 2023 12:00am levothyroxine sodium 0.05 mg oral tablet (20 sources) l-Thyroxine Start: 2017 take 1 tablet by mouth once daily Levothyroxine (Synthroid) 50 mcg tablet Active 50 ug PO DAILY 0 June 28, 2017 1:00am Start: 06-28-2017 Levothyroxine (Synthroid) 50 mcg tablet Active PO June 28, 2017 1:00am Start: 06-28-2017 End: 10-18-2021 Levothyroxine 50 mcg capsule Discontinued PO 0 June 28, 2017 1:00am October 18, 2021 1:19pm Comment on above: Take 50 mcg by mouth every morning. lifitegrast 50 mg/ml ophthalmic solution (20 sources) Lymphocyte Function-Associated Antigen-1 Antagonist Start: 0 Lifitegrast (Xiidra) 5 % dropperette Active 1 NMA OPHTHALMIC TWICE A DAY October 18, 2021 12:00am administer approximately 12 hours apart liothyronine sodium 0.005 mg oral tablet (20 sources) l-Triiodothyronine Start: 2 take 1 tablet by mouth once daily Liothyronine (Cytomel) 5 mcg tablet Active 5 ug PO DAILY October 18, 2021 12:00am Start: 03-13-2014 take 3 tablets by [facility] once daily liothyronine (CYTOMEL) 5 mcg tablet Take 3 tablets by mouth once daily. 270 tablet 3 03/13/2014 Active Comment on above: Take 3 tablets by [facility] once daily. lisinopril 10 mg oral tablet (20 sources) Angiotensin Converting Enzyme Inhibitor Start: 2 take 1 tablet by mouth once daily Lisinopril 10 mg tablet Active 10 mg PO DAILY October 18, 2021 12:00am On Hold: Resume on 01/21/22. Okay to resume lisinopril on January 21, 2022 if blood pressure remains greater than 100 mmHg Comment on above: Take 10 mg by mouth once daily. mecobalamin 5 mg oral lozenge (20 sources) Start: 2 take 5000 ug by mouth once daily Mecobalamin (Vitamin B12) 5,000 mcg lozenge Active 5000 ug PO DAILY October 18, 2021 12:00am allow to dissolve in mouth OR may chew lightly before swallowing meloxicam 15 mg oral tablet (20 sources) Nonsteroidal Anti-inflammatory Drug Start: take 1 tablet by mouth once daily Meloxicam 15 mg tablet Active 15 mg PO daily April 05, 2024 12:00am Start: 07-29-2022 End: 08-28-2022 take 1 tablet by mouth once daily Meloxicam 15 mg tablet Discontinued 15 mg PO DAILY 30 30 0 July 29, 2022 1:00am August 27, 2022 12:00am August 28, 2022 12:04am Osteoarthritis of left knee Unilateral primary osteoarthritis, left knee Pain Do not take in conjunction with other NSAIDs. Tylenol is okay. Start: 01-20-2022 End: 07-29-2022 take 1 tablet by mouth twice daily Meloxicam 7.5 mg Tablet Discontinued 7.5 mg PO TWICE A DAY 60 0 January 20, 2022 12:00am July 29, 2022 4:31pm Do not take any other nonsteroidal anti-inflammatories while using meloxicam/Mobic. 24 hr metoprolol succinate 25 mg extended release oral tablet (20 sources) beta-Adrenergic Lisa Start: 06-29-2020 take 1 tablet by mouth twice daily Metoprolol Succinate 25 mg tablet extended release 24 hr Active 25 mg PO TWICE A DAY October 18, 2021 12:00am On Hold: Resume on 01/20/22. Okay to resume metoprolol for evening dose Comment on above: Take 25 mg by mouth twice daily. multivitamin capsule (20 sources) Start: 06-28-2017 take 1 capsule by mouth once daily in the morning multivitamin capsule Active 1 CAP PO EVERY MORNING June 28, 2017 1:45pm Start: 06-28-2017 take 1 capsule by mo ut once daily in the morning multivitamin capsule Active 1 CAP PO EVERY MORNING June 28, 2017 12:00am Start: 06-28-2017 take 1 capsule by mo uth once daily in the morning multivitamin capsule Active 1 CAP PO EVERY MORNING June 28, 2017 1:00am Multivitamin capsule (5 sources) Start: 06-28-2017 Multivitamin capsule Active 1 NMA PO EVERY MORNING June 28, 2017 1:00am MULTIVITAMIN TABLET (6 sources) Start: 07-14-2004 MULTIVITAMIN TABLET Take one(1) tablet daily. 0 07/14/2004 Active Comment on above: Take one(1) tablet d aily. predniSONE 10 mg oral tablet (6 sources) predniSONE (DELTASONE) 10 mg tablet as needed. Active Comment on above: prednisone 10 mg tab let as needed. promethazine hydrochloride 12.5 mg oral tablet (6 sources) Phenothiazine End: 07-30-2024 take 0.5-1 tablets by mouth every six hours as needed promethazine (PHENERGAN) 12.5 mg tablet promethazine 12.5 mg tablet TAKE 1/2 (ONE-HALF) TO 1 (ONE) TABLET BY MOUTH EVERY 6 HOURS NEEDED 07/30/2024 Discontinued Comment on above: promethazine 12.5 mg tablet TAKE 1/2 (ONE-HALF) TO 1 (ONE) TABLET BY MOUTH EVERY 6 HOURS NEEDED valACYclovir 500 mg oral tablet (15 sources) Herpesvirus Nucleoside Analog DNA Polymerase Inhibitor, Herpes Simplex Virus Nucleoside Analog DNA Polymerase Inhibitor, Herpes Zoster Virus Nucleoside Analog DNA Polymerase Inhibitor Start: 04-05-2024 take 1 tablet by mouth once daily Valacyclovir 500 mg tablet Active 500 mg PO daily April 05, 2024 12:00am Start: 07-05-2021 End: 07-28-2023 take 1 tablet by mouth once daily valACYclovir (VALTREX) 500 mg tablet Indications: HSV infection Take 1 tablet by mouth once daily. 90 tablet 3 07/28/2023 Active Comment on above: Take 1 tablet by cedrick th once daily. Completed/Discontinued Medications Medication Drug Class(es) Dates Sig (Normalized) Sig (Original) acetaminophen 500 mg oral tablet (20 sources) Start: 01-20-2022 End: 04-05-2024 take 2 tablets by mouth every eight hours Acetaminophen 500 mg Tablet Discontinued 1000 mg PO EVERY 8 HOURS 0 0 January 20, 2022 12:00am April 05, 2024 2:34pm Only use if not taking Percocet at home Start: 01-20-2022 take 1000 mg by mout h every eight hours Acetaminophen Active 1000 MG PO EVERY 8 HOURS 0 January 20, 2022 12:00am Only use if not taking Percocet at home 0.8 ml adalimumab 50 mg/ml auto-injector (20 sources) Tumor Necrosis Factor Lisa Start: 01-05-2022 End: 04-05-2024 Adalimumab (Humira Pen) 40 mg/0.8 mL Pen Injector Kit Discontinued 40 mg SC EVERY WEEK January 05, 2022 12:00am April 05, 2024 2:34pm On Hold: Resume on 02/10/22. Hold medication until patient is seen postoperatively for healing purposes and increased risk of infection. Monday amoxicillin 875 mg / clavulanate 125 mg oral tablet (10 sources) Penicillin-class Antibacterial Start: 03-23-2023 End: 04-02-2023 Amoxicillin-Pot Clavulanate 875-125 mg tablet Discontinued 1 {tbl} PO Q12H 20 March 23, 2023 12:00am April 01, 2023 12:00am April 02, 2023 12:04am Acute sinusitis, unspecified Start: 03-23-2023 End: 04-02-2023 take 1 tablet by mouth every twelve hours Amoxicillin-Pot Clavulanate Discontinued 1 TABLET PO Q12H 24 03March 23, 2023 12:00am April 02, 2023 12:04am aspirin 81 mg chewable tablet (20 sources) Platelet Aggregation Inhibitor, Nonsteroidal Anti-inflammatory Drug Start: 01-20-2022 End: 04-05-2024 take 1 tablet by mouth twice daily at mealtime Aspirin 81 mg Tablet,Chewable Discontinued 81 mg PO TWICE DAILY WITH MEALS 0 January 20, 2022 12:00am April 05, 2024 2:33pm Take 81 mg aspirin twice daily for 2 weeks postoperatively for DVT prophylaxis. benoxinate hydrochloride 4 mg/ml / fluorescein sodium 2.5 mg/ml ophthalmic solution (20 sources) Diagnostic Dye Start: 06-28-2017 End: 10-18-2021 take 0.25-0.4 drop(s) into the eye(s) once Fluorescein-Benoxin ate (Flurox) 0.25-0.4 % drops Discontinued 1 NMA OPHTHALMIC ONCE June 28, 2017 1:00am October 18, 2021 1:19pm Start: 06-28-2017 End: 10-18-2021 take 0.25-0.4 drop(s) into the eye(s) once Fluorescein-Benoxinate (Flurox) 0.25-0.4 % drops Discontinued 1 DRP OPHTHALMIC ONCE June 28, 2017 1:00am October 18, 2021 1:19pm biotin 2.5 mg oral capsule (20 sources) Start: 06-28-2017 End: 10-18-2021 take 1 capsule by mouth once daily Biotin 2,500 mcg capsule Discontinued 2500 ug PO daily June 28, 2017 1:00am October 18, 2021 1:19pm celecoxib 200 mg oral capsule (20 sources) Nonsteroidal Anti-inflammatory Drug Start: 06-28-2017 End: 10-18-2021 take 1 capsule by mouth once daily Celecoxib (Celebrex) 200 mg capsule Discontinued 200 mg PO daily June 28, 2017 1:00am October 18, 2021 1:19pm clonazePAM 0.5 mg oral tablet (20 sources) Benzodiazepine Start: 06-28-2017 End: 10-18-2021 take 1 tablet by mouth three times daily Clonazepam 0.5 mg tablet Discontinued 0.5 mg PO THREE TIMES A DAY June 28, 2017 1:00am October 18, 2021 1:19pm docusate sodium 50 mg / sennosides, group home 8.6 mg oral tablet (20 sources) Start: 01-20-2022 End: 04-05-2024 Sennosides-Docusat e Sodium (Stool Softener-Stimulant Laxat) 8.6-50 mg Tablet Discontinued 2 {tbl} PO TWICE A DAY 0 0 January 20, 2022 12:00am April 05, 2024 2:36pm Take until first bowel movement, then as needed DULoxetine 60 mg delayed release oral capsule (20 sources) Serotonin and Norepinephrine Reuptake Inhibitor Start: 06-28-2017 End: 10-18-2021 take 1 capsule by mouth once daily Duloxetine (Cymbalta) 60 mg capsule,delayed release(DR/EC) Discontinued 60 mg PO daily June 28, 2017 1:00am October 18, 2021 1:19pm folic acid 1 mg oral tablet (20 sources) Start: 10-18-2021 End: 04-05-2024 Folic Acid 1 mg tablet Discontinued 2 NMA PO DAILY October 18, 2021 12:00am April 05, 2024 2:35pm Start: 06-29-2020 End: 07-28-2023 take 2 tablets by mouth once daily Folic Acid Active 2 TAB PO DAILY October 17, 2021 11:00pm Comment on above: Take 2 mg by mouth o nce daily. loratadine 10 mg oral tablet (20 sources) Start: End: 2 take 1 tablet by mouth once daily Loratadine (Claritin) 10 mg tablet Discontinued 10 mg PO daily June 28, 2017 1:00am October 18, 2021 1:19pm Comment on above: Take one(1) tablet d aily ([id number]) methotrexate 25 mg/ml injectable solution (20 sources) Folate Analog Metabolic Inhibitor Start: 2 End: 3 Methotrexate Sodium 25 mg/mL solution Discontinued 17.5 mg SC EVERY WEEK October 18, 2021 12:00am January 02, 2023 10:59am Fridays Start: 10-18-2021 End: 01-02-2023 Methotrexate Sodium Disconti nued 17.5 MG SC EVERY WEEK October 18, 2021 12:00am January 02, 2023 10:59am Fridays Start: 10-18-2021 Methotrexate S odium Active 17.5 MG SC October 18, 2021 12:00am Start: 05-31-2020 End: 07-28-2023 inject 0.75 mL by subcutaneous injection every week methotrexate sodium 25 mg/mL soln 0.75 ml injection Subcutaneous once a week dispense 6 vials for 90 days 0 05/31/2020 07/28/2023 Discontinued Comment on above: 0.75 ml injection [place]ley bcutaneous once a week dispense 6 vials for 90 days methylPREDNISolone 4 mg oral tablet (5 sources) Corticosteroid Start: 2023 End: 2024 take 1 tablet by mouth once Methylprednisolone (Medrol (Raymundo)) 4 mg tablets,dose pack Discontinued 0 PO per package directions 21 0 April 11, 2024 1:00am June 19, 2024 4:30pm PO PER PKG DIR for 6 days sulfaSALAzine 500 mg oral tablet (20 sources) Aminosalicylate Start: 2021 End: 2023 take 1 tablet by mouth twice daily Sulfasalazine (Azulfidine) 500 mg tablet Discontinued 1 g PO TWICE A DAY October 18, 2021 12:00am April 05, 2024 2:36pm Arthritis Start: 10-18-2021 Sulfasalazine Active 1 GM PO October 18, 2021 12:00am Start: 06-28-2021 End: 07-22-2022 take 2 tablets by mouth twice daily sulfaSALAzine (AZULFIDINE) 500 mg tablet Take 1,000 mg by mouth twice daily. 0 06/28/2021 07/22/2022 Discontinued (Other) Comment on above: Take 1,000 mg by cedrick th twice daily. Problems Active Problems Problem Classification Problem Date Documented Da te Episodic/Chronic Anxiety disorders (6 sources) Anxiety; Translations: [Anxiety disorder, unspecified] Onset: 05-14-2009 05-14-2009 Chronic Complications of surgical procedures or medical care (6 sources) Menopausal flushing; Translations: [Symptomatic postprocedural ovarian failure] Onset: 08-24-2013 08-24-2013 Chronic Disorders of lipid metabolism (6 sources) Hyperlipidemia; Translations: [Hyperlipidemia, unspecified] Onset: 10-10-2005 10-10-2005 Chronic Essential hypertension (20 sources) Hypertensive disorder; Translations: [Essential (primary) hypertension] 01-05-2022 Chronic Comment on above: Controlled on meds Menopausal disorders (6 sources) Menopausal and postmenopausal disorders; Translations: [Unspecified menopausal and perimenopausal disorder] Onset: 08-24-2013 08-24-2013 Chronic Menstrual disorders (6 sources) Dysmenorrhea; Translations: [Dysmenorrhea, unspecified] Onset: 04-11-2005 10-10-2005 Chronic Neoplasms of unspecified nature or uncertain behavior (8 sources) Neoplasm of uncertain behavior of skin; Translations: [Neoplasm of uncertain behavior of skin] 09-03-2024 Episodic Osteoarthritis (20 sources) Arthritis; Translations: [Unspecified osteoarthritis, unspecified site] Onset: 09-22-2013 09-22-2013 Chronic Other bone disease and musculoskeletal deformities (20 sources) Osteopenia; Translations: [Other specified disorders of bone density and structure, unspecified site] Onset: 07-29-2011 07-29-2011 Episodic Other connective tissue disease (20 sources) History of operative procedure on shoulder; Translations: [Presence of left artificial shoulder joint] 01-20-2022 Chronic Other connective tissue disease (5 sources) Presence of left artificial shoulder joint; Translations: [Shoulder joint replacement] Chronic Other connective tissue disease (7 sources) Tenosynovitis of hand; Translations: [Tenosynovitis of hand] 04-05-2024 Episodic Comment on above: DORSAL right hand, w rist and forearm secondary to Rheumatoid Arthritis Other screening for suspected conditions (not mental disorders or infectious disease) (12 sources) Patient encounter status; Translations: [Encounter for screening for malignant neoplasm of intestinal tract, unspecified] Onset: 07-30-2007 Resolved: 07-28-2023 05-31-2011 Episodic Other skin disorders (8 sources) Intrinsic aging of skin; Translations: [Other atrophic disorders of skin] 09-03-2024 Episodic Other skin disorders (8 sources) Atrophic condition of skin; Translations: [Atrophic disorder of skin, unspecified] 09-03-2024 Episodic Other upper respiratory infections (14 sources) Acute sinusitis; Translations: [Acute sinusitis, unspecified] 03-23-2023 Episodic Residual codes; unclassified (3 sources) Postmenopausal state; Translations: [Asymptomatic menopausal state] Episodic Rheumatoid arthritis and related disease (20 sources) Rheumatoid arthritis; Translations: [Rheumatoid arthritis, unspecified] Onset: 12-23-2024 10-18-2021 Chronic Spondylosis; intervertebral disc disorders; other back problems (12 sources) Cervical spondylosis without myelopathy; Translations: [Spondylosis without myelopathy or radiculopathy, cervical region] Onset: 07-02-2020 07-02-2020 Chronic Spondylosis; intervertebral disc disorders; other back problems (20 sources) Neck pain; Translations: [Cervicalgia] 01-19-2021 Episodic Systemic lupus erythematosus and connective tissue disorders (6 sources) Sjogren's syndrome; Translations: [Sicca syndrome, unspecified] Onset: 07-02-2020 07-02-2020 Chronic Thyroid disorders (6 sources) Hypothyroidism; Translations: [Hypothyroidism, unspecified] Onset: 07-29-2011 05-31-2021 Chronic Unclassified (1 source) Unspecified synovitis and tenosynovitis, unspecified hand; Translations: [Unspecified synovitis and tenosynovitis, unspecified hand] Onset: 09-04-2024 Viral infection (4 sources) Herpes simplex; Translations: [Herpesviral infection, unspecified] Episodic Past or Other Problems Problem Classification Problem Date Documented Da te Episodic/Chronic Acquired foot deformities (6 sources) Bunion; Translations: [Bunion of unspecified foot] Onset: 07-02-2020 07-02-2020 Episodic Other connective tissue disease (6 sources) Pain in thumb ; Translations: [Pain in unspecified finger(s)] Onset: 09-24-2013 09-24-2013 Episodic Other connective tissue disease (1 source) Pain in right hand; Translations: [Pain in right hand] Onset: 04-05-2024 Episodic Other non-traumatic joint disorders (2 sources) Shoulder joint pain; Translations: [Pain in unspecified shoulder] Onset: 10-10-2005 Resolved: 05-13-2010 05-13-2010 Episodic Other non-traumatic joint disorders (1 source) Pain in left knee; Translations: [Pain in left knee] Onset: 08-26-2024 Episodic Other non-traumatic joint disorders (1 source) Pain in unspecified wrist; Translations: [Pain in unspecified wrist] Onset: 04-29-2024 Episodic Other upper respiratory disease (6 sources) Deviated nasal septum; Translations: [Deviated nasal septum] Onset: 05-08-2008 05-08-2008 Episodic Sprains and strains (4 sources) Injury of shoulder and upper arm; Translations: [Other sprain of unspecified shoulder joint, initial encounter] Onset: 02-16-2006 Resolved: 05-13-2010 05-13-2010 Episodic Results Test Name Value Interpretation Reference Range Facility Breast imaging reportOrdered By: Adeline Feliz on 01-27-2025 Study report [facility] Imaging Services [address] [place] [address] SCRN MAMM (CAD)W/MATTHEW BILAT MR#: [id number] Acct: [id number] Name: MARA BROWNE HARRIETT Rep #: [id number] : 1960 F 64 From: Iban Feliz DO PCP: Dr. Lissett Blue MD Status: REG CL I Study:SCRN MAMM (CAD)W/MATTHEW BILAT Date of Exa m: 01/27/25 Exam# [id number] Ordering Dr: Cherie Castellanos USABILITY SPECIALIST USABILITY SPECIALIST-C EXAM: SCRN MAMM (CAD)W/MATTHEW BILAT DATE: 01/27/2025 CLINICAL HISTORY: F, Age 64 y/o , SCREENING Patient has bilateral breast implants. TECHNIQUE: SCRN MAMM (CAD) W/MATTHEW BILAT. Pushback Emmanuel CC and pushback Emmanuel MLO views of the right and left breast were also performed. COMPARISON: Prior exam(s) dated 01/26/2024, 01/24/2023, and 01/18/2022. FINDINGS: TISSUE DENSITY: There are scattered areas of fibroglandular density. Bilateral Breast Mammographic Findings: Both breast implants appear to be intact. No suspicious masses, suspicious cluster of microcalcifications, architectural distortion or secondary signs of malignancy is identified in either breast. BI/SCRN MAMM (CAD)W/MATTHEW BILAT IMPRESSION: Bilateral screening mammogram study. OVERALL FINAL ASSESSMENT BI-RADS 2: BENIGN RECOMMENDATION: Routine annual follow-up in 1 Year A letter with findings and recommendations will be mailed to the patient. Reading Location: [id number] CC: USABILITY SPECIALIST-C Cherie Castellanos; Dr. Lissett Blue MD ~ School Photograph Editor: Signed [facility] SCRN MAMM (CAD)W/MATTHEW BILATo n 01-27-2025 SCRN MAMM (CAD)W/MATTHEW BILAT [facility] Imaging Services [address] [place] [id number] SCRN MAMM (CAD)W/MATTHEW BILAT MR#: [id number] Acct: [id number] Name: GEN BRITTONMARA HARRIETT Rep #: [id number] : 1960 F 64 From: Adeline Ziegler PCP: Dr. Lissett Blue MD Status: REG CLI Study: SCRN MAMM (CAD)W/MATTHEW BILAT Date of Exam: 01/04 10/27 Exam# [id number] Ordering Dr: Cherie Castellanos NP USABILITY SPECIALIST- C EXAM: SCRN MAMM (CAD)W/MATTHEW BILAT DATE: 01/27/2025 CLINICAL HISTORY: F, Age 64 y/o , SCREENING Patient has bilateral breast implants. TECHNIQUE: SCRN MAMM (CAD) W/MATTHEW BILAT. Pushback Emmanuel CC and pushback Emmanuel MLO views of the right and left breast were also performed. COMPARISON: Prior exam(s) dated 01/26/2024, 01/24/2023, and 01/18/2022. FINDINGS: TISSUE DENSITY: There are scattered areas of fibroglandular density. Bilateral Breast Mammographic Findings: Both breast implants appear to be intact. No suspicious masses, suspicious cluster of microcalcifications, architectural distortion or secondary signs of malignancy is identified in either breast. BI/SCRN MAMM (CAD)W/MATHTEW BILAT IMPRESSION: Bilateral screening mammogram study. OVERALL FINAL ASSESSMENT BI-RADS 2: BENIGN RECOMMENDATION: Routine annual follow-up in 1 Year A letter with findings and recommendations will be mailed to the patient. Reading Location: [id number] CC: CHIP Castellanos; Dr. Lissett Blue MD School Photograph Editor: Signed Normal [facility] Orthopedic Visit Reporton Orthopedic Visit Report [facility] [address] [place] [address] OFFICE VISIT Date of Service: 01/10/25 MR#: [id number] Acct: [id number] Name: MARA BROWNE HARRIETT Rep #: [id number] : 1960 Provider: CHIP christine Age/Sex: 64/F Location: [facility] Status: Signed Intake Vital Signs 10/14/24 13:08 Height 5 ft 5 in Intake Visit Reasons: LEFT KNEE Chief Complaint: Left Knee Steroid injection Accompanied by: Self Is patient in pain?: Yes Pain scale (1-10): 6 Allergies bee venom protein (honey bee) Allergy (Verified 01/10/25 13:14) swelling Environmental Allergies: Uncoded Allergy (Verified 01/10/25 13:14) Anaphylaxis zolpidem (From Ambien) Allergy (Verified 01/10/25 13:14) dizziness Medications ???Medication ???Instructions ???Recorded ???Confirmed ???Type conjugated estrogens 0.625 mg/gram 1 applic vaginal PRN PRN Vaginal 06/28/17 01/10/25 History vaginal cream (Premarin) Dryness gabapentin 300 mg capsule 300 mg PO TID 06/28/17 01/10/25 Hi story (Neurontin) levothyroxine 50 mcg tablet 50 mcg PO DAILY 06/28/17 01/10/25 History (Synthroid) multivitamin 1 cap PO QAM 06/28/17 01/10/25 His tory bupropion HCl 300 mg 24 hr tablet, 300 mg PO DAILY 10/18/21 5 History extended release (Wellbutrin XL) cholecalciferol (vitamin D3) 25 25 mcg PO DAILY 10/18/21 01/10/25 History mcg (1,000 unit) capsule furosemide 20 mg tablet (Lasix) 20 mg PO DAILY PRN swelling 01/10/25 History lifitegrast 5 % eye drops in a 1 drp ophthalmic (eye) BID 2 01/10/25 History dropperette (Xiidra) liothyronine 5 mcg tablet (Cytomel) 5 mcg PO DAILY 10/18/21 5 History lisinopril 10 mg tablet 10 mg PO DAILY 10/18/21 01/10/25 H istory Held on 01/20/22. Instructions: Resume on 01/21/22. Okay to resume lisinopril on January 21, 2022 if blood pressure remains greater than 100 mmHg mecobalamin (vitamin B12) 5,000 5,000 mcg PO DAILY 10/18/21 History mcg lozenge metoprolol succinate 25 mg 25 mg PO BID 10/18/21 01/10/25 His tory tablet,extended release 24 hr Held on 01/20/22. Instructions: Resume on 01/20/22. Okay to resume metoprolol for evening dose hydroxychloroquine 200 mg tablet 200 mg PO DAILY 01/02/23 01/10/25 History (Plaquenil) atorvastatin 10 mg tablet 20 mg PO QPM 04/05/24 01/10/25 His tory meloxicam 15 mg tablet 15 mg PO QDAY 04/05/24 01/10/25 Hi story valacyclovir 500 mg tablet 500 mg PO QDAY 04/05/24 01/10/25 H istory azithromycin 250 mg tablet 250 mg PO .COMPLEX #12 tabs 01/10/25 Rx PFSH Medical History Left knee pain Depression History of edema Arthritis of left glenohumeral joint Rheumatoid arthritis Osteopenia Inflammatory polyarthritis Arthritis Hypertension Hypothyroidism Surgical History Hx of cataract surgery History of rhinoplasty History of breast augmentation History of hysterectomy Family History Father CAD (coronary artery disease) COPD (chronic obstructive pulmonary disease) Mother Hypertension Social History household members: spouse Smoking Status: Never smoker alcohol intake: never substance use type: does not use additional social history: no history of blood clots pt denies vaping, denies edibles,denies marijuana use HPI LEFT KNEE Details: This documentation accurately reflects the service provided and the decisions made by me, Elena Augustine, USABILITY SPECIALIST-C 01/10/25 1312. Part of today???s visit was documented by Ny Mckeon ATC, acting as scribe. MARA BRITTON is a 64 year old F here today for left knee pain. Patient states the knee is not too bad today but there are times where it gets to 10/10. She states she would like a steroid injection as she has been getting them with Dr. Peoples. Her last injection was 10/15/[address] Peoples. Agree with above. Patient states she typically gets about 3 months relief with cortisone injections, feels affected is wearing off. Patient would like to have another cortisone injection prior to vacation to allow for rest and pain relief. Wears knee brace with aggravating activities appropriate support. Patient does take routine meloxicam, as needed prednisone and for Percocet as previously prescribed for arthritis pains. No recent injuries. ROS Const All systems reviewed are unremarkable except as noted in H and other (A O x 3, no apparent distress. No recent illness.) ENT Denies dizziness Card Denies chest pain, Denies dyspnea, Denies edema and Reports other (No palpit (more content not included)... Normal [facility] Absolute lymphocyte countOrd ered By: Maia Johnson on 12-18-2024 Lymphocytes Auto (Unsp spec) [#/Vol] 3.04 10*3/uL 0.83-4.51 [facility] Absolute neutrophil countOrd ered By: Maia Johnson on 12-18-2024 Neutrophils (Bld) [#/Vol] 4.1 10*3/uL 2.0-7.7 [facility] Anion gap in Serum or Plasma Ordered By: Maia Johnson on 12-18-2024 Anion gap [Moles/Vol] 12 mmol/L 5- [facility] Automated lymphocyte count a s percentage of total leukocytesOrdered By: Maia Johnson on 12-18-2024 Lymphocytes/100 WBC Auto (Unsp spec) 34.2 % - [facility] BUN/creatinine ratioOrdered By: Maialeola Johnson on 12-18-2024 Urea nitrogen/Creatinine [Mass ratio] 20.9 mg/mg High 10- [facility] Basophil percentageOrdered B y: Maia Johnson on 12-18-2024 Basophils/100 WBC (Bld) 0.4 % 0-1 [facility] Bilirubin, totalOrdered By: Maia Johnson on 12-18-2024 Bilirubin [Mass/Vol] 0.46 mg/dL 0.00-1.30 [facility] CBC W/Diff, Automatedon 12-03 Absolute Lymph 3.04 X10 3/uL Normal 0.83-4.51 [facility] Comment on above: Performed By: #### L 500.4050, L100.0100 ####[facility] [address] [place], [address] Absolute Neut 4.1 X10 3/uL Normal 2.0-7.7 [facility] Comment on above: Performed By: #### L 500.4050, L100.0100 ####[facility] [address] [place], [address] Basophils/100 WBC (Bld) 0.4 % Normal 0-1 [facility] Comment on above: Performed By: #### L 500.4050, L100.0100 ####[facility] [address] [place], [address] Eosinophils/100 WBC (Bld) 11.2 % High 0-5 [facility] Comment on above: Performed By: #### L 500.4050, L100.0100 ####[facility] [address] [place], [address] Erythrocyte distribution width (RBC) [Ratio] 12.3 % Normal 11.6-14.6 [facility] Comment on above: Performed By: #### L 500.4050, L100.0100 ####[facility] [address] [place], [address] Hematocrit (Bld) [Volume fraction] 37.1 % Normal 37-47 [facility] Comment on above: Performed By: #### L 500.4050, L100.0100 ####[facility] [address] [place], [address] Hemoglobin (Bld) [Mass/Vol] 12.3 g/dL Normal 12.0-15.0 [facility] Comment on above: Performed By: #### L 500.4050, L100.0100 ####[facility] [address] [place], [address] IG% 0.200 Normal 0.0-0.9 [facility] Comment on above: Result Comment: IG% - Immature Granulocytes (promyelocytes, myelocytes and metamyelocytes) > 1% indicates that a LEFT SHIFT is Present. Performed By: #### L 500.4050, L100.0100 ####[facility] [address] [place], [address] Lymphocytes/100 WBC (Bld) 34.2 % Normal 19-41 [facility] Comment on above: Performed By: #### L 500.4050, L100.0100 ####[facility] [address] [place], [address] MCH (RBC) [Entitic mass] 30.6 pg Normal 27.0-32.0 [facility] Comment on above: Performed By: #### L 500.4050, L100.0100 ####[facility] [address] [place], [address] MCHC (RBC) [Mass/Vol] 33.2 g/dL Normal 32-36 [facility] Comment on above: Performed By: #### L 500.4050, L100.0100 ####[facility] [address] [place], [address] MCV (RBC) [Entitic vol] 92.3 fL Normal 81-99 [facility] Comment on above: Performed By: #### L 500.4050, L100.0100 ####[facility] [address] [place], [address] Monocytes/100 WBC (Bld) 8.1 % Normal 0-10 [facility] Comment on above: Performed By: #### L 500.4050, L100.0100 ####[facility] [address] [place], [address] Neutrophils/100 WBC (Bld) 45.9 % Low 47-70 [facility] Comment on above: Performed By: #### L 500.4050, L100.0100 ####[facility] [address] [place], [address] Nucleated RBC (Bld) [#/Vol] 0 10*3/uL Normal 0-5 [facility] Comment on above: Performed By: #### L 500.4050, L100.0100 ####[facility] [address] [place], [address] Platelet mean volume (Bld) [Entitic vol] 11.6 fL Normal 6.2-12.0 [facility] Comment on above: Performed By: #### L 500.4050, L100.0100 ####[facility] [address] [place], [address] Platelets (Bld) [#/Vol] 195 10*3/uL Normal 150-450 [facility] Comment on above: Performed By: #### L 500.4050, L100.0100 ####[facility] [address] [place], [address] RBC (Bld) [#/Vol] 4.02 10*6/uL Low 4.2-5.4 [facility] Comment on above: Performed By: #### L 500.4050, L100.0100 ####[facility] [address] [place], [address] RDW SD 41.6 fl Normal 35.1-43.9 [facility] Comment on above: Performed By: #### L 500.4050, L100.0100 ####[facility] [address] [place], [address] WBC (Bld) [#/Vol] 8.9 10*3/uL Normal 4.4-11.0 [facility] Comment on above: Performed By: #### L 500.4050, L100.0100 ####[facility] [address] [place], [address] Carbon dioxide, total [Moles /volume] in Central venous bloodOrdered By: Maia Johnson on 12-18-2024 CO2 [Moles/Vol] 23.5 mmol/L 21.0-32.0 [facility] Chloride assayOrdered By: Miky Johnson on 12-18-2024 Chloride [Moles/Vol] 98 mmol/L 98-108 [facility] Comprehensive Metabolic Prof ilon 12-18-2024 Albumin [Mass/Vol] 4.2 g/dL Normal 3.4-4.8 [facility] Comment on above: Performed By: #### L 500.4050, L100.0100 ####[facility] [address] [place], [address] Albumin/Globulin [Mass ratio] 1.7 {ratio} Normal 0.9-2.4 [facility] Comment on above: Performed By: #### L 500.4050, L100.0100 ####[facility] [address] [place], [address] ALK PHOS 58 U/L Normal 35-104 [facility] Comment on above: Performed By: #### L 500.4050, L100.0100 ####[facility] [address] [place], [address] ALT [Catalytic activity/Vol] 27 U/L Normal <=34 [facility] Comment on above: Performed By: #### L 500.4050, L100.0100 ####[facility] [address] [place], [address] AST [Catalytic activity/Vol] 34 U/L High <=31 [facility] Comment on above: Performed By: #### L 500.4050, L100.0100 ####[facility] [address] [place], [address] Bilirubin [Mass/Vol] 0.46 mg/dL Normal 0.00-1.30 [facility] Comment on above: Performed By: #### L 500.4050, L100.0100 ####[facility] [address] [place], [address] BUN/CRE 20.9 RATIO High 10-20 [facility] Comment on above: Performed By: #### L 500.4050, L100.0100 ####[facility] [address] [place], [address] Calcium [Mass/Vol] 9.3 mg/dL Normal 7.6-11.0 [facility] Comment on above: Performed By: #### L 500.4050, L100.0100 ####[facility] [address] [place], [address] Chloride [Moles/Vol] 98 mmol/L Normal 98-108 [facility] Comment on above: Performed By: #### L 500.4050, L100.0100 ####[facility] [address] [place], [address] CO2 [Moles/Vol] 23.5 mmol/L Normal 21.0-32.0 [facility] Comment on above: Performed By: #### L 500.4050, L100.0100 ####[facility] [address] [place], [address] Creatinine [Mass/Vol] 0.99 mg/dL Normal 0.70-1.20 [facility] Comment on above: Performed By: #### L 500.4050, L100.0100 ####[facility] [address] [place], [address] GAP 12 Normal 5-15 [facility] Comment on above: Performed By: #### L 500.4050, L100.0100 ####[facility] [address] [place], [address] GFR/1.73 sq M.predicted among non-blacks MDRD (S/P/Bld) [Vol rate/Area] 64 mL/min/{1.73_m2} Normal >60 [facility] Comment on above: Result Comment: mL/m in/1.73m2 CKD-EPI Creatinine Equation (2020) Performed By: #### L 500.4050, L100.0100 ####[facility] [address] [place], [address] Globulin (S) [Mass/Vol] 2.5 g/dL Normal 2.2-4.2 [facility] Comment on above: Performed By: #### L 500.4050, L100.0100 ####[facility] [address] [place], [address] Glucose [Mass/Vol] 85 mg/dL Normal 70-99 [facility] Comment on above: Performed By: #### L 500.4050, L100.0100 ####[facility] [address] [place], [address] Potassium [Moles/Vol] 4.7 mmol/L Normal 3.3-5.1 [facility] Comment on above: Performed By: #### L 500.4050, L100.0100 ####[facility] [address] [place], [address] Sodium [Moles/Vol] 133 mmol/L Normal 133-145 [facility] Comment on above: Performed By: #### L 500.4050, L100.0100 ####[facility] [address] [place], [address] T PROT 6.7 g/dL Normal 5.9-8.4 [facility] Comment on above: Performed By: #### L 500.4050, L100.0100 ####[facility] [address] [place], [address] Urea nitrogen [Mass/Vol] 21 mg/dL High 4-19 [facility] Comment on above: Performed By: #### L 500.4050, L100.0100 ####[facility] [address] [place], [address] Eosinophil percentageOrdered By: Maia Johnson on 12-18-2024 Eosinophils/100 WBC (Bld) 11.2 % High 0-5 [facility] Erythrocyte distribution wid th ratioOrdered By: Maia Johnson on 12-18-2024 Erythrocyte distribution width (RBC) [Ratio] 12.3 % 11.6-14.6 [facility] Erythrocyte distribution wid th standard deviationOrdered By: Maia Johnson on 12-18-2024 Erythrocyte distribution width (RBC) [Ratio] 41.6 fl 35.1-43.9 [facility] Glomerular filtration rate ( GFR) estimation/1.73 sq m using serum, plasma, or whole bOrdered By: Maia Johnson on 12-18-2024 GFR/1.73 sq M.predicted among non-blacks MDRD (S/P/Bld) [Vol rate/Area] 64 mL/min/{1.73_m2} >60 [facility] Comment on above: mL/min/1.73m2 CKD-EP I Creatinine Equation (2020) Hematocrit Auto (Bld) [Volum e fraction]Ordered By: Maia Johnson on 12-18-2024 Hematocrit (Bld) [Volume fraction] 37.1 % 37-47 [facility] Hemoglobin measurementOrdere d By: Maia Johnson on 12-18-2024 Hemoglobin (Bld) [Mass/Vol] 12.3 g/dL 12.0-15.0 [facility] Immature granulocytes/100 WB C Auto (Bld)Ordered By: Maia Johnson on 12-18-2024 Immature granulocytes/100 WBC (Bld) 0.200 % 0.0-0.9 [facility] Comment on above: IG% - Immature Granu locytes (promyelocytes, myelocytes and metamyelocytes) > 1% indicates that a LEFT SHIFT is Present. Laboratory - Chemistry and C hemistry - challengeOrdered By: Maia Johnson on 12-18-2024 AST [Catalytic activity/Vol] 34 U/L High <32 [facility] MCV (mean corpuscular volume ) determinationOrdered By: Maia Johnson on 12-18-2024 MCV (RBC) [Entitic vol] 92.3 fL 81-99 [facility] Mean corpuscular hemoglobin (MCH) determinationOrdered By: Maia Johnson on 12-18-2024 MCH (RBC) [Entitic mass] 30.6 pg 27.0-32.0 [facility] Mean corpuscular hemoglobin concentration (MCHC) determinationOrdered By: Maia Johnson 12-18-2024 MCHC (RBC) [Mass/Vol] 33.2 g/dL 32-36 [facility] Mean platelet volume determi nationOrdered By: Maia Johnson on 12-18-2024 Platelet mean volume (Bld) [Entitic vol] 11.6 fL 6.2-12.0 [facility] Monocyte percentageOrdered B y: Maia Johnson on 12-18-2024 Monocytes/100 WBC (Bld) 8.1 % 0-10 [facility] Neutrophil percentageOrdered By: Maia Johnson on 12-18-2024 Neutrophils/100 WBC (Bld) 45.9 % Low 47-70 [facility] Nucleated red blood cell per centageOrdered By: Maia Johnson on 12-18-2024 Nucleated RBC/100 WBC (Bld) [Ratio] 0 % 0-5 [facility] Platelet countOrdered By: Miky Johnson on 12-18-2024 Platelets (Bld) [#/Vol] 195 10*3/uL 150-450 [facility] Potassium measurement (mass/ volume)Ordered By: Maia Johnson on 12-18-2024 Potassium (Unsp spec) [Mass/Vol] 4.7 mmol/L 3.3-5.1 [facility] RBC Auto (Bld) [#/Vol]Ordere d By: Maia Johnson on 12-18-2024 RBC (Bld) [#/Vol] 4.02 10*6/uL Low 4.2-5.4 [facility] Serum creatinine measurement (mass/volume)Ordered By: Maia Johnson on 12-18-2024 Creatinine [Mass/Vol] 0.99 mg/dL 0.70-1.20 [facility] Serum globulin measurementOr dered By: Maia Johnson on 12-18-2024 Globulin (S) [Mass/Vol] 2.5 g/dL 2.2-4.2 [facility] Serum glucose measurement (m ass/volume)Ordered By: Maia Johnson on 12-18-2024 Glucose [Mass/Vol] 85 mg/dL 70-99 [facility] Serum or plasma alanine velazquez otransferase (ALT) measurementOrdered By: Maia Johnson on 12-18-2024 ALT [Catalytic activity/Vol] 27 U/L <35 [facility] Serum or plasma albumin chung urement (mass/volume)Ordered By: Maia Johnson on 12-18-2024 Albumin [Mass/Vol] 4.2 g/dL 3.4-4.8 [facility] Serum or plasma albumin/glob ulin mass ratioOrdered By: Maia Johnson on 12-18-2024 Albumin/Globulin [Mass ratio] 1.7 {ratio} 0.9-2.4 [facility] Serum or plasma alkaline moustapha sphatase measurementOrdered By: Maia Johnson on 12-18-2024 ALP [Catalytic activity/Vol] 58 U/L 35-104 [facility] Serum or plasma calcium chung urement (mass/volume)Ordered By: Maia Johnson on 12-18-2024 Calcium [Mass/Vol] 9.3 mg/dL 7.6-11.0 [facility] Serum or plasma urea nitroge n measurement (mass/volume)Ordered By: Maia Johnson on 12-18-2024 Urea nitrogen [Mass/Vol] 21 mg/dL High 4-19 [facility] Sodium levelOrdered By: Belkys Johnson on 12-18-2024 Sodium [Moles/Vol] 133 mmol/L 133-145 [facility] Total proteinOrdered By: Bartolo Johnson on 12-18-2024 Protein [Mass/Vol] 6.7 g/dL 5.9-8.4 [facility] White blood cell (WBC) count Ordered By: Maia Johnson on 12-18-2024 WBC (Bld) [#/Vol] 8.9 10*3/uL 4.4-11.0 [facility]gent Care Visit Reporton 0 11-13-2024 Urgent Care Visit Report [facility] [address], [address] [place] [address] OFFICE VISIT Date of Service: 11/13/24 MR#: [id number] Acct: [id number] Name: MARA BROWNE Rep #: [id number] : 1960 Provider: MIKY Thurman Age/Sex: 64/F Location: [facility] Status: Signed Intake Vital Signs 10/14/24 13:08 11/13/24 10:38 Height 5 ft 5 in BP 120/80 Position Sitting Respiration 16 Pulse 79 Temp 97.9 F Temp Source Oral Pulse Oximetry (%) 96 Oxygen Delivery Method room air Intake Visit Reasons: SINUS COMPLAINT/CONGES/X3 WKS Accompanied by: Self Allergies bee venom protein (honey bee) Allergy (Verified 11/13/24 10:42) swelling Environmental Allergies: Uncoded Allergy (Verified 11/13/24 10:42) Anaphylaxis zolpidem (From Ambien) Allergy (Verified 11/13/24 10:42) dizziness Medications ???Medication ???Instructions ???Recorded ???Confirmed ???Type conjugated estrogens 0.625 mg/gram 1 applic vaginal PRN PRN Vaginal 06/28/17 11/13/24 History vaginal cream (Premarin) Dryness gabapentin 300 mg capsule 300 mg PO TID 06/28/17 11/13/24 Hi story (Neurontin) levothyroxine 50 mcg tablet 50 mcg PO DAILY 06/28/17 11/13/24 History (Synthroid) multivitamin 1 cap PO QAM 06/28/17 11/13/24 His tory bupropion HCl 300 mg 24 hr tablet, 300 mg PO DAILY 10/18/21 5 History extended release (Wellbutrin XL) cholecalciferol (vitamin D3) 25 25 mcg PO DAILY 10/18/21 11/13/24 History mcg (1,000 unit) capsule furosemide 20 mg tablet (Lasix) 20 mg PO DAILY PRN swelling 11/13/24 History lifitegrast 5 % eye drops in a 1 drp ophthalmic (eye) BID 2 11/13/24 History dropperette (Xiidra) liothyronine 5 mcg tablet (Cytomel) 5 mcg PO DAILY 10/18/21 5 History lisinopril 10 mg tablet 10 mg PO DAILY 10/18/21 11/13/24 H istory Held on 01/20/22. Instructions: Resume on 01/21/22. Okay to resume lisinopril on January 21, 2022 if blood pressure remains greater than 100 mmHg mecobalamin (vitamin B12) 5,000 5,000 mcg PO DAILY 10/18/21 History mcg lozenge metoprolol succinate 25 mg 25 mg PO BID 10/18/21 11/13/24 His tory tablet,extended release 24 hr Held on 01/20/22. Instructions: Resume on 01/20/22. Okay to resume metoprolol for evening dose hydroxychloroquine 200 mg tablet 200 mg PO DAILY 01/02/23 11/13/24 History (Plaquenil) atorvastatin 10 mg tablet 20 mg PO QPM 04/05/24 11/13/24 His tory meloxicam 15 mg tablet 15 mg PO QDAY 04/05/24 11/13/24 Hi story valacyclovir 500 mg tablet 500 mg PO QDAY 04/05/24 11/13/24 H istory azithromycin 250 mg tablet 250 mg PO .COMPLEX #12 tabs 11/13/24 Rx Nurse's Note: Patient has sinus complaint and congestion that has been going on for 3 weeks. Patient states it started off with a virus she believes and she hasn't been able to kick it. [facility] Medical History (Updated 10/15/24 @ 13:13 by Nicholas Gonzalez MA) Left knee pain Depression History of edema Arthritis of left glenohumeral joint Rheumatoid arthritis Osteopenia Inflammatory polyarthritis Arthritis Hypertension Hypothyroidism Surgical History Hx of cataract surgery History of rhinoplasty History of breast augmentation History of hysterectomy Family History Father CAD (coronary artery disease) COPD (chronic obstructive pulmonary disease) Mother Hypertension Social History household members: spouse Smoking Status: Never smoker alcohol intake: never substance use type: does not use additional social history: no history of blood clots pt denies vaping, denies edibles,denies marijuana use HPI HPI Details: MARA BRITTON, is a 64 F who presents to the office today for [facility] evaluation at the [facility] for approximately 3-week history of progressively worsening forehead pressure/congestion with purulent postnasal drip and sore throat. No complaints of fever, chills, myalgias, fatigue, runny nose, or nausea/vomiting/diarrhea. No complaints of chest pain/shortness of breath/dyspnea on exertion. Unsure if close contacts with similar complaints. No [id number]-[id number] medications have been taken to assist with current symptoms. Nonsmoker. No other associated symptoms and no other alleviating/aggravating factors. ROS Const Constitutional: No other (as above) Exam Const General: cooperative, healthy appearing and no acute distress Nutritional Appearance: average body habitus Orientation: alert, awake and oriented x3 HENMT Head: normal to inspection Ears: heari (more content not included)... Normal [facility] Orthopedic Visit Reporton Orthopedic Visit Report [facility] [address] [place] [id number] OFFICE VISIT Date of Service: 10/15/24 MR#: [id number] Acct: [id number] Name: MARA BROWNE HARRIETT Rep #: [id number] : 1960 Provider: Dr. Yogi cedillo MD Age/Sex: 64/F Location: [facility] Status: Signed with Addenda ADDENDUM by LEOLA Gonzalez on 10/15/24 at 1315 Office Procedure Documentation entered by Nicholas Gonzalez MA 10/15/24 13:15: Ortho Injections Injections Yes Knee Left Is this a patient provided medication?: No Details: Obtained consent for injection. Under sterile conditions, injected the patients left knee with 2cc Kenalog, and 4cc Bupivacaine. The patient tolerated the injection well without any noted complication. Patient should call our office if redness develops, pain worsens or if they have any concerns. Office Meds Kenalog 40 mg/mL suspension for injection Performing Provider: Yogi Peoples MD Performing Location: [facility] Administered by: Yogi Peoples MD on 10/15/24 13:13 Dose Route Admin Location Dispensed Lot Number Expiration Date NDC Man ufacturer 40 mg intra-articular Left knee 1 mL [id number] 01/03/27 2399-1171-39 BMS P [facility] Date cc: * Signed Intake Vital Signs 09/03/24 16:27 10/14/24 13:08 Height 5 ft 5 in 5 ft 5 in Weight: 145 lb BMI 24.1 BP 127/76 H Blood Pressure Location Lt brachial Position Sitting Respiration 18 Pulse 73 Temp 98.5 F Temp Source Temporal Pulse Oximetry (%) 94 Oxygen Delivery Method room air Intake Visit Reasons: LEFT KNEE Chief Complaint: Steroid injection Accompanied by: Self Is patient in pain?: No Allergies bee venom protein (honey bee) Allergy (Verified 10/15/24 13:02) swelling Environmental Allergies: Uncoded Allergy (Verified 10/15/24 13:02) Anaphylaxis zolpidem (From Ambien) Allergy (Verified 10/15/24 13:02) dizziness Medications ???Medication ???Instructions ???Recorded ???Confirmed ???Type conjugated estrogens 0.625 mg/gram 1 applic vaginal PRN PRN Vaginal 06/28/17 10/15/24 History vaginal cream (Premarin) Dryness gabapentin 300 mg capsule 300 mg PO TID 06/28/17 10/15/24 Hi story (Neurontin) levothyroxine 50 mcg tablet 50 mcg PO DAILY 06/28/17 10/15/24 History (Synthroid) multivitamin 1 cap PO QAM 06/28/17 10/15/24 His tory bupropion HCl 300 mg 24 hr tablet, 300 mg PO DAILY 10/18/21 5 History extended release (Wellbutrin XL) cholecalciferol (vitamin D3) 25 25 mcg PO DAILY 10/18/21 10/15/24 History mcg (1,000 unit) capsule furosemide 20 mg tablet (Lasix) 20 mg PO DAILY PRN swelling 10/15/24 History lifitegrast 5 % eye drops in a 1 drp ophthalmic (eye) BID 2 10/15/24 History dropperette (Xiidra) liothyronine 5 mcg tablet (Cytomel) 5 mcg PO DAILY 10/18/21 5 History lisinopril 10 mg tablet 10 mg PO DAILY 10/18/21 10/15/24 H istory Held on 01/20/22. Instructions: Resume on 01/21/22. Okay to resume lisinopril on January 21, 2022 if blood pressure remains greater than 100 mmHg mecobalamin (vitamin B12) 5,000 5,000 mcg PO DAILY 10/18/21 History mcg lozenge metoprolol succinate 25 mg 25 mg PO BID 10/18/21 10/15/24 His tory tablet,extended release 24 hr Held on 01/20/22. Instructions: Resume on 01/20/22. Okay to resume metoprolol for evening dose hydroxychloroquine 200 mg tablet 200 mg PO DAILY 01/02/23 10/15/24 History (Plaquenil) atorvastatin 10 mg tablet 20 mg PO QPM 04/05/24 10/15/24 His tory meloxicam 15 mg tablet 15 mg PO QDAY 04/05/24 10/15/24 Hi story valacyclovir 500 mg tablet 500 mg PO QDAY 04/05/24 10/15/24 H istory Have you fallen in the past year?: No PFSH Medical History Depression History of edema Arthritis of left glenohumeral joint Rheumatoid arthritis Osteopenia Inflammatory polyarthritis Arthritis Hypertension Hypothyroidism Surgical History Hx of cataract surgery History of rhinoplasty History of breast augmentation History of hysterectomy Family History Father CAD (coronary artery disease) COPD (chronic obstructive pulmonary disease) Mother Hypertension Social History household members: spouse Smoking Status: Never smoker alcohol intake: never substance use type: does not use additional social history: no history of blood clots pt denies vaping, denies (more content not included)... [facility] Plastic Surgery Visit Report on 09-03-2024 Plastic Surgery Visit Report [facility] [address], [address] [place], [place] [address] OFFICE VISIT Date of Service: 09/03/24 MR#: [id number] Acct: [id number] Name: MARA BROWNE Rep #: [id number] : 1960 Provider: Dr. Dona alvarado MD Age/Sex: 64/F Location: [facility] Status: Signed Intake Vital Signs 08/26/24 11:00 09/03/24 16:27 Height 5 ft 5 in 5 ft 5 in Weight: 149 lb 6 oz 145 lb BMI 24.8 24.1 BP 127/76 H Blood Pressure Location Lt brachial Position Sitting Respiration 18 Pulse 73 Temp 98.5 F Temp Source Temporal Pulse Oximetry (%) 94 Oxygen Delivery Method room air Intake Visit Reasons: SKIN CHECK Chief Complaint: skin check Is patient in pain?: No Allergies bee venom protein (honey bee) Allergy (Verified 09/03/24 16:28) swelling Environmental Allergies: Uncoded Allergy (Verified 09/03/24 16:28) Anaphylaxis zolpidem (From Ambien) Allergy (Verified 09/03/24 16:28) dizziness Medications ???Medication ???Instructions ???Recorded ???Confirmed ???Type conjugated estrogens 0.625 mg/gram 1 applic vaginal PRN PRN Vaginal 06/28/17 09/03/24 History vaginal cream (Premarin) Dryness gabapentin 300 mg capsule 300 mg PO TID 06/28/17 09/03/24 Hi story (Neurontin) levothyroxine 50 mcg tablet 50 mcg PO DAILY 06/28/17 09/03/24 History (Synthroid) multivitamin 1 cap PO QAM 06/28/17 09/03/24 His tory bupropion HCl 300 mg 24 hr tablet, 300 mg PO DAILY 10/18/21 5 History extended release (Wellbutrin XL) cholecalciferol (vitamin D3) 25 25 mcg PO DAILY 10/18/21 09/03/24 History mcg (1,000 unit) capsule furosemide 20 mg tablet (Lasix) 20 mg PO DAILY PRN swelling 09/03/24 History lifitegrast 5 % eye drops in a 1 drp ophthalmic (eye) BID 2 09/03/24 History dropperette (Xiidra) liothyronine 5 mcg tablet (Cytomel) 5 mcg PO DAILY 10/18/21 5 History lisinopril 10 mg tablet 10 mg PO DAILY 10/18/21 09/03/24 H istory Held on 01/20/22. Instructions: Resume on 01/21/22. Okay to resume lisinopril on January 21, 2022 if blood pressure remains greater than 100 mmHg mecobalamin (vitamin B12) 5,000 5,000 mcg PO DAILY 10/18/21 History mcg lozenge metoprolol succinate 25 mg 25 mg PO BID 10/18/21 09/03/24 His tory tablet,extended release 24 hr Held on 01/20/22. Instructions: Resume on 01/20/22. Okay to resume metoprolol for evening dose hydroxychloroquine 200 mg tablet 200 mg PO DAILY 01/02/23 09/03/24 History (Plaquenil) atorvastatin 10 mg tablet 20 mg PO QPM 04/05/24 09/03/24 His tory meloxicam 15 mg tablet 15 mg PO QDAY 04/05/24 09/03/24 Hi story valacyclovir 500 mg tablet 500 mg PO QDAY 04/05/24 09/03/24 H istory Nurse's Note: pt here for skin check, no suspicious lesion or concerning spot. PFSH Medical History Depression History of edema Arthritis of left glenohumeral joint Rheumatoid arthritis Osteopenia Inflammatory polyarthritis Arthritis Hypertension Hypothyroidism Surgical History Hx of cataract surgery History of rhinoplasty History of breast augmentation History of hysterectomy Family History Father CAD (coronary artery disease) COPD (chronic obstructive pulmonary disease) Mother Hypertension Social History (Updated 09/03/24 @ 16:27 by Yolanda Glover) household members: spouse Smoking Status: Never smoker alcohol intake: never substance use type: does not use additional social history: no history of blood clots pt denies vaping, denies edibles,denies marijuana use HPI SKIN CHECK Details: Mara comes in to discuss evaluation of several lesions of her face and lower extremities. She also would like to discuss therapeutic products for her skin. She denies a history of skin cancer. She brings several of her skin care products with her. ROS General General: Yes good health; No fatigue, fever(s) or weight loss HENMT HENMT: No rhinitis, sore throat/mouth sore, nasal congestion, contacts or glaucoma Endo Endocrine: Yes thyroid disease; No polydipsia, heat intolerance, cold intolerance, hepatitis or excessive urine Skin Skin: No Bleeding, bruising, changing moles or suspicious lesion Musc Musculoskeletal: Yes joint pain, joint stiffness, muscle weakness and osteoarthritis; No back pain or Muscle aches/ myalgia Neuro Neurological: No headache(s), No lightheadedness and No numbness Cardio Cardiovascular: No chest pain, pacemaker, fatigue or shortness of breat with exertion Psych Psychiatric: No depression, claustro (more content not included)... [facility] Orthopedic Visit Reporton Orthopedic Visit Report [facility] [address] [place] [address] OFFICE VISIT Date of Service: 08/26/24 MR#: [id number] Acct: [id number] Name: MARA BROWNE HARRIETT Rep #: [id number] : 1960 Provider: Dr. Yogi cedillo MD Age/Sex: 64/F Location: [facility] Status: Signed with Addenda ADDENDUM by LEOLA Gonzalez on 08/26/24 at 1114 Office Procedure Documentation entered by Nicholas Gonzalez MA 08/26/24 11:14: Ortho Injections Injections Yes Knee Left Is this a patient provided medication?: No Details: Obtained consent for injection. Under sterile conditions, injected the patients left knee with 2cc Kenalog, and 4cc Bupivacaine. The patient tolerated the injection well without any noted complication. Patient should call our office if redness develops, pain worsens or if they have any concerns. Office Meds Kenalog 40 mg/mL suspension for injection Performing Provider: Yogi Peoples MD Performing Location: [facility] Administered by: Nicholas Gonzalez MA on 08/26/24 11:11 Dose Route Admin Location Dispensed Lot Number Expiration Date [facility] Man ufacturer 40 mg intra-articular left knee 1 mL [id number] 10/03/24 5675-5155-88 BMS [facility] Date cc: * Signed Intake Vital Signs 06/27/24 13:59 08/26/24 11:00 Height 5 ft 5 in 5 ft 5 in Weight: 149 lb 6 oz BMI 24.8 Intake Visit Reasons: LEFT KNEE Chief Complaint: left knee pain injection Is patient in pain?: Yes Pain scale (1-10): 7 Allergies bee venom protein (honey bee) Allergy (Verified 08/26/24 11:03) swelling Environmental Allergies: Uncoded Allergy (Verified 08/26/24 11:03) Anaphylaxis zolpidem (From Ambien) Allergy (Verified 08/26/24 11:03) dizziness Medications ???Medication ???Instructions ???Recorded ???Confirmed ???Type conjugated estrogens 0.625 mg/gram 1 applic vaginal PRN PRN Vaginal 06/28/17 08/26/24 History vaginal cream (Premarin) Dryness gabapentin 300 mg capsule 300 mg PO TID 06/28/17 08/26/24 Hi story (Neurontin) levothyroxine 50 mcg tablet 50 mcg PO DAILY 06/28/17 08/26/24 History (Synthroid) multivitamin 1 cap PO QAM 06/28/17 08/26/24 His tory bupropion HCl 300 mg 24 hr tablet, 300 mg PO DAILY 10/18/21 5 History extended release (Wellbutrin XL) cholecalciferol (vitamin D3) 25 25 mcg PO DAILY 10/18/21 08/26/24 History mcg (1,000 unit) capsule furosemide 20 mg tablet (Lasix) 20 mg PO DAILY PRN swelling 08/26/24 History lifitegrast 5 % eye drops in a 1 drp ophthalmic (eye) BID 2 08/26/24 History dropperette (Xiidra) liothyronine 5 mcg tablet (Cytomel) 5 mcg PO DAILY 10/18/21 5 History lisinopril 10 mg tablet 10 mg PO DAILY 10/18/21 08/26/24 H istory Held on 01/20/22. Instructions: Resume on 01/21/22. Okay to resume lisinopril on January 21, 2022 if blood pressure remains greater than 100 mmHg mecobalamin (vitamin B12) 5,000 5,000 mcg PO DAILY 10/18/21 History mcg lozenge metoprolol succinate 25 mg 25 mg PO BID 10/18/21 08/26/24 His tory tablet,extended release 24 hr Held on 01/20/22. Instructions: Resume on 01/20/22. Okay to resume metoprolol for evening dose hydroxychloroquine 200 mg tablet 200 mg PO DAILY 01/02/23 08/26/24 History (Plaquenil) atorvastatin 10 mg tablet 20 mg PO QPM 04/05/24 08/26/24 His tory meloxicam 15 mg tablet 15 mg PO QDAY 04/05/24 08/26/24 Hi story valacyclovir 500 mg tablet 500 mg PO QDAY 04/05/24 08/26/24 H istory [facility] Medical History Depression History of edema Arthritis of left glenohumeral joint Rheumatoid arthritis Osteopenia Inflammatory polyarthritis Arthritis Hypertension Hypothyroidism Surgical History Hx of cataract surgery History of rhinoplasty History of breast augmentation History of hysterectomy Family History Father CAD (coronary artery disease) COPD (chronic obstructive pulmonary disease) Mother Hypertension Social History household members: spouse Smoking Status: Never smoker alcohol intake: never substance use type: does not use additional social history: no history of blood clots HPI LEFT KNEE Details: This documentation accurately reflects the service provided and the decisions made by me, Dr. Yogi Peoples MD 08/26/24 0924. Part of today???s visit was documented by [ ], acting as scribe. MARA BRITTON is a (more content not included)... Normal [facility] Plastic Surgery Visit Report on 08-09-2024 Plastic Surgery Visit Report [facility] [address], [address] [place] [address] OFFICE VISIT Date of Service: 08/09/24 MR#: [id number] Acct: [id number] Name: MARA BROWNE Rep #: [id number] : 1960 Provider: Dr. Jr Guillaume MD Age/Sex: 64/F Location: [facility] Status: Signed Intake Vital Signs 05/09/24 08:43 06/27/24 13:59 08/09/24 14:13 Height 5 ft 5 in 5 ft 5 in BP 133/84 H Blood Pressure Location Rt brachial Position Sitting Respiration 18 Pulse Oximetry (%) 96 Oxygen Delivery Method room air Intake Visit Reasons: 2 M FU Chief Complaint: left knee Allergies bee venom protein (honey bee) Allergy (Verified 07/04/24 11:24) swelling Environmental Allergies: Uncoded Allergy (Verified 07/04/24 11:24) Anaphylaxis zolpidem (From Ambien) Allergy (Verified 07/04/24 11:24) dizziness PFSH Medical History Depression History of edema Arthritis of left glenohumeral joint Rheumatoid arthritis Osteopenia Inflammatory polyarthritis Arthritis Hypertension Hypothyroidism Surgical History Hx of cataract surgery History of rhinoplasty History of breast augmentation History of hysterectomy Family History Father CAD (coronary artery disease) COPD (chronic obstructive pulmonary disease) Mother Hypertension Social History household members: spouse Smoking Status: Never smoker alcohol intake: never substance use type: does not use additional social history: no history of blood clots HPI 2 M FU Details: Mara Britton is a delightful 63-year-old female with past medical history rheumatoid arthritis who presents for dorsal hand and wrist pain. Reports that she has been dealing with rheumatoid arthritis for a long time, but that over the past several months her hand has been bothering her more. She is never had any hand surgeries or any trauma to this hand. She is not a smoker. 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 Reports that the pain is shooting pain along the extensor tendons of the hand wrist and forearm that comes and goes. Of note her rheumatoid arthritis is controlled via her caddie supervisor with Plaquenil and meloxicam. She has steroid bursts prescribed as needed, but has not taken them in a while and has not taken them since her wrist pain and hand pain develop. 09 MAY 2024: Doing well. Pain on the extensors has improved since steroid burst. Discussed risks of another steroid burst (AVN and such) and she understands that this cannot be done all of the time. She does have some pain over the extensor retinaculum of the right wrist. 13 Jun 2024: Vast improvement. Happy with the injection. CURRENT ENCOUNTER, 09 August 2024: Doing well overall. Dorsal hand started to hurt again last week and she would like another injection. Exam Details RIGHT UPPER EXTREMITY Inspection: Slight pain but minimal swelling over the MCP joints of the right index and right long fingers. Radial collateral band tear of the right index finger with subluxation of the EDC on the index. NO PAIN to palpation over the extensor tendons of the wrist over the extensor retinaculum. No longer any bulkiness of the synovium around the extensor tendons. She does not have any pain over the DRUJ, or with stress/strain of the DRUJ. Motor: Able to bend and extend all MP, PIP, and DIP joints. Able to hyperextend all digits from neutral without any signs of EDC rupture Sensory: Intact to light touch on the radial and ulnar borders. Vascular: Finger tips are warm and well perfused with <2 second capillary refill. Office Meds Kenalog 10 mg/mL suspension for injection Performing Provider: Jr Guillaume MD Performing Location: [facility] Administered by: Jr Guillaume MD on 08/09/24 14:10 Dose Route Admin Location Dispensed Lot Number Expiration Date [facility] Polo ufacturer 10 mg intra-articular hand 1 mL [id number] 09/03/25 1997-5171-64 BMS [facility] Comments: Bupivicaine 0.25% [facility] [place] 8600-3906-11 lot [id number] exp 2026-feb-28 Coding Level of Care Code Off vis,est,level 3 Diagnoses Tenosynovitis of hand M65.949 Assessment and Plan (No Qualifiers) Assessment and Plan (1) Tenosynovitis of hand: Status: Acute Comment: DORSAL right hand, wrist and forearm secondary to Rheumatoid Arthritis Plan INJECTION Verbal and written consent obtained Risks, benefits, and alternatives discussed (reiterated the notable risks of tendon rupture from RA in general, but also from the steroid injection). Right dorsal wrist prepped in sterile fashion (more content not included)... [facility] CNOVon 07-30-2024 CNOV Office Visit (OBGYWM ) GEN BRITTONMARA ([id number]) 1960 F Date Time Provider Department 07/30/24 7:00 AM CHERIE CASTELLANOS OBGYWM During your visit today, we recorded the following information about you: Blood pressure Weight Height 116/82 65.8 kg 1.645 m Cherie Castellanos APRN.SHRIMP PEELING MACHINE OPERATOR 07/30/2024 8:07 AM Signed Mara is a 64 year old who presents for an annual gynecologic exam without complaints. 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 Villatoro RHINP PRIM LATANDALAR CRTLGSAND/ELVTN NASAL TI 10/07/2008 Rhinoplasty SALPINGO-OOPHORECTOMY COMPL/PRTL UNI/BI SPX 2007 endometriosis TOTAL ABDOMINAL HYSTERECT W/WO RMVL TUBE OVARY 2008 endometriosis FAMILY HISTORY Problem Relation Age of Onset Hypertension Mother Lipids Mother DVT Father Coronary Artery [facility] Triple bypass surgery SOCIAL HISTORY Social History Tobacco Use Smoking status: Never Passive exposure: Never Smokeless tobacco: Never Vaping Use Vaping status: Never Used Substance Use Topics Alcohol use: Yes Drug use: No REVIEW OF SYSTEMS Abdomen: No abdominal pain, nausea, vomiting, diarrhea, or constipation. No bloating, early satiety, indigestion, or increased flatulence. Bladder: No dysuria, gross hematuria, urinary frequency, urinary urgency, or incontinence Breast: No breast lumps, nipple d/c, overlying skin changes, redness or skin retraction Allergies and current medication updated:Yes SENSITIVE EXAM: The sensitive examination was discussed with the Patient or Patient's Authorized Aromatherapist. As applicable, any other physician, advance practice provider, medical student, or other health professional student that will be observing or involved in the sensitive examination for educational or training purposes was discussed with the Patient or Authorized Aromatherapist. The Patient or Authorized Aromatherapist has agreed to proceed with the sensitive examination. (Sensitive examination includes inspection and/or palpation of the breasts, pelvis, prostate and anorectal regions). EXAM: BP 116/82 Ht 5' 4.75 (1.65m) Wt 145 lb (65.8kg) LMP 09/09/2005 BMI 24.31 kg/(m2). GENERAL: pleasant, female in no apparent distress HEENT: Normocephalic, atraumatic, mucus membranes moist, and no lesions DERMATOLOGY: Normal, without lesions, non-icteric, and non-hirsute BREAST: soft, non-tender, symmetric, no dominant mass, normal nipple-areolar complex, no lymphadenopathy, no nipple discharge, and surgical implants CHEST: Normal inspiratory effort ABDOMEN: soft, non-tender, and no masses PELVIC: external genitalia normal, normal Bartholin's glands, urethra, Village Shires's glands, no vulvar lesions, physiologic discharge present, normal appearing perineal body and perianal region, cervix surgically absent BIMANUAL: non-tender and uterus surgically absent RECTOVAGINAL: deferred. NEURO: alert and oriented x3,exam grossly non-focal EXTREMITIES: normal ASSESSMENT/PLAN: 1) Health maintenance: Pap/HPV screening no longer needed Mammogram ordered Nutrition, exercise and routine health maintenance exams reviewed. Calcium/Vitamin D supplementation information provided. Colon cancer screening: up to date with screening 2) Follow up one year or sooner as needed Cherie Castellanos APRN.CNP Allergies As of Date: 07/30/2024 Noted Allergy Reaction BEES 10/10/2005 7 - Swelling AMBIEN (ZOLPIDEM) 06/08/2010 14 - Other: See Comments Comments: Dizziness during daytime hrs. ETANERCEPT 12/29/2021 2 - Rash Date Reviewed: 07/30/2024 Reviewed by: Cherie Castellanos APRN.SHRIMP PEELING MACHINE OPERATOR - Fully Assessed Reason for Visit: Well Woman [[id number]] Primary Visit Diagnosis:Encounter for gynecological examination with abnormal finding [Z01.411] Prescriptions as of 07/30/2024 - conjugated estrogens (PREMARIN) vaginal cream Faustino (more content not included)... Normal [facility] Orthopedic Visit Reporton Orthopedic Visit Report [facility] [address] [place] [address] OFFICE VISIT Date of Service: 07/04/24 MR#: [id number] Acct: [id number] Name: MARA BROWNE HARRIETT Rep #: [id number] : [id number] Provider: Dr. Yogi cedillo MD Age/Sex: 64/F Location: [facility] Status: Signed Intake Vital Signs 05/09/24 08:43 06/27/24 13:59 Height 5 ft 5 in 5 ft 5 in Intake Visit Reasons: LEFT KNEE Chief Complaint: left knee Is patient in pain?: Yes (left knee) Pain scale (1-10): 2 Allergies bee venom protein (honey bee) Allergy (Verified 07/04/24 11:24) swelling Environmental Allergies: Uncoded Allergy (Verified 07/04/24 11:24) Anaphylaxis zolpidem (From Ambien) Allergy (Verified 07/04/24 11:24) dizziness Medications ???Medication ???Instructions ???Recorded ???Confirmed ???Type conjugated estrogens 0.625 mg/gram 1 applic vaginal PRN PRN Vaginal 06/28/17 07/04/24 History vaginal cream (Premarin) Dryness gabapentin 300 mg capsule 300 mg PO TID 06/28/17 07/04/24 Hi story (Neurontin) levothyroxine 50 mcg tablet 50 mcg PO DAILY 06/28/17 07/04/24 History (Synthroid) multivitamin 1 cap PO QAM 06/28/17 07/04/24 His tory bupropion HCl 300 mg 24 hr tablet, 300 mg PO DAILY 10/18/21 5 History extended release (Wellbutrin XL) cholecalciferol (vitamin D3) 25 25 mcg PO DAILY 10/18/21 07/04/24 History mcg (1,000 unit) capsule furosemide 20 mg tablet (Lasix) 20 mg PO DAILY PRN swelling 07/04/24 History lifitegrast 5 % eye drops in a 1 drp ophthalmic (eye) BID 2 07/04/24 History dropperette (Xiidra) liothyronine 5 mcg tablet (Cytomel) 5 mcg PO DAILY 10/18/21 5 History lisinopril 10 mg tablet 10 mg PO DAILY 10/18/21 07/04/24 H istory Held on 01/20/22. Instructions: Resume on 01/21/22. Okay to resume lisinopril on January 21, 2022 if blood pressure remains greater than 100 mmHg mecobalamin (vitamin B12) 5,000 5,000 mcg PO DAILY 10/18/21 History mcg lozenge metoprolol succinate 25 mg 25 mg PO BID 10/18/21 07/04/24 His tory tablet,extended release 24 hr Held on 01/20/22. Instructions: Resume on 01/20/22. Okay to resume metoprolol for evening dose hydroxychloroquine 200 mg tablet 200 mg PO DAILY 01/02/23 07/04/24 History (Plaquenil) atorvastatin 10 mg tablet 20 mg PO QPM 04/05/24 07/04/24 His tory meloxicam 15 mg tablet 15 mg PO QDAY 04/05/24 07/04/24 Hi story valacyclovir 500 mg tablet 500 mg PO QDAY 04/05/24 07/04/24 H istory [facility] Medical History Depression History of edema Arthritis of left glenohumeral joint Rheumatoid arthritis Osteopenia Inflammatory polyarthritis Arthritis Hypertension Hypothyroidism Surgical History Hx of cataract surgery History of rhinoplasty History of breast augmentation History of hysterectomy Family History Father CAD (coronary artery disease) COPD (chronic obstructive pulmonary disease) Mother Hypertension Social History household members: spouse Smoking Status: Never smoker alcohol intake: never substance use type: does not use additional social history: no history of blood clots HPI LEFT KNEE Chief Complaint: left knee Details: This documentation accurately reflects the service provided and the decisions made by me, Dr. Yogi Peoples MD 07/04/24 9325. Part of today???s visit was documented by [ ], acting as scribe. MARA BRITTON is a 64 year old F here today for left knee Euflexxa injection 3 of 3. doing well, no acute concerns. Office Procedures Euflexxa Procedure Details:: Obtained consent for injection. Under sterile conditions, injected the patients left knee with 2 mls of Euflexxa. The patient tolerated the injection well without any noted complication. Patient should call our office if redness develops, pain worsens or if they have any concerns. Is this Buy Bill?: Yes Yes Office Meds Euflexxa 10 mg/mL (mw 2.4-3.6 million) intra-articular syringe Performing Provider: Yogi Peoples MD Performing Location: [facility] Administered by: Yogi Peoples MD on 07/04/24 11:28 Dose Route Admin Location Dispensed Lot Number Expiration Date NDC Man ufacturer 10 mg intra-articular left knee 2 mL [id number] 05/04/25 [address]-6 [employer] Coding Level of Care Code Attention [employer] Designer Diagnoses Primary osteoarthritis of left knee M17.12 Osteoarthritis type: primary CPT Codes Euflexxa Procedure - Euflexxa Charge: Yes () Comment left knee Euflexxa injection (more content not included)... Normal [facility] Absolute lymphocyte countOrd ered By: [facility] Alex on 06-28-2024 Lymphocytes Auto (Unsp spec) [#/Vol] 1.87 10*3/uL 0.83-4.51 [facility] Absolute neutrophil countOrd ered By: [facility] Alex on 06-28-2024 Neutrophils (Bld) [#/Vol] 2.7 10*3/uL 2.0-7.7 [facility] Albumin to globulin [facility]Ord ered [facility] Albumin/Globulin [Mass ratio] 1.1 {ratio} 0.9-2.4 [facility] Automated lymphocyte count a s percentage of total leukocytesOrdered By: [facility] Alex on 06-28-2024 Lymphocytes/100 WBC Auto (Unsp spec) 35.0 % 19-41 [facility] Basophil percentageOrdered B y: [facility] Alex on 06-28-2024 Basophils/100 WBC (Bld) 0.9 % 0-1 [facility] Bilirubin, totalOrdered By: [facility] 06-28-2024 Bilirubin [Mass/Vol] 0.40 mg/dL 0.20-1.00 [facility] Comment on above: For patients on eltr ombopag therapy, use of Dimension [place] TBIL is not recommended. Blood urea nitrogen (BUN)/cr eatinine ratioOrdered By: [facility] Alex on 06-28-2024 Urea nitrogen/Creatinine [Mass ratio] 25.4 mg/mg High 10-20 [facility] CBC W/Diff, Automatedon 06-06 Absolute Lymph 1.87 X10 3/uL Normal 0.83-4.51 [facility] Comment on above: Performed By: #### L 100.0100, L500.4050 ####[facility] [address] [place], [address] Absolute Neut 2.7 X10 3/uL Normal 2.0-7.7 [facility] Comment on above: Performed By: #### L 100.0100, L500.4050 ####[facility] [address] [place], [address] Basophils/100 WBC (Bld) 0.9 % Normal 0-1 [facility] Comment on above: Performed By: #### L 100.0100, L500.4050 ####[facility] [address] [place], [address] Eosinophils/100 WBC (Bld) 3.0 % Normal 0-5 [facility] Comment on above: Performed By: #### L 100.0100, L500.4050 ####[facility] [address] [place], [address] Erythrocyte distribution width (RBC) [Ratio] 12.3 % Normal 11.6-14.6 [facility] Comment on above: Performed By: #### L 100.0100, L500.4050 ####[facility] [address] [place], [address] Hematocrit (Bld) [Volume fraction] 39.9 % Normal 37-47 [facility] Comment on above: Performed By: #### L 100.0100, L500.4050 ####[facility] [address] [place], [address] Hemoglobin (Bld) [Mass/Vol] 13.2 g/dL Normal 12.0-15.0 [facility] Comment on above: Performed By: #### L 100.0100, L500.4050 ####[facility] [address] [place], [address] IG% 0.200 Normal 0.0-0.9 [facility] Comment on above: Result Comment: IG% - Immature Granulocytes (promyelocytes, myelocytes and metamyelocytes) > 1% indicates that a LEFT SHIFT is Present. Performed By: #### L 100.0100, L500.4050 ####[facility] [address] [place], [address] Lymphocytes/100 WBC (Bld) 35.0 % Normal 19-41 [facility] Comment on above: Performed By: #### L 100.0100, L500.4050 ####[facility] [address] [place], [address] MCH (RBC) [Entitic mass] 30.6 pg Normal 27.0-32.0 [facility] Comment on above: Performed By: #### L 100.0100, L500.4050 ####[facility] [address] [place], [address] MCHC (RBC) [Mass/Vol] 33.1 g/dL Normal 32-36 [facility] Comment on above: Performed By: #### L 100.0100, L500.4050 ####[facility] [address] [place], [address] MCV (RBC) [Entitic vol] 92.6 fL Normal 81-99 [facility] Comment on above: Performed By: #### L 100.0100, L500.4050 ####[facility] [address] [place], [address] Monocytes/100 WBC (Bld) 9.9 % Normal 0-10 [facility] Comment on above: Performed By: #### L 100.0100, L500.4050 ####[facility] [address] [place], [address] Neutrophils/100 WBC (Bld) 51.0 % Normal 47-70 [facility] Comment on above: Performed By: #### L 100.0100, L500.4050 ####[facility] [address] [place], [address] Nucleated RBC (Bld) [#/Vol] 0 10*3/uL Normal 0-5 [facility] Comment on above: Performed By: #### L 100.0100, L500.4050 ####[facility] [address] [place], [address] Platelet mean volume (Bld) [Entitic vol] 10.8 fL Normal 6.2-12.0 [facility] Comment on above: Performed By: #### L 100.0100, L500.4050 ####[facility] [address] [place], [address] Platelets (Bld) [#/Vol] 204 10*3/uL Normal 150-450 [facility] Comment on above: Performed By: #### L 100.0100, L500.4050 ####[facility] [address] [place], [address] RBC (Bld) [#/Vol] 4.31 10*6/uL Normal 4.2-5.4 [facility] Comment on above: Performed By: #### L 100.0100, L500.4050 ####[facility] [address] [place], [address] RDW SD 42.4 fl Normal 35.1-43.9 [facility] Comment on above: Performed By: #### L 100.0100, L500.4050 ####[facility] [address] [place], [address] WBC (Bld) [#/Vol] 5.4 10*3/uL Normal 4.4-11.0 [facility] Comment on above: Performed By: #### L 100.0100, L500.4050 ####[facility] [address] [place], [address] Carbon dioxide measurementOr dered By: Maia Johnson on 06-28-2024 CO2 [Moles/Vol] 30.0 mmol/L 21.0-32.0 [facility] Chloride measurementOrdered By: Maia Johnson on 06-28-2024 Chloride [Moles/Vol] 105 mmol/L 98-107 [facility] Comprehensive Metabolic Prof ilon 06-28-2024 Albumin [Mass/Vol] 3.7 g/dL Normal 3.2-5.0 [facility] Comment on above: Performed By: #### L 100.0100, L500.4050 ####[facility] [address] [place], [address] Albumin/Globulin [Mass ratio] 1.1 {ratio} Normal 0.9-2.4 [facility] Comment on above: Performed By: #### L 100.0100, L500.4050 ####[facility] [address] [place], [address] ALK P 49 U/L Normal 45-117 [facility] Comment on above: Performed By: #### L 100.0100, L500.4050 ####[facility] [address] [place], [address] ALT [Catalytic activity/Vol] 37 U/L Normal 13-56 [facility] Comment on above: Performed By: #### L 100.0100, L500.4050 ####[facility] [address] [place], [address] AST [Catalytic activity/Vol] 28 U/L Normal 15-37 [facility] Comment on above: Performed By: #### L 100.0100, L500.4050 ####[facility] [address] [place], [address] Bilirubin [Mass/Vol] 0.40 mg/dL Normal 0.20-1.00 [facility] Comment on above: Result Comment: For patients on eltrombopag therapy, use of Dimension [place] TBIL is not recommended. Performed By: #### L 100.0100, L500.4050 ####[facility] [address] [place], [address] BUN/CRE 25.4 RATIO High 10-20 [facility] Comment on above: Performed By: #### L 100.0100, L500.4050 ####[facility] [address] [place], [address] CA,Total 9.2 mg/dL Normal 8.5-10.1 [facility] Comment on above: Performed By: #### L 100.0100, L500.4050 ####[facility] [address] [place], [address] Chloride [Moles/Vol] 105 mmol/L Normal 98-107 [facility] Comment on above: Performed By: #### L 100.0100, L500.4050 ####[facility] [address] [place], [address] CO2 [Moles/Vol] 30.0 mmol/L Normal 21.0-32.0 [facility] Comment on above: Performed By: #### L 100.0100, L500.4050 ####[facility] [address] [place], [address] Creatinine [Mass/Vol] 0.67 mg/dL Normal 0.55-1.02 [facility] Comment on above: Result Comment: The validity of the calculated GFR GFRAA in patients over 70 years has not been determined. Clinical correlation is essential. Performed By: #### L 100.0100, L500.4050 ####[facility] [address] [place], [address] EST GFR - AA 115 mL/min Normal >60 [facility] Comment on above: Result Comment: Afri can Welsh GFR Calc Performed By: #### L 100.0100, L500.4050 ####[facility] [address] [place], [address] GAP 3 Low 5-15 [facility] Comment on above: Performed By: #### L 100.0100, L500.4050 ####[facility] [address] [place], [address] GFR/1.73 sq M.predicted among non-blacks MDRD (S/P/Bld) [Vol rate/Area] 95 mL/min/{1.73_m2} Normal >60 [facility] Comment on above: Result Comment: Non- GFR Calc Performed By: #### L 100.0100, L500.4050 ####[facility] [address] [place], [address] Globulin (S) [Mass/Vol] 3.4 g/dL Normal 2.2-4.2 [facility] Comment on above: Performed By: #### L 100.0100, L500.4050 ####[facility] [address] [place], [address] Glucose [Mass/Vol] 68 mg/dL Low 74-106 [facility] Comment on above: Performed By: #### L 100.0100, L500.4050 ####[facility] [address] [place], [address] Potassium [Moles/Vol] 5.1 mmol/L Normal 3.5-5.1 [facility] Comment on above: Performed By: #### L 100.0100, L500.4050 ####[facility] [address] [place], [address] Sodium [Moles/Vol] 138 mmol/L Normal 136-145 [facility] Comment on above: Performed By: #### L 100.0100, L500.4050 ####[facility] [address] [place], [address] T PROT 7.1 g/dL Normal 6.4-8.2 [facility] Comment on above: Performed By: #### L 100.0100, L500.4050 ####[facility] [address] [place], [place], [id number] Urea nitrogen [Mass/Vol] 17 mg/dL Normal 7-18 [facility] Comment on above: Performed By: #### L 100.0100, L500.4050 ####[facility] [address] [place], [place], [id number] Eosinophil percentageOrdered By: Maia Johnson on 06-28-2024 Eosinophils/100 WBC (Bld) 3.0 % 0-5 [facility] Erythrocyte distribution wid th ratioOrdered By: Maia Johnson on 06-28-2024 Erythrocyte distribution width (RBC) [Ratio] 12.3 % 11.6-14.6 [facility] Erythrocyte distribution wid th standard deviationOrdered By: Maia Johnson on 06-28-2024 Erythrocyte distribution width (RBC) [Ratio] 42.4 fl 35.1-43.9 [facility] Glomerular filtration rate ( GFR) estimationOrdered By: Maia Johnson on 06-28-2024 GFR/1.73 sq M.predicted among non-blacks MDRD (S/P/Bld) [Vol rate/Area] 95 mL/min/{1.73_m2} >60 [facility] Comment on above: Non- GFR Calc Glucose measurementOrdered B y: Maia Johnson on 06-28-2024 Glucose [Mass/Vol] 68 mg/dL Low 74-106 [facility] Hematocrit Auto (Bld) [Volum e fraction]Ordered By: Maia Johnson on 06-28-2024 Hematocrit (Bld) [Volume fraction] 39.9 % 37-47 [facility] Hemoglobin measurementOrdere d By: Maia Johnson on 06-28-2024 Hemoglobin (Bld) [Mass/Vol] 13.2 g/dL 12.0-15.0 [facility] Immature granulocytes/100 WB C Auto (Bld)Ordered By: Maia Johnson on 01-24-2025 Immature granulocytes/100 WBC (Bld) 0.200 % 0.0-0.9 [facility] Comment on above: IG% - Immature Granu locytes (promyelocytes, myelocytes and metamyelocytes) > 1% indicates that a LEFT SHIFT is Present. Laboratory - Chemistry and C hemistry - challengeOrdered By: Maia Johnson on 06-28-2024 AST [Catalytic activity/Vol] 28 U/L 15-37 [facility] MCV (mean corpuscular volume ) determinationOrdered By: Maia Johnson on 06-28-2024 MCV (RBC) [Entitic vol] 92.6 fL 81-99 [facility] Mean corpuscular hemoglobin (MCH) determinationOrdered By: Maia Johnson on 06-28-2024 MCH (RBC) [Entitic mass] 30.6 pg 27.0-32.0 [facility] Mean corpuscular hemoglobin concentration (MCHC) determinationOrdered By: Maia Johnson on 06-28-2024 MCHC (RBC) [Mass/Vol] 33.1 g/dL 32-36 [facility] Mean platelet volume determi nationOrdered By: Maia Johnson on 06-28-2024 Platelet mean volume (Bld) [Entitic vol] 10.8 fL 6.2-12.0 [facility] Monocyte percentageOrdered B y: Maia Johnson on 06-28-2024 Monocytes/100 WBC (Bld) 9.9 % 0-10 [facility] Neutrophil percentageOrdered By: Maia Johnson on 06-28-2024 Neutrophils/100 WBC (Bld) 51.0 % 47-70 [facility] Nucleated red blood cell per centageOrdered By: Maia Johnson on 06-28-2024 Nucleated RBC/100 WBC (Bld) [Ratio] 0 % 0-5 [facility] Platelet countOrdered By: Miky Johnson on 06-28-2024 Platelets (Bld) [#/Vol] 204 10*3/uL 150-450 [facility] Potassium measurementOrdered By: Maia Johnson on 06-28-2024 Potassium [Moles/Vol] 5.1 mmol/L 3.5-5.1 [facility] RBC Auto (Bld) [#/Vol]Ordere d By: Maia Johnson on 06-28-2024 RBC (Bld) [#/Vol] 4.31 10*6/uL 4.2-5.4 [facility] Serum anion gap measurementO rdered By: Maia Johnson on 06-28-2024 Anion gap [Moles/Vol] 3 mmol/L Low 5-15 [facility] Serum globulin measurementOr dered By: Maia Johnson on 06-28-2024 Globulin (S) [Mass/Vol] 3.4 g/dL 2.2-4.2 [facility] Serum or plasma alanine velazquez otransferase (ALT) measurementOrdered By: Maia Johnson on 06-28-2024 ALT [Catalytic activity/Vol] 37 U/L 13-56 [facility] Serum or plasma albumin chung urement (mass/volume)Ordered By: Maia Johnson on 06-28-2024 Albumin [Mass/Vol] 3.7 g/dL 3.2-5.0 [facility] Serum or plasma alkaline moustapha sphatase measurementOrdered By: Maia Johnson on 06-28-2024 ALP [Catalytic activity/Vol] 49 U/L 45-117 [facility] Serum or plasma calcium chung urement (mass/volume)Ordered By: Maia Johnson on 06-28-2024 Calcium [Mass/Vol] 9.2 mg/dL 8.5-10.1 [facility] Serum or plasma creatinine m easurement (mass/volume)Ordered By: Maia Johnson on 06-28-2024 Creatinine [Mass/Vol] 0.67 mg/dL 0.55-1.02 [facility] Comment on above: The validity of the calculated GFR & GFRAA in patients over 70 years has not been determined. Clinical correlation is essential. Serum or plasma urea nitroge n measurement (mass/volume)Ordered By: Maia Johnson on 06-28-2024 Urea nitrogen [Mass/Vol] 17 mg/dL 7-18 [facility] Sodium levelOrdered By: Belkys Johnson on 06-28-2024 Sodium [Moles/Vol] 138 mmol/L 136-145 [facility] Total proteinOrdered By: Bratolo Johnson on 06-28-2024 Protein [Mass/Vol] 7.1 g/dL 6.4-8.2 [facility] White blood cell (WBC) count Ordered By: Maialeola Johnson on 06-28-2024 WBC (Bld) [#/Vol] 5.4 10*3/uL 4.4-11.0 [facility] Knee 4 or More Viewson 06-27 Knee 4 or More Views [facility] [address] [place] [address] Knee 4 or More Views MR#: [id number] Acct: [id number] Name: MARA BROWNE HARRIETT Rep #: [id number] : 1960 F 64 From: Mitchell Balderrama MD PCP: Dr. Sapphire Abdi MD Status: DEP AMB Study: Knee 4 or More Views Date of Exam: 06/27/24 Exam# [id number] Ordering Dr: Yogi Peoples MD [id number] STUDY: X-RAY - LEFT KNEE REASON FOR EXAM: Female, 64 years old. Pain. TECHNIQUE: 4 views of the left knee. COMPARISON: None. FINDINGS: Normal visualized distal femur. Normal visualized proximal tibia and fibula. Normal proximal tibiofibular articulation. There is no demonstrated fracture. There is mild degenerative arthrosis of the medial femorotibial compartment. There is moderate degenerative arthrosis of the lateral femorotibial compartment with moderate joint space narrowing. There is mild degenerative arthrosis of the patellofemoral articulation. There is a small joint effusion. The soft tissue structures are unremarkable. RAD/Knee 4 or More Views IMPRESSION: Tricompartment degenerative arthrosis of the left knee, most pronounced in the lateral femorotibial compartment. Small joint effusion. No demonstrated fracture. Electronically Signed: Mitchell Balderrama MD at 15:08 EST , CC: Dr. Sapphire Abdi MD; Dr. Yogi Peoples MD School Photograph Editor: Signed Normal [facility] Orthopedic Visit Reporton Orthopedic Visit Report [facility] [address] [place] [address] OFFICE VISIT Date of Service: 06/27/24 MR#: [id number] Acct: [id number] Name: MARA BROWNE Rep #: [id number] : 1960 Provider: Dr. Yogi cedillo MD Age/Sex: 64/F Location: [facility] Status: Signed Intake Vital Signs 05/09/24 08:43 06/27/24 13:59 Height 5 ft 5 in 5 ft 5 in Intake Visit Reasons: LEFT KNEE Allergies bee venom protein (honey bee) Allergy (Verified 06/27/24 15:54) swelling Environmental Allergies: Uncoded Allergy (Verified 06/27/24 15:54) Anaphylaxis zolpidem (From Ambien) Allergy (Verified 06/27/24 15:54) dizziness Medications ???Medication ???Instructions ???Recorded ???Confirmed ???Type conjugated estrogens 0.625 mg/gram 1 applic vaginal PRN PRN Vaginal 06/28/17 06/27/24 History vaginal cream (Premarin) Dryness gabapentin 300 mg capsule 300 mg PO TID 06/28/17 06/27/24 History (Neurontin) levothyroxine 50 mcg tablet 50 mcg PO DAILY 06/28/17 06/27/24 History (Synthroid) multivitamin 1 cap PO QAM 06/28/17 06/27/24 History bupropion HCl 300 mg 24 hr tablet, 300 mg PO DAILY 10/18/21 06/27/24 History extended release (Wellbutrin XL) cholecalciferol (vitamin D3) 25 25 mcg PO DAILY 10/18/21 06/27/24 History mcg (1,000 unit) capsule furosemide 20 mg tablet (Lasix) 20 mg PO DAILY PRN swelling 10/18/21 06/27/24 History lifitegrast 5 % eye drops in a 1 drp ophthalmic (eye) BID 10/18/21 06/27/24 History dropperette (Xiidra) liothyronine 5 mcg tablet (Cytomel) 5 mcg PO DAILY 10/18/21 06/27/24 History lisinopril 10 mg tablet 10 mg PO DAILY 10/18/21 06/27/24 History mecobalamin (vitamin B12) 5,000 5,000 mcg PO DAILY 10/18/21 06/27/24 History mcg lozenge metoprolol succinate 25 mg 25 mg PO BID 10/18/21 06/27/24 History tablet,extended release 24 hr hydroxychloroquine 200 mg tablet 200 mg PO DAILY 01/02/23 06/27/24 History (Plaquenil) atorvastatin 10 mg tablet 20 mg PO QPM 04/05/24 06/27/24 History meloxicam 15 mg tablet 15 mg PO QDAY 04/05/24 06/27/24 History valacyclovir 500 mg tablet 500 mg PO QDAY 04/05/24 06/27/24 History PFSH Medical History Depression History of edema Arthritis of left glenohumeral joint Rheumatoid arthritis Osteopenia Inflammatory polyarthritis Arthritis Hypertension Hypothyroidism Surgical History Hx of cataract surgery History of rhinoplasty History of breast augmentation History of hysterectomy Family History Father CAD (coronary artery disease) COPD (chronic obstructive pulmonary disease) Mother Hypertension Social History household members: spouse Smoking Status: Never smoker alcohol intake: never substance use type: does not use additional social history: no history of blood clots HPI LEFT KNEE Details: This documentation accurately reflects the service provided and the decisions made by me, Dr. Yogi Peoples MD 06/27/24 7645. Part of today???s visit was documented by [ ], acting as scribe. MARA BRITTON is a 64 year old F here today for left knee Euflexxa injection 2 of 3. Patient did have a fall and hit the knee with a shovel wanted a x-ray to rule out any sort of fracture Supplemental Info [facility] [address] [place] [address] Knee 4 or More Views MR#: [id number] Acct: [id number] Name: MARA BROWNE HARRIETT Rep #: [id number] : 1960 F 64 From: Mitchell Balderrama MD PCP: Dr. Sapphire Abdi MD Status: DEP AMB Study: Knee 4 or More Views Date of Exam: 06/27/24 Exam# [id number] Ordering Dr: Yogi Peoples MD [id number] STUDY: X-RAY - LEFT KNEE REASON FOR EXAM: Female, 64 years old. Pain. TECHNIQUE: 4 views of the left knee. COMPARISON: None. FINDINGS: Normal visualized distal femur. Normal visualized proximal tibia and fibula. Normal proximal tibiofibular articulation. There is no demonstrated fracture. There is mild degenerative arthrosis of the medial femorotibial compartment. There is moderate degenerative arthrosis of the lateral femorotibial compartment with moderate joint space narrowing. There is mild degenerative arthrosis of the patellofemoral articulation. There is a small joint effusion. The soft tissue structures are unremarkable. RAD/Knee 4 or More Views IMPRESSION: Tricompar (more content not included)... Normal [facility] Orthopedic Visit Reporton Orthopedic Visit Report [facility] [address] [place] [address] [address] [place] [address] OFFICE VISIT Date of Service: 06/19/24 MR#: [id number] Acct: [id number] Name: MARA BROWNE HARRIETT Rep #: [id number] : 1960 Provider: Dr. Donte childs DO Age/Sex: 64/F Location: [facility] Status: Signed Intake Vital Signs 05/09/24 08:43 Height 5 ft 5 in Weight: 142 lb BMI 23.6 BP 119/83 H Blood Pressure Location Rt brachial Position Sitting Respiration 18 Pulse 78 Pulse Source Monitor Temp 97.9 F Temp Source Oral Pulse Oximetry (%) 97 Oxygen Delivery Method room air Intake Visit Reasons: LEFT KNEE Allergies bee venom protein (honey bee) Allergy (Verified 06/19/24 15:29) swelling Environmental Allergies: Uncoded Allergy (Verified 06/19/24 15:29) Anaphylaxis zolpidem (From Ambien) Allergy (Verified 06/19/24 15:29) dizziness Medications ???Medication ???Instructions ???Recorded ???Confirmed ???Type conjugated estrogens 0.625 mg/gram 1 applic vaginal PRN PRN Vaginal 06/28/17 06/19/24 History vaginal cream (Premarin) Dryness gabapentin 300 mg capsule 300 mg PO TID 06/28/17 06/19/24 History (Neurontin) levothyroxine 50 mcg tablet 50 mcg PO DAILY 06/28/17 06/19/24 History (Synthroid) multivitamin 1 cap PO QAM 06/28/17 06/19/24 History bupropion HCl 300 mg 24 hr tablet, 300 mg PO DAILY 10/18/21 06/19/24 History extended release (Wellbutrin XL) cholecalciferol (vitamin D3) 25 25 mcg PO DAILY 10/18/21 06/19/24 History mcg (1,000 unit) capsule furosemide 20 mg tablet (Lasix) 20 mg PO DAILY PRN swelling 10/18/21 06/19/24 History lifitegrast 5 % eye drops in a 1 drp ophthalmic (eye) BID 10/18/21 06/19/24 History dropperette (Xiidra) liothyronine 5 mcg tablet (Cytomel) 5 mcg PO DAILY 10/18/21 06/19/24 History lisinopril 10 mg tablet 10 mg PO DAILY 10/18/21 06/19/24 History mecobalamin (vitamin B12) 5,000 5,000 mcg PO DAILY 10/18/21 06/19/24 History mcg lozenge metoprolol succinate 25 mg 25 mg PO BID 10/18/21 06/19/24 History tablet,extended release 24 hr hydroxychloroquine 200 mg tablet 200 mg PO DAILY 01/02/23 06/19/24 History (Plaquenil) atorvastatin 10 mg tablet 20 mg PO QPM 04/05/24 06/19/24 History meloxicam 15 mg tablet 15 mg PO QDAY 04/05/24 06/19/24 History valacyclovir 500 mg tablet 500 mg PO QDAY 04/05/24 06/19/24 History PFSH Medical History Depression History of edema Arthritis of left glenohumeral joint Rheumatoid arthritis Osteopenia Inflammatory polyarthritis Arthritis Hypertension Hypothyroidism Surgical History Hx of cataract surgery History of rhinoplasty History of breast augmentation History of hysterectomy Family History Father CAD (coronary artery disease) COPD (chronic obstructive pulmonary disease) Mother Hypertension Social History household members: spouse Smoking Status: Never smoker alcohol intake: never substance use type: does not use additional social history: no history of blood clots HPI LEFT KNEE Details: This documentation accurately reflects the service provided and the decisions made by me, Dr. Donte Nelson, 06/19/24 0846. Part of today???s visit was documented by Soledad PACHECO, acting as scribe. MARA BRITTON is a 64 year old F here today for 1st left knee Euflexxa injection. Ortho Exam General General: Yes no acute distress Neurologic: Yes alert and Yes oriented x3 Psychologic: Yes reasonable and appropriate Left Knee Skin/Wound: No ecchymosis, No erythema and No swelling Homans Sign: No Knee ROM: Yes ROM-Extension -20 to 0 and No ROM-Flexion 0-140 (120) Examination: No med jt line tenderness and No Lat jt line tenderness KNEE: No joint effusion or sign of infection no gross motor or sensory deficits Office Procedures Euflexxa Procedure Details:: Obtained consent for injection. Under sterile conditions, injected the patients left knee with 20mg/2mL of Euflexxa. The patient tolerated the injection well without any noted complication. Patient should call our office if redness develops, pain worsens or if they have any concerns. Is this Buy Bill?: Yes Office Meds Euflexxa 10 mg/mL (mw 2.4-3.6 million) intra-articular syringe Performing Provider: Donte Nelson DO Performing Location: [facility] Administered by: Donte Nelson DO on 06/19/24 15:33 Dose Route Admin Location Dispensed Lot Number Expiration Date NDC Man ufacturer 20 mg intra-articular left knee 2 mL [id number] 05/04/25 [address]-7 [employer] Supplemental In (more content not included)... Normal [facility] Plastic Surgery Visit Report on 06-13-2024 Plastic Surgery Visit Report [facility] [address] [place] [address] OFFICE VISIT Date of Service: 06/13/24 MR#: [id number] Acct: [id number] Name: MARA BROWNE HARRIETT Rep #: [id number] : 1960 Provider: Dr. Jr Guillaume MD Age/Sex: 63/F Location: [facility] [place] Status: Signed Intake Vital Signs 03/23/23 15:42 05/09/24 08:43 Height 5 ft 5.5 in 5 ft 5 in Weight: 142 lb BMI 23.6 BP 119/83 H Blood Pressure Location Rt brachial Position Sitting Respiration 18 Pulse 78 Pulse Source Monitor Temp 97.9 F Temp Source Oral Pulse Oximetry (%) 97 Oxygen Delivery Method room air Intake Visit Reasons: 2 M F U Chief Complaint: f/u right hand tenosynovitis Is patient in pain?: Yes Pain scale (1-10): 2 Allergies bee venom protein (honey bee) Allergy (Verified 06/13/24 14:24) swelling Environmental Allergies: Uncoded Allergy (Verified 06/13/24 14:24) Anaphylaxis zolpidem (From Ambien) Allergy (Verified 06/13/24 14:24) dizziness Medications ???Medication ???Instructions ???Recorded ???Confirmed ???Type conjugated estrogens 0.625 mg/gram 1 applic vaginal PRN PRN Vaginal 06/28/17 06/13/24 History vaginal cream (Premarin) Dryness gabapentin 300 mg capsule 300 mg PO TID 06/28/17 06/13/24 History (Neurontin) levothyroxine 50 mcg tablet 50 mcg PO DAILY 06/28/17 06/13/24 History (Synthroid) multivitamin 1 cap PO QAM 06/28/17 06/13/24 History bupropion HCl 300 mg 24 hr tablet, 300 mg PO DAILY 10/18/21 06/13/24 History extended release (Wellbutrin XL) cholecalciferol (vitamin D3) 25 25 mcg PO DAILY 10/18/21 06/13/24 History mcg (1,000 unit) capsule furosemide 20 mg tablet (Lasix) 20 mg PO DAILY PRN swelling 10/18/21 06/13/24 History lifitegrast 5 % eye drops in a 1 drp ophthalmic (eye) BID 10/18/21 06/13/24 History dropperette (Xiidra) liothyronine 5 mcg tablet (Cytomel) 5 mcg PO DAILY 10/18/21 06/13/24 History lisinopril 10 mg tablet 10 mg PO DAILY 10/18/21 06/13/24 History mecobalamin (vitamin B12) 5,000 5,000 mcg PO DAILY 10/18/21 06/13/24 History mcg lozenge metoprolol succinate 25 mg 25 mg PO BID 10/18/21 06/13/24 History tablet,extended release 24 hr hydroxychloroquine 200 mg tablet 200 mg PO DAILY 01/02/23 06/13/24 History (Plaquenil) atorvastatin 10 mg tablet 20 mg PO QPM 04/05/24 06/13/24 History meloxicam 15 mg tablet 15 mg PO QDAY 04/05/24 06/13/24 History valacyclovir 500 mg tablet 500 mg PO QDAY 04/05/24 06/13/24 History methylprednisolone 4 mg tablets in See Rx Instructions PO PER PKG DIR 04/11/24 06/13/24 Rx a dose pack (Medrol (Raymundo)) #21 tabs Nurse's Note: pt reports last injection helped alot. PFSH Medical History Depression History of edema Arthritis of left glenohumeral joint Rheumatoid arthritis Osteopenia Inflammatory polyarthritis Arthritis Hypertension Hypothyroidism Surgical History Hx of cataract surgery History of rhinoplasty History of breast augmentation History of hysterectomy Family History Father CAD (coronary artery disease) COPD (chronic obstructive pulmonary disease) Mother Hypertension Social History household members: spouse Smoking Status: Never smoker alcohol intake: never substance use type: does not use additional social history: no history of blood clots HPI 2 M F U Details: Mara Britton is a delightful 63-year-old female with past medical history rheumatoid arthritis who presents for dorsal hand and wrist pain. Reports that she has been dealing with rheumatoid arthritis for a long time, but that over the past several months her hand has been bothering her more. She is never had any hand surgeries or any trauma to this hand. She is not a smoker. 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 Reports that the pain is shooting pain along the extensor tendons of the hand wrist and forearm that comes and goes. Of note her rheumatoid arthritis is controlled via her caddie supervisor with Plaquenil and meloxicam. She has steroid bursts prescribed as needed, but has not taken them in a while and has not taken them since her wrist pain and hand pain develop. 09 MAY 2024: Doing well. Pain on the extensors has improved since steroid burst. Discussed risks of another steroid burst (AVN and such) and she understands that this cannot be done all of the time. She does have some pain over the extensor retinaculum of the right wrist. CURRENT ENCOUNTER, 13 Jun 2024: Vast improvement. Happy with the injection. Exam Details R (more content not included)... [facility] Orthopedic Visit Reporton Orthopedic Visit Report [facility] [address] [place] [address] OFFICE VISIT Date of Service: 05/30/24 MR#: [id number] Acct: [id number] Name: MARA BROWNE HARRIETT Rep #: [id number] : 1960 Provider: Dr. Yogi cedillo MD Age/Sex: 63/F Location: [facility] Status: Signed with Addenda ADDENDUM by Mary Perez on 05/30/24 at 1446 Office Procedure Documentation entered by Mary Perez 05/30/24 14:46: Ortho Injections Injections Yes Knee Left Is this a patient provided medication?: No Details: Obtained consent for injection. Under sterile conditions, injected the patients left knee with 2cc Kenalog 4cc Bupivacaine. The patient tolerated the injection well without any noted complication. Patient should call our office if redness develops, pain worsens or if they have any concerns. Office Meds Kenalog 40 mg/mL suspension for injection Performing Provider: Yogi Peoples MD Performing Location: [facility] Administered by: Yogi Peoples MD on 05/30/24 14:44 Dose Route Admin Location Dispensed Lot Number Expiration Date NDC Polo ufacturer 80 mg intra-articular left knee 2 mL [id number] 10/03/25 0294-9162-83 [employer] Date cc: * Signed Intake Vital Signs 05/09/24 08:43 Height 5 ft 5 in Weight: 142 lb BMI 23.6 BP 119/83 H Blood Pressure Location Rt brachial Position Sitting Respiration 18 Pulse 78 Pulse Source Monitor Temp 97.9 F Temp Source Oral Pulse Oximetry (%) 97 Oxygen Delivery Method room air Intake Visit Reasons: LEFT KNEE Chief Complaint: Left Knee Pain Accompanied by: Self Is patient in pain?: Yes Pain scale (1-10): 4 Allergies bee venom protein (honey bee) Allergy (Verified 05/30/24 13:27) swelling Environmental Allergies: Uncoded Allergy (Verified 05/30/24 13:27) Anaphylaxis zolpidem (From Ambien) Allergy (Verified 05/30/24 13:27) dizziness Medications ???Medication ???Instructions ???Recorded ???Confirmed ???Type conjugated estrogens 0.625 mg/gram 1 applic vaginal PRN PRN Vaginal 06/28/17 05/30/24 History vaginal cream (Premarin) Dryness gabapentin 300 mg capsule 300 mg PO TID 06/28/17 05/30/24 History (Neurontin) levothyroxine 50 mcg tablet 50 mcg PO DAILY 06/28/17 05/30/24 History (Synthroid) multivitamin 1 cap PO QAM 06/28/17 05/30/24 History bupropion HCl 300 mg 24 hr tablet, 300 mg PO DAILY 10/18/21 05/30/24 History extended release (Wellbutrin XL) cholecalciferol (vitamin D3) 25 25 mcg PO DAILY 10/18/21 05/30/24 History mcg (1,000 unit) capsule furosemide 20 mg tablet (Lasix) 20 mg PO DAILY PRN swelling 10/18/21 05/30/24 History lifitegrast 5 % eye drops in a 1 drp ophthalmic (eye) BID 10/18/21 05/30/24 History dropperette (Xiidra) liothyronine 5 mcg tablet (Cytomel) 5 mcg PO DAILY 10/18/21 05/30/24 History lisinopril 10 mg tablet 10 mg PO DAILY 10/18/21 05/30/24 History mecobalamin (vitamin B12) 5,000 5,000 mcg PO DAILY 10/18/21 05/30/24 History mcg lozenge metoprolol succinate 25 mg 25 mg PO BID 10/18/21 05/30/24 History tablet,extended release 24 hr hydroxychloroquine 200 mg tablet 200 mg PO DAILY 01/02/23 05/30/24 History (Plaquenil) atorvastatin 10 mg tablet 20 mg PO QPM 04/05/24 05/30/24 History meloxicam 15 mg tablet 15 mg PO QDAY 04/05/24 05/30/24 History valacyclovir 500 mg tablet 500 mg PO QDAY 04/05/24 05/30/24 History methylprednisolone 4 mg tablets in See Rx Instructions PO PER PKG DIR 04/11/24 05/30/24 Rx a dose pack (Medrol (Raymundo)) #21 tabs PFSH Medical History Depression History of edema Arthritis of left glenohumeral joint Rheumatoid arthritis Osteopenia Inflammatory polyarthritis Arthritis Hypertension Hypothyroidism Surgical History Hx of cataract surgery History of rhinoplasty History of breast augmentation History of hysterectomy Family History Father CAD (coronary artery disease) COPD (chronic obstructive pulmonary disease) Mother Hypertension Social History household members: spouse Smoking Status: Never smoker alcohol intake: never substance use type: does not use additional social history: no history of blood clots HPI LEFT KNEE Details: This documentation accurately reflects the service provided and the decisions made by me, Dr. Yogi Peoples MD 05/30/24 1322. Part of today???s visit was documented by [ ], acting as scribe. MARA BRITTON is a 63 year old F here today for left knee pain. Desiring a cortisone inje (more content not included)... Normal [facility] Plastic Surgery Visit Report on 05-09-2024 Plastic Surgery Visit Report [facility] [address], [address] [place] [address] OFFICE VISIT Date of Service: 05/09/24 MR#: [id number] Acct: [id number] Name: MARA BROWNE Rep #: [id number] : 1960 Provider: Dr. Jr Guillaume MD Age/Sex: 63/F Location: [facility] Status: Signed Intake Vital Signs 03/23/23 15:42 05/09/24 08:43 Height 5 ft 5.5 in 5 ft 5 in Weight: 142 lb BMI 23.6 BP 119/83 H Blood Pressure Location Rt brachial Position Sitting Respiration 18 Pulse 78 Pulse Source Monitor Temp 97.9 F Temp Source Oral Pulse Oximetry (%) 97 Oxygen Delivery Method room air Intake Visit Reasons: Rt Wrist Injection Chief Complaint: right wrist pain Is patient in pain?: Yes (right wrist) Pain scale (1-10): 7 Allergies bee venom protein (honey bee) Allergy (Verified 05/09/24 08:42) swelling Environmental Allergies: Uncoded Allergy (Verified 05/09/24 08:42) Anaphylaxis zolpidem (From Ambien) Allergy (Verified 05/09/24 08:42) dizziness Medications ???Medication ???Instructions ???Recorded ???Confirmed ???Type conjugated estrogens 0.625 mg/gram 1 applic vaginal PRN PRN Vaginal 06/28/17 05/09/24 History vaginal cream (Premarin) Dryness gabapentin 300 mg capsule 300 mg PO TID 06/28/17 05/09/24 History (Neurontin) levothyroxine 50 mcg tablet 50 mcg PO DAILY 06/28/17 05/09/24 History (Synthroid) multivitamin 1 cap PO QAM 06/28/17 05/09/24 History bupropion HCl 300 mg 24 hr tablet, 300 mg PO DAILY 10/18/21 05/09/24 History extended release (Wellbutrin XL) cholecalciferol (vitamin D3) 25 25 mcg PO DAILY 10/18/21 05/09/24 History mcg (1,000 unit) capsule furosemide 20 mg tablet (Lasix) 20 mg PO DAILY PRN swelling 10/18/21 05/09/24 History lifitegrast 5 % eye drops in a 1 drp ophthalmic (eye) BID 10/18/21 05/09/24 History dropperette (Xiidra) liothyronine 5 mcg tablet (Cytomel) 5 mcg PO DAILY 10/18/21 05/09/24 History lisinopril 10 mg tablet 10 mg PO DAILY 10/18/21 05/09/24 History mecobalamin (vitamin B12) 5,000 5,000 mcg PO DAILY 10/18/21 05/09/24 History mcg lozenge metoprolol succinate 25 mg 25 mg PO BID 10/18/21 05/09/24 History tablet,extended release 24 hr hydroxychloroquine 200 mg tablet 200 mg PO DAILY 01/02/23 05/09/24 History (Plaquenil) atorvastatin 10 mg tablet 20 mg PO QPM 04/05/24 05/09/24 History meloxicam 15 mg tablet 15 mg PO QDAY 04/05/24 05/09/24 History valacyclovir 500 mg tablet 500 mg PO QDAY 04/05/24 05/09/24 History methylprednisolone 4 mg tablets in See Rx Instructions PO PER PKG DIR 04/11/24 05/09/24 Rx a dose pack (Medrol (Raymundo)) #21 tabs Nurse's Note: right wrist pain PFSH Medical History Depression History of edema Arthritis of left glenohumeral joint Rheumatoid arthritis Osteopenia Inflammatory polyarthritis Arthritis Hypertension Hypothyroidism Surgical History Hx of cataract surgery History of rhinoplasty History of breast augmentation History of hysterectomy Family History Father CAD (coronary artery disease) COPD (chronic obstructive pulmonary disease) Mother Hypertension Social History household members: spouse Smoking Status: Never smoker alcohol intake: never substance use type: does not use additional social history: no history of blood clots HPI Rt Wrist Injection Details: Mara Britton is a delightful 63-year-old female with past medical history rheumatoid arthritis who presents for dorsal hand and wrist pain. Reports that she has been dealing with rheumatoid arthritis for a long time, but that over the past several months her hand has been bothering her more. She is never had any hand surgeries or any trauma to this hand. She is not a smoker. 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 Reports that the pain is shooting pain along the extensor tendons of the hand wrist and forearm that comes and goes. Of note her rheumatoid arthritis is controlled via her caddie supervisor with Plaquenil and meloxicam. She has steroid bursts prescribed as needed, but has not taken them in a while and has not taken them since her wrist pain and hand pain develop. CURRENT ENCOUNTER, 09 MAY 2024: Doing well. Pain on the extensors has improved since steroid burst. Discussed risks of another steroid burst (AVN and such) and she understands that this cannot be done all of the time. She does have some pain over the extensor retinaculum of the right wrist. Exam Details RIGHT UPPER EXTREMITY Inspection: Painful and enlarge (more content not included)... [facility] Hand Min 3 Viewson 4 Hand Min 3 Views [facility] Imaging Services [address] [place], [place] [address] Hand Min 3 Views MR#: [id number] Acct: [id number] Name: MARA BROWNE Rep #: [id number] : 1960 F 63 From: Jono nichols MD PCP: Dr. Sapphire Abdi MD Status: REG CLI Study: Hand Min 3 Views Date of Exam: 04/05/24 Exam# [id number] Ordering Dr: Jr Guillaume MD [id number] INDICATION: hand pain EXAMINATION/TECHNIQUE: X-RAY - RIGHT XR Hand Min 3 Views 3 VIEWS COMPARISON: Prior study dated: 06/18/2019 FINDINGS: SOFT TISSUES: No soft tissue swelling or gas. No radiopaque foreign body. BONES/JOINTS: No acute fracture or subluxation.. Progressive narrowing at the third metacarpophalangeal joint with [id number] appearance. Osteophytes seen. Mild osteophytes throughout the interphalangeal joints. 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 Appearance may be associated with inflammatory arthropathy. Mild degenerative change throughout the interphalangeal joints. Electronically Signed: Jono Iverson MD at 1:55 EDT , CC: Dr. Sapphire Abdi MD; Dr. Jr Guillaume MD School Photograph Editor: Signed [facility] Plastic Surgery Visit Report on 04-05-2024 Plastic Surgery Visit Report [facility] [address] [place] [address], [address] [place] [address] OFFICE VISIT Date of Service: 04/05/24 MR#: [id number] Acct: [id number] Name: MARA BROWNE HARRIETT Rep #: [id number] : 1960 Provider: Dr. Jr Guillaume MD Age/Sex: 63/F Location: [facility] Status: Signed Pt seen evaluated w/FAUSTINO. I personally interviewed exam the pt. I was involved in all aspects of pt's orders, interpretation of results treatment Intake Vital Signs 03/23/23 15:42 04/05/24 14:39 Height 5 ft 5.5 in BP 126/82 H Blood Pressure Location Rt brachial Position Sitting Respiration 18 Pulse 82 Pulse Source Monitor Pulse Oximetry (%) 98 Oxygen Delivery Method room air Intake Visit Reasons: WRIST PAIN Chief Complaint: right wrist pain Is patient in pain?: Yes (right wrist) Pain scale (1-10): 5 Allergies bee venom protein (honey bee) Allergy (Verified 04/05/24 14:33) swelling Environmental Allergies: Uncoded Allergy (Verified 04/05/24 14:33) Anaphylaxis zolpidem (From Ambien) Allergy (Verified 04/05/24 14:33) dizziness Medications ???Medication ???Instructions ???Recorded ???Confirmed ???Type conjugated estrogens 0.625 mg/gram 1 applic vaginal PRN PRN Vaginal 06/28/17 04/05/24 History vaginal cream (Premarin) Dryness gabapentin 300 mg capsule 300 mg PO TID 06/28/17 04/05/24 History (Neurontin) levothyroxine 50 mcg tablet 50 mcg PO DAILY 06/28/17 04/05/24 History (Synthroid) multivitamin 1 cap PO QAM 06/28/17 04/05/24 History bupropion HCl 300 mg 24 hr tablet, 300 mg PO DAILY 10/18/21 04/05/24 History extended release (Wellbutrin XL) cholecalciferol (vitamin D3) 25 25 mcg PO DAILY 10/18/21 04/05/24 History mcg (1,000 unit) capsule furosemide 20 mg tablet (Lasix) 20 mg PO DAILY PRN swelling 10/18/21 04/05/24 History lifitegrast 5 % eye drops in a 1 drp ophthalmic (eye) BID 10/18/21 04/05/24 History dropperette (Xiidra) liothyronine 5 mcg tablet (Cytomel) 5 mcg PO DAILY 10/18/21 04/05/24 History lisinopril 10 mg tablet 10 mg PO DAILY 10/18/21 04/05/24 History mecobalamin (vitamin B12) 5,000 5,000 mcg PO DAILY 10/18/21 04/05/24 History mcg lozenge metoprolol succinate 25 mg 25 mg PO BID 10/18/21 04/05/24 History tablet,extended release 24 hr hydroxychloroquine 200 mg tablet 200 mg PO DAILY 01/02/23 04/05/24 History (Plaquenil) atorvastatin 10 mg tablet 20 mg PO QPM 04/05/24 04/05/24 History meloxicam 15 mg tablet 15 mg PO QDAY 04/05/24 04/05/24 History valacyclovir 500 mg tablet 500 mg PO QDAY 04/05/24 04/05/24 History Nurse's Note: consult right wrist pain [facility] Medical History Depression History of edema Arthritis of left glenohumeral joint Rheumatoid arthritis Osteopenia Inflammatory polyarthritis Arthritis Hypertension Hypothyroidism Surgical History Hx of cataract surgery History of rhinoplasty History of breast augmentation History of hysterectomy Family History Father CAD (coronary artery disease) COPD (chronic obstructive pulmonary disease) Mother Hypertension Social History household members: spouse Smoking Status: Never smoker alcohol intake: never substance use type: does not use additional social history: no history of blood clots HPI WRIST PAIN Details: Mara Britton is a delightful 63-year-old female with past medical history rheumatoid arthritis who presents for dorsal hand and wrist pain. Reports that she has been dealing with rheumatoid arthritis for a long time, but that over the past several months her hand has been bothering her more. She is never had any hand surgeries or any trauma to this hand. She is not a smoker. 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 Reports that the pain is shooting pain along the extensor tendons of the hand wrist and forearm that comes and goes. Of note her rheumatoid arthritis is controlled via her caddie supervisor with Plaquenil and meloxicam. She has steroid bursts prescribed as needed, but has not taken them in a while and has not taken them since her wrist pain and hand pain develop. ROS General General: Yes good health; No fatigue, fever(s) or weight loss HENMT HENMT: No rhinitis, sore throat/mouth sore, nasal congestion, contacts or glaucoma Endo Endocrine: Yes thyroid disease; No polydipsia, heat intolerance, cold intolerance, hepatitis or excessive urine Skin Skin: No Bleeding, bruising, changing moles or suspicious lesion Musc Musculoskeletal: Yes joint pain, joint stiffness and osteoarthritis (more content not included)... Normal [facility] Wrist min 3 Viewson 04-05-20 Wrist min 3 Views [facility] Imaging Services [address] [place], [place] [address] Wrist min 3 Views MR#: [id number] Acct: [id number] Name: MARA BROWNE Rep #: [id number] : 1960 F 63 From: Jono nichols MD PCP: Dr. Sapphire Abdi MD Status: REG CLI Study: Wrist min 3 Views Date of Exam: 04/05/24 Exam# [id number] Ordering Dr: Jr Guillaume MD [id number] INDICATION: wrist pain EXAMINATION/TECHNIQUE: X-RAY - RIGHT XR Wrist Min 3 Views 3 VIEWS COMPARISON: Prior study dated: 06/18/2019 FINDINGS: SOFT TISSUES: No soft tissue swelling or gas. No radiopaque foreign body. BONES/JOINTS: No acute fracture or subluxation.. The carpal rows are well aligned. Slight widening of the scapholunate interval measuring 0.3 cm. This is unchanged.. No sclerotic or destructive changes observed. RAD/Wrist min 3 Views IMPRESSION: Slight widening of the scapholunate interval, unchanged from prior. Otherwise unremarkable appearance of the wrist. Electronically Signed: Jono Iverson MD at 1:53 EDT , CC: Dr. Sapphire Abdi MD; Dr. Jr Guillaume MD School Photograph Editor: Signed Normal [facility] Absolute lymphocyte countOrd ered By: Maia Johnson on 09-08-2023 Lymphocytes Auto (Unsp spec) [#/Vol] 1.82 10*3/uL 0.83-4.51 [facility] Automated lymphocyte count a s percentage of total leukocytesOrdered By: Maia Johnson on 09-08-2023 Lymphocytes/100 WBC Auto (Unsp spec) 24.2 % 19-41 [facility] Basophil percentageOrdered B y: Maia Johnson on 09-08-2023 Basophils/100 WBC (Bld) 0.1 % 0-1 [facility] Bilirubin [Mass/Vol] 0.50 mg/dL 0.20-1.00 [facility] Comment on above: For patients on eltr ombopag therapy, use of Dimension [place] TBIL is not recommended. Chloride [Moles/Vol] 110 mmol/L 98-107 [facility] Eosinophils/100 WBC (Bld) 0.8 % 0-5 [facility] Glucose [Mass/Vol] 99 mg/dL 74-106 [facility] Hemoglobin (Bld) [Mass/Vol] 12.6 g/dL 12.0-15.0 [facility] Monocytes/100 WBC (Bld) 4.5 % 0-10 [facility] Neutrophils (Bld) [#/Vol] 5.3 10*3/uL 2.0-7.7 [facility] Neutrophils/100 WBC (Bld) 70.1 % 47-70 [facility] Potassium [Moles/Vol] 4.2 mmol/L 3.5-5.1 [facility] Protein [Mass/Vol] 6.6 g/dL 6.4-8.2 [facility] Sodium [Moles/Vol] 141 mmol/L 136-145 [facility] WBC (Bld) [#/Vol] 7.5 10*3/uL 4.4-11.0 [facility] Determination of erythrocyte mean corpuscular volume (MCV)Ordered By: Maia Johnson on 09-08-2023 MCV (RBC) [Entitic vol] 95.5 fL 81-99 [facility] Erythrocyte distribution wid th ratioOrdered By: Maia Johnson on 09-08-2023 Erythrocyte distribution width (RBC) [Ratio] 12.5 % 11.6-14.6 [facility] Erythrocyte distribution wid th standard deviationOrdered By: Maia Johnson on 09-08-2023 Erythrocyte distribution width (RBC) [Entitic vol] 44.0 fL 35.1-43.9 [facility] Hematocrit Auto (Bld) [Volum e fraction]Ordered By: Maia Johnson on 09-08-2023 Hematocrit (Bld) [Volume fraction] 38.0 % 37-47 [facility] Immature granulocytes/100 WB C Auto (Bld)Ordered By: Maia Johnson on 09-08-2023 Immature granulocytes/100 WBC (Bld) 0.300 % 0.0-0.9 [facility] Comment on above: IG% - Immature Granu locytes (promyelocytes, myelocytes and metamyelocytes) > 1% indicates that a LEFT SHIFT is Present. Laboratory - Chemistry and C hemistry - challengeOrdered By: Maia Johnson on 09-08-2023 Albumin/Globulin [Mass ratio] 1.3 {ratio} 0.9-2.4 [facility] ALP [Catalytic activity/Vol] 55 U/L 45-117 [facility] ALT [Catalytic activity/Vol] 36 U/L 13-56 [facility] CO2 [Moles/Vol] 28.0 mmol/L 21.0-32.0 [facility] Globulin (S) [Mass/Vol] 2.9 g/dL 2.2-4.2 [facility] Urea nitrogen/Creatinine [Mass ratio] 18.4 mg/mg 10-20 [facility] Laboratory - Hematology and Cell countsOrdered By: Maia Johnson on 09-08-2023 MCH (RBC) [Entitic mass] 31.7 pg 27.0-32.0 [facility] MCHC (RBC) [Mass/Vol] 33.2 g/dL 32-36 [facility] Nucleated RBC/100 WBC (Bld) [Ratio] 0 % 0-5 [facility] Platelet mean volume (Bld) [Entitic vol] 11.3 fL 6.2-12.0 [facility] Platelets (Bld) [#/Vol] 166 10*3/uL 150-450 [facility] No Panel InformationOrdered By: Maia Johnson on 09-08-2023 Estimated GFR (MDRD) Amer 79 mL/min >60 [facility] Comment on above: GFR Calc Estimated GFR (MDRD) Non-Af Amer 65 mL/min >60 [facility] Comment on above: Non- GFR Calc RBC Auto (Bld) [#/Vol]Ordere d By: Maia Johnson on 09-08-2023 RBC (Bld) [#/Vol] 3.98 10*6/uL 4.2-5.4 [facility] Serum or plasma calcium chung urement (mass/volume)Ordered By: Maia Johnson on 09-08-2023 Calcium [Mass/Vol] 8.7 mg/dL 8.5-10.1 [facility] Serum or plasma creatinine m easurement (mass/volume)Ordered By: Maia Johnson on 09-08-2023 Creatinine [Mass/Vol] 0.93 mg/dL 0.55-1.02 [facility] Comment on above: The validity of the calculated GFR & GFRAA in patients over 70 years has not been determined. Clinical correlation is essential. Serum or plasma urea nitroge n measurement (mass/volume)Ordered By: Maia Johnson on 09-08-2023 Urea nitrogen [Mass/Vol] 17 mg/dL 7-18 [facility] Thin prep Papanicolaou smear with manual screeningOrdered By: Maia Johnson on 09-08-2023 Thin prep Papanicolaou smear with manual screening 3.7 g/dL 3.2-5.0 [facility] Thin prep Papanicolaou smear with manual screening 30 U/L 15-37 [facility] Thin prep Papanicolaou smear with manual screening 3 5-15 [facility] Absolute lymphocyte countOrd ered By: Maia Johnson on 05-17-2023 Lymphocytes Auto (Unsp spec) [#/Vol] 3.09 10*3/uL 0.83-4.51 [facility] Basophil percentageOrdered B y: Maia Johnson on 05-17-2023 Basophils/100 WBC (Bld) 0.6 % 0-1 [facility] Bilirubin [Mass/Vol] 0.40 mg/dL 0.20-1.00 [facility] Comment on above: For patients on eltr ombopag therapy, use of Dimension [place] TBIL is not recommended. Chloride [Moles/Vol] 106 mmol/L 98-107 [facility] Eosinophils/100 WBC (Bld) 1.4 % 0-5 [facility] Glucose [Mass/Vol] 87 mg/dL 74-106 [facility] Neutrophils (Bld) [#/Vol] 4.9 10*3/uL 2.0-7.7 [facility] Neutrophils/100 WBC (Bld) 55.7 % 47-70 [facility] Potassium [Moles/Vol] 5.1 mmol/L 3.5-5.1 [facility] Protein [Mass/Vol] 7.2 g/dL 6.4-8.2 [facility] Sodium [Moles/Vol] 136 mmol/L 136-145 [facility] WBC (Bld) [#/Vol] 8.7 10*3/uL 4.4-11.0 [facility] Blood erythrocytes count (nu mber/volume)Ordered By: Maia Johnson on 05-17-2023 RBC (Bld) [#/Vol] 4.46 10*6/uL 4.2-5.4 [facility] Blood hemoglobin measurement (mass/volume)Ordered By: Maia Johnson on 05-17-2023 Hemoglobin (Bld) [Mass/Vol] 13.7 g/dL 12.0-15.0 [facility] Blood lymphocytes/100 leukoc ytesOrdered By: Maia Johnson on 05-17-2023 Lymphocytes/100 WBC (Bld) 35.4 % 19-41 [facility] Blood monocytes/100 leukocyt esOrdered By: Maia Johnson on 05-17-2023 Monocytes/100 WBC (Bld) 6.6 % 0-10 [facility] Blood platelet mean volumeOr dered By: Maia Johnson on 05-17-2023 Platelet mean volume (Bld) [Entitic vol] 10.9 fL 6.2-12.0 [facility] Determination of erythrocyte mean corpuscular volume (MCV)Ordered By: Maia Johnson on 05-17-2023 MCV (RBC) [Entitic vol] 94.8 fL 81-99 [facility] Hematocrit Auto (Bld) [Volum e fraction]Ordered By: Maai Johnson on 05-17-2023 Hematocrit (Bld) [Volume fraction] 42.3 % 37-47 [facility] Laboratory - Chemistry and C hemistry - challengeOrdered By: Maia Johnson on 05-17-2023 ALP [Catalytic activity/Vol] 70 U/L 45-117 [facility] ALT [Catalytic activity/Vol] 60 U/L 13-56 [facility] CO2 [Moles/Vol] 28.0 mmol/L 21.0-32.0 [facility] Globulin (S) [Mass/Vol] 3.2 g/dL 2.2-4.2 [facility] Urea nitrogen/Creatinine [Mass ratio] 25.6 mg/mg 10-20 [facility] Laboratory - Hematology and Cell countsOrdered By: Maia Johnson on 05-17-2023 Erythrocyte distribution width (RBC) [Entitic vol] 44.5 fL 35.1-43.9 [facility] Erythrocyte distribution width (RBC) [Ratio] 12.7 % 11.6-14.6 [facility] Immature granulocytes/100 WBC (Bld) 0.300 % 0.0-0.9 [facility] Comment on above: IG% - Immature Granu locytes (promyelocytes, myelocytes and metamyelocytes) > 1% indicates that a LEFT SHIFT is Present. MCH (RBC) [Entitic mass] 30.7 pg 27.0-32.0 [facility] Nucleated RBC/100 WBC (Bld) [Ratio] 0 % 0-5 [facility] MCHC Auto (RBC) [Mass/Vol]Or dered By: Maia Johnson on 05-17-2023 MCHC (RBC) [Mass/Vol] 32.4 g/dL 32-36 [facility] No Panel InformationOrdered By: Maia Johnson on 05-17-2023 Estimated GFR (MDRD) Amer 86 mL/min >60 [facility] Comment on above: GFR Calc Estimated GFR (MDRD) Non-Af Amer 71 mL/min >60 [facility] Comment on above: Non- GFR Calc Platelets bldOrdered By: Bartolo Johnson on 05-17-2023 Platelets (Bld) [#/Vol] 221 10*3/uL 150-450 [facility] Serum or plasma albumin chung urement (mass/volume)Ordered By: Maia Johnson on 05-17-2023 Albumin [Mass/Vol] 4.0 g/dL 3.2-5.0 [facility] Serum or plasma albumin/glob ulin mass ratioOrdered By: [facility] Alex on 05-17-2023 Albumin/Globulin [Mass ratio] 1.2 {ratio} 0.9-2.4 [facility] Serum or plasma calcium chung urement (mass/volume)Ordered By: [facility] Alex on 05-17-2023 Calcium [Mass/Vol] 9.3 mg/dL 8.5-10.1 [facility] Serum or plasma creatinine m easurement (mass/volume)Ordered By: [facility] Alex on 05-17-2023 Creatinine [Mass/Vol] 0.86 mg/dL 0.55-1.02 [facility] Comment on above: The validity of the calculated GFR & GFRAA in patients over 70 years has not been determined. Clinical correlation is essential. Serum or plasma urea nitroge n measurement (mass/volume)Ordered By: [facility] Alex on 05-17-2023 Urea nitrogen [Mass/Vol] 22 mg/dL 7-18 [facility] Thin prep Papanicolaou smear with manual screeningOrdered By: [facility] Alex on 05-17-2023 Thin prep Papanicolaou smear with manual screening 48 U/L 15-37 [facility] Thin prep Papanicolaou smear with manual screening 2 5-15 [facility] Absolute lymphocyte countOrd ered By: Maia Johnson on 04-14-2023 Lymphocytes Auto (Unsp spec) [#/Vol] 2.48 10*3/uL 0.83-4.51 [facility] Basophil percentageOrdered B y: Maia Johnson on 04-14-2023 Basophils/100 WBC (Bld) 0.4 % 0-1 [facility] Bilirubin [Mass/Vol] 0.40 mg/dL 0.20-1.00 [facility] Comment on above: For patients on eltr ombopag therapy, use of Dimension [place] TBIL is not recommended. Chloride [Moles/Vol] 108 mmol/L 98-107 [facility] Eosinophils/100 WBC (Bld) 1.0 % 0-5 [facility] Glucose [Mass/Vol] 95 mg/dL 74-106 [facility] Neutrophils (Bld) [#/Vol] 6.5 10*3/uL 2.0-7.7 [facility] Neutrophils/100 WBC (Bld) 67.1 % 47-70 [facility] Potassium [Moles/Vol] 4.6 mmol/L 3.5-5.1 [facility] Protein [Mass/Vol] 7.5 g/dL 6.4-8.2 [facility] Sodium [Moles/Vol] 140 mmol/L 136-145 [facility] WBC (Bld) [#/Vol] 9.7 10*3/uL 4.4-11.0 [facility] Blood erythrocytes count (nu mber/volume)Ordered By: Maia Johnson on 04-14-2023 RBC (Bld) [#/Vol] 4.37 10*6/uL 4.2-5.4 [facility] Blood hemoglobin measurement (mass/volume)Ordered By: Maia Johnson on 04-14-2023 Hemoglobin (Bld) [Mass/Vol] 13.5 g/dL 12.0-15.0 [facility] Blood lymphocytes/100 leukoc ytesOrdered By: Maia Johnson on 04-14-2023 Lymphocytes/100 WBC (Bld) 25.7 % 19-41 [facility] Blood monocytes/100 leukocyt esOrdered By: Maia Johnson on 04-14-2023 Monocytes/100 WBC (Bld) 5.3 % 0-10 [facility] Blood platelet mean volumeOr dered By: Maia Johnson on 04-14-2023 Platelet mean volume (Bld) [Entitic vol] 10.9 fL 6.2-12.0 [facility] Determination of erythrocyte mean corpuscular volume (MCV)Ordered By: Maia Johnson on 04-14-2023 MCV (RBC) [Entitic vol] 94.1 fL 81-99 [facility] Hematocrit Auto (Bld) [Volum e fraction]Ordered By: Maia Johnson on 04-14-2023 Hematocrit (Bld) [Volume fraction] 41.1 % 37-47 [facility] Laboratory - Chemistry and C hemistry - challengeOrdered By: Maia Johnson on 04-14-2023 ALP [Catalytic activity/Vol] 54 U/L 45-117 [facility] ALT [Catalytic activity/Vol] 47 U/L 13-56 [facility] CO2 [Moles/Vol] 28.0 mmol/L 21.0-32.0 [facility] Globulin (S) [Mass/Vol] 3.4 g/dL 2.2-4.2 [facility] Urea nitrogen/Creatinine [Mass ratio] 24.2 mg/mg 10-20 [facility] Laboratory - Hematology and Cell countsOrdered By: Maia Johnson on 04-14-2023 Erythrocyte distribution width (RBC) [Entitic vol] 42.7 fL 35.1-43.9 [facility] Erythrocyte distribution width (RBC) [Ratio] 12.2 % 11.6-14.6 [facility] Immature granulocytes/100 WBC (Bld) 0.500 % 0.0-0.9 [facility] Comment on above: IG% - Immature Granu locytes (promyelocytes, myelocytes and metamyelocytes) > 1% indicates that a LEFT SHIFT is Present. MCH (RBC) [Entitic mass] 30.9 pg 27.0-32.0 [facility] Nucleated RBC/100 WBC (Bld) [Ratio] 0 % 0-5 [facility] MCHC Auto (RBC) [Mass/Vol]Or dered By: Maia Johnson on 04-14-2023 MCHC (RBC) [Mass/Vol] 32.8 g/dL 32-36 [facility] No Panel InformationOrdered By: Maia Johnson on 04-14-2023 Estimated GFR (MDRD) Amer 77 mL/min >60 [facility] Comment on above: GFR Calc Estimated GFR (MDRD) Non-Af Amer 63 mL/min >60 [facility] Comment on above: Non- GFR Calc Platelets bldOrdered By: Bartolo Johnson on 04-14-2023 Platelets (Bld) [#/Vol] 219 10*3/uL 150-450 [facility] Serum or plasma albumin chung urement (mass/volume)Ordered By: Maia Johnson on 04-14-2023 Albumin [Mass/Vol] 4.1 g/dL 3.2-5.0 [facility] Serum or plasma albumin/glob ulin mass ratioOrdered By: Maialeola Johnson on 04-14-2023 Albumin/Globulin [Mass ratio] 1.2 {ratio} 0.9-2.4 [facility] Serum or plasma calcium chung urement (mass/volume)Ordered By: Maia Johnson on 04-14-2023 Calcium [Mass/Vol] 9.4 mg/dL 8.5-10.1 [facility] Serum or plasma creatinine m easurement (mass/volume)Ordered By: Maia Johnson on 04-14-2023 Creatinine [Mass/Vol] 0.95 mg/dL 0.55-1.02 [facility] Comment on above: The validity of the calculated GFR & GFRAA in patients over 70 years has not been determined. Clinical correlation is essential. Serum or plasma urea nitroge n measurement (mass/volume)Ordered By: Maia Johnson on 04-14-2023 Urea nitrogen [Mass/Vol] 23 mg/dL 7-18 [facility] Thin prep Papanicolaou smear with manual screeningOrdered By: [facility] Alex on 04-14-2023 Thin prep Papanicolaou smear with manual screening 31 U/L 15-37 [facility] Thin prep Papanicolaou smear with manual screening 4 5-15 [facility] Absolute lymphocyte countOrd ered By: Maia Johnson on 03-31-2023 Lymphocytes Auto (Unsp spec) [#/Vol] 2.30 10*3/uL 0.83-4.51 [facility] Basophil percentageOrdered B y: Maia Johnson on 03-31-2023 Basophils/100 WBC (Bld) 0.6 % 0-1 [facility] Bilirubin [Mass/Vol] 0.50 mg/dL 0.20-1.00 [facility] Comment on above: For patients on eltr ombopag therapy, use of [place] TBIL is not recommended. Chloride [Moles/Vol] 107 mmol/L 98-107 [facility] Eosinophils/100 WBC (Bld) 6.0 % 0-5 [facility] Glucose [Mass/Vol] 87 mg/dL 74-106 [facility] Neutrophils (Bld) [#/Vol] 3.1 10*3/uL 2.0-7.7 [facility] Neutrophils/100 WBC (Bld) 50.2 % 47-70 [facility] Potassium [Moles/Vol] 4.2 mmol/L 3.5-5.1 [facility] Protein [Mass/Vol] 7.1 g/dL 6.4-8.2 [facility] Sodium [Moles/Vol] 140 mmol/L 136-145 [facility] WBC (Bld) [#/Vol] 6.2 10*3/uL 4.4-11.0 [facility] Blood erythrocytes count (nu mber/volume)Ordered By: Maia Johnson on 03-31-2023 RBC (Bld) [#/Vol] 4.26 10*6/uL 4.2-5.4 [facility] Blood hemoglobin measurement (mass/volume)Ordered By: Maia Johnson on 03-31-2023 Hemoglobin (Bld) [Mass/Vol] 13.2 g/dL 12.0-15.0 [facility] Blood lymphocytes/100 leukoc ytesOrdered By: Maia Johnson on 03-31-2023 Lymphocytes/100 WBC (Bld) 37.1 % 19-41 [facility] Blood monocytes/100 leukocyt esOrdered By: Maia Johnson on 03-31-2023 Monocytes/100 WBC (Bld) 5.8 % 0-10 [facility] Blood platelet mean volumeOr dered By: Maia Johnson on 03-31-2023 Platelet mean volume (Bld) [Entitic vol] 12.0 fL 6.2-12.0 [facility] Determination of erythrocyte mean corpuscular volume (MCV)Ordered By: Maia Johnson on 03-31-2023 MCV (RBC) [Entitic vol] 94.6 fL 81-99 [facility] Hematocrit Auto (Bld) [Volum e fraction]Ordered By: Maia Johnson on 03-31-2023 Hematocrit (Bld) [Volume fraction] 40.3 % 37-47 [facility] Laboratory - Chemistry and C hemistry - challengeOrdered By: Maia Johnson on 03-31-2023 ALP [Catalytic activity/Vol] 53 U/L 45-117 [facility] ALT [Catalytic activity/Vol] 51 U/L 13-56 [facility] CO2 [Moles/Vol] 29.0 mmol/L 21.0-32.0 [facility] Globulin (S) [Mass/Vol] 3.3 g/dL 2.2-4.2 [facility] Urea nitrogen/Creatinine [Mass ratio] 23.8 mg/mg 10-20 [facility] Laboratory - Hematology and Cell countsOrdered By: Maia Johnson on 03-31-2023 Erythrocyte distribution width (RBC) [Entitic vol] 43.1 fL 35.1-43.9 [facility] Erythrocyte distribution width (RBC) [Ratio] 12.4 % 11.6-14.6 [facility] Immature granulocytes/100 WBC (Bld) 0.300 % 0.0-0.9 [facility] Comment on above: IG% - Immature Granu locytes (promyelocytes, myelocytes and metamyelocytes) > 1% indicates that a LEFT SHIFT is Present. MCH (RBC) [Entitic mass] 31.0 pg 27.0-32.0 [facility] Nucleated RBC/100 WBC (Bld) [Ratio] 0 % 0-5 [facility] MCHC Auto (RBC) [Mass/Vol]Or dered By: Maia Johnson on 03-31-2023 MCHC (RBC) [Mass/Vol] 32.8 g/dL 32-36 [facility] No Panel InformationOrdered By: Maia Johnson on 03-31-2023 Estimated GFR (MDRD) Amer 75 mL/min >60 [facility] Comment on above: GFR Calc Estimated GFR (MDRD) Non-Af Amer 62 mL/min >60 [facility] Comment on above: Non- GFR Calc Platelets bldOrdered By: Bartolo Johnson on 03-31-2023 Platelets (Bld) [#/Vol] 200 10*3/uL 150-450 [facility] Serum or plasma albumin chung urement (mass/volume)Ordered By: Maia Johnson on 03-31-2023 Albumin [Mass/Vol] 3.8 g/dL 3.2-5.0 [facility] Serum or plasma albumin/glob ulin mass ratioOrdered By: Maia Johnson on 03-31-2023 Albumin/Globulin [Mass ratio] 1.2 {ratio} 0.9-2.4 [facility] Serum or plasma calcium chung urement (mass/volume)Ordered By: Maia Johnson on 03-31-2023 Calcium [Mass/Vol] 9.5 mg/dL 8.5-10.1 [facility] Serum or plasma creatinine m easurement (mass/volume)Ordered By: Maia Johnson on 03-31-2023 Creatinine [Mass/Vol] 0.97 mg/dL 0.55-1.02 [facility] Comment on above: The validity of the calculated GFR & GFRAA in patients over 70 years has not been determined. Clinical correlation is essential. Serum or plasma urea nitroge n measurement (mass/volume)Ordered By: Maia Johnson on 03-31-2023 Urea nitrogen [Mass/Vol] 23 mg/dL 7-18 [facility] Thin prep Papanicolaou smear with manual screeningOrdered By: Maia Johnson on 03-31-2023 Thin prep Papanicolaou smear with manual screening 47 U/L 15-37 [facility] Thin prep Papanicolaou smear with manual screening 4 5-15 [facility] Qualitative QuantiFERON-TB g old in tube testOrdered By: Maia Johnson on 03-21-2023 M. tuberculosis tuberculin stim IFN-g Ql (Bld) 0.04 IU/mL . [facility] Thin prep Papanicolaou smear with manual screeningOrdered By: Maia Johnson on 03-21-2023 Thin prep Papanicolaou smear with manual screening Comment . [facility] Comment on above: QuantiFERON-TB Gold Plus is a qualitative indirect test forM tuberculosis infection (including disease) and isintended for use in conjunction with risk assessment,radiography, and other medical and diagnostic evaluations.The QuantiFERON-TB Gold Plus result is determined bysubtracting the Nil value from either TB antigen (Ag)value. The Mitogen tube serves as a control for the test. Thin prep Papanicolaou smear with manual screening 0.05 IU/mL . [facility] Thin prep Papanicolaou smear with manual screening 0.04 IU/mL . [facility] Thin prep Papanicolaou smear with manual screening > 10.00 IU/mL . [facility] Thin prep Papanicolaou smear with manual screening Negative Negative [facility] Comment on above: No response to M tub erculosis antigens detected.Infection with M tuberculosis is unlikely, but high riskindividuals should be considered for additional testing(ATS/IDSA/CDC Clinical Practice Guidelines, 2017). Thereference range is an Antigen minus Nil result of <0.35IU/mL.The specimen received for QuantiFERON testing was incubatedby the ordering institution. Specific procedures outlinedin our Directory of Services and in the package insert forthe QuantiFERON Gold (In Tube) test must be followed toenable for proper stimulation of cells for the productionof interferon gamma. Chemiluminescence immunoassaymethodologyPerformed at: [employer] [address] Director: Raffaele Toney PhD, Phone: [phone] Absolute lymphocyte countOrd ered By: Maia Johnson on 01-30-2023 Lymphocytes Auto (Unsp spec) [#/Vol] 2.23 10*3/uL 0.83-4.51 [facility] Basophil percentageOrdered B y: Sapphire Abdi on 01-30-2023 Cholesterol [Mass/Vol] 168 mg/dL <200 [facility] Comment on above: <200 mg/dL Desirable 200-240 mg/dL Borderline >240 mg/dL High Risk Triglyceride [Mass/Vol] 50 mg/dL <199 [facility] Comment on above: The drugs N-Acetylcy steine and Metamizole may falsely depress this assay.Serum Triglycerides Reference Interval Normal <150 mg/dL Borderline high 150 - 199 mg/dL High 200 - 499 mg/dL Very High > or = 500 mg/dL Basophil percentageOrdered B y: Maia Johnson on 01-30-2023 Basophils/100 WBC (Bld) 0.6 % 0-1 [facility] Bilirubin [Mass/Vol] 0.40 mg/dL 0.20-1.00 [facility] Comment on above: For patients on eltr ombopag therapy, use of [place] TBIL is not recommended. Chloride [Moles/Vol] 105 mmol/L 98-107 [facility] Eosinophils/100 WBC (Bld) 3.6 % 0-5 [facility] Glucose [Mass/Vol] 86 mg/dL 74-106 [facility] Neutrophils (Bld) [#/Vol] 2.3 10*3/uL 2.0-7.7 [facility] Neutrophils/100 WBC (Bld) 44.3 % 47-70 [facility] Potassium [Moles/Vol] 4.7 mmol/L 3.5-5.1 [facility] Protein [Mass/Vol] 7.3 g/dL 6.4-8.2 [facility] Sodium [Moles/Vol] 139 mmol/L 136-145 [facility] WBC (Bld) [#/Vol] 5.1 10*3/uL 4.4-11.0 [facility] Blood erythrocytes count (nu mber/volume)Ordered By: Maia Johnson on 01-30-2023 RBC (Bld) [#/Vol] 4.24 10*6/uL 4.2-5.4 [facility] Blood hemoglobin measurement (mass/volume)Ordered By: Maia Johnson on 01-30-2023 Hemoglobin (Bld) [Mass/Vol] 13.5 g/dL 12.0-15.0 [facility] Blood lymphocytes/100 leukoc ytesOrdered By: Maia Johnson on 01-30-2023 Lymphocytes/100 WBC (Bld) 44.0 % 19-41 [facility] Blood monocytes/100 leukocyt esOrdered By: Maia Johnson on 01-30-2023 Monocytes/100 WBC (Bld) 7.3 % 0-10 [facility] Blood platelet mean volumeOr dered By: Maia Johnson on 01-30-2023 Platelet mean volume (Bld) [Entitic vol] 10.7 fL 6.2-12.0 [facility] Determination of erythrocyte mean corpuscular volume (MCV)Ordered By: Maia Johnson on 01-30-2023 MCV (RBC) [Entitic vol] 94.6 fL 81-99 [facility] Hematocrit Auto (Bld) [Volum e fraction]Ordered By: Maia Johnson on 01-30-2023 Hematocrit (Bld) [Volume fraction] 40.1 % 37-47 [facility] Laboratory - Chemistry and C hemistry - challengeOrdered By: Maia Johnson on 01-30-2023 ALP [Catalytic activity/Vol] 57 U/L 45-117 [facility] ALT [Catalytic activity/Vol] 43 U/L 13-56 [facility] CO2 [Moles/Vol] 27.0 mmol/L 21.0-32.0 [facility] Globulin (S) [Mass/Vol] 3.4 g/dL 2.2-4.2 [facility] Urea nitrogen/Creatinine [Mass ratio] 15.3 mg/mg 10-20 [facility] Laboratory - Hematology and Cell countsOrdered By: Maialeola Johnson on 01-30-2023 Erythrocyte distribution width (RBC) [Entitic vol] 45.1 fL 35.1-43.9 [facility] Erythrocyte distribution width (RBC) [Ratio] 13.0 % 11.6-14.6 [facility] Immature granulocytes/100 WBC (Bld) 0.200 % 0.0-0.9 [facility] Comment on above: IG% - Immature Granu locytes (promyelocytes, myelocytes and metamyelocytes) > 1% indicates that a LEFT SHIFT is Present. MCH (RBC) [Entitic mass] 31.8 pg 27.0-32.0 [facility] Nucleated RBC/100 WBC (Bld) [Ratio] 0 % 0-5 [facility] MCHC Auto (RBC) [Mass/Vol]Or dered By: Maialeola Johnson on 01-30-2023 MCHC (RBC) [Mass/Vol] 33.7 g/dL 32-36 [facility] No Panel InformationOrdered By: Maia Johnson on 01-30-2023 Estimated GFR (MDRD) Amer 80 mL/min >60 [facility] Comment on above: GFR Calc Estimated GFR (MDRD) Non-Af Amer 66 mL/min >60 [facility] Comment on above: Non- GFR Calc Platelets bldOrdered By: Bartolo Johnson on 01-30-2023 Platelets (Bld) [#/Vol] 213 10*3/uL 150-450 [facility] Serum or plasma albumin chung urement (mass/volume)Ordered By: Maia Johnson on 01-30-2023 Albumin [Mass/Vol] 3.9 g/dL 3.2-5.0 [facility] Serum or plasma albumin/glob ulin mass ratioOrdered By: Maia Johnson on 01-30-2023 Albumin/Globulin [Mass ratio] 1.1 {ratio} 0.9-2.4 [facility] Serum or plasma calcium chung urement (mass/volume)Ordered By: Maia Johnson on 01-30-2023 Calcium [Mass/Vol] 9.3 mg/dL 8.5-10.1 [facility] Serum or plasma cholesterol in HDL measurement (mass/volume)Ordered By: Sapphire Abdi on 01-30-2023 Cholesterol in HDL [Mass/Vol] 91 mg/dL >40 [facility] Comment on above: The drugs N-Acetylcy steine and Metamizole may falsely depress this assay. Reference Range HDL <40 mg/dL Low HDL Cholesterol HDL >or= 60 mg/dL High HDL Cholesterol Serum or plasma cholesterol in VLDL measurement (mass/volume)Ordered By: Sapphire Abdi on 01-30-2023 Cholesterol in VLDL [Mass/Vol] 10 mg/dL 5-40 [facility] Serum or plasma creatinine m easurement (mass/volume)Ordered By: Maia Johnson on 01-30-2023 Creatinine [Mass/Vol] 0.92 mg/dL 0.55-1.02 [facility] Comment on above: The validity of the calculated GFR & GFRAA in patients over 70 years has not been determined. Clinical correlation is essential. Serum or plasma low density lipoprotein (LDL) cholesterol measurement (mass/volume)Ordered By: Sapphire Abdi on 01-30-2023 Cholesterol in LDL [Mass/Vol] 67 mg/dL 0-130 [facility] Serum or plasma urea nitroge n measurement (mass/volume)Ordered By: Maia Johnson on 01-30-2023 Urea nitrogen [Mass/Vol] 14 mg/dL 7-18 [facility] Thin prep Papanicolaou smear with manual screeningOrdered By: Maia Johnson on 01-30-2023 Thin prep Papanicolaou smear with manual screening 49 U/L 15-37 [facility] Thin prep Papanicolaou smear with manual screening 7 5-15 [facility] Absolute lymphocyte countOrd ered By: Maia Johnson on 11-30-2022 Lymphocytes Auto (Unsp spec) [#/Vol] 2.83 10*3/uL 0.83-4.51 [facility] Basophil percentageOrdered B y: Maia Johnson on 11-30-2022 Basophils/100 WBC (Bld) 0.5 % 0-1 [facility] Bilirubin [Mass/Vol] 0.30 mg/dL 0.20-1.00 [facility] Comment on above: For patients on eltr ombopag therapy, use of [place] TBIL is not recommended. Chloride [Moles/Vol] 112 mmol/L 98-107 [facility] Eosinophils/100 WBC (Bld) 3.8 % 0-5 [facility] Glucose [Mass/Vol] 77 mg/dL 74-106 [facility] Neutrophils (Bld) [#/Vol] 4.3 10*3/uL 2.0-7.7 [facility] Neutrophils/100 WBC (Bld) 53.2 % 47-70 [facility] Potassium [Moles/Vol] 4.0 mmol/L 3.5-5.1 [facility] Protein [Mass/Vol] 7.1 g/dL 6.4-8.2 [facility] Sodium [Moles/Vol] 142 mmol/L 136-145 [facility] WBC (Bld) [#/Vol] 8.1 10*3/uL 4.4-11.0 [facility] Blood erythrocytes count (nu mber/volume)Ordered By: Maia Johnson on 11-30-2022 RBC (Bld) [#/Vol] 4.05 10*6/uL 4.2-5.4 [facility] Blood hemoglobin measurement (mass/volume)Ordered By: Maia Johnson on 11-30-2022 Hemoglobin (Bld) [Mass/Vol] 12.8 g/dL 12.0-15.0 [facility] Blood lymphocytes/100 leukoc ytesOrdered By: Maia Johnson on 11-30-2022 Lymphocytes/100 WBC (Bld) 35.1 % 19-41 [facility] Blood monocytes/100 leukocyt esOrdered By: Maia Johnson on 11-30-2022 Monocytes/100 WBC (Bld) 7.3 % 0-10 [facility] Blood platelet mean volumeOr dered By: Maia Johnson on 11-30-2022 Platelet mean volume (Bld) [Entitic vol] 11.4 fL 6.2-12.0 [facility] Determination of erythrocyte mean corpuscular volume (MCV)Ordered By: Maia Johnson on 11-30-2022 MCV (RBC) [Entitic vol] 93.8 fL 81-99 [facility] Hematocrit Auto (Bld) [Volum e fraction]Ordered By: Maia Johnson on 11-30-2022 Hematocrit (Bld) [Volume fraction] 38.0 % 37-47 [facility] Laboratory - Chemistry and C hemistry - challengeOrdered By: Maia Johnson on 11-30-2022 ALP [Catalytic activity/Vol] 55 U/L 45-117 [facility] ALT [Catalytic activity/Vol] 27 U/L 13-56 [facility] CO2 [Moles/Vol] 25.0 mmol/L 21.0-32.0 [facility] Globulin (S) [Mass/Vol] 3.3 g/dL 2.2-4.2 [facility] Urea nitrogen/Creatinine [Mass ratio] 22.9 mg/mg 10-20 [facility] Laboratory - Hematology and Cell countsOrdered By: Maia Johnson on 11-30-2022 Erythrocyte distribution width (RBC) [Entitic vol] 41.5 fL 35.1-43.9 [facility] Erythrocyte distribution width (RBC) [Ratio] 12.1 % 11.6-14.6 [facility] Immature granulocytes/100 WBC (Bld) 0.100 % 0.0-0.9 [facility] Comment on above: IG% - Immature Granu locytes (promyelocytes, myelocytes and metamyelocytes) > 1% indicates that a LEFT SHIFT is Present. MCH (RBC) [Entitic mass] 31.6 pg 27.0-32.0 [facility] Nucleated RBC/100 WBC (Bld) [Ratio] 0 % 0-5 [facility] MCHC Auto (RBC) [Mass/Vol]Or dered By: Maia Johnson on 11-30-2022 MCHC (RBC) [Mass/Vol] 33.7 g/dL 32-36 [facility] No Panel InformationOrdered By: aMia Johnson on 11-30-2022 Estimated GFR (MDRD) Amer 80 mL/min >60 [facility] Comment on above: GFR Calc Estimated GFR (MDRD) Non-Af Amer 66 mL/min >60 [facility] Comment on above: Non- GFR Calc Platelets bldOrdered By: Bartolo Johnson on 11-30-2022 Platelets (Bld) [#/Vol] 166 10*3/uL 150-450 [facility] Serum or plasma albumin chung urement (mass/volume)Ordered By: Maia Johnson on 11-30-2022 Albumin [Mass/Vol] 3.8 g/dL 3.2-5.0 [facility] Serum or plasma albumin/glob ulin mass ratioOrdered By: Maia Johnson on 11-30-2022 Albumin/Globulin [Mass ratio] 1.2 {ratio} 0.9-2.4 [facility] Serum or plasma calcium chung urement (mass/volume)Ordered By: Maia Johnson on 11-30-2022 Calcium [Mass/Vol] 9.0 mg/dL 8.5-10.1 [facility] Serum or plasma creatinine m easurement (mass/volume)Ordered By: Maia Johnson on 11-30-2022 Creatinine [Mass/Vol] 0.92 mg/dL 0.55-1.02 [facility] Comment on above: The validity of the calculated GFR & GFRAA in patients over 70 years has not been determined. Clinical correlation is essential. Serum or plasma urea nitroge n measurement (mass/volume)Ordered By: Maia Johnson on 11-30-2022 Urea nitrogen [Mass/Vol] 21 mg/dL 7-18 [facility] Thin prep Papanicolaou smear with manual screeningOrdered By: Maia Johnson on 11-30-2022 Thin prep Papanicolaou smear with manual screening 29 U/L 15-37 [facility] Thin prep Papanicolaou smear with manual screening 5 5-15 [facility] Basophil percentageOrdered B y: Dr. Johnson on 10-03-2022 Bilirubin [Mass/Vol] 0.30 mg/dL 0.20-1.00 [facility] Comment on above: For patients on eltr ombopag therapy, use of [place] TBIL is not recommended. Chloride [Moles/Vol] 110 mmol/L 98-107 [facility] Glucose [Mass/Vol] 97 mg/dL 74-106 [facility] Potassium [Moles/Vol] 4.9 mmol/L 3.5-5.1 [facility] Protein [Mass/Vol] 7.2 g/dL 6.4-8.2 [facility] Sodium [Moles/Vol] 137 mmol/L 136-145 [facility] Laboratory - Chemistry and C hemistry - challengeOrdered By: Dr. Johnson on 10-03-2022 ALP [Catalytic activity/Vol] 50 U/L 45-117 [facility] ALT [Catalytic activity/Vol] 28 U/L 13-56 [facility] CO2 [Moles/Vol] 22.0 mmol/L 21.0-32.0 [facility] Globulin (S) [Mass/Vol] 3.5 g/dL 2.2-4.2 [facility] Urea nitrogen/Creatinine [Mass ratio] 26.0 mg/mg 10-20 [facility] No Panel InformationOrdered By: Dr. Johnson on 10-03-2022 Estimated GFR (MDRD) Amer 88 mL/min >60 [facility] Comment on above: GFR Calc Estimated GFR (MDRD) Non-Af Amer 73 mL/min >60 [facility] Comment on above: Non- GFR Calc Serum or plasma albumin chung urement (mass/volume)Ordered By: Dr. Johnson on 10-03-2022 Albumin [Mass/Vol] 3.7 g/dL 3.2-5.0 [facility] Serum or plasma albumin/glob ulin mass ratioOrdered By: Dr. Johnson on 10-03-2022 Albumin/Globulin [Mass ratio] 1.1 {ratio} 0.9-2.4 [facility] Serum or plasma calcium chung urement (mass/volume)Ordered By: Dr. Johnson on 10-03-2022 Calcium [Mass/Vol] 9.3 mg/dL 8.5-10.1 [facility] Serum or plasma creatinine m easurement (mass/volume)Ordered By: Dr. Johnson on 10-03-2022 Creatinine [Mass/Vol] 0.85 mg/dL 0.55-1.02 [facility] Comment on above: The validity of the calculated GFR & GFRAA in patients over 70 years has not been determined. Clinical correlation is essential. Serum or plasma urea nitroge n measurement (mass/volume)Ordered By: Dr. Johnson on 10-03-2022 Urea nitrogen [Mass/Vol] 22 mg/dL 7-18 [facility] Thin prep Papanicolaou smear with manual screeningOrdered By: Dr. Johnson on 10-03-2022 Thin prep Papanicolaou smear with manual screening 30 U/L 15-37 [facility] Thin prep Papanicolaou smear with manual screening 5 5-15 [facility] Absolute lymphocyte countOrd ered By: Dr. Johnson on 08-30-2022 Lymphocytes Auto (Unsp spec) [#/Vol] 3.11 10*3/uL 0.83-4.51 [facility] Basophil percentageOrdered B y: Dr. Johnson on 08-30-2022 Basophils/100 WBC (Bld) 0.6 % 0-1 [facility] Bilirubin [Mass/Vol] 0.50 mg/dL 0.20-1.00 [facility] Comment on above: For patients on eltr ombopag therapy, use of [place] TBIL is not recommended. Chloride [Moles/Vol] 110 mmol/L 98-107 [facility] Eosinophils/100 WBC (Bld) 2.3 % 0-5 [facility] Glucose [Mass/Vol] 89 mg/dL 74-106 [facility] Neutrophils (Bld) [#/Vol] 3.1 10*3/uL 2.0-7.7 [facility] Neutrophils/100 WBC (Bld) 44.9 % 47-70 [facility] Potassium [Moles/Vol] 3.8 mmol/L 3.5-5.1 [facility] Protein [Mass/Vol] 7.2 g/dL 6.4-8.2 [facility] Sodium [Moles/Vol] 141 mmol/L 136-145 [facility] WBC (Bld) [#/Vol] 6.8 10*3/uL 4.4-11.0 [facility] Blood erythrocytes count (nu mber/volume)Ordered By: Dr. Johnson on 08-30-2022 RBC (Bld) [#/Vol] 3.87 10*6/uL 4.2-5.4 [facility] Blood hemoglobin measurement (mass/volume)Ordered By: Dr. Johnson on 08-30-2022 Hemoglobin (Bld) [Mass/Vol] 12.3 g/dL 12.0-15.0 [facility] Blood lymphocytes/100 leukoc ytesOrdered By: Dr. Johnson on 08-30-2022 Lymphocytes/100 WBC (Bld) 45.6 % 19-41 [facility] Blood monocytes/100 leukocyt esOrdered By: Dr. Johnson on 08-30-2022 Monocytes/100 WBC (Bld) 6.5 % 0-10 [facility] Blood platelet mean volumeOr dered By: Dr. Johnson on 08-30-2022 Platelet mean volume (Bld) [Entitic vol] 10.7 fL 6.2-12.0 [facility] Determination of erythrocyte mean corpuscular volume (MCV)Ordered By: Dr. Johnson on 08-30-2022 MCV (RBC) [Entitic vol] 94.8 fL 81-99 [facility] Hematocrit Auto (Bld) [Volum e fraction]Ordered By: Dr. Johnson on 08-30-2022 Hematocrit (Bld) [Volume fraction] 36.7 % 37-47 [facility] Laboratory - Chemistry and C hemistry - challengeOrdered By: Dr. Johnson on 08-30-2022 ALP [Catalytic activity/Vol] 52 U/L 45-117 [facility] ALT [Catalytic activity/Vol] 63 U/L 13-56 [facility] CO2 [Moles/Vol] 27.0 mmol/L 21.0-32.0 [facility] Globulin (S) [Mass/Vol] 3.2 g/dL 2.2-4.2 [facility] Urea nitrogen/Creatinine [Mass ratio] 18.9 mg/mg 10-20 [facility] Laboratory - Hematology and Cell countsOrdered By: Dr. Johnson on 08-30-2022 Erythrocyte distribution width (RBC) [Entitic vol] 45.5 fL 35.1-43.9 [facility] Erythrocyte distribution width (RBC) [Ratio] 13.3 % 11.6-14.6 [facility] Immature granulocytes/100 WBC (Bld) 0.100 % 0.0-0.9 [facility] Comment on above: IG% - Immature Granu locytes (promyelocytes, myelocytes and metamyelocytes) > 1% indicates that a LEFT SHIFT is Present. MCH (RBC) [Entitic mass] 31.8 pg 27.0-32.0 [facility] Nucleated RBC/100 WBC (Bld) [Ratio] 0 % 0-5 [facility] MCHC Auto (RBC) [Mass/Vol]Or dered By: Dr. Johnson on 08-30-2022 MCHC (RBC) [Mass/Vol] 33.5 g/dL 32-36 [facility] No Panel InformationOrdered By: Dr. Jhonson on 08-30-2022 Estimated GFR (MDRD) Amer 88 mL/min >60 [facility] Comment on above: GFR Calc Estimated GFR (MDRD) Non-Af Amer 73 mL/min >60 [facility] Comment on above: Non- GFR Calc Platelets bldOrdered By: Dr. Johnson on 08-30-2022 Platelets (Bld) [#/Vol] 190 10*3/uL 150-450 [facility] Serum or plasma albumin chung urement (mass/volume)Ordered By: Dr. Johnson on 08-30-2022 Albumin [Mass/Vol] 4.0 g/dL 3.2-5.0 [facility] Serum or plasma albumin/glob ulin mass ratioOrdered By: Dr. Johnson on 08-30-2022 Albumin/Globulin [Mass ratio] 1.2 {ratio} 0.9-2.4 [facility] Serum or plasma calcium chung urement (mass/volume)Ordered By: Dr. Johnson on 08-30-2022 Calcium [Mass/Vol] 9.1 mg/dL 8.5-10.1 [facility] Serum or plasma creatinine m easurement (mass/volume)Ordered By: Dr. Johnson on 08-30-2022 Creatinine [Mass/Vol] 0.84 mg/dL 0.55-1.02 [facility] Comment on above: The validity of the calculated GFR & GFRAA in patients over 70 years has not been determined. Clinical correlation is essential. Serum or plasma urea nitroge n measurement (mass/volume)Ordered By: Dr. Johnson on 08-30-2022 Urea nitrogen [Mass/Vol] 16 mg/dL 7-18 [facility] Thin prep Papanicolaou smear with manual screeningOrdered By: Dr. Johnson on 08-30-2022 Thin prep Papanicolaou smear with manual screening 43 U/L 15-37 [facility] Thin prep Papanicolaou smear with manual screening 4 5-15 [facility] Basophil percentageOrdered B y: Dr. Abdi on 08-12-2022 Cholesterol [Mass/Vol] 246 mg/dL <200 [facility] Comment on above: <200 mg/dL Desirable 200-240 mg/dL Borderline >240 mg/dL High Risk Triglyceride [Mass/Vol] 187 mg/dL <199 [facility] Comment on above: The drugs N-Acetylcy steine and Metamizole may falsely depress this assay.Serum Triglycerides Reference Interval Normal <150 mg/dL Borderline high 150 - 199 mg/dL High 200 - 499 mg/dL Very High > or = 500 mg/dL Laboratory - Chemistry and C hemistry - challengeOrdered By: Dr. Abdi on 08-12-2022 T4 [Mass/Vol] 8.3 ug/dL 4.8-13.9 [facility] No Panel InformationOrdered By: Dr. Abdi on 03-10-2023 Thyroid Stimulating Hormone (TSH) 0.47 uIU/mL 0.358-3.74 [facility] Urine Microalbumin/Creatini ne Ratio 10.8 mg/g CRE <30 [facility] Serum or plasma cholesterol in HDL measurement (mass/volume)Ordered By: Dr. Abdi on 08-12-2022 Cholesterol in HDL [Mass/Vol] 54 mg/dL >40 [facility] Comment on above: The drugs N-Acetylcy steine and Metamizole may falsely depress this assay. Reference Range HDL <40 mg/dL Low HDL Cholesterol HDL >or= 60 mg/dL High HDL Cholesterol Serum or plasma cholesterol in VLDL measurement (mass/volume)Ordered By: Dr. Abdi on 08-12-2022 Cholesterol in VLDL [Mass/Vol] 37 mg/dL 5-40 [facility] Serum or plasma low density lipoprotein (LDL) cholesterol measurement (mass/volume)Ordered By: Dr. Abdi on 08-12-2022 Cholesterol in LDL [Mass/Vol] 155 mg/dL 0-130 [facility] Thin prep Papanicolaou smear with manual screeningOrdered By: Dr. Abdi on 08-12-2022 Thin prep Papanicolaou smear with manual screening 5.0 mg/L NO RANGE EST. [facility] Urine creatinine measurement (mass/volume)Ordered By: Dr. Abdi on 08-12-2022 Creatinine (U) [Mass/Vol] 46.30 mg/dL NO RANGE EST. [facility] Basophil percentageOrdered B y: Dr. Johnson on 06-16-2022 Bilirubin [Mass/Vol] 0.60 mg/dL 0.20-1.00 [facility] Comment on above: For patients on eltr ombopag therapy, use of [place] TBIL is not recommended. Chloride [Moles/Vol] 103 mmol/L 98-107 [facility] Glucose [Mass/Vol] 98 mg/dL 74-106 [facility] Potassium [Moles/Vol] 4.8 mmol/L 3.5-5.1 [facility] Protein [Mass/Vol] 7.5 g/dL 6.4-8.2 [facility] Sodium [Moles/Vol] 136 mmol/L 136-145 [facility] Laboratory - Chemistry and C hemistry - challengeOrdered By: Dr. Johnson on 06-16-2022 ALP [Catalytic activity/Vol] 47 U/L 45-117 [facility] ALT [Catalytic activity/Vol] 39 U/L 13-56 [facility] CO2 [Moles/Vol] 29.0 mmol/L 21.0-32.0 [facility] Globulin (S) [Mass/Vol] 3.3 g/dL 2.2-4.2 [facility] Urea nitrogen/Creatinine [Mass ratio] 22.7 mg/mg 10-20 [facility] No Panel InformationOrdered By: Dr. Johnson on 06-16-2022 Estimated GFR (MDRD) Amer 89 mL/min >60 [facility] Comment on above: GFR Calc Estimated GFR (MDRD) Non-Af Amer 74 mL/min >60 [facility] Comment on above: Non- GFR Calc Serum or plasma albumin chung urement (mass/volume)Ordered By: Dr. Johnson on 06-16-2022 Albumin [Mass/Vol] 4.2 g/dL 3.2-5.0 [facility] Serum or plasma albumin/glob ulin mass ratioOrdered By: Dr. Johnson on 06-16-2022 Albumin/Globulin [Mass ratio] 1.3 {ratio} 0.9-2.4 [facility] Serum or plasma calcium chung urement (mass/volume)Ordered By: Dr. Johnson on 06-16-2022 Calcium [Mass/Vol] 9.3 mg/dL 8.5-10.1 [facility] Serum or plasma creatinine m easurement (mass/volume)Ordered By: Dr. Johnson on 06-16-2022 Creatinine [Mass/Vol] 0.84 mg/dL 0.55-1.02 [facility] Comment on above: The validity of the calculated GFR & GFRAA in patients over 70 years has not been determined. Clinical correlation is essential. Serum or plasma urea nitroge n measurement (mass/volume)Ordered By: Dr. Johnson on 06-16-2022 Urea nitrogen [Mass/Vol] 19 mg/dL 7-18 [facility] Thin prep Papanicolaou smear with manual screeningOrdered By: Dr. Johnson on 06-16-2022 Thin prep Papanicolaou smear with manual screening 33 U/L 15-37 [facility] Thin prep Papanicolaou smear with manual screening 4 5-15 [facility] Basophil percentageOrdered B y: Dr. Johnson on 05-03-2022 Bilirubin [Mass/Vol] 0.50 mg/dL 0.20-1.00 [facility] Comment on above: For patients on eltr ombopag therapy, use of [place] TBIL is not recommended. Chloride [Moles/Vol] 106 mmol/L 98-107 [facility] Glucose [Mass/Vol] 102 mg/dL 74-106 [facility] Comment on above: Fasting Glucose resu lt from 100 to 125 mg/dL suggests IMPAIRED HOMEOSTASIS per A.D.A. criteria. Potassium [Moles/Vol] 5.0 mmol/L 3.5-5.1 [facility] Protein [Mass/Vol] 7.0 g/dL 6.4-8.2 [facility] Sodium [Moles/Vol] 141 mmol/L 136-145 [facility] Laboratory - Chemistry and C hemistry - challengeOrdered By: Dr. Johnson on 05-03-2022 ALP [Catalytic activity/Vol] 59 U/L 45-117 [facility] ALT [Catalytic activity/Vol] 63 U/L 13-56 [facility] CO2 [Moles/Vol] 29.0 mmol/L 21.0-32.0 [facility] Globulin (S) [Mass/Vol] 3.0 g/dL 2.2-4.2 [facility] Urea nitrogen/Creatinine [Mass ratio] 18.8 mg/mg 10-20 [facility] No Panel InformationOrdered By: Dr. Johnson on 05-03-2022 Estimated GFR (MDRD) Amer 94 mL/min >60 [facility] Comment on above: GFR Calc Estimated GFR (MDRD) Non-Af Amer 78 mL/min >60 [facility] Comment on above: Non- GFR Calc Serum or plasma albumin chung urement (mass/volume)Ordered By: Dr. Johnson on 05-03-2022 Albumin [Mass/Vol] 4.0 g/dL 3.2-5.0 [facility] Serum or plasma albumin/glob ulin mass ratioOrdered By: Dr. Johnson on 05-03-2022 Albumin/Globulin [Mass ratio] 1.3 {ratio} 0.9-2.4 [facility] Serum or plasma calcium chung urement (mass/volume)Ordered By: Dr. Johnson on 05-03-2022 Calcium [Mass/Vol] 9.3 mg/dL 8.5-10.1 [facility] Serum or plasma creatinine m easurement (mass/volume)Ordered By: Dr. Johnson on 05-03-2022 Creatinine [Mass/Vol] 0.80 mg/dL 0.55-1.02 [facility] Comment on above: The validity of the calculated GFR & GFRAA in patients over 70 years has not been determined. Clinical correlation is essential. Serum or plasma urea nitroge n measurement (mass/volume)Ordered By: Dr. Johnson on 05-03-2022 Urea nitrogen [Mass/Vol] 15 mg/dL 7-18 [facility] Thin prep Papanicolaou smear with manual screeningOrdered By: Dr. Johnson on 05-03-2022 Thin prep Papanicolaou smear with manual screening 51 U/L 15-37 [facility] Thin prep Papanicolaou smear with manual screening 6 5-15 [facility] Absolute lymphocyte countOrd ered By: Dr. Johnson on 04-01-2022 Lymphocytes Auto (Unsp spec) [#/Vol] 1.73 10*3/uL 0.83-4.51 [facility] Basophil percentageOrdered B y: Dr. Johnson on 04-01-2022 Basophils/100 WBC (Bld) 0.6 % 0-1 [facility] Bilirubin [Mass/Vol] 0.40 mg/dL 0.20-1.00 [facility] Comment on above: For patients on eltr ombopag therapy, use of [place] TBIL is not recommended. Chloride [Moles/Vol] 109 mmol/L 98-107 [facility] Eosinophils/100 WBC (Bld) 3.4 % 0-5 [facility] Glucose [Mass/Vol] 98 mg/dL 74-106 [facility] Neutrophils (Bld) [#/Vol] 2.6 10*3/uL 2.0-7.7 [facility] Neutrophils/100 WBC (Bld) 52.4 % 47-70 [facility] Potassium [Moles/Vol] 4.5 mmol/L 3.5-5.1 [facility] Protein [Mass/Vol] 7.0 g/dL 6.4-8.2 [facility] Sodium [Moles/Vol] 141 mmol/L 136-145 [facility] WBC (Bld) [#/Vol] 5.0 10*3/uL 4.4-11.0 [facility] Blood erythrocytes count (nu mber/volume)Ordered By: Dr. Johnson on 04-01-2022 RBC (Bld) [#/Vol] 3.85 10*6/uL 4.2-5.4 [facility] Blood hemoglobin measurement (mass/volume)Ordered By: Dr. Johnson on 04-01-2022 Hemoglobin (Bld) [Mass/Vol] 13.1 g/dL 12.0-15.0 [facility] Blood lymphocytes/100 leukoc ytesOrdered By: Dr. Johnson on 04-01-2022 Lymphocytes/100 WBC (Bld) 34.9 % 19-41 [facility] Blood monocytes/100 leukocyt esOrdered By: Dr. Johnson on 04-01-2022 Monocytes/100 WBC (Bld) 8.5 % 0-10 [facility] Blood platelet mean volumeOr dered By: Dr. Johnson on 04-01-2022 Platelet mean volume (Bld) [Entitic vol] 10.9 fL 6.2-12.0 [facility] Determination of erythrocyte mean corpuscular volume (MCV)Ordered By: Dr. Johnson on 04-01-2022 MCV (RBC) [Entitic vol] 99.2 fL 81-99 [facility] Hematocrit Auto (Bld) [Volum e fraction]Ordered By: Dr. Johnson on 04-01-2022 Hematocrit (Bld) [Volume fraction] 38.2 % 37-47 [facility] Laboratory - Chemistry and C hemistry - challengeOrdered By: Dr. Johnson on 04-01-2022 ALP [Catalytic activity/Vol] 58 U/L 45-117 [facility] ALT [Catalytic activity/Vol] 55 U/L 13-56 [facility] CO2 [Moles/Vol] 27.0 mmol/L 21.0-32.0 [facility] Globulin (S) [Mass/Vol] 3.0 g/dL 2.2-4.2 [facility] Urea nitrogen/Creatinine [Mass ratio] 12.3 mg/mg 10-20 [facility] Laboratory - Hematology and Cell countsOrdered By: Dr. Johnson on 04-01-2022 Erythrocyte distribution width (RBC) [Entitic vol] 49.4 fL 35.1-43.9 [facility] Erythrocyte distribution width (RBC) [Ratio] 13.7 % 11.6-14.6 [facility] Immature granulocytes/100 WBC (Bld) 0.200 % 0.0-0.9 [facility] Comment on above: IG% - Immature Granu locytes (promyelocytes, myelocytes and metamyelocytes) > 1% indicates that a LEFT SHIFT is Present. MCH (RBC) [Entitic mass] 34.0 pg 27.0-32.0 [facility] Nucleated RBC/100 WBC (Bld) [Ratio] 0 % 0-5 [facility] MCHC Auto (RBC) [Mass/Vol]Or dered By: Dr. Johnson on 04-01-2022 MCHC (RBC) [Mass/Vol] 34.3 g/dL 32-36 [facility] No Panel InformationOrdered By: Dr. Johnson on 04-01-2022 Estimated GFR (MDRD) Amer 92 mL/min >60 [facility] Comment on above: GFR Calc Estimated GFR (MDRD) Non-Af Amer 76 mL/min >60 [facility] Comment on above: Non- GFR Calc Platelets bldOrdered By: Dr. Johnson on 04-01-2022 Platelets (Bld) [#/Vol] 176 10*3/uL 150-450 [facility] Serum or plasma albumin chung urement (mass/volume)Ordered By: Dr. Johnson on 04-01-2022 Albumin [Mass/Vol] 4.0 g/dL 3.2-5.0 [facility] Serum or plasma albumin/glob ulin mass ratioOrdered By: Dr. Johnson on 04-01-2022 Albumin/Globulin [Mass ratio] 1.3 {ratio} 0.9-2.4 [facility] Serum or plasma calcium chung urement (mass/volume)Ordered By: Dr. Johnson on 04-01-2022 Calcium [Mass/Vol] 9.3 mg/dL 8.5-10.1 [facility] Serum or plasma creatinine m easurement (mass/volume)Ordered By: Dr. Johnson on 04-01-2022 Creatinine [Mass/Vol] 0.82 mg/dL 0.55-1.02 [facility] Comment on above: The validity of the calculated GFR & GFRAA in patients over 70 years has not been determined. Clinical correlation is essential. Serum or plasma urea nitroge n measurement (mass/volume)Ordered By: Dr. Johnson on 04-01-2022 Urea nitrogen [Mass/Vol] 10 mg/dL - [facility] Thin prep Papanicolaou smear with manual screeningOrdered By: Dr. Johnson on 04-01-2022 Thin prep Papanicolaou smear with manual screening 50 U/L 15-37 [facility] Thin prep Papanicolaou smear with manual screening 5 5-15 [facility] Basophil percentageon 2021 Chloride [Moles/Vol] 103 mmol/L 98-107 [facility] Work Phone: Glucose [Mass/Vol] 90 mg/dL 74-106 [facility] Work Phone: Potassium [Moles/Vol] 4.5 mmol/L 3.5-5.1 [facility] Work Phone: Sodium [Moles/Vol] 135 mmol/L 136-145 [facility] Work Phone: WBC (Bld) [#/Vol] 8.9 10*3/uL 4.4-11.0 [facility] Work Phone: Blood erythrocytes count (nu mber/volume)on 01-20-2022 RBC (Bld) [#/Vol] 3.42 10*6/uL 4.2-5.4 [facility] Work Phone: Blood hemoglobin measurement (mass/volume)on 01-20-2022 Hemoglobin (Bld) [Mass/Vol] 11.7 g/dL 12.0-15.0 [facility] Work Phone: Blood platelet mean volumeon 01-20-2022 Platelet mean volume (Bld) [Entitic vol] 11.5 fL 6.2-12.0 [facility] Work Phone: Determination of erythrocyte mean corpuscular volume (MCV)on 01-20-2022 MCV (RBC) [Entitic vol] 103.5 fL 81-99 [facility] Work Phone: Hematocrit Auto (Bld) [Volum e fraction]on 01-20-2022 Hematocrit (Bld) [Volume fraction] 35.4 % 37-47 [facility] Work Phone: Laboratory - Chemistry and C hemistry - challengeon 01-20-2022 CO2 [Moles/Vol] 29.0 mmol/L 21.0-32.0 [facility] Work Phone: Urea nitrogen/Creatinine [Mass ratio] 18.5 mg/mg 10-20 [facility] Work Phone: Laboratory - Hematology and Cell countson 01-20-2022 Erythrocyte distribution width (RBC) [Entitic vol] 49.3 fL 35.1-43.9 [facility] Work Phone: [phone] Erythrocyte distribution width (RBC) [Ratio] 12.9 % 11.6-14.6 [facility] Work Phone: [phone] MCH (RBC) [Entitic mass] 34.2 pg 27.0-32.0 [facility] Work Phone: [phone] MCHC Auto (RBC) [Mass/Vol]on 01-20-2022 MCHC (RBC) [Mass/Vol] 33.1 g/dL 32-36 [facility] Work Phone: No Panel Informationon 01-20 Estimated Creatinine Clearance Calc 70.83 ml/min [facility] Work Phone: Estimated GFR (MDRD) Amer 100 mL/min >60 [facility] Work Phone: Comment on above: GFR Calc Estimated GFR (MDRD) Non-Af Amer 83 mL/min >60 [facility] Work Phone: Comment on above: Non- GFR Calc Platelets bldon 01-20-2022 Platelets (Bld) [#/Vol] 168 10*3/uL 150-450 [facility] Work Phone: Serum or plasma calcium chung urement (mass/volume)on 01-20-2022 Calcium [Mass/Vol] 8.4 mg/dL 8.5-10.1 [facility] Work Phone: Serum or plasma creatinine m easurement (mass/volume)on 01-20-2022 Creatinine [Mass/Vol] 0.76 mg/dL 0.55-1.02 [facility] Work Phone: Comment on above: The validity of the calculated GFR & GFRAA in patients over 70 years has not been determined. Clinical correlation is essential. Serum or plasma urea nitroge n measurement (mass/volume)on 01-20-2022 Urea nitrogen [Mass/Vol] 14 mg/dL -18 [facility] Work Phone: Thin prep Papanicolaou smear with manual screeningon 01-20-2022 Thin prep Papanicolaou smear with manual screening 3 5-15 [facility] Work Phone: Glucose Glucometer (BldC) [M ass/Vol]on 01-19-2022 Glucose [Mass/Vol] 76 mg/dL 74-106 [facility] Work Phone: Comment on above: MANAGEMENT OF PATIEN T CARE PER NURSING PROTOCOL Absolute lymphocyte counton 01-07-2022 Lymphocytes Auto (Unsp spec) [#/Vol] 1.55 10*3/uL 0.83-4.51 [facility] Work Phone: Basophil percentageon 2021 Basophils/100 WBC (Bld) 0.4 % 0-1 [facility] Work Phone: Bilirubin [Mass/Vol] 0.40 mg/dL 0.20-1.00 [facility] Work Phone: [phone] Comment on above: For patients on eltr ombopag therapy, use of [place] TBIL is not recommended. Eosinophils/100 WBC (Bld) 1.3 % 0-5 [facility] Work Phone: Neutrophils (Bld) [#/Vol] 2.5 10*3/uL 2.0-7.7 [facility] Work Phone: Neutrophils/100 WBC (Bld) 56.1 % 47-70 [facility] Work Phone: Protein [Mass/Vol] 6.9 g/dL 6.4-8.2 [facility] Work Phone: Blood lymphocytes/100 leukoc yteson 01-07-2022 Lymphocytes/100 WBC (Bld) 34.1 % 19-41 [facility] Work Phone: Blood monocytes/100 leukocyt eson 01-07-2022 Monocytes/100 WBC (Bld) 7.9 % 0-10 [facility] Work Phone: [phone] Laboratory - Chemistry and C hemistry - challengeon 01-07-2022 ALP [Catalytic activity/Vol] 45 U/L 45-117 [facility] Work Phone: ALT [Catalytic activity/Vol] 47 U/L 13-56 [facility] Work Phone: Globulin (S) [Mass/Vol] 3.0 g/dL 2.2-4.2 [facility] Work Phone: Magnesium [Mass/Vol] 2.0 mg/dL 1.6-2.6 [facility] Work Phone: [phone] Laboratory - Hematology and Cell countson 01-07-2022 Immature granulocytes/100 WBC (Bld) 0.200 % 0.0-0.9 [facility] Work Phone: Comment on above: IG% - Immature Granu locytes (promyelocytes, myelocytes and metamyelocytes) > 1% indicates that a LEFT SHIFT is Present. Nucleated RBC/100 WBC (Bld) [Ratio] 0 % 0-5 [facility] Work Phone: No Panel Informationon 01-07 Thyroid Stimulating Hormone (TSH) 0.48 uIU/mL 0.358-3.74 [facility] Work Phone: Serum or plasma albumin chung urement (mass/volume)on 01-07-2022 Albumin [Mass/Vol] 3.9 g/dL 3.2-5.0 [facility] Work Phone: Serum or plasma albumin/glob ulin mass ratioon 01-07-2022 Albumin/Globulin [Mass ratio] 1.3 {ratio} 0.9-2.4 [facility] Work Phone: Thin prep Papanicolaou smear with manual screeningon 01-07-2022 Thin prep Papanicolaou smear with manual screening 34 U/L 15-37 [facility] Work Phone: Laboratory - Drug toxicology on 11-29-2021 Amphetamines Ql (U) Negative <1000 ng/mL [facility] Work Phone: Benzodiazepines Ql (U) Negative < 200 ng/mL [facility] Work Phone: Cannabinoids Screen Ql (U) Negative < 50 ng/mL [facility] Work Phone: Cocaine Ql (U) Negative < 300 ng/mL [facility] Work Phone: Opiates Ql (U) Negative < 300 ng/mL [facility] Work Phone: No Panel Informationon 11-29 MDMA (Ecstasy) Screen Negative < 500 ng/mL [facility] Work Phone: Miscellaneous Test See comment [facility] Work Phone: Comment on above: [id number] 6+OXYCODONE-B UND (ng/mL) DRUG RESULT SCREEN CUTOFF____ Amphetamines,Urine Negative ng/mL 1000 Amphetamine test includes Amphetamine and Methamphetamine.Barbiturates Negative ng/mL 200Benzodiazepines Negative ng/mL 200Cannabinoid Negative ng/mL 20Cocaine (Metab) Negative ng/mL 300Opiates Negative ng/mL 300 Opiates test includes Codeine, Morphine, Hydromorphone, Hydrocodone. Oxycodone/Oxymorphone,Urine Negative ng/mL 300 Test includes Oxydodone and Oxymorphone. TESTING PERFORMED AT [facility]. ORIGINAL REPORT ON FILE IN LAB CONTAINS ADDITIONAL TEST SITE INFORMATION. Urine Barbiturates Screen Negative < 200 ng/mL [facility] Work Phone: Urine Drug Screen Comment [facility] Work Phone: Comment on above: CONFIRMATORY TESTING FOR ALL POSITIVE URINE DRUG SCREENRESULTS WILL ONLY BE SENT OUT UPON PHYSICIAN ORDER. VISTA Urine Drug Screen methods provide only preliminaryanalytical test results. A more specific alternate chemicalmethod must be used in order to obtain a confirmedanalytical result. Gas chromatography/mass spectrometery(GC/MS) is the preferred confirmatory method. Clinicalconsideration and professional judgement should be appliedto any drug of abuse test result, particularly whenpreliminary positive results are used. URINE TCA TESTING MUST BE ORDERED SEPARATELY. USE TESTMNEMONIC: [facility] Urine Methadone Screen Negative < 300 ng/mL [facility] Work Phone: Urine phencyclidine (PCP) de tectionon 11-29-2021 Phencyclidine Ql (U) Negative < 25 ng/mL [facility] Work Phone: Absolute lymphocyte counton 10-01-2021 Lymphocytes Auto (Unsp spec) [#/Vol] 1.79 10*3/uL 0.83-4.51 [facility] Work Phone: Basophil percentageon 2021 Basophils/100 WBC (Bld) 0.4 % 0-1 [facility] Work Phone: [phone] Bilirubin [Mass/Vol] 0.40 mg/dL 0.20-1.00 [facility] Work Phone: [phone] Comment on above: For patients on eltr ombopag therapy, use of [place] TBIL is not recommended. Chloride [Moles/Vol] 103 mmol/L 98-107 [facility] Work Phone: [phone] Cholesterol [Mass/Vol] 209 mg/dL <200 [facility] Work Phone: [phone] Comment on above: <200 mg/dL Desirable 200-240 mg/dL Borderline >240 mg/dL High Risk Eosinophils/100 WBC (Bld) 1.5 % 0-5 [facility] Work Phone: Glucose [Mass/Vol] 77 mg/dL 74-106 [facility] Work Phone: Neutrophils (Bld) [#/Vol] 3.1 10*3/uL 2.0-7.7 [facility] Work Phone: Neutrophils/100 WBC (Bld) 56.8 % 47-70 [facility] Work Phone: Potassium [Moles/Vol] 4.5 mmol/L 3.5-5.1 [facility] Work Phone: Protein [Mass/Vol] 7.0 g/dL 6.4-8.2 [facility] Work Phone: Sodium [Moles/Vol] 135 mmol/L 136-145 [facility] Work Phone: [phone] Triglyceride [Mass/Vol] 84 mg/dL <199 [facility] Work Phone: [phone] Comment on above: The drugs N-Acetylcy steine and Metamizole may falsely depress this assay.Serum Triglycerides Reference Interval Normal <150 mg/dL Borderline high 150 - 199 mg/dL High 200 - 499 mg/dL Very High > or = 500 mg/dL WBC (Bld) [#/Vol] 5.5 10*3/uL 4.4-11.0 [facility] Work Phone: [phone] Blood erythrocytes count (nu mber/volume)on 10-01-2021 RBC (Bld) [#/Vol] 3.74 10*6/uL 4.2-5.4 [facility] Work Phone: [phone] Blood hemoglobin measurement (mass/volume)on 10-01-2021 Hemoglobin (Bld) [Mass/Vol] 12.8 g/dL 12.0-15.0 [facility] Work Phone: Blood lymphocytes/100 leukoc yteson 10-01-2021 Lymphocytes/100 WBC (Bld) 32.8 % 19-41 [facility] Work Phone: Blood monocytes/100 leukocyt eson 10-01-2021 Monocytes/100 WBC (Bld) 8.1 % 0-10 [facility] Work Phone: Blood platelet mean volumeon 10-01-2021 Platelet mean volume (Bld) [Entitic vol] 11.2 fL 6.2-12.0 [facility] Work Phone: [phone] Determination of erythrocyte mean corpuscular volume (MCV)on 10-01-2021 MCV (RBC) [Entitic vol] 100.3 fL 81-99 [facility] Work Phone: Hematocrit Auto (Bld) [Volum e fraction]on 10-01-2021 Hematocrit (Bld) [Volume fraction] 37.5 % 37-47 [facility] Work Phone: [phone] Laboratory - Chemistry and C hemistry - challengeon 10-01-2021 ALP [Catalytic activity/Vol] 40 U/L 45-117 [facility] Work Phone: [phone] ALT [Catalytic activity/Vol] 40 U/L 13-56 [facility] Phone: CO2 [Moles/Vol] 28.0 mmol/L 21.0-32.0 [facility] Work Phone: Free T4 [Mass/Vol] 0.93 ng/dL 0.76-1.46 [facility] Work Phone: [phone] Globulin (S) [Mass/Vol] 3.0 g/dL 2.2-4.2 [facility] Work Phone: Urea nitrogen/Creatinine [Mass ratio] 23.0 mg/mg 10-20 [facility] Work Phone: [phone] Laboratory - Hematology and Cell countson 10-01-2021 Erythrocyte distribution width (RBC) [Entitic vol] 47.5 fL 35.1-43.9 [facility] Work Phone: Erythrocyte distribution width (RBC) [Ratio] 13.0 % 11.6-14.6 [facility] Work Phone: Immature granulocytes/100 WBC (Bld) 0.400 % 0.0-0.9 [facility] Work Phone: Comment on above: IG% - Immature Granu locytes (promyelocytes, myelocytes and metamyelocytes) > 1% indicates that a LEFT SHIFT is Present. MCH (RBC) [Entitic mass] 34.2 pg 27.0-32.0 [facility] Work Phone: Nucleated RBC/100 WBC (Bld) [Ratio] 0 % 0-5 [facility] Work Phone: MCHC Auto (RBC) [Mass/Vol]on 10-01-2021 MCHC (RBC) [Mass/Vol] 34.1 g/dL 32-36 [facility] Work Phone: No Panel Informationon 10-01 Estimated GFR (MDRD) Amer 86 mL/min >60 [facility] Work Phone: Comment on above: GFR Calc Estimated GFR (MDRD) Non-Af Amer 71 mL/min >60 [facility] Work Phone: Comment on above: Non- GFR Calc Thyroid Stimulating Hormone (TSH) 0.66 uIU/mL 0.358-3.74 [facility] Work Phone: Platelets bldon 10-01-2021 Platelets (Bld) [#/Vol] 206 10*3/uL 150-450 [facility] Work Phone: Serum or plasma albumin chung urement (mass/volume)on 10-01-2021 Albumin [Mass/Vol] 4.0 g/dL 3.2-5.0 [facility] Work Phone: Serum or plasma albumin/glob ulin mass ratioon 10-01-2021 Albumin/Globulin [Mass ratio] 1.3 {ratio} 0.9-2.4 [facility] Work Phone: Serum or plasma calcium chung urement (mass/volume)on 10-01-2021 Calcium [Mass/Vol] 8.4 mg/dL 8.5-10.1 [facility] Work Phone: Serum or plasma cholesterol in HDL measurement (mass/volume)on 10-01-2021 Cholesterol in HDL [Mass/Vol] 82 mg/dL >40 [facility] Work Phone: Comment on above: The drugs N-Acetylcy steine and Metamizole may falsely depress this assay. Reference Range HDL <40 mg/dL Low HDL Cholesterol HDL >or= 60 mg/dL High HDL Cholesterol Serum or plasma cholesterol in VLDL measurement (mass/volume)on 10-01-2021 Cholesterol in VLDL [Mass/Vol] 17 mg/dL 5-40 [facility] Work Phone: Serum or plasma creatinine m easurement (mass/volume)on 10-01-2021 Creatinine [Mass/Vol] 0.87 mg/dL 0.55-1.02 [facility] Work Phone: Comment on above: The validity of the calculated GFR & GFRAA in patients over 70 years has not been determined. Clinical correlation is essential. Serum or plasma low density lipoprotein (LDL) cholesterol measurement (mass/volume)on 10-01-2021 Cholesterol in LDL [Mass/Vol] 110 mg/dL 0-130 [facility] Work Phone: Serum or plasma urea nitroge n measurement (mass/volume)on 10-01-2021 Urea nitrogen [Mass/Vol] 20 mg/dL 7-18 [facility] Work Phone: Thin prep Papanicolaou smear with manual screeningon 10-01-2021 Thin prep Papanicolaou smear with manual screening 27 U/L 15-37 [facility] Work Phone: Thin prep Papanicolaou smear with manual screening 4 5-15 [facility] Work Phone: Qualitative QuantiFERON-TB g old in tube teston 07-16-2021 M. tuberculosis tuberculin stim IFN-g Ql (Bld) 0.05 IU/mL [facility] Work Phone: Thin prep Papanicolaou smear with manual screeningon 07-16-2021 Thin prep Papanicolaou smear with manual screening Comment [facility] Work Phone: Comment on above: The QuantiFERON-TB G old Plus result is determined bysubtracting the Nil value from either TB antigen (Ag) tube.The mitogen tube serves as a control for the test. Thin prep Papanicolaou smear with manual screening 0.06 IU/mL [facility] Work Phone: Thin prep Papanicolaou smear with manual screening 0.05 IU/mL [facility] Work Phone: Thin prep Papanicolaou smear with manual screening > 10.00 IU/mL [facility] Work Phone: Thin prep Papanicolaou smear with manual screening Negative Negative [facility] Work Phone: Comment on above: The specimen receive d for QuantiFERON testing was incubatedby the ordering institution. Specific procedures outlinedin our Directory of Services and in the package insert forthe QuantiFERON Gold (In Tube) test must be followed toenable for proper stimulation of cells for the productionof interferon gamma. Chemiluminescence immunoassaymethodologyPerformed at: [address], [place], [place] [id number] Director: Raffaele Toney PhD, Phone: [phone] Absolute lymphocyte counton 07-12-2021 Lymphocytes Auto (Unsp spec) [#/Vol] 1.67 10*3/uL 0.83-4.51 [facility] Work Phone: Basophil percentageon 2021 Basophils/100 WBC (Bld) 0.6 % 0-1 [facility] Work Phone: Bilirubin [Mass/Vol] 0.30 mg/dL 0.20-1.00 [facility] Work Phone: Comment on above: For patients on eltr ombopag therapy, use of [place] TBIL is not recommended. Chloride [Moles/Vol] 109 mmol/L 98-107 [facility] Work Phone: Eosinophils/100 WBC (Bld) 1.0 % 0-5 [facility] Work Phone: Glucose [Mass/Vol] 88 mg/dL 74-106 [facility] Work Phone: Neutrophils (Bld) [#/Vol] 3.0 10*3/uL 2.0-7.7 [facility] Work Phone: Neutrophils/100 WBC (Bld) 58.6 % 47-70 [facility] Work Phone: Potassium [Moles/Vol] 4.0 mmol/L 3.5-5.1 [facility] Work Phone: Protein [Mass/Vol] 6.7 g/dL 6.4-8.2 [facility] Work Phone: Sodium [Moles/Vol] 141 mmol/L 136-145 [facility] Work Phone: WBC (Bld) [#/Vol] 5.1 10*3/uL 4.4-11.0 [facility] Work Phone: Blood erythrocytes count (nu mber/volume)on 07-12-2021 RBC (Bld) [#/Vol] 3.63 10*6/uL 4.2-5.4 [facility] Work Phone: [phone] Blood hemoglobin measurement (mass/volume)on 07-12-2021 Hemoglobin (Bld) [Mass/Vol] 12.1 g/dL 12.0-15.0 [facility] Work Phone: Blood lymphocytes/100 leukoc yteson 07-12-2021 Lymphocytes/100 WBC (Bld) 32.9 % 19-41 [facility] Work Phone: Blood monocytes/100 leukocyt eson 07-12-2021 Monocytes/100 WBC (Bld) 6.7 % 0-10 [facility] Work Phone: Blood platelet mean volumeon 07-12-2021 Platelet mean volume (Bld) [Entitic vol] 11.5 fL 6.2-12.0 [facility] Work Phone: [phone] Determination of erythrocyte mean corpuscular volume (MCV)on 07-12-2021 MCV (RBC) [Entitic vol] 97.8 fL 81-99 [facility] Work Phone: [phone] Hematocrit Auto (Bld) [Volum e fraction]on 07-12-2021 Hematocrit (Bld) [Volume fraction] 35.5 % 37-47 [facility] Work Phone: Laboratory - Chemistry and C hemistry - challengeon 07-12-2021 ALP [Catalytic activity/Vol] 54 U/L 45-117 [facility] Work Phone: [phone] ALT [Catalytic activity/Vol] 45 U/L 13-56 [facility] Work Phone: [phone] CO2 [Moles/Vol] 27.0 mmol/L 21.0-32.0 [facility] Work Phone: [phone] Globulin (S) [Mass/Vol] 2.8 g/dL 2.2-4.2 [facility] Work Phone: [phone] Urea nitrogen/Creatinine [Mass ratio] 21.2 mg/mg 10-20 [facility] Work Phone: Laboratory - Hematology and Cell countson 07-12-2021 Erythrocyte distribution width (RBC) [Entitic vol] 44.4 fL 35.1-43.9 [facility] Work Phone: Erythrocyte distribution width (RBC) [Ratio] 12.4 % 11.6-14.6 [facility] Work Phone: Immature granulocytes/100 WBC (Bld) 0.200 % 0.0-0.9 [facility] Work Phone: Comment on above: IG% - Immature Granu locytes (promyelocytes, myelocytes and metamyelocytes) > 1% indicates that a LEFT SHIFT is Present. MCH (RBC) [Entitic mass] 33.3 pg 27.0-32.0 [facility] Work Phone: Nucleated RBC/100 WBC (Bld) [Ratio] 0 % 0-5 [facility] Work Phone: MCHC Auto (RBC) [Mass/Vol]on 07-12-2021 MCHC (RBC) [Mass/Vol] 34.1 g/dL 32-36 [facility] Work Phone: No Panel Informationon 07-12 Estimated GFR (MDRD) Amer 94 mL/min >60 [facility] Work Phone: Comment on above: GFR Calc Estimated GFR (MDRD) Non-Af Amer 78 mL/min >60 [facility] Work Phone: Comment on above: Non- GFR Calc Platelets bldon 07-12-2021 Platelets (Bld) [#/Vol] 188 10*3/uL 150-450 [facility] Work Phone: Serum or plasma albumin chung urement (mass/volume)on 07-12-2021 Albumin [Mass/Vol] 3.9 g/dL 3.2-5.0 [facility] Work Phone: Serum or plasma albumin/glob ulin mass ratioon 07-12-2021 Albumin/Globulin [Mass ratio] 1.4 {ratio} 0.9-2.4 [facility] Work Phone: Serum or plasma calcium chung urement (mass/volume)on 07-12-2021 Calcium [Mass/Vol] 9.2 mg/dL 8.5-10.1 [facility] Work Phone: Serum or plasma creatinine m easurement (mass/volume)on 07-12-2021 Creatinine [Mass/Vol] 0.80 mg/dL 0.55-1.02 [facility] Work Phone: Comment on above: The validity of the calculated GFR & GFRAA in patients over 70 years has not been determined. Clinical correlation is essential. Serum or plasma urea nitroge n measurement (mass/volume)on 07-12-2021 Urea nitrogen [Mass/Vol] 17 mg/dL 7-18 [facility] Work Phone: Thin prep Papanicolaou smear with manual screeningon 07-12-2021 Thin prep Papanicolaou smear with manual screening 38 U/L 15-37 [facility] Work Phone: Thin prep Papanicolaou smear with manual screening 5 5-15 [facility] Work Phone: No Panel Information Nasal Screen MRSA/MSSA [facility] Work Phone: Vital Signs Date Time Vital Sign Value Performing Clinician Faci kareny 11-13-2024 10:38-0400 Body temperature 97.9 [degF] Dr. Sapphire Abdi MD Work Phone: [facility] 11-13-2024 10:38-0400 Diastolic blood pressure 80 mm[Hg] Dr. Sapphire Abdi MD Work Phone: [facility] 11-13-2024 10:38-0400 Heart rate 79 /min Dr. Sapphire Abdi MD Work Phone: [facility] 11-13-2024 10:38-0400 Respiratory rate 16 /min Dr. Sapphire Abdi MD Work Phone: [facility] 11-13-2024 10:38-0400 SaO2% (BldA) [Mass fraction] 96 % Dr. Sapphire Abdi MD Work Phone: [phone] [place] [address] 11-13-2024 10:38-0400 Systolic blood pressure 120 mm[Hg] Dr. Sapphire Abdi MD Work Phone: [phone] [place] [address] 10-14-2024 13:08-0400 Body height 165.[address] Sapphire Abdi MD Work Phone: [phone] [place] [address] 09-03-2024 16:27-0400 Body mass index (BMI) [Ratio] 24.1 kg/m2 Dr. Sapphire Abdi MD Work Phone: [phone] [place] [address] 09-03-2024 16:27-0400 Body temperature 98.5 [degF] Dr. Sapphire Abdi MD Work Phone: 2([phone])[phone] [place] [address] 09-03-2024 16:27-0400 Body weight 65.[address] Sapphire Abdi MD Work Phone: 1(269)687-794523 [place] [address] 09-03-2024 16:27-0400 Diastolic blood pressure 76 mm[Hg] Dr. Sapphire Abdi MD Work Phone: 5(684)994-043068 [place] [address] 09-03-2024 16:27-0400 Heart rate 73 /min Dr. Sapphire Abdi MD Work Phone: [phone])[phone] [place] [address] 09-03-2024 16:27-0400 Respiratory rate 18 /min Dr. Sapphire Abdi MD Work Phone: 0([phone])660-412668 [place] [address] 09-03-2024 16:27-0400 SaO2% (BldA) [Mass fraction] 94 % Dr. Sapphire Abdi MD Work Phone: 4(252)[phone] [place] [address] 09-03-2024 16:27-0400 Systolic blood pressure 127 mm[Hg] Dr. Sapphire Abdi MD Work Phone: 2(519)[phone] [place] [address] 08-26-2024 11:00-0400 Body mass index (BMI) [Ratio] 24.8 kg/m2 Dr. Sapphire Abdi MD Work Phone: [facility] 08-26-2024 11:00-0400 Body weight 67.[address] Sapphire Abdi MD Work Phone: [facility] 08-09-2024 14:13-0500 Diastolic blood pressure 84 mm[Hg] Dr. Sapphire Abdi MD Work Phone: [facility] 08-09-2024 14:13-0500 Respiratory rate 18 /min Dr. Sapphire Abdi MD Work Phone: [facility] 08-09-2024 14:13-0500 SaO2% (BldA) [Mass fraction] 96 % Dr. Sapphire Abdi MD Work Phone: [facility] 08-09-2024 14:13-0500 Systolic blood pressure 133 mm[Hg] Dr. Sapphire Abdi MD Work Phone: [facility] 07-30-2024 07:03-0500 Body height 164.5 cm Cherie [place] CEO [employer]ELING MACHINE OPERATOR Work Phone: [facility] 07-30-2024 07:03-0500 Body mass index (BMI) [Ratio] 24.32 kg/m2 Cherie [place] CEO [employer]ELING MACHINE OPERATOR Work Phone: [facility] 07-30-2024 07:03-0500 Body weight 65.77 kg Cherie [place] CEO [employer]ELING MACHINE OPERATOR Work Phone: [facility] 07-30-2024 07:03-0500 Diastolic blood pressure 82 mm[Hg] Cherie Jasmin CEO [employer]ELING MACHINE OPERATOR Work Phone: [facility] 07-30-2024 07:03-0500 Systolic blood pressure 116 mm[Hg] Cherie Jasmin CEO [employer]ELING MACHINE OPERATOR Work Phone: [facility] 07-28-2023 06:57-0500 Body height 165.1 cm Cherie Jasmin CEO [employer]ELING MACHINE OPERATOR Work Phone: [facility] 07-28-2023 06:57-0500 Body weight 62.6 kg Cherie Jasmin CEO [employer]ELING MACHINE OPERATOR Work Phone: [facility] 07-28-2023 06:57-0500 Diastolic blood pressure 72 mm[Hg] Cherie Jasmin CEO [employer] PEELING MACHINE OPERATOR Work Phone: [facility] 07-28-2023 06:57-0500 Systolic blood pressure 104 mm[Hg] Cherie Jasmin CEO [employer]ELING MACHINE OPERATOR Work Phone: [facility] 03-23-2023 15:42-0400 Body height 166.[address] Nasim Barrera Work Phone: [facility] 03-23-2023 15:42-0400 Body mass index (BMI) [Ratio] 21.3 kg/m2 Dr. Nasim Barrera Work Phone: [facility] 03-23-2023 15:42-0400 Body temperature 98.6 [degF] Dr. Nasim Barrera Work Phone: [facility] 03-23-2023 15:42-0400 Body weight 58.[address] Nasim Barrera Work Phone: [facility] 03-23-2023 15:42-0400 Diastolic blood pressure 96 mm[Hg] Dr. Nasim Barrera Work Phone: [facility] 03-23-2023 15:42-0400 Heart rate 83 /min Dr. Nasim Barrera Work Phone: [facility] 03-23-2023 15:42-0400 Respiratory rate 17 /min Dr. Nasim Barrera Work Phone: [facility] 03-23-2023 15:42-0400 SaO2% (BldA) [Mass fraction] 97 % Dr. Nasim Barrera Work Phone: [facility] 03-23-2023 15:42-0400 Systolic blood pressure 144 mm[Hg] Dr. Nasim Barrera Work Phone: [facility] 07-22-2022 14:27-0500 Body weight 58.97 kg Cherie [place] CEO [employer] PEELING MACHINE OPERATOR Work Phone: [facility] 07-22-2022 14:27-0500 Diastolic blood pressure 68 mm[Hg] Cherie [place] CEO [employer] PEELING MACHINE OPERATOR Work Phone: [facility] 07-22-2022 14:27-0500 Systolic blood pressure 118 mm[Hg] Cherie Jasmin CEO [employer]ELING MACHINE OPERATOR Work Phone: [facility] 01-20-2022 13:03-0400 Body temperature 98.6 [degF] Dr. Nasim Barrera Work Phone: [facility] Work Phone: 01-20-2022 13:03-0400 Diastolic blood pressure 68 mm[Hg] Dr. Nasim Barrera Work Phone: [facility] Work Phone: 01-20-2022 13:03-0400 Heart rate 92 /min Dr. Nasim Barrera Work Phone: [facility] Work Phone: 01-20-2022 13:03-0400 Respiratory rate 16 /min Dr. Nasim Barrera Work Phone: [facility] Work Phone: 01-20-2022 13:03-0400 SaO2% (BldA) [Mass fraction] 93 % Dr. Nasim Barrera Work Phone: [facility] Work Phone: 01-20-2022 13:03-0400 Systolic blood pressure 106 mm[Hg] Dr. Nasim Barrera Work Phone: [facility] Work Phone: 01-19-2022 18:55-0400 Inhaled oxygen flow rate 2 L/min Dr. Nasim Barrera Work Phone: [facility] Work Phone: 01-19-2022 09:24-0400 Body height 166.[address] Nasim Barrera Work Phone: [facility] Work Phone: 01-19-2022 09:24-0400 Body mass index (BMI) [Ratio] 21.7 kg/m2 Dr. Nasim Barrera Work Phone: [facility] Work Phone: 01-19-2022 09:24-0400 Body weight [address] Nasim Barrera Work Phone: [facility] Work Phone: 10-18-2021 13:04-0400 Body height 166.[address] Nasim Barrera Work Phone: [facility] Work Phone: 10-18-2021 13:04-0400 Body mass index (BMI) [Ratio] 23.1 kg/m2 Dr. Nasim Barrera Work Phone: [facility] Work Phone: 10-18-2021 13:04-0400 Body weight 63.[address] Nasim Barrera Work Phone: [facility] Work Phone: Encounters Encounter Date Encounter Type Care Provider Facility Start: 01-27-2025 End: 01-27-[address] Sapphire Abdi MD Work Phone: -Outpatient Breast Imaging Start: 01-27-2025 End: 01-27-2025 Patient encounter procedure Cherie Castellanos USABILITY SPECIALIST-C -[facility]patient [facility] Work Phone: Start: 01-27-2025 End: 01-27-2025 ambulatory Lissett Blue Facility:[facility] Start: 01-10-2025 End: 01-10-2025 Patient encounter procedure Elena Augustine USABILITY SPECIALISTMagoC -[facility] Work Phone: Start: 01-10-2025 End: 01-10-[address] Sapphire Abdi MD Work Phone: -[facility] Start: 12-18-2024 End: 12-18-[address] Sapphire Abdi MD Work Phone: -Laboratory Start: 12-18-2024 End: 12-18-[address] Maia Johnson MD -Laboratory Work Phone: Start: 12-18-2024 End: 12-18-2024 ambulatory Maia Johnson Facility:[facility] Start: 11-13-2024 End: 11-13-2024 Patient encounter procedure He Hernandes [place] -[facility] Work Phone: Start: 11-13-2024 End: 11-13-[address] Sapphire Abdi MD Work Phone: [facility] Work Phone: Start: 10-15-2024 End: 10-15-[address] Yogi Peoples MD -[facility] Work Phone: Start: 10-15-2024 End: 10-15-[address] Sapphire Abdi MD Work Phone: [facility] Work Phone: Start: 09-03-2024 End: 09-03-[address] Dona Willams MD -[facility] Work Phone: Start: 09-03-2024 End: 09-03-2024 ambulatory Dona Willams Facility:[facility] Start: 08-26-2024 End: 08-26-[address] Yogi Peoples MD -[facility] Work Phone: Start: 08-26-2024 End: 08-26-2024 ambulatory Sapphire Abdi Facility:[facility] Start: 08-09-2024 End: 08-09-[address] Jr Guillaume MD -[facility] Work Phone: Start: 08-09-2024 End: 08-09-2024 ambulatory Jr Guillaume Facility:[facility] Start: 07-30-2024 End: 07-30-2024 ambulatory CHERIE CASTELLANOS Facility:[facility] Start: 07-30-2024 End: 07-30-2024 Patient encounter procedure Cherie Castellanos CEO [employer]EL[employer] MACHINE OPERATOR Work Phone: OB/Gynecology Comment on above: Encounter for gyneco logical examination with abnormal finding (Primary Dx) Start: 07-30-2024 End: 07-30-2024 Patient encounter status Cherie Castellanos CEO [employer] PEELING MACHINE OPERATOR Work Phone: [facility] Start: 07-04-2024 End: 07-04-[address] Yogi Peoples MD -[facility] Work Phone: Start: 07-04-2024 End: 07-04-2024 ambulatory Sapphire S Jolliff Facility:[facility] Start: 06-28-2024 End: 06-28-[address] Maia Johnson MD -Laboratory Work Phone: Start: 06-27-2024 End: 06-27-[address] Yogi Peoples MD -[facility] Work Phone: Start: 06-27-2024 End: 06-27-[address] Nelson De La Paz MD -[facility] Start: 06-27-2024 End: 06-28-2024 ambulatory Maia Johnson Facility:[facility] Start: 06-19-2024 End: 06-19-2024 ambulatory Sapphire S Jolliff Facility:[facility] Start: 06-19-2024 End: 06-19-[address] Donte Nelson DO -[facility] Work Phone: Start: 06-13-2024 End: 06-13-2024 ambulatory Sapphire S Jolliff Facility:[facility] Start: 05-30-2024 End: 05-30-2024 ambulatory Sapphire S Jolliff Facility:[facility] Start: 05-09-2024 End: 05-09-2024 ambulatory Jr Guillaume Facility:[facility] Start: 04-05-2024 End: 04-05-2024 ambulatory Sapphire S Jolliff Facility:[facility] Start: 04-05-2024 End: 04-05-2024 ambulatory Jr Guillaume Facility:[facility] Start: 01-29-2024 End: 01-31-2024 Refill Cherie Castellanos APRN.SHRIMP PEELING MACHINE OPERATOR Work Phone: OB/Gynecology Comment on above: Refill Request Start: 09-08-2023 End: 09-08-2023 ambulatory [facility] Work Phone: Start: 09-08-2023 End: 09-08-2023 Patient encounter procedure [facility] Work Phone: Start: 07-28-2023 End: 07-28-2023 Patient encounter procedure Cherie Castellanos APRN.SHRIMP PEELING MACHINE OPERATOR Work Phone: OB/Gynecology Comment on above: Encounter for gyneco logical examination (general) (routine) without abnormal findings (Primary Dx); Postmenopausal state; HSV infection; Encounter for screening mammogram for malignant neoplasm of breast Start: 07-28-2023 End: 07-28-2023 Patient encounter status Cherie Castellanos APRN.SHRIMP PEELING MACHINE OPERATOR Work Phone: [facility] Start: 05-17-2023 End: 05-17-[address] Nasim Barrera Work Phone: [facility] Work Phone: Start: 05-17-2023 End: 05-17-[address] Nasim Barrera Work Phone: [facility]Laboratory Work Phone: Start: 04-14-2023 End: 04-14-[address] Nasim Barrera Work Phone: [facility] Work Phone: Start: 04-14-2023 End: 04-14-[address] Nasim Barrera Work Phone: [facility] Work Phone: Start: 03-31-2023 End: 03-31-[address] Nasim Barrera Work Phone: [facility] Work Phone: Start: 03-31-2023 End: 03-31-[address] Nasim Barrera Work Phone: [facility] Work Phone: Start: 03-23-2023 End: 03-23-[address] Nasim Barrera Work Phone: [facility] Work Phone: Start: 03-21-2023 End: 03-21-[address] Nasim Barrera Work Phone: [facility] Work Phone: Start: 03-21-2023 End: 03-21-[address] Nasim Barrera Work Phone: [facility] Work Phone: Start: 01-30-2023 End: 01-30-[address] Nasim Barrera Work Phone: [facility] Work Phone: Start: 01-30-2023 End: 01-30-[address] [facility] Start: 01-24-2023 End: 01-24-[address] Nasim Barrera Work Phone: [facility] Work Phone: Start: 01-24-2023 End: 01-24-[address] Nasim Barrera Work Phone: [facility]-Outpatient Breast Imaging Work Phone: Start: 01-02-2023 End: 01-02-[address] Nasim Barrera Work Phone: [facility] Work Phone: Start: 11-30-2022 End: 11-30-2022 ambulatory [facility] Work Phone: Start: 11-30-2022 End: 11-30-2022 [facility] Start: 10-03-2022 End: 10-03-[address] Nasim Barrera Work Phone: [facility] Work Phone: Start: 10-03-2022 End: 10-03-[address] Nasim Barrera Work Phone: [facility]Laboratory Start: 08-30-2022 End: 08-30-[address] [facility] Start: 08-12-2022 End: 08-12-[address] Nasim Barrera Work Phone: [facility] Work Phone: Start: 08-12-2022 End: 08-12-[address] Nasim Barrera Work Phone: [facility] Start: 07-29-2022 End: 07-29-[address] Nasim Barrera Work Phone: [facility] Start: 07-22-2022 End: 07-22-2022 Patient encounter procedure Cherie Castellanos APRN.SHRIMP PEELING MACHINE OPERATOR Work Phone: OB/Gynecology Comment on above: Encounter for gyneco logical examination (general) (routine) without abnormal findings (Primary Dx); HSV infection; Postmenopausal state Start: 07-22-2022 End: 07-22-2022 Patient encounter status Cherie Castellanos APRN.SHRIMP PEELING MACHINE OPERATOR Work Phone: OB/Gynecology Start: 06-16-2022 End: 06-16-2022 ambulatory [facility] Work Phone: Start: 06-16-2022 End: 06-16-2022 Patient encounter procedure [facility] Start: 06-13-2022 Refill Cheriedenton Castellanos DEBORA Work Phone: OB/Gynecology Comment on above: Refill Request Start: 05-19-2022 End: 05-19-2022 ambulatory [facility] Work Phone: Start: 05-19-2022 End: 05-19-2022 Patient encounter procedure [facility], [facility] Start: 05-03-2022 End: 05-03-[address] Nasim Barrera Work Phone: [facility] Work Phone: Start: 05-03-2022 End: 05-03-[address] Nasim Barrera Work Phone: [facility]-Laboratory Start: 04-04-2022 End: 04-04-[address] Nasim Barrera Work Phone: [facility] Work Phone: Start: 04-04-2022 End: 04-04-[address] Nasim Barrera Work Phone: [facility]-Physical Therapy Start: 04-01-2022 End: 04-01-[address] Nasim Barrera Work Phone: [facility] Work Phone: Start: 04-01-2022 End: 04-01-[address] Nasim Barrera Work Phone: [facility]Laboratory Start: 01-20-2022 Non-patient / Non-visit Dr. Chucky Barrera Work Phone: [facility] Start: 01-19-2022 Non-patient / Non-visit Dr. Chucky Barrera Work Phone: [facility] Start: 01-19-2022 End: 01-20-2022 Evaluation and management of inpatient Dr. Nasim Barrera Work Phone: [facility]-Medical Surgical 3 Start: 01-18-2022 End: 01-18-[address] Nasim Barrera Work Phone: [facility]-Outpatient Breast Imaging Start: 11-29-2021 End: 11-29-[address] Nasim Barrera Work Phone: [facility]-Laboratory Start: 11-16-2021 End: 11-16-[address] Nasim Barrera Work Phone: [facility]-Cat Scan, [facility] Start: 10-18-2021 End: 10-18-[address] Nasim Barrera Work Phone: [facility] Start: 10-01-2021 End: 10-01-[address] Nasim Barrera Work Phone: [facility] Start: 09-09-2021 Refill Cherie Castellanos APRN.CNP Work Phone: OB/Gynecology Comment on above: Refill Request Start: 09-01-2021 End: 09-01-2021 Discharged Recurring [facility] Start: 07-16-2021 End: 07-16-2021 [facility] Start: 07-12-2021 End: 07-12-2021 Patient encounter procedure [facility] Procedures Date Procedure Procedure Detail Performing Clinician Start: 01-27-2025 Screening mammography Luisa Abdi MD Work Phone: Start: 06-28-2024 Measurement of renal function Dr. Sapphire Abdi MD Work Phone: Comment on above: GFR Calc Start: 06-27-2024 X-ray of knee, four or more views Dr[address] Sapphire Abdi MD Work Phone: Start: 01-24-2023 Screening mammography Luisa Barrera Work Phone: Start: 07-29-2022 Radiologic examinati on of knee Dr. Nasim Barrera Work Phone: Start: 05-19-2022 Ultrasonography of abdomen Start: 01-19-2022 Plain X-ray of shoulder Dr. Nasim Barrera Work Phone: Start: 01-19-2022 Prosthetic total arthroplasty of left shoulder Dr. Nasim Barrera Work Phone: Start: 01-18-2022 Screening mammography Luisa Barrera Work Phone: Start: 11-16-2021 CT of upper limb wit hout contrast Dr. Nasim Barrera Work Phone: Start: 10-18-2021 Plain X-ray of shoulder Dr. Nasim Barrera Work Phone: Start: 07-22-2013 Mammography [facility] CEO [employer]IMP PEELING MACHINE OPERATOR Work Phone: Start: 06-18-2013 Lipid 1996 panel - S alfredo or Plasma Cherie [place] CEO [employer]RIMP PEELING MACHINE OPERATOR Work Phone: Start: 06-24-2011 Colonoscopy [facility] CEO [employer]RIMP PEELING MACHINE OPERATOR Work Phone: Start: 04-22-2011 Adult depression scr eening assessment Cherie [place] CEO [employer]RIMP PEELING MACHINE OPERATOR Work Phone: Nasal Screen MRSA/MSSA Dr. Noel Barrera Work Phone: Plan of Treatment Date Care Activity Detail Author Start: 2036 RSV Vaccine (1 - 1-dose 75+ series) RSV Vaccine (1 - 1-dose 75+ series) [facility] Start: 07-19-2029 Urine microalbumin profile DTaP,Tdap,Td Vaccine (3 - Td or Tdap) [facility] Start: 07-31-2025 End: 07-31-2025 Patient encounter procedure 07/31/2025 7:00 AM EST Office Visit OB/Gynecology [address] [place] [address] Cherie Castellanos, PRANAV.SHRIMP PEELING MACHINE OPERATOR [address] [place] [address] (Fax) Annual OB/Gynecology Comment on above: Annual Start: 09-01-2024 Screening for malignant neoplasm of colon Cologuard (FIT-DNA) [facility] Start: 07-30-2024 End: 07-30-2024 Patient encounter procedure 07/30/2024 7:00 AM EST Office Visit OB/Gynecology [address] [place] [address] Cherie Castellanos, PRANAV.SHRIMP PEELING MACHINE OPERATOR [address] [place] [address] (Fax) Annual Exam OB/Gynecology Comment on above: Annual Exam Start: 02-04-2024 Influenza vaccination Influenza Vaccine (#1) [facility] Start: 06-05-2023 Depression Assessment Depression Assessment [facility] Start: 06-05-2022 DEPRESSION ASSESSMENT DEPRESSION ASSESSMENT [facility] Start: 02-03-2022 Influenza vaccination INFLUENZA (#1) [facility] Start: 01-20-2022 Oxygen therapy [facility] Work Phone: Start: 01-20-2022 Patient discharge [facility] Work Phone: Start: 01-19-2022 Application of intermittent pneumatic compression device [facility] Work Phone: Start: 01-19-2022 Anes arthroscopic total shoulder replacement ANESTH SHOULDER REPLACEMENT [facility] Work Phone: Start: 01-19-2022 Arthroplasty glenohumeral joint total shoulder RECONSTRUCT SHOULDER JOINT [facility] Work Phone: Start: 01-19-2022 Injection aa&/strd brachial plexus NJX AA&/STRD BRACH PLEXUS [facility] Work Phone: Start: 01-19-2022 Admission procedure [facility] Work Phone: Start: 01-19-2022 Ambulation therapy management [facility] Work Phone: Start: 01-19-2022 Application of device [facility] Work Phone: Start: 01-19-2022 Assessment of risk of venous thromboembolism [facility] Work Phone: Start: 01-19-2022 Catheterization of vein [facility] Work Phone: Start: 01-19-2022 Consultation [facility] Work Phone: Start: 01-19-2022 End: 01-19-2022 Following clinical pathway protocol [facility] Work Phone: Start: 01-19-2022 Incentive spirometry [facility] Work Phone: Start: 01-19-2022 Introduction of urinary catheter [facility] Work Phone: Start: 01-19-2022 Measuring intake and output [facility] Work Phone: Start: 01-19-2022 Neurovascular assessment [facility] Work Phone: Start: 01-19-2022 Patient education [facility] Work Phone: Start: 01-19-2022 Procedure discontinued [facility] Work Phone: Start: 01-19-2022 Provision of activity privileges [facility] Work Phone: Start: 01-19-2022 Referral to occupational therapist [facility] Work Phone: Start: 01-19-2022 Vital signs measurements [facility] Work Phone: Start: 01-19-2022 Wound care [facility] Work Phone: Start: 01-19-2022 [facility] Work Phone: Start: 01-19-2022 Medication education [facility] Work Phone: Start: 01-05-2022 Electrocardiographic procedure [facility] Work Phone: Start: 10-18-2021 Patient referral [facility] Work Phone: Start: 09-02-2021 Screening for malignant neoplasm of colon Colorectal Cancer Screening [facility] Start: 07-10-2021 COVID-19 VACCINE (4 - Booster for Pfizer series) COVID-19 VACCINE (4 - Booster for Pfizer series) [facility] Start: 06-24-2021 Colonoscopy COLONOSCOPY [facility] Start: 06-24-2021 COLORECTAL CANCER SCREENING COLORECTAL CANCER SCREENING [facility] Start: 06-24-2021 Screening for malignant neoplasm of colon [facility] Start: 2021 RSV Vaccine (1 - 1-dose 60+ series) RSV Vaccine (1 - 1-dose 60+ series) [facility] Start: 06-04-2021 COVID-19 VACCINE (4 - Booster for Pfizer series) COVID-19 VACCINE (4 - Booster for Pfizer series) [facility] Start: 05-24-2020 Urine microalbumin profile DTAP,TDAP,TD (2 - Td or Tdap) [facility] Start: 06-18-2018 Lipid panel Lipid Screening [facility] Start: 06-18-2018 LIPID SCREEN LIPID SCREEN [facility] Start: 08-21-2016 DIABETES SCREEN DIABETES SCREEN [facility] Start: 08-21-2016 Diabetes Screening Diabetes Screening [facility] Start: 07-22-2014 Mammography MAMMOGRAM [facility] Start: 07-22-2014 Screening for malignant neoplasm of breast Mammogram Screening [facility] Start: 04-22-2012 Adult depression screening assessment DEPRESSION SCREENING [facility] Start: 2011 Pneumococcal Vaccine: 50+ (1 of 1 - PCV) Pneumococcal Vaccine: 50+ (1 of 1 - PCV) [facility] Start: 2011 SHINGRIX VACCINE (1 of 2) SHINGRIX VACCINE (1 of 2) [facility] Start: 2006 COLOGUARD (FIT-DNA) COLOGUARD (FIT-DNA) [facility] Start: [address] COLONOGRAPHY [facility] Start: 2006 FECAL OCCULT BLOOD FECAL OCCULT BLOOD [facility] Start: 2006 Screening for malignant neoplasm of colon [facility] Start: 2006 SIGMOIDOSCOPY SIGMOIDOSCOPY [facility] Start: 1980 SHINGRIX VACCINE (1 of 2) SHINGRIX VACCINE (1 of 2) [facility] Start: 1979 ANNUAL PCP TEAM CHRONIC DISEASE VISIT ANNUAL PCP TEAM CHRONIC DISEASE VISIT [facility] Start: 1979 Depression Screening Depression Screening [facility] Start: 1979 HEPATITIS C SCREENING HEPATITIS C SCREENING [facility] Start: 1979 Hepatitis C screening Hepatitis C Screening [facility] Start: 1979 HIV SCREENING HIV SCREENING [facility] Start: 1979 HIV screening HIV Screening [facility] Start: 1967 PNEUMOCOCCAL (1 - PCV) PNEUMOCOCCAL (1 - PCV) [facility] Patient referral [facility] Work Phone: [facility] Immunizations Immunization Date Immunization Notes Care Provider Fa cility 06-06-2024 Covid (Spikevax) Dr. Sapphire dawson MD Work Phone: [facility] 02-29-2024 influenza, seasonal, injectable, preservative free Dr. Sapphire Abdi MD Work Phone: [facility] 04-14-2023 Covid (Spikevax) Dr. Vishal Barrera Work Phone: [facility] 03-10-2023 influenza, injectabl e, quadrivalent, preservative free Dr. Nasim Barrera Work Phone: [facility] 03-10-2023 influenza virus vaccine, unspecified formulation Cherie Castellanos APRN.CNP Work Phone: [facility] 03-14-2022 influenza, injectabl e, quadrivalent, preservative free Dr. Nasim Barrera Work Phone: [facility] 03-14-2022 influenza, seasonal, injectable Dr. Nasim Barrera Work Phone: [facility] 02-25-2022 Covid Pfizer Bivalen t Booster Dr. Nasim Barrera Work Phone: [facility] 09-03-2021 Covid (Pfizer) Dr. Madi Barrera Work Phone: [facility] 04-09-2021 Covid (Pfizer) [facility] 03-02-2021 influenza, injectabl e, quadrivalent, preservative free Dr. Nasim Barrera Work Phone: [facility] 03-02-2021 influenza, seasonal, injectable [facility] 03-02-2021 influenza, seasonal, injectable, preservative free Cherie Jasmin CEO [place] [employer]SHRIMP PEELING MACHINE OPERATOR Work Phone: [facility] Work Phone: 03-19-2013 influenza virus vaccine, unspecified formulation Cherie [place] CEO [employer] Work Phone: [facility] 03-07-2011 influenza virus vaccine, unspecified formulation Cherie Jasmin CEO [employer].SHRIMP PEELING MACHINE OPERATOR Work Phone: [facility] 05-24-2010 tetanus toxoid, reduced diphtheria toxoid, and acellular pertussis vaccine, adsorbed Cherie Jasmin CEO [employer].SHRIMP PEELING MACHINE OPERATOR Work Phone: [facility] 03-18-2010 influenza virus vaccine, unspecified formulation Cherie [place] CEO [employer] Work Phone: [facility] Work Phone: Payers Date Payer Category Payer Self-pay [id number] 2022 [facility] [id number] 2020 Private Health Insurance [employer] PPO [id number] 2020-Present [phone] [address] [place] [id number] [facility] [id number] 2020 Private Health Insurance [id number] 2015 Unknown [id number] 2005 Unknown [id number] Private Health Insurance [id number] Unknown [id number] .462 Unknown [id number] 2.16.840.1.953410.3.579.2 .462 Unknown [id number] 2.16.840.1.287159.3.579.2 .462 Unknown [id number] 2.16.840.1.191271.3.579.2 .462 Unknown [id number] 2..840.1.837505.3.579.2 .462 Unknown [id number] 2.16.840.1.544940.3.579.2 .462 Unknown [id number] 2.16.840.1.956623.3.579.2 .462 Unknown [id number] 2.16.840.1.644085.3.579.2 .462 Unknown [id number] 2.16.840.1.989287.3.579.2 .462 Unknown [id number] 2.16.840.1.967245.3.579.2 .462 Unknown [id number] 2.16.840.1.918648.3.579.2 .462 Unknown [id number] 2.16.840.1.030635.3.579.2 .462 Unknown [id number] 2.16.840.1.498913.3.579.2 .462 Unknown [id number] 2.16.840.1.457842.3.579.2 .462 Unknown [id number] 2.16.840.1.855114.3.579.2 .462 Unknown [id number] 2.16.840.1.764778.3.579.2 .462 Unknown [id number] 2.16.840.1.951678.3.579.2 .462 Unknown [id number] 2.16.840.1.670241.3.579.2 .462 Social History Date Type Detail Facility Start: 01-19-2021 End: 03-23-2023 Tobacco smoking status NHIS Unknown if ever smoked [facility] Start: 1960 Sex Assigned At Female [facility] Start: 06-21-2019 End: 10-14-2024 Tobacco smoking status NHIS Never smoked tobacco [facility] Work Phone: Start: 07-05-2021 End: 07-30-2024 Alcohol intake Current drinker of alcohol (finding) [facility] Start: 07-05-2021 End: 07-28-2023 Alcohol intake [facility] Start: 1960 Sex Assigned At Not on file [facility] Start: 06-21-2019 End: 07-28-2023 Tobacco use and exposure Smokeless tobacco non-user [facility] Work Phone: Start: 07-28-2023 End: 07-30-2024 Tobacco use panel [facility] National Score (1-100), lower number is lower risk 69 [facility] NEGATED: Highlighted rowStart: NINF History of tobacco use Passive smoker [facility] Medical Equipment Procedure Code Equipment Code Equipment Origin al Text Equipment Identifier Dates CEMENT,BONE WHITNEY H 1/2 BATCH FDA Start: 01-19-2022 ([id number]) Total shoulder prosthesis ()[id number] [id number] FDA Start: 01-19-2022 ([id number]) Stem-fixed humer al head prosthesis ()[id number] [id number] FDA Start: 01-19-2022 ([id number]) Total shoulder prosthesis ()[id number] [id number] [id number] FDA Start: 01-19-2022 CEMENT,BONE WHITNEY H 1/2 BATCH FDA Start: 01-19-2022 CEMENT,BONE WHITNEY H 1/2 BATCH FDA Start: 01-19-2022 CEMENT,BONE WHITNEY H 1/2 BATCH FDA Start: 01-19-2022 CEMENT,BONE WHITNEY H 1/2 BATCH FDA Start: 01-19-2022 CEMENT,BONE WHITNEY H 1/2 BATCH FDA Start: 01-19-2022 CEMENT,BONE WHITNEY H 1/2 BATCH FDA Start: 01-19-2022 CEMENT,BONE WHITNEY H 1/2 BATCH FDA Start: 01-19-2022 CEMENT,BONE WHITNEY H 1/2 BATCH FDA Start: 01-19-2022 CEMENT,BONE WHITNEY H 1/2 BATCH FDA Start: 01-19-2022 CEMENT,BONE WHITNEY H 1/2 BATCH FDA Start: 01-19-2022 CEMENT,BONE WHITNEY H 1/2 BATCH FDA Start: 01-19-2022 CEMENT,BONE WHITNEY H 1/2 BATCH FDA Start: 01-19-2022 CEMENT,BONE WHITNEY H 1/2 BATCH FDA Start: 01-19-2022 CEMENT,BONE WHITNEY H 1/2 BATCH FDA Start: 01-19-2022 CEMENT,BONE WHITNEY H 1/2 BATCH FDA Start: 01-19-2022 CEMENT,BONE WHITNEY H 1/2 BATCH FDA Start: 01-19-2022 CEMENT,BONE WHITNEY H 1/2 BATCH FDA Start: 01-19-2022 CEMENT,BONE WHITNEY H 1/2 BATCH FDA Start: 01-19-2022 CEMENT,BONE WHITNEY H 1/2 BATCH FDA Start: 01-19-2022 CEMENT,BONE WHITNEY H 1/2 BATCH FDA Start: 01-19-2022 CEMENT,BONE WHITNEY H 1/2 BATCH FDA Start: 01-19-2022 Goals Date Patient Goal Desired Activity /State Functional Status Date Assessment Result Facility 01-20-2022 Functional status Ambulates [facility] Work Phone: 10-14-2013 Are you deaf, or do you have serious difficulty hearing No 10/14/2013 8:11 AM Amina Melendez RN No [facility] 10-14-2013 Are you blind, or do you have serious difficulty seeing, even when wearing glasses No 10/14/2013 8:11 AM Amina Melendez RN [facility] 10-14-2013 Do you have serious difficulty walking or climbing stairs No 10/14/2013 8:11 AM Amina Melendez RN No [facility] 10-14-2013 Do you have difficul ty dressing or bathing No 10/14/2013 8:11 AM Amina Melendez RN No [facility] 10-14-2013 Because of a physica l, mental, or emotional condition, do you have difficulty doing errands alone such as visiting a physician's office or shopping No 10/14/2013 8:11 AM Amina Melendez RN No [facility] Mental Status Date Assessment Result Facility 01-20-2022 Cognitive function Level Of Cons ciousness Awake;Alert;Appropriate;Fol lows Commands [facility] Work Phone: 01-19-2022 Cognitive function Voice/Name [facility] Work Phone: 10-14-2013 Because of a physica l, mental, or emotional condition, do you have serious difficulty concentrating, remembering, or making decisions No 10/14/2013 8:11 AM Amina Melendez RN No [facility] Clinical Notes 04-06-2006 to 11-13-2024 Note Date & Type Note Facility 11-13-2024 Progress note [facility] 11-13-2024 Progress note Note Date/Time November 13, 2024 10:52am [facility] [address], [address] [place] [address] OFFICE VISIT Date of Service: 11/13/24 MR#: [id number] Acct: [id number] Name: MARA BROWNE HARRIETT Rep #: [id number] : 1960 Provider: MIKY Thurman Age/Sex: 64/F Location: [facility] Status: Signed Intake Vital Signs 10/14/24 13:08 11/13/24 10:38 Height 5 ft 5 in BP 120/80 Position Sitting Respiration 16 Pulse 79 Temp 97.9 F Temp Source Oral Pulse Oximetry (%) 96 Oxygen Delivery Method room air Intake Visit Reasons: SINUS COMPLAINT/CONGES/X3 WKS Accompanied by: Self Allergies bee venom protein (honey bee) Allergy (Verified 11/13/24 10:42) swelling Environmental Allergies: Uncoded Allergy (Verified 11/13/24 10:42) Anaphylaxis zolpidem (From Ambien) Allergy (Verified 11/13/24 10:42) dizziness Medications ?Medication ?Instructions ?Recorded ?Confirmed ?Type conjugated estrogens 0.625 mg/gram 1 applic vaginal DC N PRN Vaginal 06/28/17 0 11/13/24 History vaginal cream (Premarin) Dryness gabapentin 300 mg capsule 300 mg PO TID 06/28/1711/13 History (Neurontin) levothyroxine 50 mcg tablet 50 mcg PO DAILY 06/28/17 0 11/13/24 History (Synthroid) multivitamin 1 cap PO QAM 06/28/17 History bupropion HCl 300 mg 24 hr tablet, 300 mg PO DAILY 11/13/24 History extended release (Wellbutrin XL) cholecalciferol (vitamin D3) 25 25 mcg PO DAILY 11/13/24 History mcg (1,000 unit) capsule furosemide 20 mg tablet (Lasix) 20 mg PO DAILY PRN swe lling 10/18/21 11/13/24 History lifitegrast 5 % eye drops in a 1 drp ophthalmic (eye) BID 10/18/21 11/13/24 History dropperette (Xiidra) liothyronine 5 mcg tablet (Cytomel) 5 mcg PO DAILY 11/13/24 History lisinopril 10 mg tablet 10 mg PO DAILY 10/18/2111/03 History Held on 01/20/22. Instructions: Resume on 01/21/22. Okay to resume lisinopril on January 21, 2022 if blood pressure remains greater than 100 mmHg mecobalamin (vitamin B12) 5,000 5,000 mcg PO DAILY 11/13/24 History mcg lozenge metoprolol succinate 25 mg 25 mg PO BID 10/18/2111/13 History tablet,extended release 24 hr Held on 01/20/22. Instructions: Resume on 01/20/22. Okay to resume metoprolol for evening dose hydroxychloroquine 200 mg tablet 200 mg PO DAILY 01/0211/13/24 History (Plaquenil) atorvastatin 10 mg tablet 20 mg PO QPM 04/05/24 History meloxicam 15 mg tablet 15 mg PO QDAY 04/05/2411/13 History valacyclovir 500 mg tablet 500 mg PO QDAY 04/05/2404/29 History azithromycin 250 mg tablet 250 mg PO .COMPLEX #12 tabs 11/13/24 11/13/24 Rx Nurse's Note: Patient has sinus complaint and congestion that has been going on for 3 weeks. Patient states it started off with a virus she believes and she hasn't been ableto kick it. [facility] Medical History (Updated 10/15/24 @ 13:13 by Nicholas Gonzalez MA) Left knee pain Depression History of edema Arthritis of left glenohumeral joint Rheumatoid arthritis Osteopenia Inflammatory polyarthritis Arthritis Hypertension Hypothyroidism Surgical History Hx of cataract surgery History of rhinoplasty History of breast augmentation History of hysterectomy Family History Father CAD (coronary artery disease) COPD (chronic obstructive pulmonary disease) Mother Hypertension Social History household members: spouse Smoking Status: Never smoker alcohol intake: never substance use type: does not use additional social history: no history of blood clots pt denies vaping, denies edibles,denies marijuana use HPI HPI Details: MARA BRITTON, is a 64 F who presents to the office today [facility] for approximately 3-week history of progressively worsening forehead pressure/congestion with purulent postnasal drip and sore throat. No complaints of fever, chills, myalgias, fatigue, runny nose, or nausea/vomiting/diarrhea. No complaints of chest pain/shortness of breath/dyspnea on exertion. Unsure if close contacts with similar complaints. No [id number] medications have been taken to assist with current symptoms. Nonsmoker. No other associated symptoms and no other alleviating/aggravating factors. ROS Const Constitutional: No other (as above) Exam Const General: cooperative, healthy appearing and no acute distress Nutritional Appearance: average body habitus Orientation: alert, awake and oriented x3 HENMT Head: normal to inspection Ears: hearing grossly normal bilaterally, external ears normal, TM's normal bilaterally and EAC's normal Nose: external nose normal, nares normal, septum normal and no nasal discharge Face and sinus: normal facial exam, sinuses tender (bilat frontal) and face symmetric Mouth: oral mucosae normal, lip normal, tongue normal and oropharynx normal Throat: posterior oropharynx normal, tonsils normal, uvula midline and postnasal drainage (scant amount purulent) Eyes General: appearance normal, both eyes and all related structures Neck Neck: normal visual inspection, full ROM, no meningeal signs, supple and no lymphadenopathy Neck mass: No Thyroid: thyroid normal Chest Chest palpation & inspection: normal inspection of the chest Resp Effort & Inspection: normal respiratory effort and able to speak in complete sentences Auscultation: Bilateral: Clear to Auscultation Cardio Palpation: normal PMI Rate: regular rate Rhythm: regular rhythm Heart Sounds: S1 normal, S2 normal, no gallops, no murmurs and no rubs Pulses: radial pulses present GI Inspection: normal to inspection Skin General: no rashes or lesions noted Neuro General: patient alert, patient awake and patient oriented x3 Cognition: normal cognition Speech: speech normal Psych Appearance: grossly normal Mental Status: mental status grossly normal Mood: congruent mood Affect: normal affect Speech and Movement: speech and movement normal Attitude: cooperative Diagnoses Acute frontal sinusitis, unspecified J01.10 Assessment and Plan Assessment and Plan (1) Acute frontal sinusitis, unspecified: Status: Acute Plan: Azithromycin as prescribed today (patient notes having discontinued Plaquenil approximately a month ago). Supportive measures as instructed today. Follow-up with PCP in 3 to 5 days should symptoms not improve, sooner should symptoms worsen or any other concerns develop. Patient states acknowledging understanding all the above. Coding Level of Care Code Off vis,new,level 3 Assessment and Plan Assessment and Plan Medications: New azithromycin 2 tablets (500 mg) on day 1, then 1 tablet daily on days 2 through 11 (pt notes stopping Plaquenil ~10/13/2024) 12 tabs 0RF 11/13/24 1052 <Electronically signed by He BOLAÑOS> Date _ He Ying Signature: Date (if applicable) CC: ~ [facility] Work Phone: 1(819) 189-726905-13-2025 Evaluation note* Diagnosis Onset Date Resolution Status Admit Date Left knee DJD acute October 15, 2 025 12:56pm [facility] Work Phone: 1(640) 692-314205-13-2025 Evaluation note* Diagnosis Onset Date Resolution Status Admit Date Left knee DJD acute October 15, 025 12:56pm Left knee DJD acute January 10, 2025 1:07pm [facility] Work Phone: 1(800) 963-861103-24-2025 Evaluation note* Diagnosis Onset Date Resolution Status Admit Date Left knee DJD acute August 26, 2024 10:51am Neoplasm of uncertain behavi or of skin acute September 03, 2024 3:46pm Skin aging acute September 03 3:46pm Skin atrophy acute September 03 025 3:46pm Left knee DJD acute October 15, 2 025 12:56pm [facility] Work Phone: 1(918) 362-396803-07-2025 Evaluation note* Diagnosis Onset Date Resolution Status Admit Date Tenosynovitis of hand acute Aug 1:57pm Left knee DJD acute August 26, 2024 10:51am Neoplasm of uncertain behavi or of skin acute September 03, 2024 3:46pm Skin aging acute September 03 3:46pm Skin atrophy acute September 03 025 3:46pm Left knee DJD acute October 15, 2 025 12:56pm [facility] Work Phone: 1(974) 806-537202-25-2025 NoteHNO ID: [id number] Author: CHERIE CASTELLANOS APRN.SHRIMP PEELING MACHINE OPERATOR Service: ? Author Type: Nurse Practitioner Type: Progress Notes Filed: 07/30/2024 08:07 Note Text: Mara is a 64 year old who presents for an annual gynecologic exam without complaints. 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 Villatoro RHINP PRIM LATANDALAR CRTLGSAND/ELVTN NASAL TI 10/07/2008 Rhinoplasty SALPINGO-OOPHORECTOMY COMPL/PRTL UNI/BI SPX 2007 endometriosis TOTAL ABDOMINAL HYSTERECT W/WO RMVL TUBE OVARY 2008 endometriosis FAMILY HISTORY Problem Relation Age of Onset Hypertension Mother Lipids Mother DVT Father Coronary Artery Disease Father Triple bypass surgery SOCIAL HISTORY Social History Tobacco Use Smoking status: Never Passive exposure: Never Smokeless tobacco: Never Vaping Use Vaping status: Never Used Substance Use Topics Alcohol use: Yes Drug use: No REVIEW OF SYSTEMS Abdomen: No abdominal pain, nausea, vomiting, diarrhea, or constipation. No bloating, early satiety, indigestion, or increased flatulence. Bladder: No dysuria, gross hematuria, urinary frequency, urinary urgency, or incontinence Breast: No breast lumps, nipple d/c, overlying skin changes, redness or skin retraction Allergies and current medication updated:Yes SENSITIVE EXAM: The sensitive examination was discussed with the Patient or Patient's Authorized Aromatherapist. As applicable, any other physician, advance practice provider, medical student, or other health professional student that will be observing or involved in the sensitive examination for educational or training purposes was discussed with the Patient or Authorized Aromatherapist. The Patient or Authorized Aromatherapist has agreed to proceed with the sensitive examination. (Sensitive examination includes inspection and/or palpation of the breasts, pelvis, prostate and anorectal regions). EXAM: BP 116/82 Ht 5' 4.75 (1.65m) Wt 145 lb (65.8kg) LMP 09/09/2005 BMI 24.31 kg/(m2). GENERAL: pleasant, female in no apparent distress HEENT: Normocephalic, atraumatic, mucus membranes moist, and no lesions DERMATOLOGY: Normal, without lesions, non-icteric, and non-hirsute BREAST: soft, non-tender, symmetric, no dominant mass, normal nipple-areolar complex, no lymphadenopathy, no nipple discharge, and surgical implants CHEST: Normal inspiratory effort ABDOMEN: soft, non-tender, and no masses PELVIC: external genitalia normal, normal Bartholin's glands, urethra, Village Shires's glands, no vulvar lesions, physiologic discharge present, normal appearing perineal body and perianal region, cervix surgically absent BIMANUAL: non-tender and uterus surgically absent RECTOVAGINAL: deferred. NEURO: alert and oriented x3,exam grossly non-focal EXTREMITIES: normal ASSESSMENT/PLAN: 1) Health maintenance: Pap/HPV screening no longer needed Mammogram ordered Nutrition, exercise and routine health maintenance exams reviewed. Calcium/Vitamin D supplementation information provided. Colon cancer screening: up to date with screening 2) Follow up one year or sooner as needed [facility]rie Castellanos APRN.[facility] History of Present illness Narrative* Cherie Castellanos APRN.SHRIMP PEELING MACHINE OPERATOR - 07/30/2024 6:52 AM EST Mara is a 64 year old who presents for an annual gynecologic exam without complaints. 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 Villatoro RHINP PRIM LAT&ALAR CRTLGS&/ELVTN NASAL TI 10/07/2008 Rhinoplasty SALPINGO-OOPHORECTOMY COMPL/PRTL UNI/BI SPX 2007 endometriosis TOTAL ABDOMINAL HYSTERECT W/WO RMVL TUBE OVARY 2007 endometriosis FAMILY HISTORY Problem Relation Age of Onset Hypertension Mother Lipids Mother DVT Father Coronary Artery Disease Father Triple bypass surgery SOCIAL HISTORY Social History Tobacco Use Smoking status: Never Passive exposure: Never Smokeless tobacco: Never Vaping Use Vaping status: Never Used Substance Use Topics Alcohol use: Yes Drug use: No REVIEW OF SYSTEMS Abdomen: No abdominal pain, nausea, vomiting, diarrhea, or constipation. No bloating, early satiety, indigestion, or increased flatulence. Bladder: No dysuria, gross hematuria, urinary frequency, urinary urgency, or incontinence Breast: No breast lumps, nipple d/c, overlying skin changes, redness or skin retraction Allergies and current medication updated:Yes SENSITIVE EXAM: The sensitive examination was discussed with the Patient or Patient's Authorized Aromatherapist. As applicable, any other physician, advance practice provider, medical student, or other health professional student that will be observing or involved in the sensitive examination for educational or training purposes was discussed with the Patient or Authorized Aromatherapist. The Patient or Authorized Aromatherapist has agreed to proceed with the sensitive examination. (Sensitive examination includes inspection and/or palpation of the breasts, pelvis, prostate and anorectal regions). EXAM: BP 116/82 Ht 5' 4.75 (1.65m) Wt 145 lb (65.8kg) LMP 09/09/2005 BMI 24.31 kg/(m^2). GENERAL: pleasant, female in no apparent distress HEENT: Normocephalic, atraumatic, mucus membranes moist, and no lesions DERMATOLOGY: Normal, without lesions, non-icteric, and non-hirsute BREAST: soft, non-tender, symmetric, no dominant mass, normal nipple-areolar complex, no lymphadenopathy, no nipple discharge, and surgical implants CHEST: Normal inspiratory effort ABDOMEN: soft, non-tender, and no masses PELVIC: external genitalia normal, normal Bartholin's glands, urethra, [place] Shires's glands, no vulvar lesions, physiologic discharge present, normal appearing perineal body and perianal region, cervix surgically absent BIMANUAL: non-tender and uterus surgically absent RECTOVAGINAL: deferred. NEURO: alert and oriented x3,exam grossly non-focal EXTREMITIES: normal ASSESSMENT/PLAN: 1) Health maintenance: Pap/HPV screening no longer needed Mammogram ordered Nutrition, exercise and routine health maintenance exams reviewed. Calcium/Vitamin D supplementation information provided. 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 Work Phone: [phone] 962-552708-26-2024 Telephone encounter Note* Telephone Encounter - Payal Prince RN - 01/29/2024 4:37 PM EDT Patient calling requesting a refill on her premarin cream. Patient last seen for annual exam on 07/28/23. Patient aware provider is not bad in the office until . Payal Prince RN [facility]08-26-[facility]24 Miscellaneous Notes* Telephone Encounter - Payal Prince RN - 01/29/2024 4:37 PM EDT Patient calling requesting a refill on her premarin cream. Patient last seen for annual exam on 07/28/23. Patient aware provider is not bad in the office until . Payal Prince RN [facility] History of Present illness Narrative* Cherie Castellanos APRN.SHRIMP PEELING MACHINE OPERATOR - 07/28/2023 6:55 AM EST Certified Rehabilitation Counselor offered: Patient declinesErik Walton is a 63 year old who presents for an annual gynecologic exam without complaints. 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 Villatoro RHINP PRIM LAT&ALAR CRTLGS&/ELVTN NASAL TI 10/07/2008 Rhinoplasty SALPINGO-OOPHORECTOMY COMPL/PRTL UNI/BI SPX 2008 endometriosis TOTAL ABDOMINAL HYSTERECT W/WO RMVL TUBE OVARY 2008 endometriosis FAMILY HISTORY Problem Relation Age of Onset Hypertension Mother Lipids Mother DVT Father Coronary Artery Disease Father Triple bypass surgery SOCIAL HISTORY Social History Tobacco Use Smoking status: Never Passive exposure: Never Smokeless tobacco: Never Vaping Use Vaping Use: Never used Substance Use Topics Alcohol use: Yes Drug use: No REVIEW OF SYSTEMS Abdomen: No abdominal pain, nausea, vomiting, diarrhea, or constipation. No bloating, early satiety, indigestion, or increased flatulence. Bladder: No dysuria, gross hematuria, urinary frequency, urinary urgency, or incontinence Breast: No breast lumps, nipple d/c, overlying skin changes, redness or skin retraction Allergies and current medication updated:Yes EXAM: Ht 5' 5 (1.65m) Wt 138 lb (62.6kg) LMP 09/09/2005 BMI 22.96 kg/(m^2). GENERAL: pleasant, female in no apparent distress HEENT: Normocephalic, atraumatic, mucus membranes moist, and no lesions NECK: Supple, full range of motion, no adenopathy, and thyroid normal DERMATOLOGY: Normal, without lesions, non-icteric, and non-hirsute BREAST: soft, non-tender, symmetric, no dominant mass, normal nipple-areolar complex, no lymphadenopathy, and no nipple discharge CHEST: Normal inspiratory effort ABDOMEN: soft, non-tender, and no masses PELVIC: external genitalia normal, normal Bartholin's glands, urethra, [place] Shires's glands, no vulvar lesions, physiologic discharge present, normal appearing perineal body and perianal region, cervix surgically absent BIMANUAL: no adnexal masses, non-tender, and uterus surgically absent RECTOVAGINAL: deferred. NEURO: alert and oriented x3,exam grossly non-focal EXTREMITIES: normal ASSESSMENT/PLAN: 1) Health maintenance: Pap/HPV screening no longer needed Mammogram ordered Mammogram up to date Nutrition, exercise and routine health maintenance exams reviewed. Calcium/Vitamin D supplementation information provided. 2) Follow up one year or sooner as needed Cherie Castellanos APRN.CNP documented [facility] encounter[facility]02-[facility] History of Present illness Narrative* Cherie Castellanos APRN.SHRIMP PEELING MACHINE OPERATOR - 07/22/2022 2:25 PM EST Certified Rehabilitation Counselor offered: Patient declinesErik Walton is a 62 year old who presents for an annual gynecologic exam without complaints. 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 Villatoro RHINP PRIM LAT&ALAR CRTLGS&/ELVTN NASAL TI 10/07/2008 Rhinoplasty SALPINGO-OOPHORECTOMY COMPL/PRTL UNI/BI SPX 2007 endometriosis TOTAL ABDOMINAL HYSTERECT W/WO RMVL TUBE OVARY 2008 endometriosis FAMILY HISTORY Problem Relation Age of Onset Hypertension Mother Lipids Mother DVT Father Coronary Artery Disease Father Triple bypass surgery SOCIAL HISTORY Social History Tobacco Use Smoking status: Never Smokeless tobacco: Never Vaping Use Vaping Use: Never used Substance Use Topics Alcohol use: Yes Alcohol/week: 60.0 standard drinks Drug use: No REVIEW OF SYSTEMS Abdomen: No abdominal pain, nausea, vomiting, diarrhea, or constipation. No bloating, early satiety, indigestion, or increased flatulence. Bladder: No dysuria, gross hematuria, urinary frequency, urinary urgency, or incontinence Breast: No breast lumps, nipple d/c, overlying skin changes, redness or skin retraction Allergies and current medication updated:Yes EXAM: BP 118/68 Wt 130 lb (59.0kg) LMP 09/09/2005 GENERAL: pleasant, female in no apparent distress HEENT: Normocephalic, atraumatic, and no lesions NECK: Supple, full range of motion, no adenopathy, and thyroid normal DERMATOLOGY: Normal, without lesions, non-icteric, and non-hirsute BREAST: soft, non-tender, symmetric, no dominant mass, normal nipple-areolar complex, no lymphadenopathy, and no nipple discharge CHEST: Normal inspiratory effort ABDOMEN: soft, non-tender, and no masses PELVIC: external genitalia normal, normal Bartholin's glands, urethra, [place] Shires's glands, no vulvar lesions, physiologic discharge present, normal appearing perineal body and perianal region, cervix surgically absent, atrophic changes BIMANUAL: no adnexal masses, non-tender, and uterus surgically absent RECTOVAGINAL: deferred. NEURO: alert and oriented x3,exam grossly non-focal EXTREMITIES: normal ASSESSMENT/PLAN: 1) Health maintenance: Pap/HPV screening no longer needed Mammogram up to date Nutrition, exercise and routine health maintenance exams reviewed. Calcium/Vitamin D supplementation information provided. Colon cancer screening: up to date with screening- Cologuard 2021 negative 2) Follow up one year or sooner as needed Cherie Castellanos APRN.VIRGIE documented [facility]01-[facility]23 Miscellaneous Notes* Telephone Encounter - Magaly Agosto RN - 06/13/2022 2:40 PM EST Annual scheduled RM 07/22/22. Requested Prescriptions Pending Prescriptions Disp Refills valACYclovir (VALTREX) 500 mg tablet 90 tablet 0 Sig: Take 1 tablet by mouth once daily. RX INSTRUCTIONS: Patient aware RX will be sent to pharmacy. No need to notify patient. Magaly Agosto RN documented in [facility] encounterWood [facility]04-07-2022 Miscellaneous Notes* Telephone Encounter - Jeri Tolliver LPN - 09/09/2021 3:12 PM EDT Patient called stating that she needs a 90 day Rx for Valacyclovir sent to [facility]. Last appointment was 07/05/2021 documented [facility] encounter[facility]12-27-2011 History of Past illness Narrative* Problem Noted Date Diagnosed Date Resolved Date Encounter for screening for malignant neoplasm of intestinal tract 05/31/2011 07/28/2023 Other plastic surgery for un acceptable cosmetic appearance 07/30/2007 07/28/2023 Sprain of neck 04/06/2006 05/13/2010 Sprain and strain of other s pecified sites of shoulder and upper arm 02/16/2006 05/13/2010 JOINT PAIN-SHLDER - RIGHT 10/10/2005 documented as of this encounter (statuses as of 07/28/2023) [facility] History of Past illness Narrative* Problem Noted Date Resolved Date Sprain of neck 04/06/2006 05/13/2010 Sprain and strain of other s pecified sites of shoulder and upper arm 02/16/2006 05/13/2010 JOINT PAIN-SHLDER - RIGHT 10/10/20052009 documented as of this encounter (statuses as of 09/09/2021) [facility] History of Past illness Narrative* Problem Noted Date Resolved Date Sprain of neck 04/06/2006 05/13/2010 Sprain and strain of other s pecified sites of shoulder and upper arm 02/16/2006 05/13/2010 JOINT PAIN-SHLDER - RIGHT 10/10/20052009 documented as of this encounter (statuses as of 2022) [address]02-2006 History of Past illness Narrative* Problem Noted Date Resolved Date Sprain of neck 04/06/2006 05/13/2010 Sprain and strain of other s pecified sites of shoulder and upper arm 02/16/2006 05/13/2010 JOINT PAIN-SHLDER - RIGHT 10/10/20052009 documented as of this encounter (statuses as of 07/22/2022) [facility] noteNo assessment information availableWRegency Hospital [facility] Work Phone: evaluation note* Diagnosis HSV infection Herpes simplex without mention of complication documented in this encounter [facility]* Diagnosis Onset Date Resolution Status Arthritis of left glenohumeral joint acute [facility] Work Phone: evaluation note* Diagnosis Onset Date Resolution Status Arthritis of left glenohumeral joint acute Arthritis of left glenohumeral joint acute Status post total replacement of left shoulder acute [facility] Work Phone: Evaluation note* Diagnosis Onset Date Resolution Status Arthritis of left glenohumeral joint acute Status post total replacement of left shoulder acute [facility] Work Phone: evaluation note* Diagnosis HSV infection Herpes simplex without mention of complication documented [facility] this encounter [facility]* Diagnosis Encounter for gynecological examination (general) (routine) without abnormal findings- Primary HSV infection Herpes simplex without mention of complication Postmenopausal state Asymptomatic postmenopausal status (age-related) (natural) documented in this encounter [facility]* Diagnosis Onset Date Resolution Status Primary osteoarthritis of left knee acute [facility] Work Phone: evaluation note* Diagnosis Onset Date Resolution Status Primary osteoarthritis of left knee acute Acute sinusitis [facility] Work Phone: evaluation note* Diagnosis Encounter for gynecological examination (general) (routine) without abnormal findings- Primary Postmenopausal state Asymptomatic postmenopausal status (age-related) (natural) HSV infection Herpes simplex without mention of complication Encounter for screening mammogram for malignant neoplasm of breast Other screening mammogram documented in this encounter [facility]* Diagnosis HYPERLIPIDEMIA NEC/NOS Other and unspecified hyperlipidemia Insomnia Insomnia, unspecified Postmenopausal state Asymptomatic postmenopausal status (age-related) (natural) Postmenopausal state Asymptomatic postmenopausal status (age-related) (natural) documented in this encounter [facility]* Diagnosis Onset Date Resolution Status Acute sinusitis acute [facility] Work Phone: Evaluation note* Diagnosis HYPERLIPIDEMIA NEC/NOS Other and unspecified hyperlipidemia Insomnia Insomnia, unspecified Postmenopausal state Asymptomatic postmenopausal status (age-related) (natural) Encounter for gynecological examination with abnormal finding- Primary Routine gynecological examination documented in this encounter [facility] for referral (narrative)No reason for referral information availableSt. [facility] Work Phone: Chief Complaint and Reason for Visit Chief Complaint ARTHRITIS/PAIN- COPY PCP LT SHOULDER/ NECK PAIN. RX HERE Chief Complaint LT SHOULDER/ NECK PA IN. RX HERE 2 DRS / 2 ORDERS LEFT SHOULDER xray LT SHOULDER *BIN-SITE PROTOCOL* Reason for Visit Arthritis of left gl enohumeral joint Chief Complaint 2 DRS / 2 ORDERS LEFT SHOULDER xray LT SHOULDER *BIN-SITE PROTOCOL* Screening mammogram LT ANATOMIC TOTAL SHOULDER LT ANATOMIC TOTAL SHOULDER LT ANATOMIC TOTAL SHOULDER Reason for Visit Arthritis of left gl enohumeral joint Arthritis of left glenohumeral joint Status post total replacement of left shoulder Chief Complaint Screening mammogram LT ANATOMIC TOTAL SHOULDER LT ANATOMIC TOTAL SHOULDER LT ANATOMIC TOTAL SHOULDER LT SHOULDER REPLACEMENT. DR OFFICE TO FAX ORDER Reason for Visit Arthritis of left gl enohumeral joint Status post total replacement of left shoulder Chief Complaint LT SHOULDER REPLACEM ENT. DR OFFICE TO FAX ORDER ELEVATED LIVER ENZYMES Chief Complaint ELEVATED LIVER ENZYM ES LEFT KNEE Rm 1 xray Reason for Visit Primary osteoarthrit is of left knee Chief Complaint LEFT KNEE Rm 1 xray Reason for Visit Primary osteoarthrit is of left knee Chief Complaint cmp Chief Complaint cmp LEFT KNEE SCREENING Reason for Visit Primary osteoarthrit is of left knee Chief Complaint cmp LEFT KNEE SCREENING PAIN- COPY PCP POSSIBLE SINUS INFECTION Reason for Visit Primary osteoarthrit is of left knee Acute sinusitis Chief Complaint LEFT KNEE SCREENING PAIN- COPY PCP POSSIBLE SINUS INFECTION PAIN- COPY PCP Reason for Visit Primary osteoarthrit is of left knee Acute sinusitis Chief Complaint SCREENING PAIN- COPY PCP POSSIBLE SINUS INFECTION PAIN- COPY PCP Reason for Visit Acute sinusitis Chief Complaint Admit Date LEFT KNEE June 19, 2024 3 :20pm XRAY June 27, 2024 1 :59pm LEFT KNEE June 27, 2024 3 :45pm LEFT KNEE July 04, 2024 1 1:19am 2 M FU August 09, 2024 1:57 pm LEFT KNEE August 26, 2024 10: 51am SKIN CHECK September 03, 2024 3:46 pm LEFT KNEE October 15, 2024 12:56 pm Reason for Visit Admit Date Left knee DJD June 19, 2024 3 :20pm Left knee DJD June 27, 2024 3 :45pm Left knee DJD July 04, 2024 1 1:19am Tenosynovitis of hand August 09, 2024 1: 57pm Left knee DJD August 26, 2024 10: 51am Neoplasm of uncertain behavior of skin A pril 2024 3:46pm Skin aging September 03, 2024 3:46 pm Skin atrophy September 03, 2024 3:46 pm Left knee DJD October 15, 2024 12:56 pm Chief Complaint Admit Date 2 M FU August 09, 2024 1:57 pm LEFT KNEE August 26, 2024 10: 51am SKIN CHECK September 03, 2024 3:46 pm LEFT KNEE October 15, 2024 12:56 pm SINUS COMPLAINT/CONGES/X3 WKS November 13, 2024 10:38am Reason for Visit Admit Date Tenosynovitis of hand August 09, 2024 1: 57pm Left knee DJD August 26, 2024 10: 51am Neoplasm of uncertain behavior of skin A pril 2024 3:46pm Skin aging September 03, 2024 3:46 pm Skin atrophy September 03, 2024 3:46 pm Left knee DJD October 15, 2024 12:56 pm Chief Complaint Admit Date LEFT KNEE August 26, 2024 10: 51am SKIN CHECK September 03, 2024 3:46 pm LEFT KNEE October 15, 2024 12:56 pm SINUS COMPLAINT/CONGES/X3 WKS November 13, 2024 10:38am Reason for Visit Admit Date Left knee DJD August 26, 2024 10: 51am Neoplasm of uncertain behavior of skin A pril 2024 3:46pm Skin aging September 03, 2024 3:46 pm Skin atrophy September 03, 2024 3:46 pm Left knee DJD October 15, 2024 12:56 pm Chief Complaint Admit Date LEFT KNEE October 15, 2024 12:56 pm SINUS COMPLAINT/CONGES/X3 WKS November 13, 2024 10:38am LEFT KNEE January 10, 2025 1:0 7pm Reason for Visit Admit Date Left knee DJD October 15, 2024 12:56 pm Chief Complaint Admit Date LEFT KNEE October 15, 2024 12:56 pm SINUS COMPLAINT/CONGES/X3 WKS November 13, 2024 10:38am LEFT KNEE January 10, 2025 1:0 7pm SCREENING January 27, 2025 7: 17am Reason for Visit Admit Date Left knee DJD October 15, 2024 12:56 pm Left knee DJD January 10, 2025 1:0 7pm Family History No Family History Records Found Relationship Condition Age at Onset Recorded Date/T constance father Coronary artery disease Unknown Chronic obstructive pulmonary disease Unk nown mother Hypertension Unknown Advance Directives No Advanced Directives Records Found Advance Directive Response Recorded Date/ Time Living Will No January 19 11:20am Power of Agricultural Sales Representative No January 19, 2 021 11:20am Documents on File Type Date Recorded 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 Advance Directive(s) Advance Directive Response Recorded Date/ Time Living Will No January 05, 2022 11:17am Power of Agricultural Sales Representative No January 05 11:17am Advance Directive Response Recorded Date/ Time Living Will No January 05, 2022 10:17am Power of Agricultural Sales Representative No January 05 10:17am Summary Purpose Additional Source Comments Goals (unrecognized section and content) Goals may be documented in a n alternate sectionGoals may be documented in an alternate sectionGoals may be documented in an alternate sectionGoals may be documented in an alternate sectionGoals may be documented in an alternate sectionGoals may be documented in an alternate sectionGoals may be documented in an alternate sectionGoals may be documented in an alternate sectionGoals may be documented in an alternate sectionGoals may be documented in an alternate sectionGoals may be documented in an alternate sectionGoals may be documented in an alternate sectionGoals may be documented in an alternate sectionGoals may be documented in an alternate sectionGoals may be documented in an alternate sectionGoals may be documented in an alternate sectionGoals may be documented in an alternate sectionGoals may be documented in an alternate sectionGoals may be documented in an alternate sectionGoals may be documented in an alternate section Source Comments (unrecognize d section and content) In the event this informatio n is protected by the Federal Confidentiality of Alcohol and Drug Abuse Patient Records regulations: The Federal rules restrict any use of the information to criminally investigate or prosecute any alcohol or drug abuse patient.[facility] the event this information is protected by the Federal Confidentiality of Alcohol and Drug Abuse Patient Records regulations: The Federal rules restrict any use of the information to criminally investigate or prosecute any alcohol or drug abuse patient.[facility] the event this information is protected by the Federal Confidentiality of Alcohol and Drug Abuse Patient Records regulations: The Federal rules restrict any use of the information to criminally investigate or prosecute any alcohol or drug abuse patient.[facility] the event this information is protected by the Federal Confidentiality of Alcohol and Drug Abuse Patient Records regulations: The Federal rules restrict any use of the information to criminally investigate or prosecute any alcohol or drug abuse patient.[facility] the event this information is protected by the Federal Confidentiality of Alcohol and Drug Abuse Patient Records regulations: The Federal rules restrict any use of the information to criminally investigate or prosecute any alcohol or drug abuse patient.[facility] the event this information is protected by the Federal Confidentiality of Alcohol and Drug Abuse Patient Records regulations: The Federal rules restrict any use of the information to criminally investigate or prosecute any alcohol or drug abuse patient.[facility] Reason for Visit (unrecogniz ed section and content) Reason Onset Date Comments Refill Request 09/09/2021 Reason Onset Date Comments Refill Request 06/13/2022 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 Nasim Barrera MD Family Provider Active Dr. Nasim Barrera MD Primary Care Provider Activ e Team Status: Inactive Member Role Status Dates Dr. Nasim Barrera MD Primary Care Provider Activ e Faisal BOLAÑOS PA-C Attending Provider, Referring Pr ovider Active MECHE LOJA Active Team Status: Inactive Member Role Status Dates Dr. Nasim Barrera MD Primary Care Provider Activ e Dr. Maia Johnson MD Attending Provider, Referring Provider Active Team Status: Inactive Member Role Status Dates Dr. Nasim Barrera MD Primary Care Provider Activ e Dr. Maia Johnson MD Attending Provider Active Bone Puller Relationship Specialty Start Date End Date Huber Ortiz PCP - General Internal Medicine 05/13/10 Team Status: Inactive Member Role Status Dates Dr. Nasim Barrera MD Primary Care Provider, Refe rring Provider Active Jayda BOLAÑOS PA Attending Provider Active Team Status: Inactive Member Role Status Dates Dr. Nasim Barrera MD Primary Care Provider Activ e Dr. Nelson De La Paz MD Attending Provider Active Team Status: Inactive Member Role Status Dates Dr. Nasim Barrera MD Primary Care Provider, Attending Provider, Referring Provider Active Team Status: Inactive Member Role Status Dates Dr. Nasim Barrera MD Primary Care Provider Activ e Dr. Sapphire Abdi MD Attending Provider, Referring P joan Active Team Status: Active Member Role Status Dates Dr. Nasim Barrera MD Primary Care Provider Activ e Dr. Maia Johnson MD Attending Provider, Referring Provider Active Team Status: Inactive Member Role Status Dates Dr. Nasim Barrera MD Primary Care Provider, Refe rring Provider Active Norberto BOLAÑOS PA Attending Provider Active Bone Puller Relationship Specialty Start Date End Date Huber Ortiz PCP - General Internal Medicine 05/13/10 Team Status: Active Member Role Status Dates Dr. Miguel Ángel Barrera MD Family Provider Active Dr. Miguel Ángel Barrera MD Primary Care Provider Acti ve Team Status: Inactive Member Role Status Dates Dr. Miguel Ángel Barrera MD Primary Care Provider Acti ve Dr. Maia Johnson MD Attending Provider, Referring Provider Active Bone Puller Relationship Specialty Start Date End Date Huber Ortiz PCP - General Internal Medicine 05/13/10 Bone Puller Relationship Specialty Start Date End Date Huber Ortiz PCP - General Internal Medicine 05/13/10 Team Status: Active Member Role Status Dates Dr. Miguel Ángel Barrera MD Family Provider Active Dr. Sapphire Abdi MD Primary Care Provider Active Team Status: Inactive Member Role Status Dates Dr. Sapphire Abdi MD Primary Care Provider Active Start: June 19, 2024 End: June 19, 2024 Dr. Sapphire Abdi MD Referring Provider Active Start: June 19, 2024 End: June 19, 2024 Dr. Donte Nelson DO Attending Provider Active Start: June 19, 2024 End: June 19, 2024 Team Status: Inactive Member Role Status Dates Dr. Sapphire Abdi MD Primary Care Provider Active Start: June 27, 2024 End: June 27, 2024 Dr. Nelson De La Paz MD Attending Provider Active S tart: June 27, 2024 End: June 27, 2024 Team Status: Inactive Member Role Status Dates Dr. Sapphire Abdi MD Primary Care Provider Active Start: June 27, 2024 End: June 27, 2024 Dr. Sapphire Abdi MD Referring Provider Active Start: June 27, 2024 End: June 27, 2024 Yogi Peoples MD Attending Provider Active St art: June 27, 2024 End: June 27, 2024 Team Status: Inactive Member Role Status Dates Dr. Sapphire Abdi MD Primary Care Provider Active Start: June 28, 2024 End: June 28, 2024 Dr. Maia Johnson MD Attending Provider Active Start: June 28, 2024 End: June 28, 2024 Dr. Maia Johnson MD Referring Provider Active Start: June 28, 2024 End: June 28, 2024 Team Status: Inactive Member Role Status Dates Dr. Sapphire Abdi MD Primary Care Provider Active Start: July 04, 2024 End: July 04, 2024 Dr. Sapphire Abdi MD Referring Provider Active Start: July 04, 2024 End: July 04, 2024 Yogi Peoples MD Attending Provider Active St art: July 04, 2024 End: July 04, 2024 Team Status: Inactive Member Role Status Dates Dr. Sapphire Abdi MD Primary Care Provider Active Start: August 09, 2024 End: August 09, 2024 Dr. Jr Guillaume MD Attending Provider Active Start: August 09, 2024 End: August 09, 2024 Dr. Jr Guillaume MD Referring Provider Active Start: August 09, 2024 End: August 09, 2024 Team Status: Inactive Member Role Status Dates Dr. Sapphire Abdi MD Primary Care Provider Active Start: August 26, 2024 End: August 26, 2024 Dr. Sapphire Abdi MD Referring Provider Active Start: August 26, 2024 End: August 26, 2024 Yogi Peoples MD Attending Provider Active St art: August 26, 2024 End: August 26, 2024 Team Status: Inactive Member Role Status Dates Dr. Sapphire Abdi MD Primary Care Provider Active Start: September 03, 2024 End: September 03, 2024 Dr. Sapphire Abdi MD Referring Provider Active Start: September 03, 2024 End: September 03, 2024 Dr. Dona Willams MD Attending Provider Active Start: September 03, 2024 End: September 03, 2024 Team Status: Inactive Member Role Status Dates Dr. Sapphire Abdi MD Primary Care Provider Active Start: October 15, 2024 End: October 15, 2024 Dr. Sapphire Abdi MD Referring Provider Active Start: October 15, 2024 End: October 15, 2024 Yogi Peoples MD Attending Provider Active St art: October 15, 2024 End: October 15, 2024 Team Status: Inactive Member Role Status Dates Dr. Sapphire Abdi MD Primary Care Provider Active Start: November 13, 2024 End: November 13, 2024 Dr. Sapphire Abdi MD Referring Provider Active Start: November 13, 2024 End: November 13, 2024 He BOLAÑOS, PA Attending Provider Active Start: November 13, 2024 End: November 13, 2024 Team Status: Active Member Role/Relationship Status Dates Dr. Miguel Ángel Barrera MD Family Provider Active Dr. Sapphire Abdi MD Primary Care Provider Active Team Status: Inactive Member Role/Relationship Status Dates Dr. Sapphire Abdi MD Primary Care Provider Active Start: August 26, 2024 End: August 26, 2024 Dr. Sapphire Abdi MD Referring Provider Active Start: August 26, 2024 End: August 26, 2024 Yogi Peoples MD Attending Provider Active St art: August 26, 2024 End: August 26, 2024 Team Status: Inactive Member Role/Relationship Status Dates Dr. Sapphire Abdi MD Primary Care Provider Active Start: September 03, 2024 End: September 03, 2024 Dr. Sapphire Abdi MD Referring Provider Active Start: September 03, 2024 End: September 03, 2024 Dr. Dona Willams MD Attending Provider Active Start: September 03, 2024 End: September 03, 2024 Team Status: Inactive Member Role/Relationship Status Dates Dr. Sapphire Abdi MD Primary Care Provider Active Start: October 15, 2024 End: October 15, 2024 Dr. Sapphire Abdi MD Referring Provider Active Start: October 15, 2024 End: October 15, 2024 Yogi Peoples MD Attending Provider Active St art: October 15, 2024 End: October 15, 2024 Team Status: Inactive Member Role/Relationship Status Dates Dr. Sapphire Abdi MD Primary Care Provider Active Start: November 13, 2024 End: November 13, 2024 Dr. Sapphire Abdi MD Referring Provider Active Start: November 13, 2024 End: November 13, 2024 He BOLAÑOS PA Attending Provider Active Start: November 13, 2024 End: November 13, 2024 Team Status: Inactive Member Role/Relationship Status Dates Dr. Sapphire Abdi MD Primary Care Provider Active Start: December 18, 2024 End: December 18, 2024 Dr. Maia Johnson MD Attending Provider Active Start: December 18, 2024 End: December 18, 2024 Dr. Maia Johnson MD Referring Provider Active Start: December 18, 2024 End: December 18, 2024 Team Status: Active Member Role/Relationship Status Dates Dr. Sapphire Abdi MD Primary Care Provider Active Team Status: Inactive Member Role/Relationship Status Dates Dr. Sapphire Abdi MD Primary Care Provider Active Start: October 15, 2024 End: October 15, 2024 Dr. Sapphire Abdi MD Referring Provider Active Start: October 15, 2024 End: October 15, 2024 Yogi Peoples MD Attending Provider Active St art: October 15, 2024 End: October 15, 2024 Team Status: Inactive Member Role/Relationship Status Dates Dr. Sapphire Abdi MD Primary Care Provider Active Start: November 13, 2024 End: November 13, 2024 Dr. Sapphire Abdi MD Referring Provider Active Start: November 13, 2024 End: November 13, 2024 He BOLAÑOS PA Attending Provider Active Start: November 13, 2024 End: November 13, 2024 Team Status: Inactive Member Role/Relationship Status Dates Dr. Sapphire Abdi MD Primary Care Provider Active Start: December 18, 2024 End: December 18, 2024 Dr. Maia Johnson MD Attending Provider Active Start: December 18, 2024 End: December 18, 2024 Dr. Maia Johnson MD Referring Provider Active Start: December 18, 2024 End: December 18, 2024 Team Status: Inactive Member Role/Relationship Status Dates Dr. Sapphire Abdi MD Primary Care Provider Active Start: January 10, 2025 End: January 10, 2025 Dr. Sapphire Abdi MD Referring Provider Active Start: January 10, 2025 End: January 10, 2025 Elena Augustine NP-C Attending Provider Active Start: January 10, 2025 End: January 10, 2025 Team Status: Active Member Role/Relationship Status Dates Lissett Blue MD Primary Care Provider Active Team Status: Inactive Member Role/Relationship Status Dates Cherie Castellanos NP, USABILITY SPECIALIST-C Attending Provider Active Start: January 27, 2025 End: January 27, 2025 Cherie Castellanos NP, USABILITY SPECIALIST-C Referring Provider Active Start: January 27, 2025 End: January 27, 2025 Lissett Blue MD Primary Care Provider Active St art: January 27, 2025 End: January 27, 2025 INFORMATION SOURCE (unrecogn ized section and content) DATE CREATED AUTHOR 07/31/2024 [facility] DATE CREATED AUTHOR AUTHOR'S ORGANIZ ATION 02/01/2025 [facility] FOR RECORDS PERTAINING TO PATIENTS WHO ARE OR HAVE BEEN ENROLLED IN A CHEMICAL DEPENDENCY/SUBSTANCEABUSE PROGRAM, SOME INFORMATION MAY BE OMITTED. This clinical summary was aggregated from multiple sources. Caution should be exercised in using it in the provision of clinical care. This summary normalizes information from multiple sources, and as a consequence, information in this document may materially change the coding, format and clinical context of patient data. In addition, data may be omitted in some cases. CLINICAL DECISIONS SHOULD BE BASED ON THE PRIMARY CLINICAL RECORDS. [employer] provides no warranty or guarantee of the accuracy or completeness of information in this document.
[2025-02-21 06:08] LABS: QNTFERON TB Mitogen Value > 10.00 IU/mL (.); QNTFERON TB Nil Value 0.03 IU/mL (.); QNTFERON TB1+ Ag Value 0.05 IU/mL (.); QNTFERON TB2+ Ag Value 0.08 IU/mL (.); QNTIFERON TB Positive Criteria Negative (Negative)
== END | disposition home or self-care (01) ==
LOC: MTLAB 07:49
PROVIDERS: PCP Family Medicine; Referring Provider Internal Medicine Rheumatology; Visit Provider Internal Medicine Rheumatology
DX: M06.00 Rheumatoid arthritis without rheumatoid factor, unspecified site (principal); Z79.899 Other long term (current) drug therapy; M35.00 Sjogren syndrome, unspecified
CPT/HCPCS: 36415; 86480

== ENCOUNTER → 2025-05-14 | Outpatient (CLI) | payer OTHER, SELFPAY ==
[2025-05-14 08:28] LABS: Hematocrit 40.2 % (37-47); Hemoglobin 13.2 g/dL (12.0-15.0); Immature Granulocytes Count 0.040 X10^3/uL (0.0-0.0); Mean Corp Hgb Conc 32.8 g/dL (32-36); Mean Corpuscular Volume 91.8 fL (81-99); Mean Platelet Vol. 10.5 fl (6.2-12.0); NRBC Flagged by Analyzer 0 % (0-5); Platelet Count 147 K/mm3 (150-450); RBC Distribution Width CV 13.5 % (11.6-14.6); RBC Distribution Width SD 46.1 fl (35.1-43.9); Red Blood Count 4.38 M/mm3 (4.2-5.4); White Blood Count 5.5 K/mm3 (4.4-11.0)
[2025-05-14 09:01] LABS: AST(SGOT) 43 U/L (<=31); Alanine Aminotransfer ALT/SGPT 47 U/L (<=34); Albumin, Serum 4.5 g/dL (3.4-4.8); Alkaline Phosphatase 51 U/L (35-104); Anion Gap 10 (5-15); BUN 26 mg/dL (4-19); BUN/Creat Ratio 29.9 RATIO (10-20); Calcium,Total 9.2 mg/dL (7.6-11.0); Carbon Dioxide 26.3 mmol/L (21.0-32.0); Chloride 102 mmol/L (98-108); Globulin 2.0 g/dL (2.2-4.2); Glucose 97 mg/dL (70-99); Potassium 4.7 mmol/L (3.3-5.1)
== END | disposition home or self-care (01) ==
LOC: LAB 08:07
PROVIDERS: PCP Family Medicine; Referring Provider Internal Medicine Rheumatology; Visit Provider Internal Medicine Rheumatology
DX: M06.00 Rheumatoid arthritis without rheumatoid factor, unspecified site (principal); Z79.899 Other long term (current) drug therapy; M35.00 Sjogren syndrome, unspecified
CPT/HCPCS: 36415; 80053; 85025